=== PATIENT | female | born 1990 | race Caucasian/White ===

== ENCOUNTER 2016-10-20 11:16 | Emergency (ER) | payer OTHER ==
[2016-10-20 12:28] LABS: MEAN CORPUSCULAR HEMOGLOBIN 24.2 pg (27.0-33.0); MEAN CORPUSCULAR HGB CONC 32.9 g/dl (32.0-36.5); MEAN CORPUSCULAR VOLUME 73.7 fl (80.0-96.0); RED CELL DISTRIBUTION WIDTH 16.6 % (11.5-14.5); WHITE BLOOD COUNT 7.9 K/mm3 (4.0-10.0)
--- NOTE | 2016-10-20 12:45 | REP ---
Clinical: Acute cough . Comparison: None/. Technique: PA and lateral. Findings: The mediastinum and cardiac silhouette are normal. The lung duggan are clear and without acute consolidation, effusion, or pneumothorax. The skeletal structures are intact and normal. Impression: 1. No acute cardiopulmonary process. Signed by Juarez Franklin MD 10/20/2016 12:37 P
--- NOTE | 2016-10-20 13:13 | EDDOCDS ---
Physician Documentation [facility] Name: Dodie Granados Age: 25 yrs Sex: Female : 1990 Arrival Date: 10/20/2016 Time: 11:16 Bed PR Private MD: No Pcp Disposition: 10/20/16 12:47 Discharged to Home/Self Care. Impression: Acute bronchitis, Strain of muscle and tendon of back wall of thorax. - Condition is Stable. - Discharge Instructions: Acute Bronchitis, Back Pain, Adult. - Prescriptions for Ibuprofen 600 mg Oral Tablet - take 1 tablet by ORAL route every 6 hours As needed take with food; 30 tablet. Zithromax Z- Sergio 250 mg Oral Tablet - take 1 tablet by ORAL route as directed for 5 days Day 1- take two tablets once. Day 2, 3, 4 , 5 take one tablet once daily.; 6 tablet. benzonatate 200 mg Oral Capsule - take 1 capsule by ORAL route 3 times per day As needed; 30 capsule. Albuterol Sulfate 90 mcg/actuation Inhalation HFA Aerosol Inhaler - inhale 2 puff by INHALATION route every 4 hours As needed; 1 Inhaler. - Medication Reconciliation, Local Pharmacy Hours, Work Release Form - 1 day form. - [facility]; When: Call to arrange an appointment; Reason: Continuance of care. - Problem is an ongoing problem. - Symptoms are unchanged. Historical: - Allergies: No known drug Allergies; - Home Meds: 1. none - PMHx: none; - PSHx: cesearean section x 3; - Social history: Smoking status: Patient states was never smoker of tobacco. No barriers to communication noted, The patient speaks fluent Kenyan, Speaks appropriately for age. - Family history: Not pertinent. - : The pt / caregiver states he / she is not on anticoagulants. Home medication list is obtained from the patient. - Exposure Risk Screening:: None identified. 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 3 in. (160.02 cm); Pain 6/10; 13:10 BP 128 / 82; Pulse 68; Resp 18; Temp 97.8(O); Pulse Ox 100% on R/A; Pain 7/10; jf3 11:18 Body Mass Index 37.55 (96.16 kg, 160.02 cm) cmb MDM: 12:00 Financial registration complete. lg 12:07 UA Ordered. EDMS 12:07 CBC Ordered. EDMS 12:07 Urine Culture Ordered. EDMS 12:07 Chest, 2 View (pa\E\lat) Ordered. EDMS 12:30 [facility] Payment Agreement was scanned into [employer] and attached to record. lg 12:43 UA Reviewed. ke 12:43 CBC Reviewed. ke Signatures: Dispatcher [employer] EDDolly Clifton, Reg Reg Paul Wasserman, RN RN Evaristo Whitfield, REAL ESTATE CONSULTANT REAL ESTATE CONSULTANT Toby Loaiza,RN RN jf3 The chart was reviewed and I authenticate all verbal orders and agree with the evaluation and treatment provided.Attachments: 12:30 [facility] Payment Agreement lg MTDD
--- NOTE | 2016-10-20 13:13 | EDDOCDS ---
Nurse's Notes [facility] Name: Dodie Granados Age: 25 yrs Sex: Female : 1990 Arrival Date: 10/20/2016 Time: 11:16 Bed PR Private MD: No Pcp Diagnosis: Acute bronchitis;Strain of muscle and tendon of back wall of thorax Presentation: 10/20 11:26 Presenting complaint: Patient states: right flank pain for the last week. started with dy mid-sternal chest pain that is worse with breathing, cough, or palpation. Acute neurological deficits are not present. Mechanism of Injury: No Mechanism of Injury. Adult Sepsis Screening: The patient does not have new or worsening altered mentation. Patient's respiratory rate is less than 22. Systolic blood pressure is greater than 100. Patient has a qSOFA score of 0- Negative Sepsis Screen. Suicide/Homicide risk assessment- the patient denies having any suicidal and/or homicidal ideations and does not present with any other emotional, behavioral or mental health complaints. Status: Patient is not a health services manager or dependent. Transition of care: patient was not received from another setting of care. 11:26 Acuity: CHI Level 4 dy 11:26 Method Of Arrival: Walkin/Carried/Asstd dy Triage Assessment: 11:28 General: Appears in no apparent distress. Pain: Location: right flank and chest. HIV dy screening NA for this visit Offered previously. Musculoskeletal: Circulation, motion, and sensation intact. 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 none - PMHx: none; - PSHx: cesearean section x 3; - Social history: Smoking status: Patient states was never smoker of tobacco. No barriers to communication noted, The patient speaks fluent Swazi, Speaks appropriately for age. - Family history: Not pertinent. - : The pt / caregiver states he / she is not on anticoagulants. Home medication list is obtained from the patient. - Exposure Risk Screening:: None identified. Screenin:10 Screening information is obtained from the patient. Fall risk: No risks identified. jf3 Assistance ADL's: requires no assistance with activities of daily living. Abuse/DV Screen: The patient / caregiver reports he/she is: not in a situation that causes fear, pain or injury. Nutritional screening: No deficits noted. Advance Directives: Currently, there is no health care proxy. home support is adequate. Assessment: 13:10 General: Appears ill, Behavior is cooperative. Pain: Location: posterior aspect of jf3 right lateral abdomen and anterior aspect of right lateral abdomen. Pain: Pain currently is 7 out of 10 on a pain scale. Neurological: Level of Consciousness is awake, alert, Oriented to person, place, time. Cardiovascular: Capillary refill < 3 seconds. Cardiovascular: Chest pain is denied. Respiratory: Airway is patent Respiratory effort is even, unlabored, Respiratory pattern is regular, symmetrical, Denies shortness of breath. Derm: Skin is normal. Vital Signs: 11:18 BP 142 / 77; Pulse 72; Resp 16; Temp 97.8(O); Pulse Ox 100% ; Weight 96.16 kg; Height 5 cmb ft. 3 in. (160.02 cm); Pain 6/10; 13:10 BP 128 / 82; Pulse 68; Resp 18; Temp 97.8(O); Pulse Ox 100% on R/A; Pain 7/10; jf3 11:18 Body Mass Index 37.55 (96.16 kg, 160.02 cm) cmb Vitals: 11:18 Log In Time: October 20, 2016 at 11:16. cmb ED Course: 11:17 Patient visited by Suzi Schmidt. cmb 11:17 Patient moved to Waiting cmb 11:18 Mya Carranza is Private Physician. cmb 11:18 No Pcp is Private Physician. cmb 11:19 Patient moved to Pre RCE cmb 11:27 Triage Initiated dy 11:51 Patient moved to Triage 3 jf3 11:59 [facility] 11:59 Patient visited by Evaristo Crowley FNP. ke 11:59 Patient visited by Evaristo Crowley FNP. ke 12:17 Patient moved to TR4 jf3 12:21 Patient visited by Toby Mora RN. jf3 12:21 CBC Sent. jf3 12:21 Urine Culture Sent. jf3 12:21 UA Sent. jf3 12:21 Labs drawn. (by ED staff). Sent per order to lab. Urine collected. Clean catch jf3 specimen. Urine specimen sent to lab. 12:30 [facility] Payment Agreement was scanned into [employer] and attached to record. lg 12:46 [facility] is Referral Physician. ke 12:53 Patient moved to jf3 13:10 The patient / caregiver is instructed regarding the plan of care and ED course. jf3 13:10 No IV's were initiated during this patient's visit. No procedures done that require jf3 assistance. Order Results: Lab Order: UA; SPEC'M 10/20/16 12:12 Test: APPEARANCE, URINE; Value: HAZY; Range: CLEAR; Status: F Test: COLOR, URINE; Value: YELLOW; Range: YELLOW; Status: F Test: PH,URINE; Value: 5.0; Range: 5.0-9.0; Units: UNITS; Status: F Test: SPECIFIC GRAVITY URINE AUTO; Value: 1.024; Range: 1.002-1.035; Status: F Test: PROTEIN, URINE AUTO; Value: NEGATIVE; Range: NEGATIVE; Units: mg/dL; Status: F Test: GLUCOSE, URINE (UA) AUTO; Value: NEGATIVE; Range: NEGATIVE; Units: mg/dL; Status: F Test: KETONE, URINE AUTO; Value: NEGATIVE; Range: NEGATIVE; Units: mg/dL; Status: F Test: UROBILINOGEN, URINE AUTO; Value: 0.2; Range: 0.0-2.0; Units: mg/dL; Status: F Test: BILIRUBIN, URINE AUTO; Value: NEGATIVE; Range: NEGATIVE; Status: F Test: NITRITE, URINE AUTO; Value: NEGATIVE; Range: NEGATIVE; Status: F Test: LEUKOCYTE ESTERASE, URINE AUTO; Value: NEGATIVE; Range: NEGATIVE; Status: F Test: BLOOD, URINE BLOOD; Value: 1+; Range: NEGATIVE; Abnormal: Above high normal; Status: F Test: WBC, URINE AUTO; Value: 3; Range: 0-3; Units: /HPF; Status: F Test: RBC, URINE AUTO; Value: 3; Range: 0-3; Units: /HPF; Status: F Test: BACTERIA, URINE AUTO; Value: NEGATIVE; Range: NEGATIVE; Status: F Test: SQUAMOUS EPITHELIAL CELL UR AU; Value: 1; Range: 0-6; Units: /HPF; Status: F Test: MUCUS, URINE; Value: SMALL; Range: NEGATIVE; Status: F Test: HYALINE CAST, URINE AUTO; Value: 0; Range: 0-1; Units: /LPF; Status: F Lab Order: CBC; SPEC'M 10/20/16 12:12 Test: WHITE BLOOD COUNT; Value: 7.9; Range: 4.0-10.0; Units: K/mm3; Status: F Test: RED BLOOD COUNT; Value: 4.35; Range: 4.00-5.40; Units: M/mm3; Status: F Test: HEMOGLOBIN; Value: 10.5; Range: 12.0-16.0; Abnormal: Below low normal; Units: g/dl; Status: F Test: HEMATOCRIT; Value: 32.0; Range: 36.0-47.0; Abnormal: Below low normal; Units: %; Status: F Test: MEAN CORPUSCULAR VOLUME; Value: 73.7; Range: 80.0-96.0; Abnormal: Below low normal; Units: fl; Status: F Test: MEAN CORPUSCULAR HEMOGLOBIN; Value: 24.2; Range: 27.0-33.0; Abnormal: Below low normal; Units: pg; Status: F Test: MEAN CORPUSCULAR HGB CONC; Value: 32.9; Range: 32.0-36.5; Units: g/dl; Status: F Test: RED CELL DISTRIBUTION WIDTH; Value: 16.6; Range: 11.5-14.5; Abnormal: Above high normal; Units: %; Status: F Test: PLATELET COUNT, AUTOMATED; Value: 346; Range: 150-450; Units: k/mm3; Status: F Outcome: 12:47 Discharge ordered by Provider. ke 13:12 Discharge Assessment: Patient awake, alert and oriented x 3. No cognitive and/or jf3 functional deficits noted. Patient verbalized understanding of disposition instructions. patient administered narcotics - no. The following High Risk Discharge criteria are identified: None. Discharged to home ambulatory. Condition: stable. Discharge instructions given to patient, Instructed on discharge instructions, follow up and referral plans. medication usage, Demonstrated understanding of instructions, medications, Pt was receptive of discharge instructions/ teaching. No special radiology studies were completed. Property :Personal belongings accompany Pt. 13:12 Patient left the ED. jf3 Signatures: Dolly Caicedo Reg Reg lg Youngs, David RN RN Evaristo Whitfield, PREPARER SAMPLES AND REPAIRS PREPARER SAMPLES AND REPAIRS Suzi Horvath cmb Toby Mora,RN RN jf3 MTDD
--- NOTE | 2016-10-22 14:13 | EDDOCDS ---
Physician Documentation [facility] Name: Dodie Granados Age: 25 yrs Sex: Female : 1990 Arrival Date: 10/20/2016 Time: 11:16 Bed PR Private MD: No Pcp Disposition: 10/20/16 12:47 Discharged to Home/Self Care. Impression: Acute bronchitis, Strain of muscle and tendon of back wall of thorax. - Condition is Stable. - Discharge Instructions: Acute Bronchitis, Back Pain, Adult. - Prescriptions for Ibuprofen 600 mg Oral Tablet - take 1 tablet by ORAL route every 6 hours As needed take with food; 30 tablet. Zithromax Z- Sergio 250 mg Oral Tablet - take 1 tablet by ORAL route as directed for 5 days Day 1- take two tablets once. Day 2, 3, 4 , 5 take one tablet once daily.; 6 tablet. benzonatate 200 mg Oral Capsule - take 1 capsule by ORAL route 3 times per day As needed; 30 capsule. Albuterol Sulfate 90 mcg/actuation Inhalation HFA Aerosol Inhaler - inhale 2 puff by INHALATION route every 4 hours As needed; 1 Inhaler. - Medication Reconciliation, Local Pharmacy Hours, Work Release Form - 1 day form. - [facility]; When: Call to arrange an appointment; Reason: Continuance of care. - Problem is an ongoing problem. - Symptoms are unchanged. Historical: - Allergies: No known drug Allergies; - Home Meds: 1. none - PMHx: none; - PSHx: cesearean section x 3; - Social history: Smoking status: Patient states was never smoker of tobacco. No barriers to communication noted, The patient speaks fluent Tajik, Speaks appropriately for age. - Family history: Not pertinent. - : The pt / caregiver states he / she is not on anticoagulants. Home medication list is obtained from the patient. - Exposure Risk Screening:: None identified. 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 3 in. (160.02 cm); Pain 6/10; 13:10 BP 128 / 82; Pulse 68; Resp 18; Temp 97.8(O); Pulse Ox 100% on R/A; Pain 7/10; jf3 11:18 Body Mass Index 37.55 (96.16 kg, 160.02 cm) cmb MDM: 12:00 Financial registration complete. lg 12:07 UA Ordered. EDMS 12:07 CBC Ordered. EDMS 12:07 Urine Culture Ordered. EDMS 12:07 Chest, 2 View (pa\E\lat) Ordered. EDMS 12:30 [facility] Payment Agreement was scanned into [employer] and attached to record. lg 12:43 UA Reviewed. ke 12:43 CBC Reviewed. ke 15:22 T-Sheet-- Draft Copy was scanned into [employer] and attached to record. gb Signatures: Dispatcher [employer] EDMS Tawny Prabhakar, Reg Reg gb Dolly Caicedo, Reg Reg lg Paul Saeed, RN Evaristo Curry, PARAEDUCATOR PARAEDUCATOR Toby Loaiza,RN RN jf3 The chart was reviewed and I authenticate all verbal orders and agree with the evaluation and treatment provided.Attachments: 12:30 [facility] Payment Agreement lg 15:22 T-Sheet-- Draft Copy gb Chart Complete MTDD
--- NOTE | 2016-10-22 14:13 | EDDOCDS ---
Physician Documentation [facility] Name: Dodie Granados Age: 25 yrs Sex: Female : 1990 Arrival Date: 10/20/2016 Time: 11:16 Bed PR Private MD: No Pcp Disposition: 10/20/16 12:47 Discharged to Home/Self Care. Impression: Acute bronchitis, Strain of muscle and tendon of back wall of thorax. - Condition is Stable. - Discharge Instructions: Acute Bronchitis, Back Pain, Adult. - Prescriptions for Ibuprofen 600 mg Oral Tablet - take 1 tablet by ORAL route every 6 hours As needed take with food; 30 tablet. Zithromax Z- Sergio 250 mg Oral Tablet - take 1 tablet by ORAL route as directed for 5 days Day 1- take two tablets once. Day 2, 3, 4 , 5 take one tablet once daily.; 6 tablet. benzonatate 200 mg Oral Capsule - take 1 capsule by ORAL route 3 times per day As needed; 30 capsule. Albuterol Sulfate 90 mcg/actuation Inhalation HFA Aerosol Inhaler - inhale 2 puff by INHALATION route every 4 hours As needed; 1 Inhaler. - Medication Reconciliation, Local Pharmacy Hours, Work Release Form - 1 day form. - Follow up: [facility]; When: Call to arrange an appointment; Reason: Continuance of care. - Problem is an ongoing problem. - Symptoms are unchanged. Historical: - Allergies: No known drug Allergies; - Home Meds: 1. none - PMHx: none; - PSHx: cesearean section x 3; - Social history: Smoking status: Patient states was never smoker of tobacco. No barriers to communication noted, The patient speaks fluent Tajik, Speaks appropriately for age. - Family history: Not pertinent. - : The pt / caregiver states he / she is not on anticoagulants. Home medication list is obtained from the patient. - Exposure Risk Screening:: None identified. 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 3 in. (160.02 cm); Pain 6/10; 13:10 BP 128 / 82; Pulse 68; Resp 18; Temp 97.8(O); Pulse Ox 100% on R/A; Pain 7/10; jf3 11:18 Body Mass Index 37.55 (96.16 kg, 160.02 cm) cmb MDM: 12:00 Financial registration complete. lg 12:07 UA Ordered. EDMS 12:07 CBC Ordered. EDMS 12:07 Urine Culture Ordered. EDMS 12:07 Chest, 2 View (pa\E\lat) Ordered. EDMS 12:30 [facility] Payment Agreement was scanned into [employer] and attached to record. lg 12:43 UA Reviewed. ke 12:43 CBC Reviewed. ke 15:22 T-Sheet-- Draft Copy was scanned into [employer] and attached to record. gb Signatures: Dispatcher [employer] EDMS Tawny Prabhakar, Reg Reg gb Dolly Caicedo, Reg Reg lg Paul Saeed, RN Evaristo Curry, BIG DATA ANALYTICS LEAD BIG DATA ANALYTICS LEAD Toby Loaiza,RN RN jf3 The chart was reviewed and I authenticate all verbal orders and agree with the evaluation and treatment provided.Attachments: 12:30 [place] Payment Agreement lg 15:22 T-Sheet-- Draft Copy gb Chart Complete MTDD
--- NOTE | 2016-10-22 14:13 | EDDOCDS ---
Nurse's Notes [facility] Name: Dodie Granados Age: 25 yrs Sex: Female : 1990 Arrival Date: 10/20/2016 Time: 11:16 Bed PR Private MD: No Pcp Diagnosis: Acute bronchitis;Strain of muscle and tendon of back wall of thorax Presentation: 10/20 11:26 Presenting complaint: Patient states: right flank pain for the last week. started with dy mid-sternal chest pain that is worse with breathing, cough, or palpation. Acute neurological deficits are not present. Mechanism of Injury: No Mechanism of Injury. Adult Sepsis Screening: The patient does not have new or worsening altered mentation. Patient's respiratory rate is less than 22. Systolic blood pressure is greater than 100. Patient has a qSOFA score of 0- Negative Sepsis Screen. Suicide/Homicide risk assessment- the patient denies having any suicidal and/or homicidal ideations and does not present with any other emotional, behavioral or mental health complaints. Status: Patient is not a transportation services representative or dependent. Transition of care: patient was not received from another setting of care. 11:26 Acuity: CHI Level 4 dy 11:26 Method Of Arrival: Walkin/Carried/Asstd dy Triage Assessment: 11:28 General: Appears in no apparent distress. Pain: Location: right flank and chest. HIV dy screening NA for this visit Offered previously. Musculoskeletal: Circulation, motion, and sensation intact. 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 none - PMHx: none; - PSHx: cesearean section x 3; - Social history: Smoking status: Patient states was never smoker of tobacco. No barriers to communication noted, The patient speaks fluent French, Speaks appropriately for age. - Family history: Not pertinent. - : The pt / caregiver states he / she is not on anticoagulants. Home medication list is obtained from the patient. - Exposure Risk Screening:: None identified. Screenin:10 Screening information is obtained from the patient. Fall risk: No risks identified. jf3 Assistance ADL's: requires no assistance with activities of daily living. Abuse/DV Screen: The patient / caregiver reports he/she is: not in a situation that causes fear, pain or injury. Nutritional screening: No deficits noted. Advance Directives: Currently, there is no health care proxy. home support is adequate. Assessment: 13:10 General: Appears ill, Behavior is cooperative. Pain: Location: posterior aspect of jf3 right lateral abdomen and anterior aspect of right lateral abdomen. Pain: Pain currently is 7 out of 10 on a pain scale. Neurological: Level of Consciousness is awake, alert, Oriented to person, place, time. Cardiovascular: Capillary refill < 3 seconds. Cardiovascular: Chest pain is denied. Respiratory: Airway is patent Respiratory effort is even, unlabored, Respiratory pattern is regular, symmetrical, Denies shortness of breath. Derm: Skin is normal. Vital Signs: 11:18 BP 142 / 77; Pulse 72; Resp 16; Temp 97.8(O); Pulse Ox 100% ; Weight 96.16 kg; Height 5 cmb ft. 3 in. (160.02 cm); Pain 6/10; 13:10 BP 128 / 82; Pulse 68; Resp 18; Temp 97.8(O); Pulse Ox 100% on R/A; Pain 7/10; jf3 11:18 Body Mass Index 37.55 (96.16 kg, 160.02 cm) cmb Vitals: 11:18 Log In Time: October 20, 2016 at 11:16. cmb ED Course: 11:17 Patient visited by Suzi Schmidt. cmb 11:17 Patient moved to Waiting cmb 11:18 Mya Carranza is Private Physician. cmb 11:18 No Pcp is Private Physician. cmb 11:19 Patient moved to Pre RCE cmb 11:27 Triage Initiated dy 11:51 Patient moved to Triage 3 jf3 11:59 [facility] ke 11:59 Patient visited by Evaristo Crowley FNP. ke 11:59 Patient visited by Evaristo Crowley FNP. ke 12:17 Patient moved to TR4 jf3 12:21 Patient visited by Toby Mora RN. jf3 12:21 CBC Sent. jf3 12:21 Urine Culture Sent. jf3 12:21 UA Sent. jf3 12:21 Labs drawn. (by ED staff). Sent per order to lab. Urine collected. Clean catch jf3 specimen. Urine specimen sent to lab. 12:30 [facility] Payment Agreement was scanned into [employer] and attached to record. lg 12:46 [facility] is Referral Physician. ke 12:53 Patient moved to jf3 13:10 The patient / caregiver is instructed regarding the plan of care and ED course. jf3 13:10 No IV's were initiated during this patient's visit. No procedures done that require jf3 assistance. 13:15 Chest, 2 View (pa\E\lat) Returned. EDMS 15:22 T-Sheet-- Draft Copy was scanned into [employer] and attached to record. gb Order Results: Lab Order: UA; SPEC'M 10/20/16 12:12 Test: APPEARANCE, URINE; Value: HAZY; Range: CLEAR; Status: F Test: COLOR, URINE; Value: YELLOW; Range: YELLOW; Status: F Test: PH,URINE; Value: 5.0; Range: 5.0-9.0; Units: UNITS; Status: F Test: SPECIFIC GRAVITY URINE AUTO; Value: 1.024; Range: 1.002-1.035; Status: F Test: PROTEIN, URINE AUTO; Value: NEGATIVE; Range: NEGATIVE; Units: mg/dL; Status: F Test: GLUCOSE, URINE (UA) AUTO; Value: NEGATIVE; Range: NEGATIVE; Units: mg/dL; Status: F Test: KETONE, URINE AUTO; Value: NEGATIVE; Range: NEGATIVE; Units: mg/dL; Status: F Test: UROBILINOGEN, URINE AUTO; Value: 0.2; Range: 0.0-2.0; Units: mg/dL; Status: F Test: BILIRUBIN, URINE AUTO; Value: NEGATIVE; Range: NEGATIVE; Status: F Test: NITRITE, URINE AUTO; Value: NEGATIVE; Range: NEGATIVE; Status: F Test: LEUKOCYTE ESTERASE, URINE AUTO; Value: NEGATIVE; Range: NEGATIVE; Status: F Test: BLOOD, URINE BLOOD; Value: 1+; Range: NEGATIVE; Abnormal: Above high normal; Status: F Test: WBC, URINE AUTO; Value: 3; Range: 0-3; Units: /HPF; Status: F Test: RBC, URINE AUTO; Value: 3; Range: 0-3; Units: /HPF; Status: F Test: BACTERIA, URINE AUTO; Value: NEGATIVE; Range: NEGATIVE; Status: F Test: SQUAMOUS EPITHELIAL CELL UR AU; Value: 1; Range: 0-6; Units: /HPF; Status: F Test: MUCUS, URINE; Value: SMALL; Range: NEGATIVE; Status: F Test: HYALINE CAST, URINE AUTO; Value: 0; Range: 0-1; Units: /LPF; Status: F Lab Order: Urine Culture; SPEC'M 10/20/16 12:12 Test: URINE CULTURE; Value: URINE CULTURE RESULT NO GROWTH CLINICAL SIGNIFICANCE 1 ORGANISM; Status: F Lab Order: CBC; SPEC'M 10/20/16 12:12 Test: WHITE BLOOD COUNT; Value: 7.9; Range: 4.0-10.0; Units: K/mm3; Status: F Test: RED BLOOD COUNT; Value: 4.35; Range: 4.00-5.40; Units: M/mm3; Status: F Test: HEMOGLOBIN; Value: 10.5; Range: 12.0-16.0; Abnormal: Below low normal; Units: g/dl; Status: F Test: HEMATOCRIT; Value: 32.0; Range: 36.0-47.0; Abnormal: Below low normal; Units: %; Status: F Test: MEAN CORPUSCULAR VOLUME; Value: 73.7; Range: 80.0-96.0; Abnormal: Below low normal; Units: fl; Status: F Test: MEAN CORPUSCULAR HEMOGLOBIN; Value: 24.2; Range: 27.0-33.0; Abnormal: Below low normal; Units: pg; Status: F Test: MEAN CORPUSCULAR HGB CONC; Value: 32.9; Range: 32.0-36.5; Units: g/dl; Status: F Test: RED CELL DISTRIBUTION WIDTH; Value: 16.6; Range: 11.5-14.5; Abnormal: Above high normal; Units: %; Status: F Test: PLATELET COUNT, AUTOMATED; Value: 346; Range: 150-450; Units: k/mm3; Status: F Radiology Order: Chest, 2 View (pa\E\lat) Test: Chest, 2 View (pa\E\lat) REASON FOR EXAMINATION: Cough; Clinical: Acute cough .; ; Comparison: None/.; ; Technique: PA and lateral.; ; Findings:; The mediastinum and cardiac silhouette are normal. The lung duggan are clear and; without acute consolidation, effusion, or pneumothorax. The skeletal structures; are intact and normal.; ; Impression:; 1. No acute cardiopulmonary process.; ; ; Signed by; Juarez Franklin MD 10/20/2016 12:37 P; Outcome: 12:47 Discharge ordered by Provider. lady 13:12 Discharge Assessment: Patient awake, alert and oriented x 3. No cognitive and/or jf3 functional deficits noted. Patient verbalized understanding of disposition instructions. patient administered narcotics - no. The following High Risk Discharge criteria are identified: None. Discharged to home ambulatory. Condition: stable. Discharge instructions given to patient, Instructed on discharge instructions, follow up and referral plans. medication usage, Demonstrated understanding of instructions, medications, Pt was receptive of discharge instructions/ teaching. No special radiology studies were completed. Property :Personal belongings accompany Pt. 13:12 Patient left the ED. jf3 Signatures: Dispatcher [employer] EDMS Tawny Prabhakar, Reg Reg gb Dolly Caicedo, Reg Reg lg Paul Saeed, RN RN Evaristo Whitfield, LEATHER PARTS MATCHER LEATHER PARTS MATCHER Suzi Horvath cmToby Moy,RN RN jf3 Chart Complete MTDD
== END 2016-10-20 13:12 | disposition home or self-care (01) ==
LOC: M ED 11:16
DX: J20.9 Acute bronchitis, unspecified (principal)

== ENCOUNTER → 2016-12-28 | Outpatient (CLI) | payer BC ==
[2016-12-28 16:57] LABS: BASO % 0.2 % (0.0-1.0); EOS # 0.2 K/mm3 (0.0-0.50); EOS % 2.1 % (0.0-3.0); LARGE UNSTAINED CELL # 0.1 K/mm3 (0.0-0.4); LYMPH # 1.5 K/mm3 (1.5-6.5); LYMPH % 17.1 % (24.0-44.0); MEAN CORPUSCULAR HEMOGLOBIN 24.3 pg (27.0-33.0); MEAN CORPUSCULAR HGB CONC 31.2 g/dl (32.0-36.5); MONO # 0.4 K/mm3 (0.0-0.8); MONO % 4.5 % (0.0-5.0); NEUTROPHILS # 6.4 K/mm3 (1.8-7.7); PLATELET COUNT, AUTOMATED 283 k/mm3 (150-450); RED CELL DISTRIBUTION WIDTH 14.8 % (11.5-14.5); WHITE BLOOD COUNT 8.6 K/mm3 (4.0-10.0)
[2016-12-29 12:54] LABS: CONTROL LINE INT CTR LINE PRESENT; HIV SCRN NEGATIVE (NEGATIVE); HIV SCRN1 NEGATIVE (NEGATIVE)
== END ==
LOC: M WUC 12:04
PROVIDERS: ATTEND Nurse Practitioner Women's Health
DX: Z11.3 Encounter for screening for infections with a predominantly sexual mode of transmission (principal)

== ENCOUNTER 2017-01-09 00:14 | Emergency (ER) | payer BC ==
[~2017-01-09] VITALS: Ht 160 cm; Wt 89.8 kg
[2017-01-09 00:18] VITALS: BP 147/90
--- NOTE | 2017-01-09 08:02 | REP ---
Clinical: Trauma. Technique: AP, lateral, bilateral oblique views left second through fourth digits. Findings: The osseous structures and joint spaces are intact and normal. There is no evidence for acute fracture or dislocation. Surrounding soft tissues are unremarkable. No subcutaneous emphysema or radiodense foreign body. Impression: No acute fracture or dislocation. Signed by Juarez Franklin MD 01/09/2017 07:54 A
== END 2017-01-09 01:49 | disposition home or self-care (01) ==
LOC: M ED 01:34
DX: S60.042A Contusion of left ring finger without damage to nail, initial encounter (principal); S60.052A Contusion of left little finger without damage to nail, initial encounter; W22.8XXA Striking against or struck by other objects, initial encounter; Y92.89 Other specified places as the place of occurrence of the external cause; Y93.89 Activity, other specified; Y99.0 Civilian activity done for income or pay

== ENCOUNTER → 2017-05-25 | Outpatient (REF) | payer BC, OTHER ==
[2017-05-25 18:42] LABS: ALBUMIN 3.8 GM/DL (3.2-5.2); ALBUMIN/GLOBULIN RATIO 0.93 (1.00-1.93); ALKALINE PHOSPHATASE 81 U/L (45-117); ALT/SGPT 38 U/L (12-78); ANION GAP 12 MEQ/L (8-16); AST/SGOT 19 U/L (15-37); BILIRUBIN,TOTAL 0.5 MG/DL (0.2-1.0); BLOOD UREA NITROGEN 16 MG/DL (7-18); CALCIUM LEVEL 8.7 MG/DL (8.5-10.1); CARBON DIOXIDE LEVEL 22 MEQ/L (21-32); CHLORIDE LEVEL 110 MEQ/L (98-107); CHOLESTEROL LEVEL 124 MG/DL (<200); GLOMERULAR FILTRATION RATE > 60.0 (>60); GLUCOSE, FASTING 90 MG/DL (70-105); POTASSIUM SERUM 4.5 MEQ/L (3.5-5.1); SODIUM LEVEL 144 MEQ/L (136-145); TOTAL PROTEIN 7.9 GM/DL (6.4-8.2); TRIGLYCERIDES LEVEL 45 MG/DL (<150)
[2017-05-25 18:58] LABS: ADD MANUAL DIFFER YES; MEAN CORPUSCULAR HEMOGLOBIN 27.1 pg (27.0-33.0); MEAN CORPUSCULAR HGB CONC 33.6 g/dl (32.0-36.5); MEAN CORPUSCULAR VOLUME 80.7 fl (80.0-96.0); PLATELET COUNT, AUTOMATED 294 k/mm3 (150-450); RED CELL DISTRIBUTION WIDTH 13.9 % (11.5-14.5); WHITE BLOOD COUNT 6.9 K/mm3 (4.0-10.0)
[2017-05-25 19:53] LABS: BANDS 2 % (< 11); EOSINOPHILS 10 % (0-5)
== END ==
LOC: M LAB REF 17:25
PROVIDERS: ATTEND Nurse Practitioner Family
DX: R63.4 Abnormal weight loss (principal); Z13.220 Encounter for screening for lipoid disorders; D64.9 Anemia, unspecified; F41.8 Other specified anxiety disorders

== ENCOUNTER → 2017-08-26 | Outpatient (REF) | payer OTHER, MEDICAID | LOC: M LAB REF 16:13 | PROVIDERS: ATTEND Family Medicine Addiction Medicine | DX: J02.8 Acute pharyngitis due to other specified organisms (principal) ==

== ENCOUNTER → 2017-11-03 | Outpatient (CLI) | payer OTHER, MEDICAID ==
[2017-11-03 19:02] LABS: ALBUMIN 4.3 GM/DL (3.2-5.2); ALBUMIN/GLOBULIN RATIO 1.02 (1.00-1.93); ALKALINE PHOSPHATASE 74 U/L (45-117); ALT/SGPT 20 U/L (12-78); ANION GAP 6 MEQ/L (8-16); AST/SGOT 11 U/L (7-37); BILIRUBIN,TOTAL 0.5 MG/DL (0.2-1.0); BLOOD UREA NITROGEN 11 MG/DL (7-18); CARBON DIOXIDE LEVEL 27 MEQ/L (21-32); CHLORIDE LEVEL 107 MEQ/L (98-107); CREATININE FOR GFR 0.64 MG/DL (0.55-1.02); GLOMERULAR FILTRATION RATE > 60.0 (>60); GLUCOSE, FASTING 90 MG/DL (70-100); POTASSIUM SERUM 4.2 MEQ/L (3.5-5.1); SODIUM LEVEL 140 MEQ/L (136-145); TOTAL PROTEIN 8.5 GM/DL (6.4-8.2)
[2017-11-03 20:27] LABS: BASO # 0.1 10^3/uL (0.0-0.2); BASO % 0.6 % (0.0-1.0); EOS # 0.3 10^3/uL (0.0-0.50); EOS % 3.1 % (0.0-3.0); HEMATOCRIT 38.1 % (36.0-47.0); HEMOGLOBIN 12.5 g/dl (12.0-16.0); IMMATURE GRANULOCYTE % 0.2 % (0-0); LYMPH # 3.1 10^3/uL (1.5-6.5); MEAN CORPUSCULAR HEMOGLOBIN 26.9 pg (27.0-33.0); MEAN CORPUSCULAR HGB CONC 32.8 g/dl (32.0-36.5); MEAN CORPUSCULAR VOLUME 81.9 fl (80.0-96.0); MONO # 0.5 10^3/uL (0.0-0.8); MONO % 5.4 % (0.0-5.0); NEUTROPHILS # 5.6 10^3/uL (1.8-7.7); NEUTROPHILS % 58.7 % (36.0-66.0); PLATELET COUNT, AUTOMATED 351 10^3/uL (150-450); RED BLOOD COUNT 4.65 10^6/uL (4.00-5.40); RED CELL DISTRIBUTION WIDTH 13.8 % (11.5-14.5); WHITE BLOOD COUNT 9.6 10^3/uL (4.0-10.0)
[2017-11-04 10:28] LABS: CONTROL LINE MONO INT CTR LINE PRESENT; MONO SCRN NEGATIVE (NEGATIVE)
== END ==
LOC: M LAB 17:26
DX: J02.8 Acute pharyngitis due to other specified organisms (principal)
CPT/HCPCS: 80053

== ENCOUNTER 2018-03-18 15:26 | Emergency (ER) | payer OTHER, MEDICAID | END 2018-03-18 16:53 | disposition home or self-care (01) | LOC: M ED 15:26 | DX: H66.91 Otitis media, unspecified, right ear (principal); J02.9 Acute pharyngitis, unspecified; Z20.828 Contact with and (suspected) exposure to other viral communicable diseases | CPT/HCPCS: 87880 ==

== ENCOUNTER 2018-04-06 19:47 | Emergency (ER) | payer OTHER ==
[2018-04-06 20:53] LABS: KETONE, URINE AUTO RFX NEGATIVE (NEGATIVE); LEUKOCYTE ESTERASE UR AUTO RFX NEGATIVE (NEGATIVE); MUCUS, URINE RFX SMALL (NEGATIVE); NITRITE, URINE AUTO RFX NEGATIVE (NEGATIVE); RBC, URINE AUTO RFX 4 /HPF (0-3); SPECIFIC GRAVITY UR AUTO RFX 1.028 (1.002-1.035); SQUAM EPITHELIAL CELL UR AURFX 2 /HPF (0-6); WBC, URINE AUTO RFX 0 /HPF (0-3)
[2018-04-07 02:25] LABS: BEDSIDE GLUCOSE 117 MG/DL (70-105)
== END 2018-04-06 21:48 | disposition home or self-care (01) ==
LOC: M ED 19:47
DX: N92.6 Irregular menstruation, unspecified (principal); R51 Headache; Z87.891 Personal history of nicotine dependence
CPT/HCPCS: 81001

== ENCOUNTER 2018-12-10 17:48 | Emergency (ER) | payer OTHER ==
[~2018-12-10] VITALS: Ht 160 cm; Wt 68.2 kg
[~2018-12-10 17:48] MED LIST: AMOX875T PO; MAGICMW SS
[2018-12-10 17:49] VITALS: BP 124/86
[2018-12-10] MEDS ORDERED: CYMB60CA3 PO (17:52)
[2018-12-10] MEDS ORDERED: ONDANSETRON 4 MG ORAL DISINTEGRATING TAB (Q0162 PER 1MG) PO ONE (18:15)
[2018-12-10] MEDS ORDERED: ACETAMINOPHEN 325 MG TAB PO ONE (18:15)
[2018-12-10 18:37] LABS: INFLUENZA A AMPLIFICATION POSITIVE (NEGATIVE); INFLUENZA B AMPLIFICATION NEGATIVE (NEGATIVE)
[2018-12-10] MEDS ORDERED: OSEL75CA PO (18:43)
[2018-12-10] MEDS ORDERED: ONDA4TAB6 PO (18:43)
[2018-12-10] MEDS ORDERED: OSELTAMIVIR PHOSPHATE 75 MG CAP (TAMIFLU) PO ONE (18:45)
== END 2018-12-10 18:58 | disposition home or self-care (01) ==
LOC: M ED 17:48
DX: J09.X9 Influenza due to identified novel influenza A virus with other manifestations (principal); F17.210 Nicotine dependence, cigarettes, uncomplicated; Z79.899 Other long term (current) drug therapy
CPT/HCPCS: 87502; 99283; Q0162

== ENCOUNTER → 2019-01-18 | Outpatient (REF) | payer OTHER ==
[~2019-01-18] MED LIST changes: +CYMB60CA3 PO; +ONDA4TAB6 PO; +OSEL75CA PO
[2019-01-19 06:29] LABS: HEPATITIS C VIRUS ABY INDEX 0.1 INDEX (<0.8); HIV 1&2 SCREEN CENTAUR NEGATIVE (NEGATIVE)
[2019-01-20 08:10] LABS: HSV TYPE II IgG SPECIFIC <0.91 index (0.00-0.90)
== END ==
LOC: M SFHCPLAZ 12:50
PROVIDERS: ATTEND Family Medicine
DX: Z20.2 Contact with and (suspected) exposure to infections with a predominantly sexual mode of transmission (principal)

== ENCOUNTER 2019-01-20 10:08 | Emergency (ER) | payer OTHER ==
[~2019-01-20] VITALS: Ht 160 cm; Wt 87.7 kg
[2019-01-20 10:53] LABS: URINE PREG TEST NEGATIVE (NEGATIVE)
[2019-01-20] MEDS ORDERED: metroNIDAZOLE (FLAGYL) 500 MG TAB PO ONE (11:30)
[2019-01-20 11:38] LABS: BILIRUBIN, URINE MANUAL NEGATIVE (NEGATIVE); GLUCOSE, URINE (UA) MANUAL NEGATIVE (NEGATIVE); KETONE, URINE MANUAL NEGATIVE (NEGATIVE); UROBILINOGEN, URINE MANUAL NORMAL (NORMAL)
[2019-01-20 11:48] LABS: SQUAMOUS EPITHELIAL CELL URINE SMALL AMOUNT /hpf (SMALL AMT); TRICHOMONAS, URINE MOD AMOUNT
[2019-01-20 11:49] LABS: BACTERIA, URINE SMALL AMOUNT
[2019-01-20] MEDS ORDERED: LIDOCAINE 1% SDV 5 ML VIAL DILUENT ONE (12:15)
[2019-01-20] MEDS ORDERED: AZITHROMYCIN 250 MG TAB PO ONE (12:15)
[2019-01-20] MEDS ORDERED: cefTRIAXone SOD 250 MG VIAL (J0696) IM ONE (12:15)
[2019-01-20 12:17] VITALS: BP 138/85
[2019-01-20 12:19] LABS: CHLAMYDIA DNA AMPLIFICATION NEGATIVE (NEGATIVE); GC DNA AMPLIFICATION NEGATIVE (NEGATIVE)
[2019-01-20 13:04] LABS: HYALINE CAST, URINE NONE SEEN /lpf (0-1)
== END 2019-01-20 12:42 | disposition home or self-care (01) ==
LOC: M ED 10:08
DX: A59.03 Trichomonal cystitis and urethritis (principal); N76.0 Acute vaginitis; Z72.0 Tobacco use; Z79.899 Other long term (current) drug therapy
CPT/HCPCS: 81000; 84703; 87086; 87210; 87491; 87591; 96372; 99284; J0696

== ENCOUNTER → 2019-01-29 | Outpatient (REF) | payer OTHER ==
[2019-01-30 11:32] LABS: CHLAMYDIA DNA AMPLIFICATION NEGATIVE (NEGATIVE); GC DNA AMPLIFICATION NEGATIVE (NEGATIVE)
== END ==
LOC: M SFHCPLAZ 09:47
PROVIDERS: ATTEND Family Medicine
DX: A59.9 Trichomoniasis, unspecified (principal)

== ENCOUNTER 2019-04-23 16:07 | Emergency (ER) | payer OTHER ==
[~2019-04-23] VITALS: Ht 160 cm; Wt 98.2 kg
[2019-04-23 17:00] LABS: BASO # 0.1 10^3/uL (0.0-0.2); BASO % 0.7 % (0.0-1.0); EOS # 0.4 10^3/uL (0.0-0.50); EOS % 4.5 % (0.0-3.0); HEMOGLOBIN 12.1 g/dl (12.0-15.5); LYMPH # 2.1 10^3/uL (1.5-6.5); LYMPH % 24.5 % (24.0-44.0); MEAN CORPUSCULAR HEMOGLOBIN 27.8 pg (27.0-33.0); MEAN CORPUSCULAR HGB CONC 32.7 g/dl (32.0-36.5); MEAN CORPUSCULAR VOLUME 85.1 fl (80.0-96.0); MONO # 0.7 10^3/uL (0.0-0.8); MONO % 7.7 % (0.0-5.0); NEUTROPHILS # 5.2 10^3/uL (1.8-7.7); NEUTROPHILS % 62.1 % (36.0-66.0); PLATELET COUNT, AUTOMATED 333 10^3/uL (150-450); RED BLOOD COUNT 4.35 10^6/uL (4.00-5.40); WHITE BLOOD COUNT 8.4 10^3/uL (4.0-10.0)
[2019-04-23 17:34] LABS: ALBUMIN 3.7 GM/DL (3.2-5.2); ALT/SGPT 38 U/L (12-78); BILIRUBIN,DIRECT < 0.1 MG/DL (0.0-0.2); BILIRUBIN,TOTAL 0.4 MG/DL (0.2-1.0); BLOOD UREA NITROGEN 13 MG/DL (7-18); CALCIUM LEVEL 9.4 MG/DL (8.5-10.1); CARBON DIOXIDE LEVEL 26 MEQ/L (21-32); CHLORIDE LEVEL 106 MEQ/L (98-107); CREATININE FOR GFR 0.68 MG/DL (0.55-1.30); GLOMERULAR FILTRATION RATE > 60.0 (>60); GLUCOSE, FASTING 90 MG/DL (70-100); LIPASE 119 U/L (73-393); POTASSIUM SERUM 4.5 MEQ/L (3.5-5.1); SODIUM LEVEL 139 MEQ/L (136-145); TOTAL PROTEIN 7.8 GM/DL (6.4-8.2)
[2019-04-23] MEDS ORDERED: KETOROLAC 30 MG/ML VIAL (J1885) IV ONE (18:15)
[2019-04-23] MEDS ORDERED: NS 1,000 ML IV ONE (18:15)
--- NOTE | 2019-04-23 19:19 | REPVR ---
EXAM: CT Abdomen and Pelvis Without Contrast EXAM DATE/TIME: 04/23/2019 6:08 PM CLINICAL HISTORY: 28 years old, female; Abdominal pain; Flank; Right; Additional info: R flank pain, R/O stone TECHNIQUE: Imaging protocol: Axial computed tomography images of the abdomen and pelvis without contrast. Coronal and sagittal reformatted images were created and reviewed. Radiation optimization: All CT scans at this facility use at least one of these dose optimization techniques: automated exposure control; mA and/or kV adjustment per patient size (includes targeted exams where dose is matched to clinical indication); or iterative reconstruction. COMPARISON: US OBS FOLL UP OR REPEAT EACH GES 01/15/2016 12:46 PM FINDINGS: Liver: Mild hepatomegaly. Gallbladder and bile ducts: No radiodense gallstones. No biliary ductal dilatation. Pancreas: Unremarkable. Spleen: Unremarkable. Adrenals: Unremarkable. Kidneys and ureters: Punctate nonobstructing left renal calculus. No hydronephrosis. Stomach and bowel: Moderate amount of retained stool in the colon. No obstruction. No bowel wall thickening. No pneumatosis. Appendix: Normal. Intraperitoneal space: No free fluid. No organized fluid collection. No free air. Vasculature: Unremarkable. No aneurysm. Lymph nodes: Small mesenteric lymph nodes, nonspecific in appearance. No pathologically enlarged lymph nodes. Bladder: Unremarkable. Reproductive: Unremarkable. Bones/joints: No acute osseous abnormality. Soft tissues: Diastases of the rectus abdominis musculature with a small associated fat containing umbilical hernia. IMPRESSION: 1. Limited noncontrast examination without CT evidence of acute intra-abdominal or pelvic pathology. 2. Additional findings, as above. Electronically signed by: Timi Balderas On 04/23/2019 19:19:13 PM
[2019-04-23 20:07] VITALS: BP 128/79
== END 2019-04-23 20:49 | disposition home or self-care (01) ==
LOC: M ED 16:07
DX: G44.209 Tension-type headache, unspecified, not intractable (principal); K59.00 Constipation, unspecified; N20.0 Calculus of kidney; K42.9 Umbilical hernia without obstruction or gangrene; D50.9 Iron deficiency anemia, unspecified; Z79.899 Other long term (current) drug therapy; F17.210 Nicotine dependence, cigarettes, uncomplicated
CPT/HCPCS: 74176; 80048; 80076; 81001; 83690; 84702; 85025; 96361; 96374; 99284; J1885

== ENCOUNTER 2019-05-19 09:54 | Emergency (ER) | payer OTHER ==
[~2019-05-19] VITALS: Ht 160 cm; Wt 96.4 kg
[2019-05-19] MEDS ORDERED: AMOXICILLIN (09:59)
[2019-05-19 10:57] LABS: BASO # 0.1 10^3/uL (0.0-0.2); BASO % 0.6 % (0.0-1.0); EOS # 0.4 10^3/uL (0.0-0.50); EOS % 2.9 % (0.0-3.0); HEMATOCRIT 37.8 % (36.0-47.0); HEMOGLOBIN 12.5 g/dl (12.0-15.5); LYMPH # 2.2 10^3/uL (1.5-6.5); LYMPH % 17.4 % (24.0-44.0); MEAN CORPUSCULAR HEMOGLOBIN 27.7 pg (27.0-33.0); MEAN CORPUSCULAR HGB CONC 33.1 g/dl (32.0-36.5); MEAN CORPUSCULAR VOLUME 83.6 fl (80.0-96.0); MONO # 0.9 10^3/uL (0.0-0.8); NEUTROPHILS % 71.5 % (36.0-66.0); PLATELET COUNT, AUTOMATED 384 10^3/uL (150-450); RED BLOOD COUNT 4.52 10^6/uL (4.00-5.40); WHITE BLOOD COUNT 12.6 10^3/uL (4.0-10.0)
[2019-05-19] MEDS ORDERED: ONDANSETRON 4MG/2ML VIAL (J2405) IV ONE (11:00)
[2019-05-19 11:26] LABS: ALBUMIN 3.8 GM/DL (3.2-5.2); ALT/SGPT 28 U/L (12-78); BILIRUBIN,DIRECT < 0.1 MG/DL (0.0-0.2); BILIRUBIN,TOTAL 0.3 MG/DL (0.2-1.0); BLOOD UREA NITROGEN 9 MG/DL (7-18); CALCIUM LEVEL 9.6 MG/DL (8.5-10.1); CARBON DIOXIDE LEVEL 28 MEQ/L (21-32); CHLORIDE LEVEL 107 MEQ/L (98-107); CREATININE FOR GFR 0.68 MG/DL (0.55-1.30); GLOMERULAR FILTRATION RATE > 60.0 (>60); GLUCOSE, FASTING 92 MG/DL (70-100); LIPASE 96 U/L (73-393); POTASSIUM SERUM 4.4 MEQ/L (3.5-5.1); SODIUM LEVEL 139 MEQ/L (136-145); TOTAL PROTEIN 8.4 GM/DL (6.4-8.2)
[2019-05-19] MEDS ORDERED: ZOFR4TAB16 PO (13:23)
[2019-05-19 14:13] VITALS: BP 130/85
== END 2019-05-19 13:56 | disposition home or self-care (01) ==
LOC: M ED 09:54
DX: R11.10 Vomiting, unspecified (principal); R19.7 Diarrhea, unspecified; Z79.899 Other long term (current) drug therapy; F17.210 Nicotine dependence, cigarettes, uncomplicated
CPT/HCPCS: 80048; 80076; 83690; 84702; 85025; 96374; 99284; J2405

== ENCOUNTER → 2019-06-19 | Outpatient (REF) | payer OTHER ==
[~2019-06-19] MED LIST changes: +AMOXICILLIN; +ZOFR4TAB16 PO
[2019-06-19 13:33] LABS: FREE T4 0.91 NG/DL (0.76-1.46); THYROID STIMULATING HORMONE 1.2 uIU/ML (0.358-3.740)
== END ==
LOC: M SFHCPLAZ 10:39
PROVIDERS: ATTEND Family Medicine
DX: R68.89 Other general symptoms and signs (principal)

== ENCOUNTER → 2019-07-12 | Outpatient (REF) | payer OTHER ==
[2019-07-12 13:41] LABS: BASO # 0.1 10^3/uL (0.0-0.2); BASO % 0.8 % (0.0-1.0); EOS # 0.4 10^3/uL (0.0-0.5); EOS % 4.4 % (0.0-3.0); HEMATOCRIT 36.6 % (36.0-47.0); HEMOGLOBIN 12.2 g/dl (12.0-15.5); LYMPH % 25.2 % (24.0-44.0); MEAN CORPUSCULAR HEMOGLOBIN 28.5 pg (27.0-33.0); MEAN CORPUSCULAR HGB CONC 33.3 g/dl (32.0-36.5); MEAN CORPUSCULAR VOLUME 85.5 fl (80.0-96.0); MONO # 0.6 10^3/uL (0.0-0.8); MONO % 7.4 % (0.0-5.0); NEUTROPHILS # 4.9 10^3/uL (1.5-8.5); NEUTROPHILS % 61.7 % (36.0-66.0); PLATELET COUNT, AUTOMATED 347 10^3/uL (150-450); RED BLOOD COUNT 4.28 10^6/uL (4.00-5.40); WHITE BLOOD COUNT 7.9 10^3/uL (4.0-10.0)
[2019-07-12 14:07] LABS: BLOOD UREA NITROGEN 14 MG/DL (7-18); CALCIUM LEVEL 9.4 MG/DL (8.5-10.1); CARBON DIOXIDE LEVEL 31 MEQ/L (21-32); CHLORIDE LEVEL 100 MEQ/L (98-107); CREATININE FOR GFR 0.64 MG/DL (0.55-1.30); FERRITIN 13 NG/ML (8-252); GLOMERULAR FILTRATION RATE > 60.0 (>60); GLUCOSE, FASTING 72 MG/DL (70-100); IRON (FE) 70 UG/DL (50-170); MAGNESIUM LEVEL 1.9 MG/DL (1.8-2.4); PERCENT SATURATION 18.4 % (13.2-45.0); PHOSPHORUS LEVEL 4.2 MG/DL (2.5-4.9); SODIUM LEVEL 138 MEQ/L (136-145); TOTAL IRON BINDING CAPACITY 381 UG/DL (250-450)
== END ==
LOC: M SFHCPLAZ 11:32
PROVIDERS: ATTEND Family Medicine
DX: R53.83 Other fatigue (principal); G47.10 Hypersomnia, unspecified

== ENCOUNTER → 2019-09-12 | Outpatient (CLI) | payer OTHER ==
--- NOTE | 2019-09-12 10:53 | REP ---
Clinical: Right knee pain Technique: AP, lateral, bilateral oblique and sunrise views right knee . Findings: The osseous structures and joint spaces are intact and normal. There is no evidence for acute fracture or dislocation. No joint effusion is appreciated. Surrounding soft tissues are unremarkable. No subcutaneous emphysema or radiodense foreign body. Impression: Normal examination. No acute fracture or dislocation. Electronically Signed by Juarez Franklin MD 09/12/2019 10:45 A
[2019-09-12 11:30] LABS: BLOOD UREA NITROGEN 11 MG/DL (7-18); CALCIUM LEVEL 9.2 MG/DL (8.5-10.1); CARBON DIOXIDE LEVEL 28 MEQ/L (21-32); CHLORIDE LEVEL 104 MEQ/L (98-107); CREATININE FOR GFR 0.68 MG/DL (0.55-1.30); GLOMERULAR FILTRATION RATE > 60.0 (>60); GLUCOSE, FASTING 94 MG/DL (70-100); POTASSIUM SERUM 4.2 MEQ/L (3.5-5.1); SODIUM LEVEL 140 MEQ/L (136-145)
[2019-09-12 11:31] LABS: ALBUMIN 3.6 GM/DL (3.2-5.2); ALT/SGPT 26 U/L (12-78); BILIRUBIN,TOTAL 0.7 MG/DL (0.2-1.0); TOTAL PROTEIN 7.8 GM/DL (6.4-8.2)
== END ==
LOC: M LAB 09:34
PROVIDERS: ATTEND Obstetrics & Gynecology
DX: M25.561 Pain in right knee (principal); Z13.1 Encounter for screening for diabetes mellitus

== ENCOUNTER → 2019-11-08 | Outpatient (CLI) | payer OTHER ==
--- NOTE | 2019-11-08 10:46 | REP ---
MRI RIGHT KNEE: TECHNIQUE: Axial proton density fat saturation, sagittal proton density T2 STIR, water excitation, coronal proton density, proton density fat saturation. Menisci are intact with no evidence of a meniscal tear. The cruciate and collateral ligaments are intact. The extensor mechanism is intact. No osteochondral defect is seen. There is some minimal marrow edema in the peripheral aspect of the medial tibial plateau, which is nonspecific. This could indicate a mild bone bruise. There is a mild to moderate joint effusion. No popliteal cyst is seen. Medial and lateral patellar retinacula are intact. IMPRESSION: No evidence of internal derangement. Possible mild bone bruise peripheral medial tibial plateau. Mild to moderate joint effusion. Electronically Signed by Adalberto Rosales MD 11/09/2019 11:22 A
== END ==
LOC: M RAD 09:10
PROVIDERS: ATTEND Obstetrics & Gynecology
DX: S63.241A Subluxation of distal interphalangeal joint of left index finger, initial encounter (principal); M25.461 Effusion, right knee; X58.XXXA Exposure to other specified factors, initial encounter; Y92.9 Unspecified place or not applicable

== ENCOUNTER → 2020-01-17 | Outpatient (REF) | payer OTHER | LOC: M SFHCPLAZ 13:06 | PROVIDERS: ATTEND Family Medicine | DX: H65.01 Acute serous otitis media, right ear (principal) ==

== ENCOUNTER 2020-03-27 22:00 | Emergency (ER) | payer OTHER ==
[~2020-03-27] VITALS: Ht 160 cm; Wt 106.5 kg
[2020-03-28 00:13] LABS: BASO % 0.3 % (0.0-1.0); EOS % 0.1 % (0.0-3.0); HEMATOCRIT 35.6 % (36.0-47.0); HEMOGLOBIN 11.3 g/dl (12.0-15.5); LYMPH # 1.8 10^3/uL (1.5-5.0); LYMPH % 12.5 % (24.0-44.0); MEAN CORPUSCULAR HEMOGLOBIN 25.3 pg (27.0-33.0); MEAN CORPUSCULAR HGB CONC 31.7 g/dl (32.0-36.5); MEAN CORPUSCULAR VOLUME 79.6 fl (80.0-96.0); MONO # 0.8 10^3/uL (0.0-0.8); MONO % 5.2 % (0.0-5.0); NEUTROPHILS # 11.6 10^3/uL (1.5-8.5); PLATELET COUNT, AUTOMATED 395 10^3/uL (150-450); RED BLOOD COUNT 4.47 10^6/uL (4.00-5.40); WHITE BLOOD COUNT 14.3 10^3/uL (4.0-10.0)
[2020-03-28 00:22] LABS: APPEARANCE, URINE HAZY (CLEAR); BACTERIA, URINE AUTO 1+ (NEGATIVE); BILIRUBIN, URINE AUTO NEGATIVE (NEGATIVE); BLOOD, URINE BLOOD 2+ (NEGATIVE); COLOR, URINE YELLOW (YELLOW); GLUCOSE, URINE (UA) AUTO NEGATIVE (NEGATIVE); KETONE, URINE AUTO TRACE mg/dL (NEGATIVE); LEUKOCYTE ESTERASE, URINE AUTO NEGATIVE (NEGATIVE); MUCUS, URINE SMALL (NEGATIVE); NITRITE, URINE AUTO NEGATIVE (NEGATIVE); PROTEIN, URINE AUTO 2+ mg/dL (NEGATIVE); RBC, URINE AUTO 23 /HPF (0-3); SPECIFIC GRAVITY URINE AUTO 1.029 (1.002-1.035); SQUAMOUS EPITHELIAL CELL UR AU 6 /HPF (0-6); UROBILINOGEN, URINE AUTO 0.2 mg/dL (0.0-2.0); WBC, URINE AUTO 1 /HPF (0-3)
[2020-03-28 00:33] LABS: HCG, SERUM QUALITATIVE NEGATIVE (NEGATIVE)
[2020-03-28 00:39] LABS: ALBUMIN 3.7 GM/DL (3.2-5.2); ALT/SGPT 41 U/L (12-78); BILIRUBIN,DIRECT < 0.1 MG/DL (0.0-0.2); BILIRUBIN,TOTAL 0.2 MG/DL (0.2-1.0); BLOOD UREA NITROGEN 14 MG/DL (7-18); CALCIUM LEVEL 9.6 MG/DL (8.5-10.1); CARBON DIOXIDE LEVEL 27 MEQ/L (21-32); CHLORIDE LEVEL 105 MEQ/L (98-107); CREATININE FOR GFR 0.69 MG/DL (0.55-1.30); GLOMERULAR FILTRATION RATE > 60.0 (>60); GLUCOSE, FASTING 96 MG/DL (70-100); LIPASE 79 U/L (73-393); POTASSIUM SERUM 4.4 MEQ/L (3.5-5.1); SODIUM LEVEL 137 MEQ/L (136-145); TOTAL PROTEIN 8.5 GM/DL (6.4-8.2)
--- NOTE | 2020-03-28 00:55 | REPVR ---
PROCEDURE INFORMATION: Exam: CT Abdomen And Pelvis Without Contrast Exam date and time: 03/28/2020 12:35 AM Age: 29 years old Clinical indication: Abdominal pain; Flank; Right; Additional info: R colic TECHNIQUE: Imaging protocol: Computed tomography of the abdomen and pelvis without contrast. Radiation optimization: All CT scans at this facility use at least one of these dose optimization techniques: automated exposure control; mA and/or kV adjustment per patient size (includes targeted exams where dose is matched to clinical indication); or iterative reconstruction. COMPARISON: CT ABD PELVIS W/O CONTRAST 04/23/2019 6:15 PM FINDINGS: Liver: Normal. No mass. Gallbladder and bile ducts: Normal. No calcified stones. No ductal dilation. Pancreas: Normal. No ductal dilation. Spleen: Normal. No splenomegaly. Adrenals: Normal. No mass. Kidneys and ureters: Normal. No hydronephrosis. Stomach and bowel: Unremarkable. No obstruction. No mucosal thickening. Appendix: No evidence of appendicitis. Intraperitoneal space: Unremarkable. No free air. No significant fluid collection. Vasculature: Unremarkable. No abdominal aortic aneurysm. Lymph nodes: Unremarkable. No enlarged lymph nodes. Bladder: Unremarkable as visualized. Reproductive: Prominent uterus. There is the cystic structure in the right adnexa measuring 22 x 21 mm may represent ovarian cyst, slightly more prominent than prior study. Left adnexa is unremarkable. This may be causing patient's pain, further evaluation with ultrasound is recommended. Bones/joints: Unremarkable. No acute fracture. Soft tissues: Diastasis of the rectus abdominus musculature with a small associated fat containing umbilical hernia, similar to previous study. IMPRESSION: Prominent uterus. There is the cystic structure in the right adnexa measuring 22 x 21 mm may represent ovarian cyst, slightly more prominent than prior study. Left adnexa is unremarkable. This may be causing patient's pain, further evaluation with ultrasound is recommended. Electronically signed by: Veronica Soto On 03/28/2020 00:55:06 AM
[2020-03-28] MEDS ORDERED: KETOROLAC 30 MG/ML 1ML VIAL IV ONE (01:15)
[2020-03-28 01:31] VITALS: BP 138/82
== END 2020-03-28 01:32 | disposition home or self-care (01) ==
LOC: M ED 22:00
DX: N83.291 Other ovarian cyst, right side (principal); F32.9 Major depressive disorder, single episode, unspecified; F17.200 Nicotine dependence, unspecified, uncomplicated
CPT/HCPCS: 74176; 80048; 80076; 81001; 83690; 84703; 85025; 96374; 99284; J1885

== ENCOUNTER 2020-03-31 14:10 | Emergency (ER) | payer OTHER ==
[~2020-03-31] VITALS: Ht 160 cm; Wt 107.4 kg
[2020-03-31] MEDS ORDERED: PRED20TA PO (14:21)
[2020-03-31 15:58] LABS: BASO % 0.3 % (0.0-1.0); EOS # 0.3 10^3/uL (0.0-0.5); EOS % 1.6 % (0.0-3.0); HEMATOCRIT 33.7 % (36.0-47.0); HEMOGLOBIN 11.3 g/dl (12.0-15.5); LYMPH # 1.5 10^3/uL (1.5-5.0); LYMPH % 9.1 % (24.0-44.0); MEAN CORPUSCULAR HEMOGLOBIN 26.6 pg (27.0-33.0); MEAN CORPUSCULAR HGB CONC 33.5 g/dl (32.0-36.5); MEAN CORPUSCULAR VOLUME 79.3 fl (80.0-96.0); MONO # 1.1 10^3/uL (0.0-0.8); NEUTROPHILS % 81.6 % (36.0-66.0); PLATELET COUNT, AUTOMATED 313 10^3/uL (150-450); RED BLOOD COUNT 4.25 10^6/uL (4.00-5.40); WHITE BLOOD COUNT 15.9 10^3/uL (4.0-10.0)
[2020-03-31] MEDS ORDERED: ISOVUE-370 76% 100ML VIAL As Ordered ONE (16:00)
[2020-03-31] MEDS ORDERED: NS 1,000 ML IV ONE (16:00)
[2020-03-31] MEDS ORDERED: dexameTHASONE 20MG/5ML VIAL (J1100 PER 1MG) IV ONE (16:00)
[2020-03-31] MEDS ORDERED: KETOROLAC 30 MG/ML 1ML VIAL IV ONE (16:00)
[2020-03-31 16:19] LABS: MONO REFLEX EBV COMP NEGATIVE (NEGATIVE)
[2020-03-31] MEDS ORDERED: AMPICILLIN SOD/SULBACTAM SOD 3 GM in D5W MINI-BAG PLUS 100 ML IV ONE (18:00)
[2020-03-31] MEDS ORDERED: AZIT500T5 PO (18:21)
[2020-03-31 18:41] VITALS: BP 141/71
--- NOTE | 2020-04-01 04:55 | REP ---
SOFT TISSUE CT STUDY OF THE NECK WITH IV CONTRAST: HISTORY: Pain and swelling times [address] weeks[address] Rule out abscess. CT CONTRAST DOSE: 75 mL of intravenous Isovue-[address] FINDINGS: Preliminary digital wood type finisher radiographs are unremarkable. The adenoidal and tonsillar tissue is somewhat prominent bilaterally. The tonsils meet each other in the midline. There is no evidence of tonsillar or peritonsillar abscess, however. Submandibular and parotid glands are normal and symmetric. Scattered normal sized anterior and posterior cervical lymph nodes are noted. There are enlarged lymph nodes in the anterior cervical chain bilaterally. The largest node on the left measures 14 mm in short axis dimension x 23 mm x 46 mm. The largest right anterior cervical lymph node measures 20 x 24 x 37 mm. Glottic and subglottic airway is unremarkable. Thyroid lobes are normal and symmetric. Incidental note is made of an aberrant right subclavian artery. No other vascular abnormality is observed. There is a minimal mucosal thickening in the ethmoid air cells. No other evidence of paranasal sinus disease. No bony destructive lesion is seen. IMPRESSION: 1. Incidental finding of aberrant right subclavian artery. 2. Bilateral anterior cervical lymphadenopathy with moderately enlarged anterior cervical lymph node, one on each side. Clinical, and possibly radiographic, followup is advised. 3. Symmetric prominence of the tonsillar soft tissues and prominent adenoidal soft tissues. No abscess is seen. Electronically Signed by George Rhodes MD 04/01/2020 11:15 A
[2020-04-02 15:07] LABS: EBV VIRAL CAPSID AG IgM <36.0 U/mL (0.0-35.9)
== END 2020-03-31 18:42 | disposition home or self-care (01) ==
LOC: M ED 14:10
DX: J03.90 Acute tonsillitis, unspecified (principal); L04.0 Acute lymphadenitis of face, head and neck; Q27.8 Other specified congenital malformations of peripheral vascular system; Z79.899 Other long term (current) drug therapy
CPT/HCPCS: 70491; 80047; 84702; 85025; 86308; 86664; 86665; 96365; 96375; 99284; J1100; J1885; Q9967

== ENCOUNTER 2020-04-05 00:07 | Inpatient (IN) | payer OTHER ==
[~2020-04-05] VITALS: Ht 160 cm; Wt 107.1 kg
[~2020-04-05 00:07] MED LIST changes: +AZIT500T5 PO; +PRED20TA PO
[2020-04-05] MEDS ORDERED: dexameTHASONE 20MG/5ML VIAL (J1100 PER 1MG) IV ONE (01:00)
[2020-04-05] MEDS ORDERED: NS 1,000 ML IV ONE (01:00)
[2020-04-05] MEDS ORDERED: KETOROLAC 30 MG/ML 1ML VIAL IV ONE (01:00)
[2020-04-05] MEDS ORDERED: ISOVUE-370 76% 100ML VIAL As Ordered ONE (01:07)
[2020-04-05 01:10] LABS: BASO # 0.1 10^3/uL (0.0-0.2); BASO % 0.5 % (0.0-1.0); EOS # 0.4 10^3/uL (0.0-0.5); EOS % 2.1 % (0.0-3.0); HEMATOCRIT 33.1 % (36.0-47.0); HEMOGLOBIN 10.8 g/dl (12.0-15.5); LYMPH # 1.8 10^3/uL (1.5-5.0); LYMPH % 9.4 % (24.0-44.0); MEAN CORPUSCULAR HEMOGLOBIN 25.7 pg (27.0-33.0); MEAN CORPUSCULAR HGB CONC 32.6 g/dl (32.0-36.5); MEAN CORPUSCULAR VOLUME 78.6 fl (80.0-96.0); MONO # 1.3 10^3/uL (0.0-0.8); MONO % 6.7 % (0.0-5.0); NEUTROPHILS # 15.3 10^3/uL (1.5-8.5); NEUTROPHILS % 80.6 % (36.0-66.0); PLATELET COUNT, AUTOMATED 376 10^3/uL (150-450); RED BLOOD COUNT 4.21 10^6/uL (4.00-5.40)
--- NOTE | 2020-04-05 01:33 | REPVR ---
PROCEDURE INFORMATION: Exam: CT Neck With Contrast Exam date and time: 04/05/2020 12:59 AM Age: 29 years old Clinical indication: Throat pain; Additional info: Tonsil swelling pain, left worse R/O abscess TECHNIQUE: Imaging protocol: Computed tomography images of the neck with intravenous contrast. Radiation optimization: All CT scans at this facility use at least one of these dose optimization techniques: automated exposure control; mA and/or kV adjustment per patient size (includes targeted exams where dose is matched to clinical indication); or iterative reconstruction. Contrast material: ISO; Contrast volume: 75 ml; Contrast route: INTRAVENOUS (IV); COMPARISON: CT Neck with contrast 03/31/2020 4:06 PM FINDINGS: Nasopharynx: Mild prominence of the adenoids for age, right greater than left. Oropharynx: The tonsils are within normal limits. Hypopharynx: Unremarkable. Larynx: The epiglottis is normal. Retropharyngeal space: Unremarkable. Submandibular/Parotid glands: Enlarged left cervical node interposed between the submandibular gland and sternocleidomastoid measuring 1.6 x 2.2 x 4.2 cm. There is an enlarged right cervical node just deep to the mandibular angle measuring 1.9 x 2.4 x 3.4 cm. Thyroid: Normal. No enlarged or calcified nodules. Lymph nodes: Borderline right submandibular node and slightly prominent bilateral posterior cervical nodes deep to the proximal sternocleidomastoid muscles bilaterally. Trachea: Visualized trachea is unremarkable. Lungs: Unremarkable as visualized. Esophagus: There is an aberrant right subclavian artery passing posterior to the esophagus. Bones/joints: Unremarkable. No acute fracture. Soft tissues: No abscess is seen. IMPRESSION: 1. Mild prominence of the adenoids, right greater than left. The tonsils are within normal limits. No abscess is seen. 2. Mild bilateral cervical adenopathy. 3. 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 4. Otherwise negative CT soft tissue neck. Electronically signed by: Jordan Turk On 04/05/2020 01:32:45 AM
[2020-04-05 01:46] LABS: ERYTHROCYTE SEDIMENTATION RATE 76 mm/hr (0-20)
[2020-04-05] MEDS ORDERED: AMOX875T PO (02:18)
[2020-04-05] MEDS ORDERED: AZIT500T5 PO (02:18)
[2020-04-05] MEDS ORDERED: SODIUM CHLORIDE 0.9% 1000ML IV SCH (02:30)
[2020-04-05] MEDS ORDERED: ACETAMINOPHEN TAB 650MG DOSE (2X325MG) PO PRN (02:30)
--- NOTE | 2020-04-05 02:43 | HPEPDOC ---
General Date of Admission 04/05/20 Date of Service: Apr 05, 2020 Chief Complaint The patient is a 29-year-old female admitted with a reason for visit of Swollen Tonsils. Source: Patient Exam Limitations: No limitations Timing/Duration: Week(s) Severity: Severe History of Present Illness Patient is 29 years old female with past medical history of anxiety and depression presented to hospital with difficulties in swallowing and chills. Patient stated that she developed pain in swallowing 4 weeks ago, associated with chills since that time her symptoms became progressively worse for next 2 weeks. In urgent care patient received moxifloxacin, she had been treated with moxifloxacin for 2 weeks w/o relief. Strep throat test was negative. For past 5 days patient patient has been taken azithromycin w/o relief of pain in her throat. Today patient developed fever of 100.5, rigors. In ER patient was found to have leukocytosis of 19, sedimentation rate of 76, C-reactive protein 6.2. CT neck showed Enlarged left cervical node interposed between the submandibular gland and sternocleidomastoid measuring 1.6 x 2.2 x 4.2 cm. There is an enlarged right cervical node just deep to the mandibular angle measuring 1.9 x 2.4 x 3.4 cm. Home Medications Scheduled Amoxicillin (Amoxicillin) 875 Mg Tablet, 875 MG PO Q12H, (Reported) STARTED 03/26/2020 Azithromycin (Azithromycin) 500 Mg Tablet, 500 MG PO DAILY, (Reported) STARTED 03/31/2020 Duloxetine Hcl (Cymbalta) 60 Mg Cap, 60 MG PO DAILY, (Reported) Prednisone (Prednisone) 20 Mg Tablet, 20 MG PO DAILY, (Reported) Allergies Coded Allergies: No Known Allergies (Unverified , 01/09/17) Past Medical History Medical History Depression and anxiety Family History I personally reviewed family history and found not pertinent Social History * Smoker: Denies Alcohol: Denies Drugs: denies A-FIB/CHADSVASC A-FIB History Current/History of A-Fib/PAF?: No Current PO Anticoag Therapy: No Review of Systems Constitutional: Reports: Chills, Fever, Fatigue Eyes: Denies: Pain ENT: Reports: Other Symptoms (pain with swallowing) Skin: Denies: Rash, Lesions Pulmonary: Denies: Dyspnea Cardiovascular: Denies: Chest Pain Gastrointestinal: Denies: Nausea, Vomiting Genitourinary: Denies: Dysuria, Frequency Hematologic: Denies: Bruising Endocrine: Denies: Polydipsia, Polyphagia Musculoskeletal: Reports: Neck Pain Neurological: Denies: Weakness Psych: Reports: Mood Normal Physical Examination General Exam: Positive: Alert, Cooperative Eye Exam: Positive: PERRLA ENT Exam: Positive: Other ENT (enlarged tonsils with erythema bilaterally) Neck Exam: Positive: Supple (neck tender on palpation bilaterally), Lymphadenopathy (enlarged submandibular nodes); Negative: JVD Chest Exam: Positive: Clear to auscultation Heart Exam: Positive: Rate Normal Abdomen Exam: Positive: Normal bowel sounds Extremity Exam: Negative: Clubbing, Cyanosis Skin Exam: Positive: Nl turgor and temperature Neuro Exam: Positive: Strength at 5/5 X4 ext, Cranial Nerves 3-12 NL Psych Exam: Positive: Mental status NL Vital Signs Vital Signs Date Time Temp Pulse Resp B/P (MAP) Pulse Ox O2 Delivery O2 Flow Rate FiO2 04/05/20 00:59 04/05/20 00:07 98.0 105 18 97 Room Air Laboratory Data Labs 24H Laboratory Tests 2 04/05/20 00:57: Immature Granulocyte % (Auto) 0.7, Neutrophils (%) (Auto) 80.6H, Lymphocytes (%) (Auto) 9.4L, Monocytes (%) (Auto) 6.7H, Eosinophils (%) (Auto) 2.1, Basophils (%) (Auto) 0.5, Neutrophils # (Auto) 15.3H, Lymphocytes # (Auto) 1.8, Monocytes # (Auto) 1.3H, Eosinophils # (Auto) 0.4, Basophils # (Auto) 0.1, Nucleated Red Blood Cells % (auto) 0.0, Erythrocyte Sedimentation Rate 76H, C-Reactive Pro tein, Quantitative 6.21H 04/05/20 00:59: POC Glucose (Misc Panel) 106H, POC Sodium (Misc Panel) 135L, POC Potassium (Misc Panel) 3.9, POC Chloride (Misc Panel) 98, POC Total CO2 (Misc Panel) 23.0, POC Blood Urea Nitrogen (Misc Panel 6L, POC Ionized Calcium (Misc Panel) 4.6, POC Creatinine (Misc Panel) 0.6, POC Hematocrit (Misc Panel) 33.0L 04/05/20 01:04: POC Beta HCG, Quantitative < 5.0 CBC/BMP Laboratory Tests 04/05/20 00:57 Microbiology Microbiology 04/05/20 Group A Streptococcus Screen (ZACKERY), Received Pending Assessment/Plan Patient is 29 years old female with past medical history of anxiety and depression presented to hospital with difficulties in swallowing and chills. Patient stated that she developed pain in swallowing 4 weeks ago, associated with chills since that time her symptoms became progressively worse for next 2 weeks. In urgent care patient received moxifloxacin, she had been treated with moxifloxacin for 2 weeks w/o relief. Strep throat test was negative. For past 5 days patient patient has been taken azithromycin w/o relief of pain in her throat. Today patient developed fever of 100.5, rigors. In ER patient was found to have leukocytosis of 19, sedimentation rate of 76, C-reactive protein 6.2. CT neck showed Enlarged left cervical node interposed between the submandibular gland and sternocleidomastoid measuring 1.6 x 2.2 x 4.2 cm. There is an enlarged right cervical node just deep to the mandibular angle measuring 1.9 x 2.4 x 3.4 cm Problems (1) Sepsis Status: Acute Problem Text: Patient was febrile, tachycardic, has elevated white blood count Secondary to acute tonsillitis IV fluid I will start Unasyn IV 3 g every 6 hours Throat culture, strep screen, blood culture CT negative for abscess, patient does not have trouble with breathing (2) Acute tonsillitis Status: Acute Problem Text: There is concern for peritonsillar cellulitis given swollen neck and lymphadenopathy I talked to Dr. Zapata, he will see patient in am Plan / VTE VTE Prophylaxis Ordered?: Yes FILEMON MICHAELS DO Apr 05, 2020 02:42
[2020-04-05 03:03] LABS: HEMATOCRIT 31.1 % (36.0-47.0); HEMOGLOBIN 10.2 g/dl (12.0-15.5); MEAN CORPUSCULAR HEMOGLOBIN 25.6 pg (27.0-33.0); MEAN CORPUSCULAR HGB CONC 32.8 g/dl (32.0-36.5); MEAN CORPUSCULAR VOLUME 77.9 fl (80.0-96.0); PLATELET COUNT, AUTOMATED 353 10^3/uL (150-450); RED BLOOD COUNT 3.99 10^6/uL (4.00-5.40); WHITE BLOOD COUNT 17.4 10^3/uL (4.0-10.0)
[2020-04-05 03:24] LABS: ALBUMIN 3.1 GM/DL (3.2-5.2); ALT/SGPT 30 U/L (12-78); BILIRUBIN,TOTAL 0.5 MG/DL (0.2-1.0); BLOOD UREA NITROGEN 6 MG/DL (7-18); CALCIUM LEVEL 8.4 MG/DL (8.5-10.1); CARBON DIOXIDE LEVEL 26 MEQ/L (21-32); CHLORIDE LEVEL 104 MEQ/L (98-107); CREATININE FOR GFR 0.63 MG/DL (0.55-1.30); GLOMERULAR FILTRATION RATE > 60.0 (>60); GLUCOSE, FASTING 104 MG/DL (70-100); POTASSIUM SERUM 3.9 MEQ/L (3.5-5.1); SODIUM LEVEL 137 MEQ/L (136-145); TOTAL PROTEIN 7.1 GM/DL (6.4-8.2)
[2020-04-05 03:52] VITALS: BP 121/78
[2020-04-05] MEDS: NS 1,000 ML IV SCH ×2 (04:05→12:30)
[2020-04-05] MEDS: AMPICILLIN SOD/SULBACTAM SOD 3 GM in D5W MINI-BAG PLUS 100 ML IV SCH ×2 (05:04→09:36)
[2020-04-05 06:00] VITALS: BP 121/78
[2020-04-05] MEDS ORDERED: HEPARIN SOD (PORCINE) 5000UNITS/ML 1ML VIAL/SYRINGE SC SCH (09:00)
--- NOTE | 2020-04-05 11:12 | IPNPDOC ---
Text Note Date of Service The patient was seen on 04/05/20. NOTE Physical Examination General: Alert, Cooperative, NAD Eye: PERRLA ENT: enlarged tonsils with erythema bilaterally, no visible exudates Neck: tender on palpation bilaterally, enlarged submandibular lymph nodes, no masses palpated Chest: Clear to auscultation bilaterally Heart: RRR, no mrg Abdomen: Normal bowel sounds, soft, NTND Extremity: WWP, no LE edema Skin: Nl turgor and temperature, no lesions or rashes Neuro: Strength at 5/5 X4 ext, Cranial Nerves 3-12 NL Psych: Aox3 Laboratory Data WBC 17.4 hgb 10.2 platelets 353 na 137 K 3.9 Cr 0.63 Microbiology 04/05/20 Group A Streptococcus Screen (ZACKERY), rapid negative for GAS, pending culture 04/05/20 BCx NGTD Imaging: CT of neck: Nasopharynx: Mild prominence of the adenoids for age, right greater than left. Oropharynx: The tonsils are within normal limits. Hypopharynx: Unremarkable. Larynx: The epiglottis is normal. Retropharyngeal space: Unremarkable. Submandibular/Parotid glands: Enlarged left cervical node interposed between the submandibular gland and sternocleidomastoid measuring 1.6 x 2.2 x 4.2 cm. There is an enlarged right cervical node just deep to the mandibular angle measuring 1.9 x 2.4 x 3.4 cm. Thyroid: Normal. No enlarged or calcified nodules. Lymph nodes: Borderline right submandibular node and slightly prominent bilateral posterior cervical nodes deep to the proximal sternocleidomastoid muscles bilaterally. Trachea: Visualized trachea is unremarkable. Lungs: Unremarkable as visualized. Esophagus: There is an aberrant right subclavian artery passing posterior to the esophagus. Bones/joints: Unremarkable. No acute fracture. Soft tissues: No abscess is seen. IMPRESSION: 1. Mild prominence of the adenoids, right greater than left. The tonsils are within normal limits. No abscess is seen. 2. Mild bilateral cervical adenopathy. 3. 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 4. Otherwise negative CT soft tissue neck. Assessment: 29 years old W with past medical history of anxiety and depression who presented to hospital with difficulties with swallowing and chills for 4 weeks s/p moxifloxacin for 2 weeks w/o relief, and s/p 5d of azithro without relief, and later developed a fever to 100.5 with rigors, now found to have an left cervical node interposed between the submandibular gland and sternocleidomastoid measuring 1.6 x 2.2 x 4.2 cm, as well as an enlarged right cervical node just deep to the mandibular angle measuring 1.9 x 2.4 x 3.4 cm Plan: Sepsis 2/2 acute tonsillitis, with fever, tachycardia and leukocytosis -continue IV fluid -Unasyn IV 3 g every 6 hours -f/u Throat culture, strep screen was negative, f/u blood culture -CT was negative for abscess, patient does not have trouble with breathing or clearing own secretions -Overnight wax pourer spoke with Dr. Zapata (ENT) with c/f peritonsillar cellulitis given swollen neck and lymphadenopathy who will see the patient this AM -s/p decadron in the ED -mechanical soft diet DVT ppx: heparin SQ VS,Fishbone, I+O VS, Fishbone, I+O Laboratory Tests 04/05/20 00:57 04/05/20 02:37 04/05/20 02:48 Vital Signs Date Time Temp Pulse Resp B/P (MAP) Pulse Ox O2 Delivery O2 Flow Rate FiO2 04/05/20 06:00 99.3 88 17 121/78 (92) 97 Room Air I&O- Last 24 Hours up to 6 AM 04/05/20 06:00 Intake Total 1240 ml Balance 1240 ml STEPH LOW MD Apr 05, 2020 08:41
--- NOTE | 2020-04-05 14:34 | DS.PDOC ---
Discharge Summary General Date of Admission Apr 05, 2020 at 02:16 Date of Discharge 04/05/2020 Attending Physician: STEPH LOW MD Specialist/Consultants Involve: KELLEY ZAPATA MD Discharge Summary PROCEDURES PERFORMED DURING STAY: None ADMITTING DIAGNOSES: 1. Tonsillitis DISCHARGE DIAGNOSES: 1. Tonsillitis 2. Sepsis 3. Depression COMPLICATIONS/CHIEF COMPLAINT: Sepsis. HISTORY OF PRESENT ILLNESS: 29 years old W with past medical history of anxiety and depression who presented to hospital with difficulties in swallowing and chills. Patient stated that she developed pain with swallowing 4 weeks ago, associated with chills since that time and her symptoms became progressively worse over the next 2 weeks. She went to urgent care where she received moxifloxacin for 2 weeks w/o relief. Strep throat test was negative at that time. She then took 5 days of azithromycin w/o relief of pain in her throat and on the day of presentation, she developed fever to 100.5 and rigors that prompted her ED presentation. HOSPITAL COURSE: In the ED, she was found to have leukocytosis of 19, sedimentation rate of 76, C-reactive protein 6.2. CT of her neck showed an enlarged left cervical node interposed between the submandibular gland and sternocleidomastoid measuring 1.6 x 2.2 x 4.2 cm and an enlarged right cervical node just deep to the ma ndibular angle measuring 1.9 x 2.4 x 3.4 cm without evidence of an abscess or threatened airway. She was given decadron 8mg and started on unasyn with improvement in her symptoms by morning, at some soft breakfast and fevers had remitted. She was seen by ENT, Dr. Zapata who examined her with a laryngoscope and diagnosed her with tonsillitis and recommended antibiotic treatment and follow up in ENT clinic as an outpatient. She reports that she feels well enough to be discharged home with a plan for antibiotics for 10d with augmentin and prednisone 20mg for 5 days. DISCHARGE MEDICATIONS: Please see below. ALLERGIES: Please see below. PHYSICAL EXAMINATION ON DISCHARGE: VITAL SIGNS: Please see below. General: Alert, Cooperative, NAD Eye: PERRLA ENT: enlarged tonsils with mild erythema bilaterally, no visible exudates, uvula not deviated, airway patent Neck: tender on palpation bilaterally, enlarged submandibular lymph nodes, no masses palpated Chest: Clear to auscultation bilaterally Heart: RRR, no mrg Abdomen: Normal bowel sounds, soft, NTND Extremity: WWP, no LE edema Skin: Nl turgor and temperature, no lesions or rashes Neuro: Strength at 5/5 X4 ext, Cranial Nerves 3-12 NL Psych: Aox3 LABORATORY DATA: Please see below. Microbiology 04/05/20 Group A Streptococcus Screen (ZACKERY), rapid negative for GAS, pending culture 04/05/20 BCx NGTD Imaging: CT of neck: Nasopharynx: Mild prominence of the adenoids for age, right greater than left. Oropharynx: The tonsils are within normal limits. Hypopharynx: Unremarkable. Larynx: The epiglottis is normal. Retropharyngeal space: Unremarkable. Submandibular/Parotid glands: Enlarged left cervical node interposed between the submandibular gland and sternocleidomastoid measuring 1.6 x 2.2 x 4.2 cm. There is an enlarged right cervical node just deep to the mandibular angle measuring 1.9 x 2.4 x 3.4 cm. Thyroid: Normal. No enlarged or calcified nodules. Lymph nodes: Borderline right submandibular node and slightly prominent bilateral posterior cervical nodes deep to the proximal sternocleidomastoid muscles bilaterally. Trachea: Visualized trachea is unremarkable. Lungs: Unremarkable as visualized. Esophagus: There is an aberrant right subclavian artery passing posterior to the esophagus. Bones/joints: Unremarkable. No acute fracture. Soft tissues: No abscess is seen. IMPRESSION: 1. Mild prominence of the adenoids, right greater than left. The tonsils are within normal limits. No abscess is seen. 2. Mild bilateral cervical adenopathy. 3. 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 4. Otherwise negative CT soft tissue neck. PROGNOSIS: Good ACTIVITY: As tolerated. DIET: As tolerated, would maintain mechanical soft until you can tolerate regular diet DISCHARGE PLAN: 10d augmentin, continue pred 20 as recently prescribed. PCP follow up within 1 week and ENT follow up within 2 weeks DISPOSITION: home DISCHARGE INSTRUCTIONS: 1. 10d augmentin, continue pred 20 as recently prescribed. PCP follow up within 1 week and ENT follow up within 2 weeks ITEMS TO FOLLOWUP ON ON OUTPATIENT: 1. Tonsillitis DISCHARGE CONDITION: Stable TIME SPENT ON DISCHARGE: 34 minutes. Vital Signs/I&Os Vital Signs Date Time Temp Pulse Resp B/P (MAP) Pulse Ox O2 Delivery O2 Flow Rate FiO2 04/05/20 06:00 99.3 88 17 121/78 (92) 97 Room Air I&O- Last 24 Hours up to 6 AM 04/05/20 06:00 Intake Total 1240 ml Balance 1240 ml Laboratory Data Labs 24H Laboratory Tests 2 04/05/20 00:57: Immature Granulocyte % (Auto) 0.7, Neutrophils (%) (Auto) 80.6H, Lymphocytes (%) (Auto) 9.4L, Monocytes (%) (Auto) 6.7H, Eosinophils (%) (Auto) 2.1, Basophils (%) (Auto) 0.5, Neutrophils # (Auto) 15.3H, Lymphocytes # (Auto) 1.8, Monocytes # (Auto) 1.3H, Eosinophils # (Auto) 0.4, Basophils # (Auto) 0.1, Nucleated Red Blood Cells % (auto) 0.0, Erythrocyte Sedimentation Rate 76H, C-Reactive Protein, Quantitative 6.21H 04/05/20 00:59: POC Glucose (Misc Panel) 106H, POC Sodium (Misc Panel) 135L, POC Potassium (Misc Panel) 3.9, POC Chloride (Misc Panel) 98, POC Total CO2 (Misc Panel) 23.0, POC Blood Urea Nitrogen (Misc Panel 6L, POC Ionized Calcium (Misc Panel) 4.6, POC Creatinine (Misc Panel) 0.6, POC Hematocrit (Misc Panel) 33.0L 04/05/20 01:04: POC Beta HCG, Quantitative < 5.0 04/05/20 02:37: Nucleated Red Blood Cells % (auto) 0.0, Lactic Acid Level 0.8 04/05/20 02:48: Anion Gap 7L, Glomerular Filtration Rate > 60.0, Calcium Level 8.4L, Total Bilirubin 0.5, Aspartate Amino Transf (AST/SGOT) 16, Alanine Aminotransferase (ALT/SGPT) 30, Alkaline Phosphatase 87, Total Protein 7.1, Albumin 3.1L, Albumin/Globulin Ratio 0.8L CBC/BMP Laboratory Tests 04/05/20 00:57 04/05/20 02:37 04/05/20 02:48 Microbiology Microbiology 04/05/20 Group A Streptococcus Screen (ZACKERY) - Final, Resulted 04/05/20 Eye/Ear/Nose/Throat Culture, Resulted Pending 04/05/20 Blood Culture, Received Pending Discharge Medications Scheduled Amoxicillin (Amoxicillin) 875 Mg Tablet, 875 MG PO Q12H, (Reported) STARTED 03/26/2020 Azithromycin (Azithromycin) 500 Mg Tablet, 500 MG PO DAILY, (Reported) STARTED 03/31/2020 Duloxetine Hcl (Cymbalta) 60 Mg Cap, 60 MG PO DAILY, (Reported) Prednisone (Prednisone) 20 Mg Tablet, 20 MG PO DAILY, (Reported) Allergies Coded Allergies: No Known Allergies (Unverified , 01/09/17) STEPH LOW MD Apr 05, 2020 14:34
[2020-04-05] MEDS ORDERED: AUGM875T28 PO (14:35)
--- NOTE | 2020-04-06 07:28 | HPE ---
DATE OF ADMISSION: 04/05/2020 The patient presents with a history of a sore throat. The sore throat has been going on for the last week. She has had a sore throat off and on for a number of years. Sore throat is in the mid part of her neck on both sides and today worse on the left side. It is worse when she swallows. She has no breathing problems. She is able to swallow better today after being on medication. Otherwise, she is healthy. Examination shows that she has 4+ tonsillar hypertrophy and they are red with a bit of an exudate. I used a nasopharynx scope to exam the nose and nasopharynx, oropharynx, hypopharynx and larynx which were all normal. IMPRESSION: Patient presented with a history of sore throat, which is related to tonsillitis. The patient can be treated with oral medications when she is able to swallow better. I will see her in the office afterwards for consideration regarding tonsillectomy.
== END 2020-04-05 15:08 | disposition home or self-care (01) | DRG 720 ==
LOC: M ED 00:07 → M ED INP 02:16 → ENRESERV 02:52 → M MSPAV 03:52
PROVIDERS: ADMIT Internal Medicine; ATTEND Internal Medicine
DX: A41.9 Sepsis, unspecified organism (principal); F32.9 Major depressive disorder, single episode, unspecified; J03.90 Acute tonsillitis, unspecified; F41.9 Anxiety disorder, unspecified; Z79.899 Other long term (current) drug therapy

== ENCOUNTER → 2020-04-14 | Outpatient (REF) | payer OTHER ==
[~2020-04-14] MED LIST changes: +AUGM875T28 PO
[2020-04-14 17:57] LABS: BASO # 0.1 10^3/uL (0.0-0.2); BASO % 0.4 % (0.0-1.0); EOS # 0.3 10^3/uL (0.0-0.5); HEMATOCRIT 32.3 % (36.0-47.0); HEMOGLOBIN 10.3 g/dl (12.0-15.5); LYMPH # 1.4 10^3/uL (1.5-5.0); LYMPH % 9.3 % (24.0-44.0); MEAN CORPUSCULAR HEMOGLOBIN 25.6 pg (27.0-33.0); MEAN CORPUSCULAR HGB CONC 31.9 g/dl (32.0-36.5); MEAN CORPUSCULAR VOLUME 80.1 fl (80.0-96.0); MONO # 1.1 10^3/uL (0.0-0.8); MONO % 7.5 % (0.0-5.0); NEUTROPHILS # 12.1 10^3/uL (1.5-8.5); NEUTROPHILS % 80.1 % (36.0-66.0); PLATELET COUNT, AUTOMATED 355 10^3/uL (150-450); RED BLOOD COUNT 4.03 10^6/uL (4.00-5.40); WHITE BLOOD COUNT 15.2 10^3/uL (4.0-10.0)
[2020-04-14 18:04] LABS: C REACTIVE PROTEIN QUANTITATIV 8.08 MG/DL (0.00-0.30); PERCENT SATURATION 4.6 % (13.2-45.0)
[2020-04-16 15:22] LABS: EBV VIRAL CAPSID AG IgM <36.0 U/mL (0.0-35.9)
== END ==
LOC: M SFHCPLAZ 15:46
PROVIDERS: ATTEND Family Medicine
DX: J03.90 Acute tonsillitis, unspecified (principal); D50.9 Iron deficiency anemia, unspecified

== ENCOUNTER → 2020-04-15 | Outpatient (REF) | payer OTHER | LOC: M SFHCPLAZ 16:24 | PROVIDERS: ATTEND Family Medicine | DX: J03.90 Acute tonsillitis, unspecified (principal) ==

== ENCOUNTER → 2020-04-16 | Outpatient (REF) | payer OTHER | LOC: M SFHCPLAZ 13:17 | PROVIDERS: ATTEND Family Medicine | DX: J03.90 Acute tonsillitis, unspecified (principal) ==

== ENCOUNTER 2020-05-22 08:15 | Day surgery (SDC) | payer OTHER ==
[2020-05-22] MEDS ORDERED: LIDOCAINE W/EPINEPHRINE 1% 20ML VIAL As Ordered ONE (08:48)
[2020-05-22] MEDS ORDERED: propofoL 200 MG/20 ML VIAL As Ordered ONE ×2 (08:48→09:29)
[2020-05-22] MEDS ORDERED: ROCURONIUM BROMIDE 50 MG/5 ML VIAL As Ordered ONE (08:48)
[2020-05-22] MEDS ORDERED: fentaNYL 100 MCG/2 ML INJECTION (J3010) As Ordered ONE (08:52)
[2020-05-22] MEDS ORDERED: MIDAZOLAM INJ 2MG/2ML VIAL (J2250 PER 1MG) As Ordered ONE (08:52)
[2020-05-22] MEDS ORDERED: dexameTHASONE 4 MG/ML 1ML VIAL (J1100 PER 1MG) As Ordered ONE (09:22)
[2020-05-22] MEDS ORDERED: ONDANSETRON 4MG/2ML VIAL As Ordered ONE (09:22)
[2020-05-22] MEDS ORDERED: SUGAMMADEX SODIUM 500 MG/5 ML VIAL (BRIDION) As Ordered ONE (09:25)
[2020-05-22] MEDS ORDERED: ACETAMINOPHEN 1000MG 100ML IV BTL (OFIRMEV) (J0131 PER 10MG) As Ordered ONE (09:25)
[2020-05-22] MEDS ORDERED: HYDROmorphone HCL 2 MG/ML 1ML VIAL (J1170) As Ordered ONE (09:28)
--- NOTE | 2020-07-17 11:35 | RO ---
DATE OF OPERATION: May 22, 2020 PREOPERATIVE DIAGNOSIS: Chronic tonsillitis. POSTOPERATIVE DIAGNOSIS: Chronic tonsillitis. OPERATIVE PROCEDURE: Tonsillectomy. PROCEDURE IN DETAIL: Under general anesthesia, with the patient intubated, the __olmanle -d davis___ mouth gag was inserted. The tonsillar area was infiltrated with lidocaine and 0.5% Marcaine. Using the cautery, I dissected tonsil free from its bed on both sides. I cauterized superiorly and inferiorly on both sides where there were vessels. The patient tolerated the procedure well. ESTIMATED BLOOD LOSS: None. DISPOSITION: The patient was extubated and then transferred to the recovery room in excellent condition. SANKET
== END 2020-05-22 13:00 | disposition home or self-care (01) ==
LOC: M SDC 08:15
PROVIDERS: ATTEND Otolaryngology
DX: J35.01 Chronic tonsillitis (principal); G47.30 Sleep apnea, unspecified; Z79.899 Other long term (current) drug therapy; D64.9 Anemia, unspecified; F41.9 Anxiety disorder, unspecified; F32.9 Major depressive disorder, single episode, unspecified; F17.218 Nicotine dependence, cigarettes, with other nicotine-induced disorders
CPT/HCPCS: 42826; 88302; J0131; J1100; J1170; J2250; J2405; J3010

== ENCOUNTER 2020-07-24 21:10 | Emergency (ER) | payer OTHER ==
[~2020-07-24] VITALS: Ht 160 cm; Wt 105.4 kg
[2020-07-24 21:11] VITALS: BP 134/74
--- NOTE | 2020-07-24 22:19 | REPVR ---
PROCEDURE INFORMATION: Exam: XR Right Hand Exam date and time: 07/24/2020 9:49 PM Age: 29 years old Clinical indication: Pain; Hand; Right; Additional info: Injury TECHNIQUE: Imaging protocol: XR Right hand. Views: 3 or more views. COMPARISON: No relevant prior studies available. FINDINGS: Bones/joints: Normal. No fracture. Soft tissues: Normal. IMPRESSION: Negative right hand. Electronically signed by: Jordan Turk On 07/24/2020 22:19:34 PM
== END 2020-07-25 00:21 | disposition home or self-care (01) ==
LOC: M ED 21:10
DX: S60.221A Contusion of right hand, initial encounter (principal); W51.XXXA Accidental striking against or bumped into by another person, initial encounter; Y92.89 Other specified places as the place of occurrence of the external cause; Y93.89 Activity, other specified; Y99.9 Unspecified external cause status; F43.10 Post-traumatic stress disorder, unspecified; F41.9 Anxiety disorder, unspecified; Z87.440 Personal history of urinary (tract) infections; F17.200 Nicotine dependence, unspecified, uncomplicated; Z79.899 Other long term (current) drug therapy

== ENCOUNTER → 2020-11-01 | Outpatient (REF) | payer OTHER ==
[2020-11-01 19:29] LABS: CHLAMYDIA DNA AMPLIFICATION NEGATIVE (NEGATIVE); GC DNA AMPLIFICATION NEGATIVE (NEGATIVE)
== END ==
LOC: M LAB REF 17:33
PROVIDERS: ATTEND Physician Assistant Medical
DX: Z11.3 Encounter for screening for infections with a predominantly sexual mode of transmission (principal)

== ENCOUNTER 2021-03-10 15:21 | Inpatient (IN) | payer OTHER ==
[~2021-03-10] VITALS: Ht 160 cm; Wt 95.5 kg
[2021-03-10 16:46] LABS: BASO % 0.4 % (0.0-1.0); EOS # 0.1 10^3/uL (0.0-0.5); EOS % 1.1 % (0.0-3.0); HEMATOCRIT 38.8 % (36.0-47.0); HEMOGLOBIN 12.4 g/dl (12.0-15.5); LYMPH # 1.6 10^3/uL (1.5-5.0); LYMPH % 17.3 % (24.0-44.0); MEAN CORPUSCULAR VOLUME 81.3 fl (80.0-96.0); MONO # 0.7 10^3/uL (0.0-0.8); MONO % 7.1 % (2.0-8.0); NEUTROPHILS # 6.7 10^3/uL (1.5-8.5); NEUTROPHILS % 73.8 % (36.0-66.0); PLATELET COUNT, AUTOMATED 417 10^3/uL (150-450); RED BLOOD COUNT 4.77 10^6/uL (4.00-5.40); WHITE BLOOD COUNT 9.1 10^3/uL (4.0-10.0)
[2021-03-10 17:12] LABS: ALBUMIN 3.8 GM/DL (3.2-5.2); ALT/SGPT 638 U/L (12-78); BILIRUBIN,DIRECT 0.5 MG/DL (0.0-0.2); BLOOD UREA NITROGEN 9 MG/DL (7-18); CALCIUM LEVEL 9.9 MG/DL (8.5-10.1); CARBON DIOXIDE LEVEL 26 MEQ/L (21-32); CHLORIDE LEVEL 104 MEQ/L (98-107); CREATININE FOR GFR 0.64 MG/DL (0.55-1.30); GLOMERULAR FILTRATION RATE > 60.0 (>60); GLUCOSE, FASTING 101 MG/DL (70-100); LIPASE 78 U/L (73-393); POTASSIUM SERUM 4.3 MEQ/L (3.5-5.1); SODIUM LEVEL 138 MEQ/L (136-145); TOTAL PROTEIN 8.2 GM/DL (6.4-8.2)
[2021-03-10] MEDS ORDERED: KETOROLAC 30 MG/ML 1ML VIAL IV ONE (17:15)
[2021-03-10] MEDS ORDERED: ONDANSETRON 4MG/2ML VIAL IV ONE (17:15)
[2021-03-10] MEDS ORDERED: NS 1,000 ML IV ONE (17:15)
--- NOTE | 2021-03-10 18:04 | REP ---
INDICATION: ruq pain COMPARISON: None. TECHNIQUE: Real time dempsey scale ultrasound examination using curved array transducer. FINDINGS: Liver is hyperechoic suggesting fatty infiltration without focal hepatic lesion identified. Pancreas is incompletely evaluated due to interposed bowel gas. The gallbladder demonstrates wall thickening to 6 mm along with sludge and gallstones. Sonographic Whitehead sign was elicited. No biliary ductal dilatation is appreciated and the common bile duct measures 4 mm diameter. Right kidney is normal in reniform shape without hydronephrosis and measures 10.8 x 5.3 x 4.6 cm. No ascites in the visualized right upper quadrant. IMPRESSION: Sonographic findings to suggest acute cholecystitis. Correlation is recommended. Hepatosteatosis. <Electronically signed by Juarez Franklin > 03/10/21 1800
[2021-03-10] MEDS ORDERED: AMPICILLIN SOD/SULBACTAM SOD 3 GM in D5W MINI-BAG PLUS 100 ML IV ONE (18:10)
[2021-03-10 20:13] LABS: RSV AMPLIFICATION NEGATIVE (NEGATIVE)
[2021-03-10] MEDS: NS 1,000 ML IV SCH (20:19)
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
[2021-03-10] MEDS ORDERED: PANTOPRAZOLE 40MG VIAL (C9113 PER 1) IV SCH (21:00)
[2021-03-10] MEDS: MIRALAX *UNIT DOSE* 17GM PACKET PO SCH (21:00)
[2021-03-10] MEDS: SENOKOT S TAB PO SCH (21:00)
[2021-03-10] MEDS ORDERED: ONDANSETRON 4MG/2ML VIAL IV PRN (22:05)
[2021-03-10] MEDS ORDERED: MORPHINE 2 MG/ML 1ML VIAL (J2270) IV PRN (22:20)
[2021-03-10 22:23] VITALS: BP 135/88
[2021-03-10] MEDS ORDERED: CIPROFLOXACIN 400 MG in IV 1 EA IV SCH (23:00)
[2021-03-10] MEDS: NICOTINE 21MG/24HR 1 EA TRANSDERMAL TD SCH (23:00)
[2021-03-10] MEDS: metroNIDAZOLE 500 MG in IV 1 EA IV SCH (23:01)
[2021-03-10] MEDS: MORPHINE 4 MG/ML 1ML VIAL/SYRINGE (J2270) IV PRN (23:13)
[2021-03-11] MEDS ORDERED: AMPICILLIN SOD/SULBACTAM SOD 3 GM in D5W MINI-BAG PLUS 100 ML IV SCH ×2
[2021-03-11] MEDS: CIPROFLOXACIN 400 MG in IV 1 EA IV SCH ×3 (00:23→22:15)
[2021-03-11] MEDS: PANTOPRAZOLE 40MG VIAL (C9113 PER 1) IV SCH ×2 (01:30→08:41)
[2021-03-11] MEDS: metroNIDAZOLE 500 MG in IV 1 EA IV SCH ×3 (05:16→20:33)
[2021-03-11 06:00] VITALS: BP 117/75
[2021-03-11 07:27] LABS: HEMATOCRIT 31.7 % (36.0-47.0); MEAN CORPUSCULAR HEMOGLOBIN 26.4 pg (27.0-33.0); MEAN CORPUSCULAR HGB CONC 32.2 g/dl (32.0-36.5); MEAN CORPUSCULAR VOLUME 82.1 fl (80.0-96.0); PLATELET COUNT, AUTOMATED 322 10^3/uL (150-450); RED BLOOD COUNT 3.86 10^6/uL (4.00-5.40); WHITE BLOOD COUNT 7.5 10^3/uL (4.0-10.0)
[2021-03-11 07:28] LABS: HEMOGLOBIN 10.2 g/dl (12.0-15.5)
[2021-03-11] MEDS: NS 1,000 ML IV SCH ×2 (07:37→15:50)
[2021-03-11 08:14] LABS: ALT/SGPT 378 U/L (12-78); BILIRUBIN,TOTAL 0.9 MG/DL (0.2-1.0); BLOOD UREA NITROGEN 8 MG/DL (7-18); CALCIUM LEVEL 8.9 MG/DL (8.5-10.1); CARBON DIOXIDE LEVEL 27 MEQ/L (21-32); CHLORIDE LEVEL 107 MEQ/L (98-107); GLOMERULAR FILTRATION RATE > 60.0 (>60); GLUCOSE, FASTING 101 MG/DL (70-100); MAGNESIUM LEVEL 1.8 MG/DL (1.8-2.4); POTASSIUM SERUM 3.7 MEQ/L (3.5-5.1); SODIUM LEVEL 140 MEQ/L (136-145); TOTAL PROTEIN 6.7 GM/DL (6.4-8.2)
[2021-03-11] MEDS: MIRALAX *UNIT DOSE* 17GM PACKET PO SCH ×2 (08:39→20:34)
[2021-03-11] MEDS: SENOKOT S TAB PO SCH ×2 (08:40→20:34)
[2021-03-11] MEDS: ENOXAPARIN 40MG/0.4ML SYRINGE (J1650 PER 10MG) SC SCH (08:41)
--- NOTE | 2021-03-11 10:56 | IPNPDOC ---
Subjective Date Seen The patient was seen on 03/11/21. Subjective Chief Complaint/HPI Mrs. Acosta is a 30 year old female who presents with abdominal pain and found to have acute cholecystitis. This morning, her abdominal pain improved. She denied any chest pain or dyspnea. Objective Physical Examination General Exam: Positive: Alert, Cooperative Eye Exam: Positive: Conjunctiva & lids normal, EOMI ENT Exam: Positive: Atraumatic Neck Exam: Positive: Supple Chest Exam: Positive: Clear to auscultation, Normal air movement Heart Exam: Positive: Rate Normal, Normal S1, Normal S2 Abdomen Exam: Positive: Normal bowel sounds, Tenderness (RUQ and Epigastric region) Neuro Exam: Positive: Normal Speech, Cranial Nerves 3-12 NL Psych Exam: Positive: Mental status NL, Mood NL, Oriented x 3 Assessment /Plan Assessment Mrs. Acosta is a 30 year old female who presents with abdominal pain and found to have acute cholecystitis. US demonstrates gallbladder wall thickening with slud ge and gallstones. There were no biliary duct or CBD dilatation. AST and ALT were elevated, but lipase was not. General surgery following, recommendations appreciated. Plan/VTE VTE Prophylaxis Ordered?: Yes VTE Exclusion Mechanical Proph: N/A:VTE Prophy Ordered VTE Exclusion Pharmacological: N/A:VTE Prophy Ordered Plan 1. Acute cholecystitis -RUQ abdomen pain -Patient has US signs suggestive of acute cholecystitis -General surgery consulted, recommendations appreciated -Continue Ciprofloxacin and metronidazole day 1 2. Transaminitis -Possibly secondary to acute cholecystitis although lipase was within normal -Check hepatitis panel -US also suggests fatty infiltration of liver -Continue trending AST/ALT 3. Acute right otitis media -Continue antibiotics 4. Nicotine dependence -Nicotine patch 5. GERD -Pantoprazole 6. DVT ppx -Lovenox Disposition: Pending recommendations from general surgery VS, I&O, 24H, Fishbone Vital Signs/I&O Vital Signs Date Time Temp Pulse Resp B/P (MAP) Pulse Ox O2 Delivery O2 Flow Rate FiO2 03/11/21 06:00 97.8 85 18 117/75 (89) 98 Room Air I&O- Last 24 Hours up to 6 AM 03/11/21 06:00 Intake Total 1500 ml Output Total 200 ml Balance 1300 ml Laboratory Data 24H LABS Laboratory Tests 2 03/10/21 16:23: Immature Granulocyte % (Auto) 0.3, Neutrophils (%) (Auto) 73.8H, Lymphocytes (%) (Auto) 17.3L, Monocytes (%) (Auto) 7.1, Eosinophils (%) (Auto) 1.1, Basophils (%) (Auto) 0.4, Neutrophils # (Auto) 6.7, Lymphocytes # (Auto) 1.6, Monocytes # (Auto) 0.7, Eosinophils # (Auto) 0.1, Basophils # (Auto) 0.0, Nucleated Red Blood Cells % (auto) 0.0, Urine Color YELLOW, Urine Appearance CLEAR, Urine pH 8.0, Urine Specific [place] 1.016, Urine Protein 1+H, Urine Glucose (UA) NEGATIVE, Urine Ketones NEGATIVE, Urine Blood NEGATIVE, Urine Nitrite NEGATIVE, Urine Bilirubin NEGATIVE, Urine Urobilinogen 4.0H, Urine Leukocyte Esterase NEGATIVE, Urine WBC (Auto) 3, Urine RBC (Auto) 0, Urine Hyaline Casts (Auto) 0, Urine Bacteria (Auto) NEGATIVE, Urine Squamous Epithelial Cells 3, Urine Mucus (Auto) SMALL, Urine Sperm (Auto) , Anion Gap 8, Glomerular Filtration Rate > 60.0, Calcium Level 9.9, Total Bilirubin 1.0, Direct Bilirubin 0.5H, Aspartate Amino Transf (AST/SGOT) 990H, Alanine Aminotransferase (ALT/SGPT) 638H, Alkaline Phosphatase 189H, Total Protein 8.2, Albumin 3.8, Albumin/Globulin Ratio 0.9L, Lipase 78 03/10/21 16:34: POC Beta HCG, Quantitative < 5.0 03/10/21 19:16: Coronavirus (COVID-19)(PCR) NEGATIVE, Influenza Type A (RT-PCR) NEGATIVE, Influenza Type B (RT-PCR) NEGATIVE, Respiratory Syncytial Virus (PCR) NEGATIVE 03/11/21 06:55: Nucleated Red Blood Cells % (auto) 0.0, Anion Gap 6L, Glomerular Filtration Rate > 60.0, Calcium Level 8.9, Total Bilirubin 0.9, Aspartate Amino Transf (AST/SGOT) 268H, Alanine Aminotransferase (ALT/SGPT) 378H, Alkaline Phosphatase 142H, Total Protein 6.7, Albumin 3.0#L, Albumin/Globulin Ratio 0.8L, Lactic Acid Level 0.6, Magnesium Level 1.8, Procalcitonin 0.10 CBC/BMP Laboratory Tests 03/10/21 16:23 03/11/21 06:55 Microbiology Microbiology 03/10/21 Blood Culture, Received Pending JOSIE DOWNS DO Mar 11, 2021 10:56
[2021-03-11 14:00] VITALS: BP 116/72
[2021-03-11 14:47] LABS: HEPATITIS B SURFACE ANTIGEN NEGATIVE (NEGATIVE)
[2021-03-11 15:17] LABS: HEPATITIS B CORE ANTIBODY IGM NEGATIVE (NEGATIVE)
[2021-03-11 15:19] LABS: HEPATITIS A ANTIBODY IGM NEGATIVE (NEGATIVE)
[2021-03-11] MEDS: MORPHINE 4 MG/ML 1ML VIAL/SYRINGE (J2270) IV PRN (18:20)
[2021-03-11] MEDS: NICOTINE 21MG/24HR 1 EA TRANSDERMAL TD SCH (20:33)
[2021-03-11 22:00] VITALS: BP 105/69
[2021-03-12] VITALS (7 sets, daily range): BP systolic 140–180; BP diastolic 80–112
[2021-03-12] MEDS: NS 1,000 ML IV SCH ×3 (01:35→21:35)
[2021-03-12] MEDS: metroNIDAZOLE 500 MG in IV 1 EA IV SCH ×3 (05:21→21:06)
[2021-03-12 05:58] LABS: HEMATOCRIT 30.1 % (36.0-47.0); HEMOGLOBIN 9.5 g/dl (12.0-15.5); MEAN CORPUSCULAR HEMOGLOBIN 25.8 pg (27.0-33.0); MEAN CORPUSCULAR HGB CONC 31.6 g/dl (32.0-36.5); MEAN CORPUSCULAR VOLUME 81.8 fl (80.0-96.0); PLATELET COUNT, AUTOMATED 292 10^3/uL (150-450); RED BLOOD COUNT 3.68 10^6/uL (4.00-5.40); WHITE BLOOD COUNT 7.4 10^3/uL (4.0-10.0)
[2021-03-12 06:26] LABS: ALBUMIN 2.9 GM/DL (3.2-5.2); ALT/SGPT 248 U/L (12-78); BILIRUBIN,TOTAL 0.6 MG/DL (0.2-1.0); BLOOD UREA NITROGEN 4 MG/DL (7-18); CALCIUM LEVEL 8.3 MG/DL (8.5-10.1); CARBON DIOXIDE LEVEL 25 MEQ/L (21-32); CHLORIDE LEVEL 111 MEQ/L (98-107); GLOMERULAR FILTRATION RATE > 60.0 (>60); GLUCOSE, FASTING 93 MG/DL (70-100); SODIUM LEVEL 141 MEQ/L (136-145); TOTAL PROTEIN 6.2 GM/DL (6.4-8.2)
[2021-03-12] MEDS ORDERED: BUPIVACAINE HCL 0.25% 30ML VIAL As Ordered ONE (07:27)
[2021-03-12] MEDS ORDERED: LIDOCAINE 1% SDV 30ML VIAL As Ordered ONE (07:27)
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
[2021-03-12] MEDS: SENOKOT S TAB PO SCH ×2 (09:00→21:06)
[2021-03-12] MEDS: ENOXAPARIN 40MG/0.4ML SYRINGE (J1650 PER 10MG) SC SCH (09:00)
[2021-03-12] MEDS: MIRALAX *UNIT DOSE* 17GM PACKET PO SCH ×2 (09:00→21:05)
[2021-03-12] MEDS: PANTOPRAZOLE 40MG VIAL (C9113 PER 1) IV SCH (09:10)
[2021-03-12] MEDS: CIPROFLOXACIN 400 MG in IV 1 EA IV SCH ×2 (10:09→22:39)
[2021-03-12] MEDS ORDERED: SODIUM CHLORIDE 0.9% INJ 10 ML SYR IV ONE (10:20)
[2021-03-12] MEDS ORDERED: INDOCYANINE GREEN 25MG VIAL (IC-GREEN) IV ONE (10:20)
--- NOTE | 2021-03-12 10:33 | IPNPDOC ---
Text Note Date of Service The patient was seen on 03/12/21. NOTE Patient reports mild pain over RUQ last night, none this morning. Denies nausea. VS stable, afebrile On exam looks mildly anxious, otherwise comfortable lungs clear bilaterally regular heart rate and rhythm abdomen obese, soft, nondistended, mildly tender over RUQ area Impression and Plan Acute cholecystitis abnormal LFTs resolving - normal bilirubin, AST/ALT normalizing consistent with passage of lithiasis through biliary tree, preop imaging normal cbd, no biliary dilation Would proceed with cholecystectomy today. I again discussed how the procedure is performed and the risks including bile duct injury, small possibility of converting to open surgery. Consent obtained. VS,[place], I+O VS, [place], I+O Laboratory Tests 03/12/21 05:33 Vital Signs Date Time Temp Pulse Resp B/P (MAP) Pulse Ox O2 Delivery O2 Flow Rate FiO2 03/12/21 06:00 97.4 61 18 155/84 (107) 100 03/11/21 06:00 Room Air I&O- Last 24 Hours up to 6 AM 03/12/21 06:00 Intake Total 5470 ml Output Total 1850 ml Balance 3620 ml TR JIMÉNEZ MD Mar 12, 2021 10:32
[2021-03-12] MEDS ORDERED: propofoL 200 MG/20 ML VIAL As Ordered ONE (12:04)
[2021-03-12] MEDS ORDERED: fentaNYL 100 MCG/2 ML INJECTION (J3010) As Ordered ONE ×3 (12:04→14:33)
[2021-03-12] MEDS ORDERED: MIDAZOLAM INJ 2MG/2ML VIAL (J2250 PER 1MG) As Ordered ONE (12:04)
[2021-03-12] MEDS ORDERED: dexameTHASONE 4 MG/ML 1ML VIAL (J1100 PER 1MG) As Ordered ONE (12:05)
[2021-03-12] MEDS ORDERED: ONDANSETRON 4MG/2ML VIAL As Ordered ONE (12:05)
[2021-03-12] MEDS ORDERED: ROCURONIUM BROMIDE 50 MG/5 ML VIAL As Ordered ONE ×2 (12:05→13:32)
[2021-03-12] MEDS ORDERED: LIDOCAINE 2% 100MG/5ML SDV (FOR ANES.) As Ordered ONE (12:05)
[2021-03-12] MEDS ORDERED: metroNIDAZOLE/NACL 500MG(5MG/ML) 100ML BAG (S0030) As Ordered ONE (12:40)
[2021-03-12] MEDS ORDERED: SUGAMMADEX SODIUM 500 MG/5 ML VIAL (BRIDION) As Ordered ONE (13:42)
[2021-03-12] MEDS ORDERED: KETOROLAC 60MG 2ML VIAL As Ordered ONE (13:42)
[2021-03-12] MEDS ORDERED: ACETAMINOPHEN 1000MG 100ML IV BTL (OFIRMEV) (J0131 PER 10MG) As Ordered ONE (13:43)
--- NOTE | 2021-03-12 14:00 | IPNPDOC ---
Subjective Date Seen The patient was seen on 03/12/21. Subjective Chief Complaint/HPI Mrs. Acosta is a 30 year old female who presents with abdominal pain and found to have acute cholecystitis. She was seen early this morning. She is NPO for surgery later today. She denies any chest pain or dyspnea. Abdominal pain improved. Objective Physical Examination General Exam: Positive: Alert, Cooperative Eye Exam: Positive: Conjunctiva & lids normal, EOMI ENT Exam: Positive: Atraumatic Neck Exam: Positive: Supple Chest Exam: Positive: Clear to auscultation, Normal air movement Heart Exam: Positive: Rate Normal, Normal S1, Normal S2 Abdomen Exam: Positive: Normal bowel sounds, Tenderness (RUQ and Epigastric region) Neuro Exam: Positive: Normal Speech, Cranial Nerves 3-12 NL Psych Exam: Positive: Mental status NL, Mood NL, Oriented x 3 Assessment /Plan Assessment Mrs. Acosta is a 30 year old female who presents with abdominal pain and found to have acute cholecystitis. US demonstrates gallbladder wall thickening with sludge and gallstones. There were no biliary duct or CBD dilatation. AST and ALT were elevated and have been trending downwards. She may have just past a stone. General surgery following, recommendations appreciated. Planning for the OR later today. Plan/VTE VTE Prophylaxis Ordered?: Yes VTE Exclusion Mechanical Proph: N/A:VTE Prophy Ordered VTE Exclusion Pharmacological: N/A:VTE Prophy Ordered Plan 1. Acute cholecystitis -RUQ abdomen pain -Patient has US signs suggestive of acute cholecystitis -General surgery consulted, recommendations appreciated -Continue Ciprofloxacin and metronidazole day 2 2. Transaminitis -Secondary to acute cholecystitis -Hepatitis panel negative -US also suggests fatty infiltration of liver -Continue trending AST/ALT 3. Acute right otitis media -Continue antibiotics 4. Nicotine dependence -Nicotine patch 5. GERD -Pantoprazole 6. DVT ppx -Lovenox Disposition: Planning for the OR later today VS, I&O, 24H, Telma Vital Signs/I&O Vital Signs Date Time Temp Pulse Resp B/P (MAP) Pulse Ox O2 Delivery O2 Flow Rate FiO2 03/12/21 06:00 97.4 61 18 155/84 (107) 100 03/11/21 06:00 Room Air I&O- Last 24 Hours up to 6 AM 03/12/21 05:59 Intake Total 4970 ml Output Total 1550 ml Balance 3420 ml Laboratory Data 24H LABS Laboratory Tests 2 03/12/21 05:33: Nucleated Red Blood Cells % (auto) 0.0, Anion Gap 5L, Glomerular Filtration Rate > 60.0, Calcium Level 8.3L, Total Bilirubin 0.6, Aspartate Amino Transf (AST/SGOT) 81H, Alanine Aminotransferase (ALT/SGPT) 248H, Alkaline Phosphatase 128H, Total Protein 6.2L, Albumin 2.9L, Albumin/Globulin Ratio 0.9L CBC/BMP Laboratory Tests 03/12/21 05:33 Microbiology Microbiology 03/10/21 Blood Culture - Preliminary, Resulted No growth after 24 hours . All specim... JOSIE DOWNS DO Mar 12, 2021 14:00
[2021-03-12] MEDS ORDERED: PERCOCET 5MG/325MG TAB PO PRN (14:25)
[2021-03-12] MEDS ORDERED: KETOROLAC 30 MG/ML 1ML VIAL IV PRN (14:25)
[2021-03-12] MEDS ORDERED: LR 1,000 ML IV SCH ×2 (14:40→16:05)
[2021-03-12] MEDS ORDERED: HYDROMORPHONE HCL 0.5 MG/ 0.5 ML SYRINGE (J1170 PER 1) IV PRN ×2 (14:40→16:05)
[2021-03-12] MEDS ORDERED: oxyCODONE 5MG TAB PO PRN ×2 (14:40→16:05)
[2021-03-12] MEDS ORDERED: ONDANSETRON 4MG/2ML VIAL IV PRN ×2 (14:40→16:05)
[2021-03-12] MEDS: fentaNYL 100 MCG/2 ML INJECTION (J3010) IV PRN ×2 (14:56→15:10)
[2021-03-12] MEDS ORDERED: fentaNYL 100 MCG/2 ML INJECTION (J3010) IV PRN (16:05)
[2021-03-12] MEDS ORDERED: NITROGLYCERIN 0.4 MG SUBL TABLET SL PRN (17:30)
[2021-03-12] MEDS: PERCOCET 5MG/325MG TAB PO PRN (21:06)
[2021-03-12] MEDS: NICOTINE 21MG/24HR 1 EA TRANSDERMAL TD SCH (21:07)
[2021-03-13 02:00] VITALS: BP 132/88
[2021-03-13] MEDS: metroNIDAZOLE 500 MG in IV 1 EA IV SCH ×2 (04:55→13:04)
[2021-03-13 06:00] VITALS: BP 126/80
[2021-03-13 06:07] LABS: HEMATOCRIT 32.1 % (36.0-47.0); HEMOGLOBIN 10.5 g/dl (12.0-15.5); MEAN CORPUSCULAR HEMOGLOBIN 25.9 pg (27.0-33.0); MEAN CORPUSCULAR HGB CONC 32.7 g/dl (32.0-36.5); MEAN CORPUSCULAR VOLUME 79.3 fl (80.0-96.0); RED BLOOD COUNT 4.05 10^6/uL (4.00-5.40); WHITE BLOOD COUNT 10.9 10^3/uL (4.0-10.0)
[2021-03-13 06:12] LABS: PLATELET COUNT, AUTOMATED 400 10^3/uL (150-450)
[2021-03-13 06:33] LABS: ALBUMIN 3.5 GM/DL (3.2-5.2); ALT/SGPT 213 U/L (12-78); BILIRUBIN,TOTAL 0.5 MG/DL (0.2-1.0); BLOOD UREA NITROGEN 4 MG/DL (7-18); CALCIUM LEVEL 9.3 MG/DL (8.5-10.1); CARBON DIOXIDE LEVEL 25 MEQ/L (21-32); CHLORIDE LEVEL 105 MEQ/L (98-107); CREATININE FOR GFR 0.61 MG/DL (0.55-1.30); GLOMERULAR FILTRATION RATE > 60.0 (>60); GLUCOSE, FASTING 119 MG/DL (70-100); POTASSIUM SERUM 3.8 MEQ/L (3.5-5.1); SODIUM LEVEL 138 MEQ/L (136-145); TOTAL PROTEIN 7.4 GM/DL (6.4-8.2)
[2021-03-13] MEDS: PANTOPRAZOLE 40MG VIAL (C9113 PER 1) IV SCH (09:40)
[2021-03-13] MEDS: SENOKOT S TAB PO SCH (09:40)
[2021-03-13] MEDS: MIRALAX *UNIT DOSE* 17GM PACKET PO SCH (09:40)
[2021-03-13] MEDS: ENOXAPARIN 40MG/0.4ML SYRINGE (J1650 PER 10MG) SC SCH (09:40)
[2021-03-13] MEDS ORDERED: SENN-52 PO (10:03)
[2021-03-13] MEDS ORDERED: MIRA1POW3 PO (10:03)
[2021-03-13] MEDS: CIPROFLOXACIN 400 MG in IV 1 EA IV SCH (11:42)
[2021-03-13] MEDS: PERCOCET 5MG/325MG TAB PO PRN (13:10)
[2021-03-13] MEDS ORDERED: PERC5TAB12 PO ×2 (16:51→16:52)
--- NOTE | 2021-03-13 23:14 | DS.PDOC ---
Discharge Summary General Date of Admission Mar 10, 2021 Date of Discharge Mar 13, 2021 Specialist/Consultants [facility] General Surgery, Dr. Shankar Discharge Summary PROCEDURES PERFORMED DURING STAY: 1. Robotic assisted laparoscopic cholecystectomy by Dr. Shankar on 03/12/21 ADMITTING DIAGNOSES: 1. Acute cholecystitis 2. Transaminitis 3. Nicotine dependence 4. GERD DISCHARGE DIAGNOSES: 1. Acute cholecystitis 2. Transaminitis 3. Nicotine dependence 4. GERD COMPLICATIONS/CHIEF COMPLAINT: Cholecystitis. HISTORY OF PRESENT ILLNESS: Ms. Acosta is a 30 year-old female with significant PMH of irregular menstrual bleeding, nicotine dependence, obesity, who presents to [facility] ER with her reporting fatigue, nausea, vomiting, right earache and RUQ pain that spreads to her back. Patient reports pain started this morning and increasingly became worse as the day went on. She denies chest pain, shortness of breath. She had abdominal ultrasound which shows gallstones, ER provider consulted with Dr. Shankar, recommending patient admitted with IV antibiotics and repeat blood work in the morning due to her elevated LFT's. In reviewing patients laboratory results, her total white blood cell count 9.1, hemoglobin 12.4, hematocrit 38.8, platelet 417, absolute neutrophil 73.8 and CMP shows AST 990, ALT 638 and Alkaline Phosphatase 189. Ms. Acosta will be admitted to Medical-Surgical unit on IV antibiotics for fever, Acute Transaminitis, Acute Right Otitis Media and Acute Cholecystis revealed on abdominal US, under [facility] Hospitalist Services. HOSPITAL COURSE: General surgery evaluated patient and planning to take to the OR on 03/12/21. Until the surgery, patient was on ciprofloxacin and metronidazole. Patient did well after operation. She was able to tolerate a diet and passed gas. Otherwise, patient denied any sore throat. On day of discharge, patient felt well and felt ready for home. DISCHARGE MEDICATIONS: Please see below. ALLERGIES: Please see below. PHYSICAL EXAMINATION ON DISCHARGE: VITAL SIGNS: Please see below. GENERAL: Comfortable, in no apparent distress HEENT: Head normocephalic, atraumatic NECK: Supple CARDIOVASCULAR EXAMINATION: Regular rate and rhythm RESPIRATORY EXAMINATION: Lungs clear to auscultation bilaterally ABDOMINAL EXAMINATION: Soft, non-tender, normal bowel sounds EXTREMITIES: No pitting edema bilaterally SKIN: Warm and dry NEUROLOGICAL EXAMINATION: CN 3-12 grossly intact PSYCHIATRIC EXAMINATION: Normal mood and affect LABORATORY DATA: Please see below. IMAGING: Radiologist interpretation US gallbladder Sonographic findings to suggest acute cholecystitis. Correlation is recommended. Hepatosteatosis. PROGNOSIS: Good ACTIVITY: As tolerated. DIET: Low fat, low cholesterol DISCHARGE PLAN: Home DISPOSITION: 01 Home, Self-Care. DISCHARGE INSTRUCTIONS: 1. Follow up with PCP in 1 to 2 weeks 2. Follow up with General surgery in 2 weeks DISCHARGE CONDITION: Stable. Total time spent on discharge planning, discharge summary, and medication reconciliation: 40 minutes Vital Signs/I&Os Vital Signs Date Time Temp Pulse Resp B/P (MAP) Pulse Ox O2 Delivery O2 Flow Rate FiO2 03/13/21 14:02 18 Room Air 03/13/21 06:00 97.8 77 126/80 (95) 98 03/12/21 14:56 98.0 I&O- Last 24 Hours up to 6 AM 03/13/21 06:00 Intake Total 2625 ml Output Total 3770 ml Balance -1145 ml Laboratory Data Labs 24H Laboratory Tests 2 03/13/21 05:25: Nucleated Red Blood Cells % (auto) 0.0, Anion Gap 8, Glomerular Filtration Rate > 60.0, Calcium Level 9.3, Total Bilirubin 0.5, Aspartate Amino Transf (AST/SGOT) 56H, Alanine Aminotransferase (ALT/SGPT) 213H, Alkaline Phosphatase 144H, Total Protein 7.4, Albumin 3.5#, Albumin/Globulin Ratio 0.9L CBC/BMP Laboratory Tests 03/13/21 05:25 Microbiology Microbiology 03/10/21 Blood Culture - Preliminary, Resulted No Growth after 48 hours. All Specime... Discharge Medications Scheduled Duloxetine Hcl (Cymbalta) 60 Mg Cap, 60 MG PO DAILY, (Reported) Polyethylene Glycol 3350 (Miralax) 17 Gm Powd.pack, 1 PKT PO BID Sennosides/Docusate Sodium (Senna Plus Tablet) 1 Each Tablet, 1 TAB PO BID Scheduled PRN Oxycodone HCl/Acetaminophen (Percocet 5-325 mg Tablet) 1 Each Tablet, 1 TAB PO Q6HP PRN for pain Allergies Coded Allergies: latex (Verified Adverse Reaction, Mild, 03/12/21) JOSIE Wakefield DO Mar 13, 2021 23:14
--- NOTE | 2021-03-14 00:53 | ECGEPIP ---
[facility] Test Date: 2021-03-12 Pat Name: MARCELINO DUNN Department: Room: [place] [address] Gender: Female Heel Seam Rubber: WILFRED : 1990 Requested By: JOSIE Bernal Order Number: [id number] Reading MD: Bennett Prince Measurements Intervals [place] Rate: 71 P: 19 IN: 172 QRS: 35 QRSD: 88 T: 12 QT: 400 QTc: 434 Interpretive Statements Normal sinus rhythm T wave abnormality, consider anterior ischemia No prior tracing in the system Electronically Signed on 03-14-2021 0:53:20 EDT by Bennett Prince
--- NOTE | 2021-04-02 14:20 | ROOPDOC ---
[facility] Report Of Operation Report of Operation DATE OF PROCEDURE: 03/12/21 PREPROCEDURE DIAGNOSES: Acute Cholecystitis. POSTPROCEDURE DIAGNOSES: Cholelithiasis, acute cholecystitis PROCEDURE: Robotic assisted laparoscopic cholecystectomy with use of ICG for biliary tree identification. SURGEON: Tr Shankar MD DIESEL ENGINE OPERATOR: Melonie Erazo NP Ms. Erazo assisted me with placement of ports, management of the robotic instruments and adjustment of the robotic arms on the field while I was at the surgeon's console, extraction of the gallbladder and closure of the port sites. ANESTHESIA: General endotracheal anesthesia. ESTIMATED BLOOD LOSS: Approximately 20 mL. COMPLICATIONS: None. REMARKS: Patient is a 30-year-old female admitted for acute cholecystitis she presented with acute onset of right upper quadrant abdominal pain was found to have evidence for cholelithiasis and sonographic findings suggestive of acute cholecystitis. She had some mildly elevated liver function test but normal total bilirubin. This has slowly gone down.. PROCEDURE NOTE: Moderately distended mildly acutely inflamed gallbladder, large stone at the neck of the gallbladder but was free-floating. The gallbladder did opacify with firefly. Adequate visualization of the common hepatic duct, common bile duct and cystic duct.. DESCRIPTION OF PROCEDURE: Patient was receiving ciprofloxacin 400 mg IV q 12h and metronidazole 500 mg IV q 8h for cholecystitis. She received 2.5 mg of ICG was given IV in the preop area. She was brought to the operating room, laid supine on the table, compression boots placed for DVT prophylaxis. General endotracheal anesthesia started. His abdomen then prepped and draped in usual sterile fashion. Surgical timeout was performed prior to confirm right procedure, right patient identification and other necessary information prior to starting surgery. Entry into the abdomen done through an incision below and slightly to the left of the umbilical cleft. A Veress needle was inserted with a controlled fashion. CO2 insufflation started to pressure 15 mmHg. Using the same incision an 8 mm robotic trochar was placed under direct vision laparoscope. The area underneath the insertion site was inspected and no injury found. He was then placed on a 10 reverse Trendelenburg, tilted slightly towards the left side. Under direct vision I placed three more 8 mm trochars along a row level to the camera port site. A transversus abdominis plane block was then performed bilaterally using the lidocaine/marcaine mixture under laparoscopic guidance. 20 mLs of the mixture placed on each side. The da Bobby robot tower was then maneuvered in place and the trochars docked to the robot. After positioning the instruments inside of the abdomen, and scrubbed in to control of the camera and robotic instruments at the surgeon's console while my wardrobe assistant remains on the field. Operative findings: Liver appears moderately smooth in contour. Gallbladder is moderately distended, but relatively thin walled. On firefly, the gallbladder and liver lights up. The common hepatic duct, common bile duct and cystic duct is fully opacified on firefly including the junction of the cystic duct and the common bile duct. The fundus of the gallbladder was grabbed and elevated superiorly to expose the hepatocystic triangle. The course of the cystic duct and location of the cbd confirmed visually and with firefly. I then proceeded with dissection of the hepatocystic triangle with the aid of the firefly and ICG to identify the course of the cystic duct. The peritoneum overlying the area is opened up and dissected free both anteriorly and posteriorly to help with retraction of the gallbladder. The hepatocystic triangle was approached and dissected using hook cautery and firely visualization of the cystic duct. There was good illumination of the course of the cystic duct. The cystic duct was identified coming off from the neck of the gallbladder. This was circumferentially dissected. The cystic artery was identified in its usual position medially behind a hepatocystic lymph node of Calot. This was similarly circumferentially dissected off surrounding adipose tissue. We continued posterior dissection proximally at the neck of gallbladder to dissect the posterior wall of the gallbladder off the cystic plate until a critical view of safety was achieved whereby only the previously identified duct and artery coursing through the neck the gallbladder(photodocumentation done.) At this point the the cystic artery was most accessible and this was clipped 2 times and divided in between the hemlock clips. After again checking her anatomy and verifying with firely the course of thecystic duct and common bile duct, this was also clipped and divided with 2 clips remaining at the cystic duct stump. The rest of the gallbladder was then dissected free of the gallbladder bed using hook cautery. The gallbladder was then placed in an Endo Catch bag and retrieved outside through the rightmost port site without further enlargement of the port site. I closed the defect with 20V LOC in a mattress fashion. The clips and liver bed was inspected for bleeding and bile leakage and none found. The abdomen was deflated, The trochars undocked, the robot removed from the field. Rest of the skin incisions closed with 4-0 Monocryl in subcuticular fashion. Dermabond placed to cover the incisions.. Patient was awakened, extubated and brought to recovery room stable. TR SHANKAR MD Apr 02, 2021 14:20
== END 2021-03-13 17:20 | disposition home or self-care (01) | DRG 263 ==
LOC: M ED 15:21 → M ED INP 19:20 → ENRESERV 20:27 → M MSPAV 22:22 → OBSVTOIN 03-12 08:51
PROVIDERS: ADMIT Family Medicine; ATTEND Internal Medicine
PROC: 8E0W4CZ Robotic Assisted Procedure of Trunk Region, Percutaneous Endoscopic Approach (ICD-10-PCS; 2021-03-12)
PROC: 0FT44ZZ Resection of Gallbladder, Percutaneous Endoscopic Approach (ICD-10-PCS; principal; 2021-03-12 11:30)
DX: K80.62 Calculus of gallbladder and bile duct with acute cholecystitis without obstruction (principal); F32.9 Major depressive disorder, single episode, unspecified; N92.6 Irregular menstruation, unspecified; F17.210 Nicotine dependence, cigarettes, uncomplicated; E66.9 Obesity, unspecified; R74.01 Elevation of levels of liver transaminase levels; H66.91 Otitis media, unspecified, right ear; E86.0 Dehydration; J02.9 Acute pharyngitis, unspecified; Z79.899 Other long term (current) drug therapy; K21.9 Gastro-esophageal reflux disease without esophagitis; F41.9 Anxiety disorder, unspecified; Z91.040 Latex allergy status; Z68.37 Body mass index [BMI] 37.0-37.9, adult

== ENCOUNTER → 2021-03-24 | Outpatient (REF) | payer OTHER ==
[~2021-03-24] MED LIST changes: +MIRA1POW3 PO; +PERC5TAB12 PO; +SENN-52 PO
== END ==
LOC: M SFHCWAGY 13:16
PROVIDERS: ATTEND Nurse Practitioner Women's Health
DX: Z12.4 Encounter for screening for malignant neoplasm of cervix (principal)

== ENCOUNTER 2021-03-28 23:50 | Emergency (ER) | payer OTHER ==
[~2021-03-28] VITALS: Ht 160 cm; Wt 95.8 kg
[2021-03-28 23:51] VITALS: BP 158/93
== END 2021-03-29 05:40 | disposition left against medical advice (07) ==
LOC: M ED 23:50
DX: Z53.21 Procedure and treatment not carried out due to patient leaving prior to being seen by health care provider (principal)

== ENCOUNTER 2021-04-09 11:42 | Emergency (ER) | payer OTHER ==
[~2021-04-09] VITALS: Ht 160 cm; Wt 94.6 kg
--- NOTE | 2021-04-09 12:08 | REP ---
INDICATION: headache/neuro sx COMPARISON: None. TECHNIQUE: Axial noncontrast images from the skull base to the vertex with coronal reformations. This CT examination was performed using the following dose reduction techniques: Automated exposure control, adjustment of mA and/or kv according to the patient's size, and use of iterative reconstruction technique. FINDINGS: The ventricles, sulci, and cisterns are normal in position and appearance. Rosales-white differentiation is maintained. No acute intracranial hemorrhage, mass/mass effect, pathology or trauma/injury. No evidence for acute infarction. No extra-axial fluid collection. Calvarium is intact. Paranasal sinuses and mastoid air cells are clear. IMPRESSION: Normal noncontrast head CT. No evidence for acute intracranial pathology or trauma/injury. <Electronically signed by Juarez Franklin > 04/09/21 [id number]
[2021-04-09] MEDS ORDERED: diazePAM 10MG/2ML SYRINGE (J3360 PER 5MG) IV ONE (13:05)
[2021-04-09] MEDS ORDERED: ACETAMINOPHEN 325 MG TAB PO ONE (13:05)
[2021-04-09] MEDS ORDERED: KETOROLAC 30 MG/ML 1ML VIAL IV ONE (13:05)
[2021-04-09 13:48] LABS: BASO # 0.1 10^3/uL (0.0-0.2); BASO % 0.4 % (0.0-1.0); EOS # 0.4 10^3/uL (0.0-0.5); EOS % 2.9 % (0.0-3.0); HEMATOCRIT 33.5 % (36.0-47.0); HEMOGLOBIN 10.8 g/dl (12.0-15.5); LYMPH # 2.4 10^3/uL (1.5-5.0); LYMPH % 19.5 % (24.0-44.0); MEAN CORPUSCULAR HEMOGLOBIN 26.3 pg (27.0-33.0); MEAN CORPUSCULAR HGB CONC 32.2 g/dl (32.0-36.5); MEAN CORPUSCULAR VOLUME 81.7 fl (80.0-96.0); MONO # 0.7 10^3/uL (0.0-0.8); MONO % 5.7 % (2.0-8.0); NEUTROPHILS # 8.7 10^3/uL (1.5-8.5); NEUTROPHILS % 71.1 % (36.0-66.0); PLATELET COUNT, AUTOMATED 381 10^3/uL (150-450); WHITE BLOOD COUNT 12.2 10^3/uL (4.0-10.0)
[2021-04-09 14:12] LABS: BLOOD UREA NITROGEN 9 MG/DL (7-18); CALCIUM LEVEL 8.9 MG/DL (8.5-10.1); CARBON DIOXIDE LEVEL 26 MEQ/L (21-32); CHLORIDE LEVEL 106 MEQ/L (98-107); CK-MB VALUE MASS < 1.0 NG/ML (<3.6); CPK CREATINE PHOSPHOKINASE 109 U/L (26-192); GLOMERULAR FILTRATION RATE > 60.0 (>60); GLUCOSE, FASTING 91 MG/DL (70-100); MB/CK RELATIVE INDEX 0.92 (< OR =4); POTASSIUM SERUM 3.8 MEQ/L (3.5-5.1); SODIUM LEVEL 138 MEQ/L (136-145); TROPONIN I < 0.02 NG/ML (< 0.10)
[2021-04-09] MEDS ORDERED: KETO10TAB PO (15:00)
[2021-04-09] MEDS ORDERED: METH-1164 PO (15:00)
[2021-04-09 15:42] VITALS: BP 142/72
--- NOTE | 2021-04-09 18:04 | ECGEPIP ---
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
== END 2021-04-09 15:53 | disposition home or self-care (01) ==
LOC: M ED 11:42
DX: G44.209 Tension-type headache, unspecified, not intractable (principal); I10 Essential (primary) hypertension; M54.5 Low back pain; K21.9 Gastro-esophageal reflux disease without esophagitis; F43.10 Post-traumatic stress disorder, unspecified; F32.9 Major depressive disorder, single episode, unspecified; F17.200 Nicotine dependence, unspecified, uncomplicated; Z79.899 Other long term (current) drug therapy; Z91.040 Latex allergy status
CPT/HCPCS: 70450; 80048; 82550; 82553; 85025; 93005; 96374; 96375; 99284; J1885; J3360

== ENCOUNTER → 2021-04-14 | Outpatient (REF) | payer OTHER ==
[~2021-04-14] MED LIST changes: +KETO10TAB PO; +METH-1164 PO
== END ==
LOC: M SFHCPLAZ 11:03
PROVIDERS: ATTEND Family Medicine
DX: R53.83 Other fatigue (principal); Z53.9 Procedure and treatment not carried out, unspecified reason

== ENCOUNTER → 2021-04-14 | Outpatient (CLI) | payer OTHER ==
[2021-04-14 13:26] LABS: BASO # 0.1 10^3/uL (0.0-0.2); BASO % 0.5 % (0.0-1.0); EOS # 0.5 10^3/uL (0.0-0.5); HEMOGLOBIN 11.3 g/dl (12.0-15.5); LYMPH # 2.1 10^3/uL (1.5-5.0); LYMPH % 21.8 % (24.0-44.0); MEAN CORPUSCULAR HEMOGLOBIN 26.9 pg (27.0-33.0); MEAN CORPUSCULAR HGB CONC 32.3 g/dl (32.0-36.5); MEAN CORPUSCULAR VOLUME 83.3 fl (80.0-96.0); MONO # 0.6 10^3/uL (0.0-0.8); MONO % 6.5 % (2.0-8.0); NEUTROPHILS # 6.5 10^3/uL (1.5-8.5); NEUTROPHILS % 65.8 % (36.0-66.0); PLATELET COUNT, AUTOMATED 426 10^3/uL (150-450); WHITE BLOOD COUNT 9.8 10^3/uL (4.0-10.0)
[2021-04-14 13:43] LABS: HEMOGLOBIN A1c 5.4 %
[2021-04-14 13:56] LABS: ALBUMIN 3.6 GM/DL (3.2-5.2); ALT/SGPT 27 U/L (12-78); BILIRUBIN,TOTAL 0.3 MG/DL (0.2-1.0); BLOOD UREA NITROGEN 12 MG/DL (7-18); CALCIUM LEVEL 9.1 MG/DL (8.5-10.1); CARBON DIOXIDE LEVEL 27 MEQ/L (21-32); CHLORIDE LEVEL 106 MEQ/L (98-107); CHOLESTEROL LEVEL 191 MG/DL (<200); CHOLESTEROL RISK RATIO 4.897 (<5); CPK CREATINE PHOSPHOKINASE 59 U/L (26-192); CREATININE FOR GFR 0.59 MG/DL (0.55-1.30); FERRITIN 22 NG/ML (8-252); GLOMERULAR FILTRATION RATE > 60.0 (>60); GLUCOSE, FASTING 76 MG/DL (70-100); HDL CHOLESTEROL 39 MG/DL (>40); IRON (FE) 27 UG/DL (50-170); LDL CHOLESTEROL 106 MG/DL (<100); NON-HDL-C 152 MG/DL; PERCENT SATURATION 7.9 % (13.2-45.0); POTASSIUM SERUM 4.6 MEQ/L (3.5-5.1); SODIUM LEVEL 140 MEQ/L (136-145); TOTAL IRON BINDING CAPACITY 341 UG/DL (250-450); TOTAL PROTEIN 7.7 GM/DL (6.4-8.2); TRIGLYCERIDES LEVEL 228 MG/DL (<150)
[2021-04-14 14:06] LABS: MONO SCRN NEGATIVE (NEGATIVE)
[2021-04-14 14:10] LABS: HEPATITIS B SURFACE ANTIGEN NEGATIVE (NEGATIVE)
[2021-04-14 14:37] LABS: HEPATITIS B CORE ANTIBODY IGM NEGATIVE (NEGATIVE)
[2021-04-14 14:40] LABS: HEPATITIS A ANTIBODY IGM NEGATIVE (NEGATIVE)
== END ==
LOC: M PLALAB 11:16
PROVIDERS: ATTEND Student in an Organized Health Care Education/Training Program
DX: R53.83 Other fatigue (principal)

== ENCOUNTER 2021-05-13 01:37 | Emergency (ER) | payer OTHER ==
[~2021-05-13] VITALS: Ht 160 cm; Wt 95.7 kg
[~2021-05-13 01:37] MED LIST changes: -CYMB60CA3 PO; +CYMB60CA4 PO
[2021-05-13 01:39] VITALS: BP 131/92
[2021-05-13] MEDS ORDERED: FERR240T PO (01:45)
[2021-05-13] MEDS ORDERED: DULO1CAP6 (01:45)
[2021-05-13] MEDS ORDERED: FLUO10CA18 PO (01:45)
[2021-08-22] MEDS ORDERED: CEFD300C41 (14:33)
== END 2021-05-13 04:26 | disposition left against medical advice (07) ==
LOC: M ED 01:37
DX: Z53.21 Procedure and treatment not carried out due to patient leaving prior to being seen by health care provider (principal)

== ENCOUNTER → 2021-06-01 | Outpatient (REF) | payer OTHER ==
[~2021-06-01] MED LIST changes: +CYMB60CA3 PO; -CYMB60CA4 PO; +DULO1CAP6; +FERR240T; +FLUO10CA16
== END ==
LOC: M SFHCPLAZ 12:00
PROVIDERS: ATTEND Family Medicine
DX: N91.2 Amenorrhea, unspecified (principal); D50.9 Iron deficiency anemia, unspecified

== ENCOUNTER 2021-07-15 11:26 | Inpatient (IN) | payer OTHER ==
[~2021-07-15] VITALS: Ht 160 cm; Wt 97.3 kg
[~2021-07-15 11:26] MED LIST changes: -FERR240T; +FERR240T PO; -FLUO10CA16; +FLUO10CA16 PO
[2021-07-15 13:06] LABS: HEMATOCRIT 36.9 % (36.0-47.0); MEAN CORPUSCULAR HGB CONC 32.5 g/dl (32.0-36.5); PLATELET COUNT, AUTOMATED 411 10^3/uL (150-450); RED BLOOD COUNT 4.61 10^6/uL (4.00-5.40); WHITE BLOOD COUNT 11.1 10^3/uL (4.0-10.0)
[2021-07-15] MEDS ORDERED: BOOSTRIX/ADACEL VACCINE (DIPHTH/PERTUSS/ACELL/TETANUS) 0.5ML SYR IM ONE (13:40)
[2021-07-15 13:42] LABS: ACETAMINOPHEN LEVEL < 2.0 UG/ML (10.0-30.0); ALBUMIN 3.7 GM/DL (3.2-5.2); ALT/SGPT 40 U/L (12-78); BILIRUBIN,DIRECT 0.1 MG/DL (0.0-0.2); BILIRUBIN,TOTAL 0.4 MG/DL (0.2-1.0); BLOOD UREA NITROGEN 9 MG/DL (7-18); CALCIUM LEVEL 9.7 MG/DL (8.5-10.1); CARBON DIOXIDE LEVEL 27 MEQ/L (21-32); CHLORIDE LEVEL 108 MEQ/L (98-107); CREATININE FOR GFR 0.71 MG/DL (0.55-1.30); ETHYL ALCOHOL (ETHANOL) < 0.003 % (0.000-0.010); GLOMERULAR FILTRATION RATE > 60.0 (>60); GLUCOSE, FASTING 91 MG/DL (70-100); POTASSIUM SERUM 4.6 MEQ/L (3.5-5.1); SALICYLATE LEVEL < 1.7 MG/DL (5.0-30.0); SODIUM LEVEL 139 MEQ/L (136-145); TOTAL PROTEIN 7.8 GM/DL (6.4-8.2)
[2021-07-15 13:55] LABS: HCG, SERUM QUALITATIVE NEGATIVE (NEGATIVE)
[2021-07-15 14:53] LABS: RSV AMPLIFICATION NEGATIVE (NEGATIVE)
[2021-07-15] MEDS ORDERED: HOME MED LIST COMPLETE! XX SCH (15:10)
[2021-07-15] MEDS ORDERED: LIDOCAINE 2% 5ML JELLY UROJET TOP ONE (15:35)
[2021-07-15 17:06] LABS: AMPHETAMINES LEVEL URINE POSITIVE (NEGATIVE); BARBITURATES URINE NEGATIVE (NEGATIVE); BENZODIAZEPINES URINE NEGATIVE (NEGATIVE); CANNABINOIDS URINE POSITIVE (NEGATIVE); COCAINE METABOLITE URINE NEGATIVE (NEGATIVE); METHADONE URINE NEGATIVE (NEGATIVE); OPIATES URINE NEGATIVE (NEGATIVE); PHENCYCLIDINE URINE NEGATIVE (NEGATIVE)
[2021-07-15 21:25] LABS: AMPHETAMINES LEVEL URINE POSITIVE (NEGATIVE); BARBITURATES URINE NEGATIVE (NEGATIVE); BENZODIAZEPINES URINE NEGATIVE (NEGATIVE); CANNABINOIDS URINE NEGATIVE (NEGATIVE); COCAINE METABOLITE URINE NEGATIVE (NEGATIVE); METHADONE URINE NEGATIVE (NEGATIVE); OPIATES URINE NEGATIVE (NEGATIVE); PHENCYCLIDINE URINE NEGATIVE (NEGATIVE)
[2021-07-16] MEDS ORDERED: OLANZapine ORAL DISINTEGRATING TAB 5MG PO PRN (05:55)
[2021-07-16] MEDS ORDERED: ACETAMINOPHEN TAB 650MG DOSE (2X325MG) PO PRN (05:55)
[2021-07-16] MEDS ORDERED: MAALOX 30 ML SUSP *UDC PO PRN (05:55)
[2021-07-16] MEDS ORDERED: MOM 30ML SUSPENSION UDC PO PRN (05:55)
[2021-07-16] MEDS ORDERED: LORazepam 2 MG TAB PO PRN (05:55)
[2021-07-16] MEDS: THIAMINE 100 MG TAB PO SCH ×2 (07:26→21:15)
[2021-07-16 08:13] VITALS: BP 120/88
[2021-07-16 09:30] VITALS: BP 128/86
[2021-07-16] MEDS: NICOTINE 21MG/24HR 1 EA TRANSDERMAL TD SCH (10:19)
[2021-07-16] MEDS: MULTIVITAMINS/MINERALS THERAP 1 TAB PO SCH (10:19)
[2021-07-16] MEDS: FOLIC ACID 1 MG TAB PO SCH (10:19)
[2021-07-16 16:16] VITALS: BP 106/66
[2021-07-16 17:00] VITALS: BP 106/66
--- NOTE | 2021-07-16 19:42 | ECGEPIP ---
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
[2021-07-16] MEDS: traZODone 50 MG TAB PO PRN (21:15)
[2021-07-17 06:22] VITALS: BP 133/79
[2021-07-17 06:23] VITALS: BP 133/79
[2021-07-17] MEDS: FERROUS GLUCONATE 324 MG TAB PO SCH (09:00)
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
[2021-07-17] MEDS: FOLIC ACID 1 MG TAB PO SCH (11:02)
[2021-07-17] MEDS: MULTIVITAMINS/MINERALS THERAP 1 TAB PO SCH (11:02)
[2021-07-17] MEDS: THIAMINE 100 MG TAB PO SCH ×2 (11:02→21:15)
[2021-07-17] MEDS: NICOTINE 21MG/24HR 1 EA TRANSDERMAL TD SCH (11:03)
--- NOTE | 2021-07-17 13:55 | HPEPDOC ---
[facility] Medical History & Physical Date of Admission Jul 16, 2021 Date of Service: Jul 17, 2021 History and Physical Chief complaint: He presented to the emergency room with suicidal ideation History of present illness: Patient is a 30-year-old female with a PMHx of HTN, Anxiety / Depression, who presented to the emergency room with suicidal ideation. Patient was admitted to the inpatient mental health unit under the care of psychiatry. Hospitalist service was consulted for medical screening evaluation. Patient reports a mild headache, but she denies any chest pain, shortness breath, cough or palpitations. Reports some nausea without vomiting. Reports some lower abdominal discomfort that occurs intermittently. Denies any diarrhea or constipation. Her last bowel movement was a few days ago. Denies any urinary discomfort. Has not experience any fevers but does report some chills. She reports her appetite is fairly normal and has reported an increase in her weight. Past Medical History: HTN, Anxiety / Depression Past Surgical History: 4 Miscarriage 2 Tonsillectomy Cholecystectomy Allergies: See below Medications: See below Family History: - Father history unknown. Mother reported healthy Social History: - Denies the use of alcohol; patient was that she is an active smoker. Reports use of drugs with methamphetamine and Sadie also reports use of IV methamphetamine - Denies recent travel or sick contacts - Lives with - Occupation; patient was that she works at [employer] Review of Systems: 10 point review of systems complete, all negative otherwise stated in HPI Physical exam: - Vitals: BP [133/79], HR [83], RR [16], Sat [97%RA], Temp [97.0F] - General: Lying in bed, No acute distress, Speaking in full sentences, AAOx3 - HEENT: NC, AT, PERRLA - CVS: RRR, +S1S2 - Lungs: Fair air entry bilaterally, No appreciable wheezing / rales / rhonchi - Abdomen: Soft, Non-distended, Non-tender - Extremities: No lower extremity edema, No calf tenderness - Neuro: No focal motor or sensory deficit - Skin: No visible rashes Labs: See below Imaging: See below EKG: See below Assessment and Plan: Suicidal ideation - Hx of Anxiety / Depression - Admitted to the inpatient mental health unit - Currently being managed by psychiatry HTN - Patient reports a history of hypertension, however, she remains normotensive currently - She is not on any medications - Will continue to monitor blood pressure DVT prophylaxis - Will continue with early ambulation Female sodder was present for the duration of this history and physical examination Thank you for this consultation. Hospitalist service will now sign off; please reconsult as needed Vital Signs Vital Signs Date Time Temp Pulse Resp B/P (MAP) Pulse Ox O2 Delivery O2 Flow Rate FiO2 07/17/21 06:23 83 133/79 07/17/21 06:22 97.0 16 97 Room Air Home Medications Scheduled Ferrous Gluconate (Ferrous Gluconate) 240 Mg Tablet, 240 MG PO DAILY Fluoxetine Hcl (Fluoxetine HCl) 10 Mg Capsule, 10 MG PO DAILY Allergies Coded Allergies: latex (Verified Adverse Reaction, Mild, 03/12/21) Rash EWA RENAE MD Jul 17, 2021 13:55
[2021-07-17 17:47] VITALS: BP 117/67
[2021-07-17 19:23] VITALS: BP 117/68
[2021-07-17 20:00] VITALS: BP 117/68
[2021-07-17] MEDS: ARIPiprazole 2 MG TAB PO SCH (21:15)
[2021-07-17] MEDS: traZODone 50 MG TAB PO PRN (21:28)
[2021-07-18 07:17] VITALS: BP 148/77
[2021-07-18 08:00] VITALS: BP_SYST 147; BP_SYST 148; BP_DIAS 77
[2021-07-18] MEDS: NICOTINE 21MG/24HR 1 EA TRANSDERMAL TD SCH (09:00)
[2021-07-18] MEDS: THIAMINE 100 MG TAB PO SCH ×2 (09:20→20:20)
[2021-07-18] MEDS: FOLIC ACID 1 MG TAB PO SCH (09:20)
[2021-07-18] MEDS: FLUoxetine 20 MG CAP PO SCH (09:20)
[2021-07-18] MEDS: FERROUS GLUCONATE 324 MG TAB PO SCH (09:20)
[2021-07-18] MEDS: MULTIVITAMINS/MINERALS THERAP 1 TAB PO SCH (09:20)
[2021-07-18 10:31] LABS: CHOLESTEROL RISK RATIO 4.512 (<5)
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
[2021-07-18 19:09] VITALS: BP 130/84
[2021-07-18] MEDS: traZODone 50 MG TAB PO PRN (20:20)
[2021-07-18] MEDS: ARIPiprazole 2 MG TAB PO SCH (20:20)
[2021-07-19 06:38] VITALS: BP 142/84
[2021-07-19] MEDS: MULTIVITAMINS/MINERALS THERAP 1 TAB PO SCH (08:48)
[2021-07-19] MEDS: FLUoxetine 20 MG CAP PO SCH (08:48)
[2021-07-19] MEDS: FOLIC ACID 1 MG TAB PO SCH (08:48)
[2021-07-19] MEDS: FERROUS GLUCONATE 324 MG TAB PO SCH (08:48)
[2021-07-19] MEDS: NICOTINE 21MG/24HR 1 EA TRANSDERMAL TD SCH (08:48)
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
[2021-07-19] MEDS: traZODone 50 MG TAB PO PRN (20:21)
[2021-07-19] MEDS: ARIPiprazole 2 MG TAB PO SCH (20:21)
[2021-07-19 22:00] VITALS: BP 138/81
[2021-07-20 06:40] VITALS: BP 133/77
[2021-07-20] MEDS: FERROUS GLUCONATE 324 MG TAB PO SCH (08:04)
[2021-07-20] MEDS: FOLIC ACID 1 MG TAB PO SCH (08:04)
[2021-07-20] MEDS: NICOTINE 21MG/24HR 1 EA TRANSDERMAL TD SCH (08:04)
[2021-07-20] MEDS: FLUoxetine 20 MG CAP PO SCH (08:04)
[2021-07-20] MEDS: MULTIVITAMINS/MINERALS THERAP 1 TAB PO SCH (08:04)
[2021-07-20] MEDS ORDERED: NICO21PAT TD (11:33)
[2021-07-20] MEDS ORDERED: ABIL1TAB13 PO (11:33)
[2021-07-20] MEDS ORDERED: TRAZ-252 PO (11:33)
[2021-07-20] MEDS ORDERED: FLUO20CA22 PO (11:33)
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
== END 2021-07-20 14:22 | disposition home or self-care (01) | DRG 754 ==
LOC: M ED 11:26 → M ED INP 07-16 05:52 → M PSY 07-16 09:15
PROVIDERS: ADMIT Student in an Organized Health Care Education/Training Program; ATTEND Student in an Organized Health Care Education/Training Program
DX: F32.9 Major depressive disorder, single episode, unspecified (principal); F43.10 Post-traumatic stress disorder, unspecified; F60.3 Borderline personality disorder; F40.01 Agoraphobia with panic disorder; F15.20 Other stimulant dependence, uncomplicated; F12.10 Cannabis abuse, uncomplicated; F10.11 Alcohol abuse, in remission; F17.210 Nicotine dependence, cigarettes, uncomplicated; I10 Essential (primary) hypertension; Z60.9 Problem related to social environment, unspecified; Z63.0 Problems in relationship with spouse or partner; R45.851 Suicidal ideations; Z20.822 Contact with and (suspected) exposure to COVID-19; Z91.52 Personal history of nonsuicidal self-harm; Z62.810 Personal history of physical and sexual abuse in childhood; Z79.899 Other long term (current) drug therapy; Z91.040 Latex allergy status; Z90.49 Acquired absence of other specified parts of digestive tract; Z90.79 Acquired absence of other genital organ(s)

== ENCOUNTER 2021-08-22 14:22 | Emergency (ER) | payer OTHER ==
[~2021-08-22] VITALS: Ht 160 cm; Wt 100.0 kg
[~2021-08-22 14:22] MED LIST changes: +ABIL1TAB13 PO; -CYMB60CA3 PO; +CYMB60CA4 PO; +FLUO20CA22 PO; +NICO21PAT TD; +TRAZ-252 PO
--- OUTSIDE RECORDS SUMMARY | 2021-08-22 14:30 | CCD ---
Author Author Dodie Taylor Organization Unknown Address [address] [address] Phone Care Team Providers Care Cut Roll Machine Operator Name Role Phone Jeana Taylor PCP Allergies, Adverse Reactions, Alerts No Data in Section Problem List Concept Problem Description Status Start Date Created Date Resolv ed Date Snomed Code F32.9 Major Depressive Disorder, Single episode, Unspecified Active 08/05/2021 F41.9 Unspecified Anxiety Disorder Active 08/05/2021 F43.12 Post-traumatic stress disorder, chronic Active 08/05/2021 F15.20 Stimulant Use Disorder, Moderate: Amphetamine-type sub stance Active 08/05/2021 Medications No Data in Section Social History Social History Element Description Concept Effective Date Smoking Status Unknown if ever smoked [id number] Immunizations No Data in Section Vital Signs No Data in Section Procedures Date Concept Id Description Targeted Site Concept Targeted Site Concept Type 08/04/2021 21469 Extended Individual Psychotherapy - 45 min CPT Patient has no history of implantable de vices Encounters Encounter Start Date End Date Encounter Type Description Diagnosis Di agnosis Desc Location Author First Name Author Last Name Npid Taxonomy Cod e Taxonomy Desc Phone Number Location Addr1 Location Addr2 Location [facility] Location [facility] Location [facility] [id number] 08/04/2021 08/04/2021 67075 Extended Individual Psych otherapy - 45 min F32.9 Major depressive disorder, single episode, unspecified [facility] [phone] [id number] [employer]iner [id number] [address] [address] Plan of Treatment No Data in Section Lab Results No Data in Section Instructions No Data in Section Insurance Providers Insurance Id Policy Effective Date Policy Thru Date Company N trisha [id number] 2021 [employer] - MEDICA ID MANAGED
--- OUTSIDE RECORDS SUMMARY | 2021-08-22 14:30 | CCD ---
Author Author Dodie Taylor Organization Unknown Address [address] [address] Phone Care Team Providers Care Virtual Reality Specialist Name Role Phone Jeana Taylor PCP Allergies, Adverse Reactions, Alerts No Data in Section Problem List Concept Problem Description Status Start Date Created Date Resolv ed Date Snomed Code F32.9 Major Depressive Disorder, Single episode, Unspecified Active 07/24/2021 F41.9 Unspecified Anxiety Disorder Active 07/24/2021 F43.12 Post-traumatic stress disorder, chronic Active 07/24/2021 F15.20 Stimulant Use Disorder, Moderate: Amphetamine-type sub stance Active 07/24/2021 Medications No Data in Section Social History Social History Element Description Concept Effective Date Smoking Status Unknown if ever smoked [id number] Immunizations No Data in Section Vital Signs No Data in Section Procedures Date Concept Id Description Targeted Site Concept Targeted Site Concept Type 07/23/2021 92532 Extended Individual Psychotherapy - 45 min CPT Patient has no history of implantable de vices Encounters Encounter Start Date End Date Encounter Type Description Diagnosis Di agnosis Desc Location Author First Name Author Last Name Npid Taxonomy Cod e Taxonomy Desc Phone Number Location Addr1 Location Addr2 Location [facility] Location [facility] Location [facility] [id number] 07/23/2021 07/23/2021 94737 Extended Individual Psych otherapy - 45 min F32.9 Major depressive disorder, single episode, unspecified [facility] [phone] [id number] Emergency Crew Supervisor [id number] [phone] [address] Plan of Treatment No Data in Section Lab Results No Data in Section Instructions No Data in Section Insurance Providers Insurance Id Policy Effective Date Policy Thru Date Company N trisha [id number] 2021 [employer] - MEDICA ID MANAGED
--- OUTSIDE RECORDS SUMMARY | 2021-08-22 14:30 | CCD ---
Author Author [facility] Organization [facility] Address Unknown Phone Unavailable Care Team Providers Care Sand Hauler Name Role Phone Rashid Boo Unavailable PROBLEMS Type Condition ICD9-CM Code [id number] Code Onset Dates Condition S tatus W/U Status Risk SNOMED Code Notes Problem PTSD (post-traumatic stress disorder) F43.10 Ac tive confirmed 25641803 Problem Depression with anxiety F41.8 Active confirmed 00312657 Problem Allergic rhinitis, unspecified seasonality, unspecifie d trigger J30.9 Active confirmed 72179706 Problem Daytime somnolence R40.0 Active confirmed 1 [id number] Problem Psychophysiological insomnia F51.04 Active confirme d 67620254 Problem Obesity (BMI 30-39.9) E66.9 Active confirmed 801665263 Problem Panic disorder F41.0 Active confirmed 67551 1005 Problem Amenorrhea N91.2 Active confirmed 30279878 Problem Other obesity due to excess calories E66.09 Act julio confirmed 661674554 Problem Hypersomnolence G47.10 Active confirmed 7769 2006 Problem Seasonal allergies J30.2 Active confirmed 4 76574360 Problem Alcohol abuse F10.10 Active confirmed 991034 05 Problem Microcytic anemia D50.9 Active confirmed 23 7780846 ALLERGIES Allergen (clinical drug ingredient) Drug/Non Drug Allergy do cumented on EMR Reaction Allergy Type Onset Date Status Latex (for allergy use only) Rash Drug Allergy Active ENCOUNTERS from 1991 to 2021-06-02 Encounter Location Date Provider Diagnosis [facility] Resident [address] [phone] [place] [address] May, Rashid Boo Depression with anxi ety F41.8 IMMUNIZATIONS No Information SOCIAL HISTORY Tobacco Use: Social History Observation Description Date Details (start date - stop date) Current Smoker Sex Assigned At : Social History Observation Description Sex Assigned At Unknown Education: Question Answer Notes Level of Education: High School 10th grade Language: Question Answer Notes Languages spoken: Sami Methodist: Question Answer Notes Methodist No restoration beliefs that would impact health care. Sexual Hx: Question Answer Notes Had sex in the last 12 months (vaginal, oral, or anal)? No LMP: 06/09/2018 Have you ever had an STD? No Alcohol Screening: Question Answer Notes Did you have a drink containing alcohol in the past year? Ye s Points 1 Interpretation Negative How often did you have six or more drinks on one occas ion in the past year? Never (0 points) How many drinks did you have on a typica l day when you were drinking in the past year? 1 or 2 (0 points) How often did you have a drink containing alcohol in t he past year? Monthly or less (1 point) Tobacco Use: Question Answer Notes Are you a: current smoker Smoking Cessation Information Given 04/14/2021 How many cigarettes a day do you smoke? 6-10 Are you interested in quitting? Thinking about quitting Counseled the patient on smoking cessation, education provid ed 04/14/2021 REASON FOR REFERRAL No Information VITAL SIGNS No information MEDICATIONS Medication SIG (Take, Route, Frequency, Duration) Notes Start Da te End Date Status Amoxicillin 875 MG 1 tablet Orally Twice a day for 7 days Not-Taking Ferrous Gluconate 240 (27 Fe) MG 1 tablet with water o r juice between meals Orally Mondays, Wednesdays, Fridays for 30 day(s) Apr, Active Naprosyn 500 MG 1 tablet with food or milk a s needed Orally every 12 hrs as needed for pain for 7 day(s) Not -Taking Percocet 5-325 MG 1 tablet as needed Orally every 6 hrs Not-Taking Fluticasone Propionate 50 MCG/ACT 1 spray in each nost ril Nasally twice daily as needed Active DULoxetine HCl 60 MG 1 capsule Orally Daily for 90 days Not-Taking Venlafaxine HCl ER 75 MG 1 capsule with food Orally Once a day f or 30 day(s) May, Active PROCEDURES No Information RESULTS No Results REASON FOR VISIT New Refill Request MEDICAL (GENERAL) HISTORY Type Description Date Medical History Hemorrhage post recie jesus transfusions x 3 and bone marrow transfusion denies bleeding disorder Medical History depression /anxiety Medical History PTSD Surgical History c/s post hemorrhage 2009 Surgical History c/s post hemorrhage 2011 Surgical History c/s 2012 Surgical History c/s 2016 Surgical History cholecystectomy 03/12/21 Surgical History Tubal Ligation 2016 Hospitalization History child Hospitalization History Tonsil infection 03/2020 Hospitalization History surgery Goals Section No Information Health Concerns No Information MEDICAL EQUIPMENT No Information MENTAL STATUS No Information FUNCTIONAL STATUS No Information ASSESSMENTS Encounter Date Diagnosis Assessment Notes Treatment Notes Treatm ent Clinical Notes May, Depression with anxiety (ICD-10 - F41.8) PLAN OF TREATMENT Medication Medication Name Sig Start Date Stop Date Venlafaxine HCl ER 75 MG 1 capsule with food Orally Once a d ay for 30 day(s) May, Insurance Providers Payer Name Payer Address Payer Phone Insured Name Patient Relati onship to Insured Coverage Start Date Coverage End Date [facility] CORPOR[facility] CLAIMS [address]PT [address] [facility] [phone] MARCELINO DUNN self
--- OUTSIDE RECORDS SUMMARY | 2021-08-22 14:30 | CCD ---
Author Author [facility] Organization [facility] Address Unknown Phone Unavailable Care Team Providers Care Survey Worker Name Role Phone Rashid Boo Unavailable PROBLEMS Type Condition ICD9-CM Code [id number] Code Onset Dates Condition S tatus W/U Status Risk SNOMED Code Notes Problem PTSD (post-traumatic stress disorder) F43.10 Ac tive confirmed 91656774 Problem Depression with anxiety F41.8 Active confirmed 44467125 Problem Allergic rhinitis, unspecified seasonality, unspecifie d trigger J30.9 Active confirmed 01473807 Problem Daytime somnolence R40.0 Active confirmed 1 70453568816 Problem Psychophysiological insomnia F51.04 Active confirme d 11460711 Problem Obesity (BMI 30-39.9) E66.9 Active confirmed 524843834 Problem Panic disorder F41.0 Active confirmed 24729 1005 Problem Amenorrhea N91.2 Active confirmed 64387750 Problem Other obesity due to excess calories E66.09 Act julio confirmed 526903592 Problem Hypersomnolence G47.10 Active confirmed 7769 2006 Problem Seasonal allergies J30.2 Active confirmed 4 58570468 Problem Alcohol abuse F10.10 Active confirmed 234892 05 Problem Microcytic anemia D50.9 Active confirmed 23 3468405 ALLERGIES Allergen (clinical drug ingredient) Drug/Non Drug Allergy do cumented on EMR Reaction Allergy Type Onset Date Status Latex (for allergy use only) Rash Drug Allergy Active ENCOUNTERS from 1991 to 2021-06-02 Encounter Location Date Provider Diagnosis [address] [phone] [place] [address] May, Rashid Boo IMMUNIZATIONS No Information SOCIAL HISTORY Tobacco Use: Social History Observation Description Date Details (start date - stop date) Current Smoker Sex Assigned At : Social History Observation Description Sex Assigned At Unknown Education: Question Answer Notes Level of Education: High School 10th grade Language: Question Answer Notes Languages spoken: German Spiritism: Question Answer Notes Spiritism No rastafarian beliefs that would impact health care. Sexual [...] Counseled the patient on smoking cessation, education [facility] ed 04/14/2021 REASON FOR REFERRAL No Information [...] Information RESULTS No Results REASON FOR VISIT ePrescription CancelRx response MEDICAL (GENERAL) HISTORY Type Description Date Medical [...] No Information FUNCTIONAL STATUS No Information ASSESSMENTS No Information PLAN OF TREATMENT Medication Medication Name Sig Start Date Stop Date Venlafaxine HCl ER 75 MG 1 capsule with food Orally Once a d ay for 30 day(s) May, Insurance Providers Payer Name Payer Address Payer Phone Insured Name Patient Relati onship to Insured Coverage Start Date Coverage End Date [facility] CLAIMS DEPT [address] [place] [phone] MARCELINO DUNN self
--- OUTSIDE RECORDS SUMMARY | 2021-08-22 14:30 | CCD ---
Author Author [facility] Organization [facility] Address Unknown Phone Unavailable Care Team Providers Care Minute Clerk For Basic Traffic Name Role Phone Rashid Boo Unavailable PROBLEMS Type Condition ICD9-CM Code [id number] Code Onset Dates Condition S tatus W/U Status Risk SNOMED Code Notes Problem PTSD (post-traumatic stress disorder) F43.10 Ac tive confirmed 06120977 Problem Depression with anxiety F41.8 Active confirmed 89706388 Problem Allergic rhinitis, unspecified seasonality, unspecifie d trigger J30.9 Active confirmed 52305818 Problem Daytime somnolence R40.0 Active confirmed 1 66548237490 Problem Psychophysiological insomnia F51.04 Active confirme d 19738924 Problem Obesity (BMI 30-39.9) E66.9 Active confirmed 672633805 Problem Panic disorder F41.0 Active confirmed 41455 1005 Problem Amenorrhea N91.2 Active confirmed 75394816 Problem Other obesity due to excess calories E66.09 Act julio confirmed 705653302 Problem Hypersomnolence G47.10 Active confirmed 7769 2006 Problem Seasonal allergies J30.2 Active confirmed 4 13927115 Problem Alcohol abuse F10.10 Active confirmed 669240 05 Problem Microcytic anemia D50.9 Active confirmed 23 0461595 ALLERGIES Allergen (clinical drug ingredient) Drug/Non Drug Allergy do cumented on EMR Reaction Allergy Type Onset Date Status Latex (for allergy use only) Rash Drug Allergy Active ENCOUNTERS from 1991 to 2021-06-02 Encounter Location Date Provider Diagnosis [facility] Resident [address] [facility] [address] [phone] [place] [address] May, Rashid Boo IMMUNIZATIONS No Information SOCIAL HISTORY Tobacco Use: Social History Observation Description Date Details (start date - stop date) Current Smoker Sex Assigned At : Social History Observation Description Sex Assigned At Unknown Education: Question Answer Notes Level of Education: High School 10th grade Language: Question Answer Notes Languages spoken: Gibraltarian Religious: Question Answer Notes Religious No jehovah's witness beliefs that would impact health care. Sexual [...] Counseled the patient on smoking cessation, education [facility] ed 04/14/2021 REASON FOR REFERRAL No Information [...] Insured Coverage Start Date Coverage End Date [facility] [employer] CLAIMS DEPT [address] [place] [phone] MARCELINO DUNN self
--- OUTSIDE RECORDS SUMMARY | 2021-08-22 14:30 | CCD ---
Author Author [facility] Organization [facility] Address Unknown Phone Unavailable Care Team Providers Care Worm Grower Name Role Phone Rasihd Boo Unavailable PROBLEMS Type Condition ICD9-CM Code [id number] Code Onset Dates Condition S tatus W/U Status Risk SNOMED Code Notes Problem PTSD (post-traumatic stress disorder) F43.10 Ac tive confirmed 51175600 Problem Depression with anxiety F41.8 Active confirmed 59234007 Problem Allergic rhinitis, unspecified seasonality, unspecifie d trigger J30.9 Active confirmed 99885936 Problem Daytime somnolence R40.0 Active confirmed 1 34450041960 Problem Psychophysiological insomnia F51.04 Active confirme d 75409267 Problem Obesity (BMI 30-39.9) E66.9 Active confirmed 703146515 Problem Panic disorder F41.0 Active confirmed 84713 1005 Problem Amenorrhea N91.2 Active confirmed 56007725 Problem Other obesity due to excess calories E66.09 Act julio confirmed 513824708 Problem Hypersomnolence G47.10 Active confirmed 7769 2006 Problem Seasonal allergies J30.2 Active confirmed 4 91564669 Problem Alcohol abuse F10.10 Active confirmed 651464 05 Problem Microcytic anemia D50.9 Active confirmed 23 5274156 ALLERGIES Allergen (clinical drug ingredient) Drug/Non Drug Allergy do cumented on EMR Reaction Allergy Type Onset Date Status Latex (for allergy use only) Rash Drug Allergy Active ENCOUNTERS from 1991 to 2021-06-04 Encounter Location Date Provider Diagnosis [address] [phone] [place] [address] May, Rashid Boo Depression with anxiety F41. 8 IMMUNIZATIONS No Information SOCIAL HISTORY Tobacco Use: Social History Observation Description Date Details (start date - stop date) Current Smoker Sex Assigned At : Social History Observation Description Sex Assigned At Unknown Education: Question Answer Notes Level of Education: High School 10th grade Language: Question Answer Notes Languages spoken: Kyrgyz Tenriism: Question Answer Notes Tenriism No mandaeism beliefs that would impact health care. Sexual [...] Notes Start Da te End Date Status Fluticasone Propionate 50 MCG/ACT 1 spray in each nost ril Nasally twice daily as needed Active Naprosyn 500 MG 1 tablet with food or milk a s needed Orally every 12 hrs as needed for pain for 7 day(s) Not -Taking DULoxetine HCl 60 MG 1 capsule Orally Daily for 90 days Not-Taking Amoxicillin 875 MG 1 tablet Orally Twice a day for 7 days Not-Taking Venlafaxine HCl ER 75 MG 1 capsule with food Orally Once a day f or 30 day(s) May, Active Percocet 5-325 MG 1 tablet as needed Orally every 6 hrs Not-Taking Ferrous Gluconate 240 (27 Fe) MG 1 tablet with water o r juice between meals Orally Mondays, Wednesdays, Fridays for 30 day(s) Apr, Active PROCEDURES No Information RESULTS No Results REASON FOR VISIT Venlafaxine HCl ER 75 MG Capsule Extended Release 24 Hour MEDICAL (GENERAL) HISTORY Type Description Date Medical [...] Insured Coverage Start Date Coverage End Date [facility] CLAIMS DEPT [address] [place] [phone] MARCELINO DUNN self
--- OUTSIDE RECORDS SUMMARY | 2021-08-22 14:30 | CCD ---
Author Author [facility] Organization [facility] Address Unknown Phone Unavailable Care Team Providers Care Certified Alcohol And Drug Counselor Name Role Phone Rashid Boo Unavailable PROBLEMS Type Condition ICD9-CM Code [id number] Code Onset Dates Condition S tatus W/U Status Risk SNOMED Code Notes Problem PTSD (post-traumatic stress disorder) F43.10 Ac tive confirmed 14123354 Problem Depression with anxiety F41.8 Active confirmed 30202551 Problem Allergic rhinitis, unspecified seasonality, unspecifie d trigger J30.9 Active confirmed 93168894 Problem Daytime somnolence R40.0 Active confirmed 1 16326837398 Problem Psychophysiological insomnia F51.04 Active confirme d 29065574 Problem Obesity (BMI 30-39.9) E66.9 Active confirmed 026787204 Problem Panic disorder F41.0 Active confirmed 46863 1005 Problem Amenorrhea N91.2 Active confirmed 65325948 Problem Other obesity due to excess calories E66.09 Act julio confirmed 201657018 Problem Hypersomnolence G47.10 Active confirmed 7769 2006 Problem Seasonal allergies J30.2 Active confirmed 4 27450892 Problem Alcohol abuse F10.10 Active confirmed 925401 05 Problem Microcytic anemia D50.9 Active confirmed 23 1694739 ALLERGIES Allergen (clinical drug ingredient) Drug/Non Drug Allergy do cumented on EMR Reaction Allergy Type Onset Date Status Latex (for allergy use only) Rash Drug Allergy Active ENCOUNTERS from 1991 to 2021-07-13 Encounter Location Date Provider Diagnosis [facility] [place] [address] [facility] [address] [phone] [place] [address] May, Rashid Boo Amenorrhea N91.2 ; D epression with anxiety F41.8 and Microcytic anemia D50.9 IMMUNIZATIONS No Information SOCIAL HISTORY Tobacco Use: Social History Observation Description Date Details (start date - stop date) Current Smoker Sex Assigned At : Social History Observation Description Sex Assigned At Unknown Education: Question Answer Notes Level of Education: High School 10th grade Language: Question Answer Notes Languages spoken: Armenian Christianity: Question Answer Notes Christianity No yazidi beliefs that would impact health care. Sexual [...] REASON FOR REFERRAL No Information VITAL SIGNS Weight 209.2 lbs May, Weight-kg 94.89 kg May, Height 63.50 in May, BMI 36.47 kg/m2 May, Heart Rate 106 /min May, Respiratory Rate 18 /min May, Temperature 97.8 degrees Fahrenheit May, Oximetry 100 May, Blood pressure systolic 132 mm Hg May, Blood pressure diastolic 80 mm Hg May, MEDICATIONS Medication SIG (Take, Route, Frequency, Duration) [...] Information RESULTS No Results REASON FOR VISIT r/s 1 mo FU MEDICAL (GENERAL) HISTORY Type Description Date Medical History Hemorrhage post recie jesus transfusions x 3 and bone marrow transfusion denies bleeding disorder Medical History depression /anxiety Medical History PTSD Surgical History c/s post hemorrhage 2009 Surgical History c/s post hemorrhage 2011 Surgical History c/s 2012 Surgical History c/s 2015 Surgical History cholecystectomy 03/12/21 Surgical History Tubal Ligation 2015 Hospitalization History child Hospitalization History Tonsil infection 03/2020 Hospitalization History surgery Goals Section No Information Health Concerns No Information MEDICAL EQUIPMENT No Information MENTAL STATUS No Information FUNCTIONAL STATUS No Information ASSESSMENTS Encounter Date Diagnosis Assessment Notes Treatment Notes Treatm ent Clinical Notes May, Amenorrhea (ICD-10 - N91.2) Patient has bilateral tubal ligation already done.Beta hCG has been ordered to rule out ectopic . May, Depression with anxiety (ICD-10 - F41.8) Patient has a history of SSRIs not working in the past. Patient was asked to stop duloxetine and fluoxetine at this time. Patient verbalized understanding. Patient is being started on venlafaxine at this time. Patient's follow-up needs to be in 4 weeks so that her medication can be readjusted. Patient asked for a work note because she has not been able to have the energy to wake up in the morning to go to work for the past week. Work note was supplied but she was also advised to continue working as it can help with depression. Patient was also advised to present to the behavioral therapy clinic to receive cognitive therapy as well as the ongoing pharmacological therapy. Patient verbalized understanding. May, Microcytic anemia (ICD-10 - D50.9) Patient has a history of anemia. CBC iron and TIBC has been reordered as patient was given oral iron administration at last visit. PLAN OF TREATMENT Medication Medication Name Sig Start Date Stop Date Venlafaxine HCl ER 75 MG 1 capsule with food Orally Once a d ay for 30 day(s) May, Treatment Notes Assessment Notes Clinical Notes Amenorrhea Patient has bilatera l tubal ligation already done.Beta hCG has been ordered to rule out ectopic . Depression with anxiety Patient has a hi story of SSRIs not working in the past. Patient was asked to stop duloxetine and fluoxetine at this time. Patient verbalized understanding. Patient is being started on venlafaxine at this time. Patient's follow-up needs to be in 4 weeks so that her medication can be readjusted. Patient asked for a work note because she has not been able to have the energy to wake up in the morning to go to work for the past week. Work note was supplied but she was also advised to continue working as it can help with depression. Patient was also advised to present to the behavioral therapy clinic to receive cognitive therapy as well as the ongoing pharmacological therapy. Patient verbalized understanding. Microcytic anemia Patient has a histor y of anemia. CBC iron and TIBC has been reordered as patient was given oral iron administration at last visit. Treatment Notes Test Name Order Date HCG, SERUM QUANTITATIVE 2021-06-01 CBC - Complete Blood Count 2021-06-01 TOTAL IRON BINDING CAPACIT 2021-06-01 IRON (FE) 2021-06-01 Next Appt Details 4 Weeks Reason:Depression, microcytic an emia Provider Name:Rashid Boo, 2020-10 01:15:00 PM, [address] [facility], , [place], [address], Follow Up:4 WeeksDepression, microcytic anemia Insurance Providers Payer Name Payer Address Payer Phone Insured Name Patient Relati onship to Insured Coverage Start Date Coverage End Date [facility] CLAIMS DEPT [address] [facility] [phone] MARCELINO DUNN self
--- OUTSIDE RECORDS SUMMARY | 2021-08-22 14:30 | CCD ---
Author Author [facility] Organization [facility] Address Unknown Phone Unavailable Care Team Providers Care Development Representative Name Role Phone Rashid Boo Unavailable PROBLEMS Type Condition ICD9-CM Code [id number] Code Onset Dates Condition S tatus W/U Status Risk SNOMED Code Notes Problem Other obesity due to excess calories E66.09 Act julio confirmed 205527235 Problem Allergic rhinitis, unspecified seasonality, unspecifie d trigger J30.9 Active confirmed 91468864 Problem Daytime somnolence R40.0 Active confirmed 1 39295426445 Problem Panic disorder F41.0 Active confirmed 60951 1005 Problem Microcytic anemia D50.9 Active confirmed 23 4909708 Problem PTSD (post-traumatic stress disorder) F43.10 Ac tive confirmed 70052529 Problem Obesity (BMI 30-39.9) E66.9 Active confirmed 982932871 Problem Depression with anxiety F41.8 Active confirmed 19059246 Problem Psychophysiological insomnia F51.04 Active confirme d 06402198 Problem Hypersomnolence G47.10 Active confirmed 7769 2006 Problem Alcohol abuse F10.10 Active confirmed 205010 05 Problem Seasonal allergies J30.2 Active confirmed 4 90737407 ALLERGIES Allergen (clinical drug ingredient) Drug/Non Drug Allergy do cumented on EMR Reaction Allergy Type Onset Date Status Latex (for allergy use only) Rash Drug Allergy Active ENCOUNTERS from 1991 to 2021-05-25 Encounter Location Date Provider Diagnosis [facility] [phone] [place] [address] May, Rashid Boo IMMUNIZATIONS No Information SOCIAL HISTORY Tobacco Use: Social History Observation Description Date Details (start date - stop date) Current Smoker Sex Assigned At : Social History Observation Description Sex Assigned At Unknown Education: Question Answer Notes Level of Education: High School 10th grade Language: Question Answer Notes Languages spoken: Singaporean Evangelical: Question Answer Notes Evangelical No sikh beliefs that would impact health care. Sexual [...] Counseled the patient on smoking cessation, education [facility] ed 04/14/2021 REASON FOR REFERRAL No Information VITAL SIGNS No information MEDICATIONS Medication SIG (Take, Route, Frequency, Duration) Notes Start Da te End Date Status FLUoxetine HCl 10 MG 1 capsule Orally Once a day for 30 day(s) Apr, Active DULoxetine HCl 60 MG 1 capsule Orally Daily for 90 days Active Amoxicillin 875 MG 1 tablet Orally Twice a day for 7 days Not-Taking Fluticasone Propionate 50 MCG/ACT 1 spray in each nost ril Nasally twice daily as needed Active DULoxetine HCl 60 MG 1 capsule Orally Daily for 90 days Not-Taking Ferrous Gluconate 240 (27 Fe) MG 1 tablet with water o r juice between meals Orally Mondays, Wednesdays, Fridays for 30 day(s) Apr, Active Percocet 5-325 MG 1 tablet as needed Orally every 6 hrs Not-Taking Naprosyn 500 MG 1 tablet with food or milk a s needed Orally every 12 hrs as needed for pain for 7 day(s) Act julio PROCEDURES No Information RESULTS No Results REASON FOR VISIT UTI MEDICAL (GENERAL) HISTORY Type Description Date Medical [...] Medication Name Sig Start Date Stop Date FLUoxetine HCl 10 MG 1 capsule Orally Once a day for 30 day(s) 0 Apr, Ferrous Gluconate 240 (27 Fe) MG 1 tablet with water o r juice between meals Orally Mondays, Wednesdays, Fridays for 30 day(s) Apr, DULoxetine HCl 60 MG 1 capsule Orally Daily for 90 days Next Appt Details Provider Name:Rashidautumn Boo, 2020- 8 11:00:00 AM, [address] [facility], , [place], [address], Insurance Providers Payer Name Payer Address Payer Phone Insured Name Patient Relati onship to Insured Coverage Start Date Coverage End Date [facility] [employer] CLAIMS DEPT [address] [place] [phone] MARCELINO DUNN self
--- OUTSIDE RECORDS SUMMARY | 2021-08-22 14:31 | CCD ---
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 Name Role Phone Maring, Inderjit PA Unavailable Unavailable Maring, Inderjit PA Unavailable Unavailable Maring, Inderjit PA Unavailable Unavailable Maring, Inderjit PA Unavailable Unavailable Maring, Inderjit PA Unavailable Unavailable Maring, Inderjit PA Unavailable Unavailable Maring, Inderjit PA Unavailable Unavailable Maring, Inderjit PA Unavailable Unavailable Maring, Inderjit PA Unavailable Unavailable Maring, Inderjit PA Unavailable Unavailable Maring, Inderjit PA Unavailable Unavailable Maring, Inderjit PA Unavailable Unavailable Maring, Inderjit PA Unavailable Unavailable Maring, Inderjit PA Unavailable Unavailable Maring, Inderjit PA Unavailable Unavailable Maring, Inderjit PA Unavailable Unavailable NO, PCP Unavailable Unavailable Florence Gudino MD Unavailable Unavailable Florence Gudino MD Unavailable Unavailable Florence Gudino MD Unavailable Unavailable Florence Gudino MD Unavailable Unavailable Florence Gudino MD Unavailable Unavailable Florence Gudino MD Unavailable Unavailable Jeana Taylor Unavailable Qasim Mcnamara MD Unavailable Unavailable Qasim Mcnamara MD Unavailable Unavailable Qasim Mcnamara MD Unavailable Unavailable Qasim Mcnamara MD Unavailable Unavailable Qasim Mcnamara MD Unavailable Unavailable Qasim Mcnamara MD Unavailable Unavailable TURRIN, FILEMON Unavailable Unavailable TURRIN, FILEMON Unavailable Unavailable TURRIN, FILEMON Unavailable Unavailable TURRIN, FILEMON Unavailable Unavailable Scotty PULLIAM MD Unavailable Unavailable Scotty PULLIAM MD Unavailable Unavailable Scotty PULLIAM MD Unavailable Unavailable Scotty PULLIAM MD Unavailable Unavailable Scotty PULLIAM MD Unavailable Unavailable Scotty PULLIAM MD Unavailable Unavailable Scotty PULLIAM MD Unavailable Unavailable Scotty PULLIAM MD Unavailable Unavailable Scotty PULLIAM MD Unavailable Unavailable Scotty PULLIAM MD Unavailable Unavailable Scotty PULLIAM MD Unavailable Unavailable Scotty PULLIAM MD Unavailable Unavailable Scotty PULLIAM MD Unavailable Unavailable Scotty PULLIAM MD Unavailable Unavailable Scotty PULLIAM MD Unavailable Unavailable Scotty PULLIAM MD Unavailable Unavailable Scotty PULLIAM MD Unavailable Unavailable Scotty PULLIAM MD Unavailable Unavailable Scotty PULLIAM MD Unavailable Unavailable Scotty PULLIAM MD Unavailable Unavailable Scotty PULLIAM MD Unavailable Unavailable Scotty PULLIAM MD Unavailable Unavailable Scotty PULLIAM MD Unavailable Unavailable Scotty PULLIAM MD Unavailable Unavailable Scotty PULLIAM MD Unavailable Unavailable Scotty PULLIAM MD Unavailable Unavailable Scotty PULLIAM MD Unavailable Unavailable Scotty PULLIAM MD Unavailable Unavailable Scotty PULLIAM MD Unavailable Unavailable Scotty PULLIAM MD Unavailable Unavailable Scotty PULLIAM MD Unavailable Unavailable Scotty PULLIAM MD Unavailable Unavailable Scotty PULLIAMYA Unavailable Unavailable CHANLIECCO, C ABDULLAHI MD Unavailable Unavailable CHANLIECCO, C ABDULLAHI MD Unavailable Unavailable CHANLIECCO, C ABDULLAHI MD Unavailable Unavailable CHANLIECCO, C ABDULLAHI MD Unavailable Unavailable CHANLIECCO, C ABDULLAHI MD Unavailable Unavailable CHANLIECCO, C ABDULLAHI MD Unavailable Unavailable CHANLIECCO, C ABDULLAHI MD Unavailable Unavailable CHANLIECCO, C ABDULLAHI MD Unavailable Unavailable CHANLIECCO, C ABDULLAHI MD Unavailable Unavailable CHANLIECCO, C ABDULLAHI MD Unavailable Unavailable CHANLIECCO, C ABDULLAHI MD Unavailable Unavailable Re-disclosure Warning The records that you are about to access may contain information from federally-assisted alcohol or drug abuse programs. If such information is present, then the following federally mandated warning applies: This information has been disclosed to you from records protected by federal confidentiality rules (42 CFR part 2). The federal rules prohibit you from making any further disclosure of this information unless further disclosure is expressly permitted by the written consent of the person to whom it pertains or as otherwise permitted by 42 CFR part 2. A general authorization for the release of medical or other information is NOT sufficient for this purpose. The Federal rules restrict any use of the information to criminally investigate or prosecute any alcohol or drug abuse patient.The records that you are about to access may contain highly sensitive health information, the redisclosure of which is protected by Article 27-F of the [facility] Public Health law. If you continue you may have access to information: Regarding HIV / AIDS; Provided by facilities licensed or operated by the [facility] Office of Mental Health; or Provided by the [facility] Office for People With Developmental Disabilities. If such information is present, then the following [facility] mandated warning applies: This information has been disclosed to you from confidential records which are protected by state law. State law prohibits you from making any further disclosure of this information without the specific written consent of the person to whom it pertains, or as otherwise permitted by law. Any unauthorized further disclosure in violation of state law may result in a fine or penitentiary sentence or both. A general authorization for the release of medical or other information is NOT sufficient authorization for further disc losure. Allergies and Adverse Reactions Type Description Substance Reaction Status Data Source(s ) No Known Drug Allergies No Known Drug Allergies [facility] Family History Family Member Name Family Member Gender Family Member Status Date o f Status Description Data Source(s) Unknown Male Problem MEDENT ([facility]) Unknown Unknown Problem MEDENT ([facility], [facility]) maternal grandfather Encounters Encounter Providers Location Date Indications Data Source(s ) Outpatient Attender: Inderjit LARA 08/18/20 04:17:08 PM EST - 08/18/2021 04:57:58 PM EST [facility] ([facility] ) Attender: Jeana Taylor 08/05/2021 12:00:00 AM E DT [facility] ([facility]) Extended Individual Psychotherapy - 45 min Attender: David [facility] 08/04/2021 01:30:00 AM EDT - 08/04/2021 01:30:00 AM EDT [facility] ([facility]) Extended Individual Psychotherapy - 45 min Attender: David Taylor [facility] 07/23/2021 09:00:00 AM EDT - 07/23/2021 09:00:00 AM EDT [facility] ([facility]) Attender: Jeana Taylor 07/23/2021 12:00:00 AM E DT [facility] ([facility]) [place] [address] [facility] [facility] [address] 06/04/2021 12:00:00 AM EDT eCW1 ([facility]) Emergency Attender: FILEMON Jonessuant: ALESHIA REID MD 06/03/2021 08:09:00 PM EDT - 06/03/2021 11:08:00 PM EDT [facility] Patient discharged. Outpatient [address] [facility] [address] 06/01/2021 12:00:00 AM EDT eCW1 ([facility]) Unknown [address] [facility] [facility] [address] 06/01/2021 12:00:00 AM EDT eCW1 ([facility]) [place] [address] [facility] [facility] [address] 06/01/2021 12:00:00 AM EDT eCW1 ([facility]) [place] [address] [facility] [address] 05/21/2021 12:00:00 AM EDT eCW1 ([facility]) Unknown [address] [facility] [facility] [address] 05/18/2021 12:00:00 AM EDT eCW1 ([facility]) Emergency Attender: ABDULLAHI OCAMPO MDConsultant: PCP NO 05/13/2021 03:27:00 AM EDT - 05/13/2021 05:05:00 AM EDT [facility] Patient discharged. [place] [address] [facility] [address] 05/03/2021 12:00:00 AM EDT eCW1 ([facility]) Unknown [address] [facility] [facility] [address] 05/01/2021 12:00:00 AM EDT eCW1 ([facility]) Outpatient [address] [facility] [facility] [address] 04/14/2021 12:00:00 AM EDT eCW1 ([facility]) Unknown [address] [facility] [facility] [address] 04/14/2021 12:00:00 AM EDT eCW1 ([facility]) Emergency Attender: Qasim Mcnamara MDConsultant: PCP NO 03/29/2021 02:21:00 PM EDT - 03/29/2021 02:51:00 PM EDT [facility] Patient discharged. Outpatient [address] [facility] [address] 03/25/2021 12:00:00 AM EDT eCW1 ([facility]) Outpatient [address] [facility] [address] 03/24/2021 12:00:00 AM EDT eCW1 ([facility]) Outpatient [address] [facility] [address] 03/24/2021 12:00:00 AM EDT eCW1 ([facility]) Unknown [address] [facility] [facility] [address] 03/24/2021 12:00:00 AM EDT eCW1 ([facility]) Unknown [address] [facility] [address] 03/20/2021 12:00:00 AM EDT eCW1 ([facility]) Outpatient 03/17/2021 03:41:34 PM EDT [facility] ([facility]) [place] [address] [facility] [facility] [address] 03/16/2021 12:00:00 AM EDT eCW1 ([facility]) Unknown [address] [facility] [address] 03/16/2021 12:00:00 AM EDT eCW1 ([facility]) Unknown [address] [facility] [address] 02/17/2021 12:00:00 AM EDT eCW1 ([facility]) Unknown [address] [facility] [address] 02/17/2021 12:00:00 AM EDT eCW1 ([facility]) Unknown [address] [facility] [address] 02/17/2021 12:00:00 AM EDT eCW1 ([facility]) Unknown [address] [facility] [address] 02/17/2021 12:00:00 AM EDT eCW1 ([facility]) Unknown [address] [facility] [address] 02/16/2021 12:00:00 AM EDT eCW1 ([facility]) Unknown [address] [facility] [address] 02/11/2021 12:00:00 AM EDT eCW1 ([facility]) Unknown [address] [facility] [address] 02/09/2021 12:00:00 AM EDT eCW1 ([facility]) Unknown [address] [facility] [address] 01/16/2021 12:00:00 AM EDT eCW1 ([facility]) Unknown [address] [facility] [address] 12/11/2020 12:00:00 AM EST eCW1 ([facility]) Unknown [address] [facility] [address] 12/06/2020 12:00:00 AM EST eCW1 ([facility]) Unknown [address] [facility] [address] 11/26/2020 12:00:00 AM EST eCW1 ([facility]) Unknown [address] [facility] [address] 11/03/2020 12:00:00 AM EST eCW1 ([facility]) Outpatient [address] [facility] [address] 10/09/2020 12:00:00 AM EST eCW1 ([facility]) Emergency Attender: Evaristo Gudino MD CPSCAORT-ED 09/10 01:18:00 PM EST - 10/04/2020 03:09:00 PM EST [facility] Patient discharged. Unknown [address] [facility] [address] 08/20/2020 12:00:00 AM EST eCW1 ([facility]) Unknown [address] [facility] [address] 08/18/2020 12:00:00 AM EST eCW1 ([facility]) Outpatient [address] [facility] [address] 08/04/2020 12:00:00 AM EDT eCW1 ([facility]) Unknown [address] [facility] [address] 08/04/2020 12:00:00 AM EDT eCW1 ([facility]) Unknown [address] [facility] [address] 08/04/2020 12:00:00 AM EDT eCW1 ([facility]) Unknown [address] [facility] [address] 08/04/2020 12:00:00 AM EDT eCW1 ([facility]) Unknown [address] [facility] [address] 07/25/2020 12:00:00 AM EDT eCW1 ([facility]) Unknown [address] [facility] [address] 07/17/2020 12:00:00 AM EDT eCW1 ([facility]) Medications Medication Brand Name Start Date Product Form Dose Route Admi nistrative Instructions Pharmacy Instructions Status Indications Reaction Description Data Source(s) 300 mg 08/14/2021 12:00:00 AM EDT capsule 20 TAKE ONE CAPSULE BY MOUTH EVERY 12 HOURS FOR 10 DAYS TAKE ONE CAPSULE BY MOUTH EVERY 12 HOURS FOR 10 DAYS S OLD: 08/14/2021 [facility] 75 mg 07/28/2021 12:00:00 AM EDT capsule,extended releas e 24hr 30 TAKE ONE CAPSULE BY MOUTH EVERY DAY WITH FOOD TAKE ONE CAPSULE BY MOUTH EVERY DAY WITH FOOD SOLD: 07/28/2021 [facility] 240 mg (27 mg iron) 07/28/2021 12:00:00 AM EDT tablet 12 TAKE ONE TABLET BY MOUTH EVERY DAY WITH WATER OR JUICE BETWEEN MEALS ON TUESDAY, TUESDAY, FRIDAYS TAKE ONE TABLET BY MOUTH EVERY DAY WITH WATER OR JUICE BETWEEN MEALS ON TUESDAY, TUESDAY, FRIDAYS SOLD: 07/28/2021 [facility] 21 mg/24 hr 07/20/2021 12:00:00 AM EDT patch 24 hour 7 APPLY 1 PATCH DAILY FOR NICOTINE CRAVINGS APPLY 1 PATCH DAILY FOR NICOTINE CRAVINGS SOLD: 2020 [facility] 2 mg 07/20/2021 12:00:00 AM EDT tablet 7 TAKE ONE TABLET BY MOUTH EVERY DAY AT BEDTIME FOR MOOD TAKE ONE TABLET BY MOUTH EVERY DAY AT BEDTIME FOR MOOD SOLD: 08/11/2021 [facility] 50 mg 07/20/2021 12:00:00 AM EDT tablet 14 TAKE 2 TABLETS BY MOUTH EVERY EVENING FOR INSOMNIA NEEDED TAKE 2 TABLETS BY MOUTH EVERY EVENING FO R INSOMNIA NEEDED SOLD: 07/21/2021 [facility] 2 mg 07/20/2021 12:00:00 AM EDT tablet 7 TAKE ONE TABLET BY MOUTH EVERY DAY AT BEDTIME FOR MOOD TAKE ONE TABLET BY MOUTH EVERY DAY AT BEDTIME FOR MOOD SOLD: 07/28/2021 [facility] 40 mg 07/20/2021 12:00:00 AM EDT capsule 7 TAKE ONE CAPSULE BY MOUTH EVERY DAY FOR MOOD TAKE ONE CAPSULE BY MOUTH EVERY DAY FOR MOOD SOLD: 07/28/2021 [facility] 2 mg 07/20/2021 12:00:00 AM EDT tablet 7 TAKE ONE TABLET BY MOUTH EVERY DAY AT BEDTIME FOR MOOD TAKE ONE TABLET BY MOUTH EVERY DAY AT BEDTIME FOR MOOD SOLD: 07/21/2021 [facility] 40 mg 07/20/2021 12:00:00 AM EDT capsule 7 TAKE ONE CAPSULE BY MOUTH EVERY DAY FOR MOOD TAKE ONE CAPSULE BY MOUTH EVERY DAY FOR MOOD SOLD: 07/21/2021 [facility] 40 mg 07/20/2021 12:00:00 AM EDT capsule 7 TAKE ONE CAPSULE BY MOUTH EVERY DAY FOR MOOD TAKE ONE CAPSULE BY MOUTH EVERY DAY FOR MOOD SOLD: 08/04/2021 [facility] 40 mg 07/20/2021 12:00:00 AM EDT capsule 7 TAKE ONE CAPSULE BY MOUTH EVERY DAY FOR MOOD TAKE ONE CAPSULE BY MOUTH EVERY DAY FOR MOOD SOLD: 08/11/2021 [facility] 75 mg 07/04/2021 12:00:00 AM EDT capsule,extended releas e 24hr 30 TAKE ONE CAPSULE BY MOUTH WITH FOOD ONCE A DAY TAKE ONE CAPSULE BY MOUTH WITH FOOD ONCE A DAY SOLD: 07/13/2021 [facility] 75 mg 06/07/2021 12:00:00 AM EDT capsule,extended releas e 24hr 30 TAKE ONE CAPSULE BY MOUTH EVERY DAY WITH FOOD TAKE ONE CAPSULE BY MOUTH EVERY DAY WITH FOOD SOLD: 06/07/2021 [facility] 10 mg 06/04/2021 12:00:00 AM EDT tablet 15 TAKE ONE TABLET BY MOUTH EVERY DAY TAKE ONE TABLET BY MOUTH EVERY DAY SOLD: 06/04/2021 [facility] benzonatate 100 MG Oral Capsule BENZONATATE 06/04/2021 12:00:00 AM EDT capsule 9 TAKE ONE CAPSULE BY MOUTH EVERY 8 HOURS NEEDED FOR COUGH TAKE ONE CAPSULE BY MOUTH EVERY 8 HOURS NEEDED FOR COUGH SOLD: 06/04/2021 [facility] Amoxicillin 875 MG / Clavulanate 125 MG Oral Tablet 87 5-125 mg AMOXICILLIN/POTASSIUM CLAV 06/04/2021 12:00:00 AM EDT tablet 14 TAKE ONE TABLET BY MOUTH TWICE A DAY TAKE ONE TABLET BY MOUTH TWICE A DAY SOLD: 06/04/2021 [facility] Fluticasone propionate 0.05 MG/ACTUAT Metered Dose [place] [facility] [place] 50 mcg/actuation FLUTICASONE PROPIONATE 06/04/2021 12:00:00 AM EDT spray,suspension 16 SPRAY 1- 2 SPRAYS IN EACH NOSTRIL ONCE A DAY SPRAY 1-2 SPRAYS IN EACH NOSTRIL ONCE A DAY SOLD: 06/04/2021 [facility] 24 HR venlafaxine 75 MG Extended Release Oral Capsule Venlafaxine HCl ER 75 MG Venlafaxine HCl ER 75 MG 06/01/2021 12:00:00 AM EDT 1.0 {capsule_wi th_food} active Venlafaxine HCl ER 75 MG eCW1 ([facility]) 24 HR venlafaxine 75 MG Extended Release Oral Capsule Venlafaxine HCl ER 75 MG Venlafaxine HCl ER 75 MG 06/01/2021 12:00:00 AM EDT 1.0 {capsule_wi th_food} active Venlafaxine HCl ER 75 MG eCW1 ([facility]) 24 HR venlafaxine 75 MG Extended Release Oral Capsule Venlafaxine HCl ER 75 MG Venlafaxine HCl ER 75 MG 06/01/2021 12:00:00 AM EDT 1.0 {capsule_wi th_food} active Venlafaxine HCl ER 75 MG eCW1 ([facility]) 24 HR venlafaxine 75 MG Extended Release Oral Capsule Venlafaxine HCl ER 75 MG Venlafaxine HCl ER 75 MG 06/01/2021 12:00:00 AM EDT 1.0 {capsule_wi th_food} active Venlafaxine HCl ER 75 MG eCW1 ([facility]) 24 HR venlafaxine 75 MG Extended Release Oral Capsule Venlafaxine HCl ER 75 MG Venlafaxine HCl ER 75 MG 06/01/2021 12:00:00 AM EDT 1.0 {capsule_wi th_food} active Venlafaxine HCl ER 75 MG eCW1 ([facility]) NITROFURANTOIN, MACROCRYSTALS 25 MG / Ni trofurantoin, Monohydrate 75 MG Oral Capsule 100 mg NITROFURANTOIN MONOHYD/M-CRYST 05/21/2021 12:00:00 AM EDT ca psule 14 TAKE ONE CAPSULE BY MOUTH TWICE A DAY FOR 7 DAYS TAKE ONE CAPSULE BY MOUTH TWICE A DAY FOR 7 DAYS SOLD: 05/21/2021 [facility] 60 mg 05/04/2021 12:00:00 AM EDT capsule,delayed release (DR/EC) 30 TAKE ONE CAPSULE BY MOUTH EVERY DAY TAKE ONE CAPSULE BY MOUTH EVERY DAY SOLD: 05/04/2021 [facility] 240 mg (27 mg iron) 04/15/2021 12:00:00 AM EDT tablet 12 TAKE 1 TABLET BY MOUTH WITH WATER OR JUICE BETWEEN MEALS ON MONDAYS, WEDNESDAYS, FRIDAYS TAKE 1 TABLET BY MOUTH WITH WATER OR JUICE BETWEEN MEALS ON MONDAYS, WEDNESDAYS, FRIDAYS SOLD: 04/15/2021 [facility] 10 mg 04/15/2021 12:00:00 AM EDT capsule 30 TAKE ONE CAPSULE BY MOUTH EVERY DAY TAKE ONE CAPSULE BY MOUTH EVERY DAY SOLD: 04/15/2021 [facility] ferrous gluconate 240 MG Oral Tablet Ferrous Gluconate 240 (27 Fe) MG Ferrous Gluconate 240 (27 Fe) MG 04/14/2021 12:00:00 AM EDT active Ferrous Gluconate 240 (27 Fe) MG eCW1 ([facility]) ferrous gluconate 240 MG Oral Tablet Ferrous Gluconate 240 (27 Fe) MG Ferrous Gluconate 240 (27 Fe) MG 04/14/2021 12:00:00 AM EDT active Ferrous Gluconate 240 (27 Fe) MG eCW1 ([facility]) ferrous gluconate 240 MG Oral Tablet Ferrous Gluconate 240 (27 Fe) MG Ferrous Gluconate 240 (27 Fe) MG 04/14/2021 12:00:00 AM EDT active Ferrous Gluconate 240 (27 Fe) MG eCW1 ([facility]) ferrous gluconate 240 MG Oral Tablet Ferrous Gluconate 240 (27 Fe) MG Ferrous Gluconate 240 (27 Fe) MG 04/14/2021 12:00:00 AM EDT active Ferrous Gluconate 240 (27 Fe) MG eCW1 ([facility]) Fluoxetine 10 MG Oral Capsule FLUoxetine HCl 10 MG FLUoxetin e HCl 10 MG 04/14/2021 12:00:00 AM EDT 1.0 {capsule} active FLUoxetine HCl 10 MG eCW1 ([facility]) Fluoxetine 10 MG Oral Capsule FLUoxetine HCl 10 MG FLUoxetin e HCl 10 MG 04/14/2021 12:00:00 AM EDT 1.0 {capsule} active FLUoxetine HCl 10 MG eCW1 ([facility]) ferrous gluconate 240 MG Oral Tablet Ferrous Gluconate 240 (27 Fe) MG Ferrous Gluconate 240 (27 Fe) MG 04/14/2021 12:00:00 AM EDT active Ferrous Gluconate 240 (27 Fe) MG eCW1 ([facility]) ferrous gluconate 240 MG Oral Tablet Ferrous Gluconate 240 (27 Fe) MG Ferrous Gluconate 240 (27 Fe) MG 04/14/2021 12:00:00 AM EDT active Ferrous Gluconate 240 (27 Fe) MG eCW1 ([facility]) ferrous gluconate 240 MG Oral Tablet Ferrous Gluconate 240 (27 Fe) MG Ferrous Gluconate 240 (27 Fe) MG 04/14/2021 12:00:00 AM EDT active Ferrous Gluconate 240 (27 Fe) MG eCW1 ([facility]) ferrous gluconate 240 MG Oral Tablet Ferrous Gluconate 240 (27 Fe) MG Ferrous Gluconate 240 (27 Fe) MG 04/14/2021 12:00:00 AM EDT active Ferrous Gluconate 240 (27 Fe) MG eCW1 ([facility]) Fluoxetine 10 MG Oral Capsule FLUoxetine HCl 10 MG FLUoxetin e HCl 10 MG 04/14/2021 12:00:00 AM EDT 1.0 {capsule} active FLUoxetine HCl 10 MG eCW1 ([facility]) Fluoxetine 10 MG Oral Capsule FLUoxetine HCl 10 MG FLUoxetin e HCl 10 MG 04/14/2021 12:00:00 AM EDT 1.0 {capsule} active FLUoxetine HCl 10 MG eCW1 ([facility]) Fluoxetine 10 MG Oral Capsule FLUoxetine HCl 10 MG FLUoxetin e HCl 10 MG 04/14/2021 12:00:00 AM EDT 1.0 {capsule} active FLUoxetine HCl 10 MG eCW1 ([facility]) ferrous gluconate 240 MG Oral Tablet Ferrous Gluconate 240 (27 Fe) MG Ferrous Gluconate 240 (27 Fe) MG 04/14/2021 12:00:00 AM EDT active Ferrous Gluconate 240 (27 Fe) MG eCW1 ([facility]) ferrous gluconate 240 MG Oral Tablet Ferrous Gluconate 240 (27 Fe) MG Ferrous Gluconate 240 (27 Fe) MG 04/14/2021 12:00:00 AM EDT active Ferrous Gluconate 240 (27 Fe) MG eCW1 ([facility]) 500 mg 04/09/2021 12:00:00 AM EDT tablet 20 TAKE ONE TABLET BY MOUTH EVERY 6 HOURS NEEDED FOR PAIN (LEVEL 5-10) TAKE ONE TABLET BY MOUTH EVERY 6 HOURS A S NEEDED FOR PAIN (LEVEL 5-10) SOLD: 04/09/2021 [facility] 10 mg 04/09/2021 12:00:00 AM EDT tablet 20 TAKE ONE TABLET BY MOUTH EVERY 6 HOURS NEEDED FOR PAIN TAKE ONE TABLET BY MOUTH EVERY 6 HOURS A S NEEDED FOR PAIN SOLD: 04/09/2021 [facility] 24 HR Loratadine 10 MG / Pseudoephedrine sulfate 240 MG Extended Release Oral Tablet 10-240 mg LORATADINE/PSEUDOEPHEDRINE 03/30/2021 12:00:00 AM EDT tablet extended release 24 hr 10 TAKE ONE TABLET BY MOUTH EVERY DAY TAKE ONE TABLET BY MOUTH EVERY DAY SOLD: 03/30/2021 [facility] 60 mg 03/25/2021 12:00:00 AM EDT capsule,delayed release (DR/EC) 30 TAKE ONE CAPSULE BY MOUTH EVERY DAY TAKE ONE CAPSULE BY MOUTH EVERY DAY SOLD: 03/29/2021 [facility] Amoxicillin 875 MG Oral Tablet Amoxicillin 875 MG 03/24/2021 12:00: 00 AM EDT 1.0 {tablet} active Amoxicillin 875 MG eCW1 ([facility]) 500 mg 03/24/2021 12:00:00 AM EDT tablet 14 TAKE ONE TABLET BY MOUTH EVERY 12 HOURS WITH FOOD OR MILK NEEDED FOR PAIN TAKE ONE TABLET BY MOUTH EVERY 12 HOURS WITH FOOD OR MILK NEEDED FOR PAIN SOLD: 03/24/2021 [facility] Amoxicillin 875 MG Oral Tablet Amoxicillin 875 MG 03/24/2021 12:00: 00 AM EDT 1.0 {tablet} active Amoxicillin 875 MG eCW1 ([facility]) Naprosyn 500 MG UNK 03/24/2021 12:00:00 AM EDT active Naprosyn 500 MG eCW1 ([facility]) 875 mg 03/24/2021 12:00:00 AM EDT tablet 14 TAKE ONE TABLET BY MOUTH TWO TIMES A DAY FOR 7 DAYS TAKE ONE TABLET BY MOUTH TWO TIMES A DAY FOR 7 DAYS SO LD: 03/24/2021 [facility] Naprosyn 500 MG UNK 03/24/2021 12:00:00 AM EDT active Naprosyn 500 MG eCW1 ([facility]) 17 gram 03/13/2021 12:00:00 AM EDT powder in packet 14 TAKE ONE PACKET BY MOUTH TWICE A DAY TAKE ONE PACKET BY MOUTH TWICE A DAY SOLD: 03/13/2021 [facility] 5-325 mg 03/13/2021 12:00:00 AM EDT tablet 16 TAKE ONE TABLET BY MOUTH EVERY 6 HOURS NEEDED FOR PAIN MAXIMUM DAILY DOSE = FOUR TABLETS TAKE ONE TABLET BY MOUTH EVERY 6 HOURS NEEDED FOR PAIN MAXIMUM DAILY DOSE = FOUR TABLETS SOLD: 03/13/2021 [facility] 8.6-50 mg 03/13/2021 12:00:00 AM EDT tablet 14 TAKE ONE TABLET BY MOUTH TWICE A DAY TAKE ONE TABLET BY MOUTH TWICE A DAY SOLD: 03/13/2021 [facility] 60 mg 02/18/2021 12:00:00 AM EDT capsule,delayed release (DR/EC) 30 TAKE ONE CAPSULE BY MOUTH EVERY DAY TAKE ONE CAPSULE BY MOUTH EVERY DAY SOLD: 02/19/2021 [facility] 875 mg 11/17/2020 12:00:00 AM EST tablet 20 TAKE ONE TABLET BY MOUTH EVERY 12 HOURS FOR 10 DAYS TAKE ONE TABLET BY MOUTH EVERY 12 HOURS FOR 10 DAYS SO LD: 11/21/2020 [facility] 300 mg 11/15/2020 12:00:00 AM EST capsule 20 TAKE ONE CAPSULE BY MOUTH EVERY 12 HOURS FOR 10 DAYS TAKE ONE CAPSULE BY MOUTH EVERY 12 HOURS FOR 10 DAYS S OLD: 11/15/2020 [facility] 600 mg 10/06/2020 12:00:00 AM EST tablet 20 TAKE ONE TABLET BY MOUTH EVERY 6 HOURS NEEDED WITH FOOD TAKE ONE TABLET BY MOUTH EVERY 6 HOURS A S NEEDED WITH FOOD SOLD: 10/09/2020 [facility] Cyclobenzaprine hydrochloride 10 MG Oral Tablet CYCLOBENZAPR INE HCL 10/04/2020 12:00:00 AM EST tablet 20 TAKE ONE TABLET BY MOUTH EVERY 8 HOURS TAKE ONE TABLET BY MOUTH EVERY 8 HOURS SOLD: 10/05/2020 [facility] Oseltamivir 75 MG Oral Capsule [Tamiflu] Tamiflu 75 MG Tamif eladio 75 MG 08/04/2020 12:00:00 AM EDT 1.0 {capsule} active T amiflu 75 MG eCW1 ([facility]) 60 mg 08/04/2020 12:00:00 AM EDT capsule,delayed release (DR/EC) 60 TAKE ONE CAPSULE BY MOUTH DAILY TAKE ONE CAPSULE BY MOUTH DAILY SOLD: 08/04/2020 [facility] Oseltamivir 75 MG Oral Capsule [Tamiflu] Tamiflu 75 MG Tamif eladio 75 MG 08/04/2020 12:00:00 AM EDT 1.0 {capsule} active T amiflu 75 MG eCW1 ([facility]) 75 mg 08/04/2020 12:00:00 AM EDT capsule 10 TAKE ONE CAPSULE BY MOUTH TWICE A DAY FOR 5 DAYS TAKE ONE CAPSULE BY MOUTH TWICE A DAY FOR 5 DAYS SOLD: 08/04/2020 [facility] Oseltamivir 75 MG Oral Capsule [Tamiflu] Tamiflu 75 MG Tamif eladio 75 MG 08/04/2020 12:00:00 AM EDT 1.0 {capsule} active T amiflu 75 MG eCW1 ([facility]) Oseltamivir 75 MG Oral Capsule [Tamiflu] Tamiflu 75 MG Tamif eladio 75 MG 08/04/2020 12:00:00 AM EDT 1.0 {capsule} active T amiflu 75 MG eCW1 ([facility]) Oseltamivir 75 MG Oral Capsule [Tamiflu] Tamiflu 75 MG Tamif eladio 75 MG 08/04/2020 12:00:00 AM EDT 1.0 {capsule} active T amiflu 75 MG eCW1 ([facility]) Oseltamivir 75 MG Oral Capsule [Tamiflu] Tamiflu 75 MG Tamif eladio 75 MG 08/04/2020 12:00:00 AM EDT 1.0 {capsule} active T amiflu 75 MG eCW1 ([facility]) 60 mg 08/04/2020 12:00:00 AM EDT capsule,delayed release (DR/EC) 60 TAKE ONE CAPSULE BY MOUTH DAILY TAKE ONE CAPSULE BY MOUTH DAILY SOLD: 12/05/2020 [facility] 60 mg 08/04/2020 12:00:00 AM EDT capsule,delayed release (DR/EC) 60 TAKE ONE CAPSULE BY MOUTH DAILY TAKE ONE CAPSULE BY MOUTH DAILY SOLD: 10/09/2020 [facility] 60 mg 06/28/2020 12:00:00 AM EDT capsule,delayed release (DR/EC) 30 TAKE ONE CAPSULE BY MOUTH ONCE DAILY TAKE ONE CAPSULE BY MOUTH ONCE DAILY SOLD: 06/28/2020 [facility] Insurance Providers Payer name Policy type / Coverage type Policy ID Covered libertarian ID Covered libertarian's relationship to sheikh Policy Sheikh Plan Information [facility] [facility] [place] [facility] 306/806 [id number] SP [id number] [place] 306/806 [id number] SP [id number] VIKAS [id number] SP [id number] VIKAS [id number] SP [id number] VIKAS [id number] SP [id number] Managed Care Vikas P [id number] S [id number] Medicaid S [id number] S [id number] Medicaid S [id number] S [id number] [employer] [id number] Self [id number] [employer] [id number] Self [id number] [employer] [place] emp [id number] Employee [id number] [employer] [id number] Self [id number] Medicaid Medicaid [id number] Self [id number] ANSI-Commercial [id number] ANSI-Medicaid [id number] ANSI-Commercial [id number] [facility] [id number] ANSI-Medicaid [id number] ANSI-Commercial [id number] ANSI-Commercial [id number] ANSI-Medicaid [id number] ANSI-Medicaid [id number] ANSI-Commercial [id number] ANSI-Medicaid [id number] ANSI-Commercial [id number] ANSI-Commercial [id number] ANSI-Medicaid [id number] ANSI-Commercial [id number] ANSI-Medicaid [id number] ANSIU[employer]ixCommercial [id number] ANSI-Medicaid [id number] ANSI-[employer] [id number] [facility] [id number] [facility] [id number] ANSI-Commercial [id number] ANSI-Medicaid [id number] ANSI-Commercial [id number] MEDICAID [id number] SP [id number] [employer] B [id number] S [id number] BCBS/[employer] Commercial [id number] Self [id number] Medicaid Dental P [id number] S [id number] [place] -[place]/P [id number] 18 [id number] VIKAS [id number] SP [id number] MEDICAID -O/P EMERGENCY ROOM [id number] [place] [id number] 18 [id number] [place] -PHYSICIAN [id number] 18 [id number] [employer] [id number] S [id number] [place] [id number] S [id number] [place] -OP [id number] 18 [id number] ANSI-Commercial [id number] ANSI-Medicaid [id number] ANSI-Commercial [id number] [facility]-Medicaid [id number] [facility] [place] Medicaid [id number] Self [id number] Problems, Conditions, and Diagnoses Code Display Name Description Problem Type Effective Dates Data Source(s) Z6837 Body mass index [BMI] 37.0-37.9, adult B macario mass index [BMI] 37.0-37.9, adult Diagnosis 06/03/2021 08:09:00 PM EDT [facility] A02768 Latex allergy status Latex allergy status Diagnosis 06/03/2021 08:09:00 PM EDT [facility] F38761 CONTACT WITH AND SUSPECTED EXPOSURE TO C OVID-19 CONTACT WITH AND SUSPECTED EXPOSURE TO COVID-19 Diagnosis 06/03/2021 08:09:00 PM EDT [facility] E669 Obesity, unspecified Obesity, unspecified Diagnosis 06/03/2021 08:09:00 PM EDT [facility] P51337 Nicotine dependence, cigarettes, uncompl icated Nicotine dependence, cigarettes, uncomplicated Diagnosis 06/03/2021 08:09:00 PM EDT [facility] I10 Essential (primary) hypertension Essential (primary) h ypertension Diagnosis 06/03/2021 08:09:00 PM EDT [facility] J069 Acute upper respiratory infection, unspe cified Acute upper respiratory infection, unspecified Diagnosis 06/03/2021 08:09:00 PM EDT [facility] J00 Acute nasopharyngitis [common cold] Acute nasoph aryngitis [common cold] Diagnosis 06/03/2021 08:09:00 PM EDT [facility] J0110 Acute frontal sinusitis, unspecified Acute front al sinusitis, unspecified Diagnosis [facility] Acute maxillary sinusitis, unspecified A cute maxillary sinusitis, unspecified Diagnosis 06/03/2021 08:09:[address] [facility] J302 Other seasonal allergic rhinitis Other seasonal allergic rhinitis Diagnosis 06/03/2021 08:09:[address] [facility] R519 Headache, unspecified Headache, unspecified Diagnosis 06/03/2021 08:09:[address] [facility] Y[address] or not applicable Unspecified place or not applicable Diagnosis 05/13/2021 03:27:[address] [facility] J70QJJS Exposure to other specified factors, ini tial encounter Exposure to other specified factors, initial encounter Diagnosis 05/13/2021 03:27:[address] [facility] R9431 Abnormal electrocardiogram [ECG] [EKG] A bnormal electrocardiogram [ECG] [EKG] Diagnosis 05/13/2021 03:27:[address] [facility] N3000 Acute cystitis without hematuria Acute cystitis without hematuria Diagnosis 05/13/2021 03:27:[address] [facility] I00558R Strain of muscle and tendon of front wal l of thorax, initial encounter Strain of muscle and tendon of front wall of thorax, initial encounter Diagnosis 05/13/2021 03:27:[address] [facility] R0789 Other chest pain Other chest pain Diagnosis 05/13/2021 03 :27:[address] [facility] E89583 Unspecified place in unspeci fied non-institutional (private) residence as the place of occurrence of the external cause Unspecified place in unspecified non-institutional (private) residence as the place of occurrence of the external cause Diagnosis 03/29/2021 02:21:[address] [facility] S725SQE Contact with other sharp obj ect(s), not elsewhere classified, initial encounter Contact with other sharp object(s), not elsewhere classified, initial encounter Diagnosis 03/29/2021 02:21:[address] [facility] H6991 Unspecified Eustachian tube disorder, ri ght ear Unspecified Eustachian tube disorder, right ear Diagnosis 03/29/2021 02:21:00 PM EDT [facility] [id number] Laceration without foreign body of right forearm, initial encounter Laceration without foreign body of right forearm, initial encounter Diagnosis 03/29/2021 02:21:00 PM EDT [facility] F15.20 Other stimulant dependence, uncomplicate d Stimulant Use Disorder, Moderate: Amphetamine-type substance Condition 08/05/2021 12:00:00 AM EDT [facility] ([facility]) F43.12 Post-traumatic stress disorder, chronic Post-traumatic stress disorder, chronic Condition 08/05/2021 12:00:00 AM EDT [facility] ([facility]) F41.9 Anxiety disorder, unspecified Unspecified Anxiety Diso rder Condition 08/05/2021 12:00:00 AM EDT [facility] ([facility]) F32.9 Major depressive disorder, single episod e, unspecified Major Depressive Disorder, Single episode, Unspecified Condition 08/05/2021 12:00:00 AM EDT [facility] ([facility]) N91.2 [id number] Amenorrhea Problem 06/01/2021 12:00:00 AM ED T eCW1 ([facility]) E66.9 [id number] Obesity (BMI 30-39.9) Problem 03/24/2021 12: 00:00 AM EDT eCW1 ([facility]) Surgeries/Procedures Procedure Description Date Indications Data Source(s) Extended Individual Psychotherapy - 45 min 08/05/2021 12:00:00 AM EDT - 08/05/2021 12:00:00 AM EDT [facility] ([facility]) Extended Individual Psychotherapy - 45 min 12:00:00 AM EDT [facility] ([facility]) Extended Individual Psychotherapy - 45 min 07/23/2021 12:00:00 AM EDT - 07/23/2021 12:00:00 AM EDT [facility] ([facility]) Extended Individual Psychotherapy - 45 min 12:00:00 AM EDT [facility] ([facility]) Laparoscopy Cholecystectomy With Cholangiography 03/12 12:00:00 AM EDT [facility] ([facility], ) CT CERVICAL SPINE W/O CONTRAST MATERIAL 10/04/2020 12: 00:00 AM [facility] CT HEAD/BRAIN W/O CONTRAST MATERIAL 10/04/2020 12:00:0 0 AM [facility] 62339 10/04/2020 12:00:00 AM [facility] Non-covered item or service 10/04/2020 12:00:00 AM [facility] EMERGENCY DEPARTMENT VISIT HIGH/URGENT SEVERITY 2019 12:00:00 AM [facility] Results ID Date Data Source [id number] 07/15/2021 02:07:00 PM EDT [facility] Name Value Range Interpretation Code Description Data Ariadna rce(s) Supporting Document(s) SARS coronavirus 2 RNA [Presence] in Res piratory specimen by DIANE with probe detection NEGATIVE [facility] This lab was ordered by [facility] a nd reported by [facility]. ID Date Data Source [id number] 06/03/2021 08:09:00 PM EDT [facility] 1 OrderSheet [facility] Emergency Department [address] [place] [address] Phone #: ext- [phone] 06/03/2021 19:55 Patient: MARCELINO BROWN Sex: F : 1990 Age: 30yWEIGHT:94.8 kg (S) HEIGHT:63 inches (S) BMI:37.0ALLERGIES: LatexCHIEF COMPLAINT: headacheDIAGNOSIS: Sinusitis, Allergic rhinitis, Severe acute respiratory syndrome coronavirusLAB ORDERSOrder Description Priority Entered Acknowledged InitialedHCG Urine Qual STAT 20:07 06/03/2021 20:22 Mallika Hatch RN; Mamie Jaimes Verbal order per; Don Lopez-CUrinalysis (Clean STAT 20:08 06/03/2021 20:22 Mallika Anderson) Abe Hatch RN; Mamie Jaimes Verbal order per; Don Cisse CCORONAVIRUS STAT 20:55 06/03/2021 22:18 StevenCOVID-19 Don Hatch RN(Symptomatic as P.A.-C;Defined by CDC)([id number])(Unknown if FristTest) (NotHospitalized)(Unknown if) (NotResident inCongregate CareSetting) (NotEmployed inHealthcare Setting) NOTES: SEND OUTInfluenza Nasal A B STAT 20:55 06/03/2021 22:18 Abe Hatch RN P.A.-C;CBC w Diff STAT 20:55 06/03/2021 21:55 Abe Hatch RN P.A.-C; 2 OrderSheet [facility] Emergency Department [address] [place] [address] Phone #: lzp- [phone] 06/03/2021 19:55 Patient: MARCELINO BROWN Sex: F : 1990 Age: 30yCMP STAT 20:55 06/03/2021 21:55 Abe Hatch RN P.A.-C;Monospot STAT 20:55 06/03/2021 21:55 Abe Hatch RN P.A.-C;HCG Serum Qual STAT 20:55 06/03/2021 21:55 Abe Hatch RN P.A.-C;Rapid Strep Screen STAT 20:55 06/03/2021 Cancelled: Treatment not Indicated 22:19 Don Hatch RN P.A.-C;Culture, Urine STAT 21:18 06/03/2021 22:13 Abe(Urine, Clean Don Hatch RNCatch) P.A.-C;DIAGNOSTIC STUDY ORDERSOrder Description Priority Entered Acknowledged InitialedChest Portable 1 STAT 20:55 06/03/2021 21:55 Leonora Hatch RN(Oxygen?(No)) P.A.-C; Reason for Study: fatigue; ? COVID vs PNU vs otherMEDICATION/IV/DRIP/FLUID ORDERSOrder Description Priority Entered Acknowledged InitialedIV NS 1000 mL 20:55 06/03/2021 22:13 StevenBolus : Bolus 1000 Don Hatch RNmL (X1) P.A.-C;Zofran IVP 4 mg 20:55 06/03/2021 22:12 Abe Hatch RN P.A.-C;Benadryl IVP 25 mg 20:55 06/03/2021 22:12 Abe Hatch RN P.A.- C;Tylenol 1 g PO X1 20:55 06/03/2021 22:09 [place]: 1000 mg Don Hatch RN(NOW x1) P.A.-C;GENERAL ORDERSOrder Description Priority Entered Acknowledged InitialedNPO 20:55 06/03/2021 22:12 Abe Hatch RN P.A.-C; 3 OrderSheet [facility] Emergency Department [address] [place] [address] Phone #: ext- [phone] 06/03/2021 19:55 Patient: MARCELINO BROWN Sex: F : 1990 Age: 30ySaline Lock 20:55 06/03/2021 22:12 Abe Hatch RN P.A.- C;[Electronically signed by Mallika Calzada R.N. (23:52 06/03/2021)][Electronically signed by Don Black P.A.-C (00:18 06/05/2021)][Electronically locked by Mallika Calzada R.N. (23:52 06/03/2021)] Name Value Range Interpretation Code Description Data Ariadna rce(s) Supporting Document(s) ID Date Data Source [id number] 06/03/2021 08:09:00 PM EDT [facility] 1 Medication Reconciliation Report [facility] Emergency Department [address] [place] [address] Phone #: ext- [phone] 06/03/2021 19:55 Patient: MARCELINO BROWN Sex: F : 1990 Age: 30yWeight: 94.8 kgHeight/Length: 63 in.BMI: 37.0ALLERGIES: LatexThe patient's Home Medications are listed below:THE FOLLOWING MEDICATIONS NEED TO BE RECONCILED: Has been off all meds for 2 weeks, [facility] RX [facility] 10seconds SoftwareThe source(s) of the original Home Medication information:Not obtained.The following Medications were given to the patient in the Emergency Department:Tylenol [PO] PO 1000 mg, administered: 22:09 06/03/2021enadryl [IVP] IVP 25 mg, administered: 22:12 06/03/2021Zofran [IVP] IVP 4 mg, administered: 22:12 06/03/2021NS [IV] IV Fluids bolus 1000 mL, then 1000 mL/hr, administered: 22:13 06/03/2021The following Medications were prescribed to the patient:Augmentin 875 mg-125 mg tablet Take 1 tablet twice a day for 7 days -- Dispense 14 tablet. Refills: 0.Substitution permitted. Note to Pharmacy - USE Rx DISCOUNT CARD: $80.55, BIN:[id number],PCN:ISAIAH, Group:EMR, ID:[id number].Pharmacy - [facility] [address] - [address] [place] [address]. FaxNumber: .Flonase Allergy Relief 50 mcg/actuation nasal spray,suspension [place] 1-2 spray once a day for 4 days-- Dispense 1 each. Refills: 0. Substitution permitted. Note to Pharmacy - USE Rx DISCOUNT CARD:$19.91, BIN:[id number], MAIKELN:ISAIAH, Group:EMR, ID:[id number].[facility] #[address] - [address] [place] [address]. FaxNumber: [phone]. 2 Medication Reconciliation Report [facility] Emergency Department [address] [place] [address] Phone #: ext- [phone] 06/03/2021 19:55 Patient: MARCELINO BROWN Sex: F : 1990 Age: 30yZyrtec 10 mg tablet Take 1 tablet once a day for 15 days -- Dispense 15 tablet. Refills: 0. Substitutionpermitted. Note to Pharmacy - USE Rx DISCOUNT CARD: $7.98, BIN:[id number], PCN:ISAIAH,Group:EMR, ID:[id number].[facility] # [address] [place] [address]. Phone: FaxNumber: .Tessalon Perles 100 mg capsule Take 1 capsule every eight hours as needed for 3 days -- For cough.Dispense 9 capsule. Refills: 0. Substitution permitted. Note to Pharmacy - USE Rx DISCOUNT CARD:$18.62, BIN:[id number], PCN:ISAIAH, Group:EMR, ID:[id number].[facility] - [address] [place] [address] ; [place] [address]. FaxNumber: . -- Don Black P.A.-C Name Value Range Interpretation Code Description Data Ariadna rce(s) Supporting Document(s) ID Date Data Source [id number] 06/03/2021 08:09:00 PM EDT [facility] 1 Medication Administration Record [facility] Emergency Department [address] [place] [address] Phone #: ext- [phone] 06/03/2021 19:55 Patient: MARCELINO BROWN Sex: F : 1990 Age: 30yWeight: 94.8 kgHeight/Length: 63 inBMI: 37ALLERGIES: Latex Date/Time Medication Administered Medication OrderedStart NS [IV] IV NS 1000 mL Bolus : Bolus [id number] 06/03/2021 Dose: IV Fluids mL (X1)Abe Hatch RN Rate: 1000 mL/hr---- Bolus: 1000 mLStop Dispensed: 1000 mL bag23:05 06/03/2021 Site: #1 right forearmTina Leonides Hatch R.N.Given ZOFRAN [IVP] (ONDANSETRON HCL) Zofran IVP 4 mg22:12 06/03/2021 Dose: 4 mg IVPSteven PERNELL Hatch Site: #1 right forearmGiven BENADRYL [IVP] (DIPHENHYDRAMINE Benadryl IVP 25 mg22:12 06/03/2021 HCL)Abe Hatch RN Dose: 25 mg IVP Site: #1 right forearmGiven TYLENOL [PO] (APAP) Tylenol 1 g PO X1 dose: 1000 mg22:09 06/03/2021 Dose: 1000 mg Tablets PO (NOW x1)Abe Hatch RN Name Value Range Interpretation Code Description Data Ariadna rce(s) Supporting Document(s) ID Date Data Source [id number] 06/03/2021 08:09:00 PM EDT [facility] 1 General Instructions [facility] Emergency Department [address] [place] [address] Phone #: ext- [phone] 06/03/2021 19:55 Patient: MARCELINO BROWN Sex: F : 1990 Age: 30y Acute seasonal allergic rhinitis. Acute maxillary and frontal sinusitis. Coronavirus COVID-19 presumed (confirmatory testing pending) with upper respiratory infection and rhinitis.INSTRUCTIONS Take Tylenol (Acetaminophen) or Motrin (Ibuprofen) as needed for fever control. Take medication according to label instructions. Rest at home for one weeks (You are on a self quarantine x 1 week. This may be extended or decreased by [facility]. It is all dependent on when your test results are in.). Take clear liquids only. No dietary restrictions. (Recommend to utilize OTC Motrin and Tylenol to control inflammation and pain management. Recommend to follow the instructions on the bottle and not to exceed. [facility]: [phone]. Please contact them in approx 3-4 days if you have not heard from them. You are on a self quarantine x 1 week. This may be extended or decreased by [facility]. It is all dependent on when your test results are in. I recommend to purchase a small finger pulse oximeter to monitor your O2 saturation at home. If becomes too low (<90%), please contact your PCP or return to the ER.). Prescription Medications: Augmentin 875 mg-125 mg tablet Take 1 tablet twice a day for 7 days -- Dispense 14 tablet. Refills: 0. Substitution permitted. Note to Pharmacy - USE Rx DISCOUNT CARD: $80.55, BIN:[id number], PCN:ISAIAH, Group:ALBERT, ID:[id number]. Pharmacy - [facility] [address] [place] [address] ; [place] [address]. Phon e: . Flonase Allergy Relief 50 mcg/actuation nasal spray,suspension Orlando 1-2 spray once a day for 4 days -- Dispense 1 each. Refills: 0. Substitution permitted. Note to Pharmacy - USE Rx DISCOUNT CARD: $19.91, BIN:[id number], PCN:ISAIAH, Group:EMR, ID:[id number]. Pharmacy - [facility] [address] [place] [address] ; [place] [address]. . Zyrtec 10 mg tablet Take 1 tablet once a day for 15 days -- Dispense 15 tablet. Refills: 0. Substitution permitted. Note to Pharmacy - USE Rx DISCOUNT CARD: $7.98, BIN:[id number], PCN:ISAIAH [address] [facility] Emergency Department [address] [place] [address] Phone #: ext- [phone] 06/03/2021 19:55 Patient: MARCELINO BROWN Sex: F : 1990 Age: 30y Group:EMR, ID:[id number]. [facility] [address] [place] [address] ; [place] [address]. . Tessalon Perles 100 mg capsule Take 1 capsule every eight hours as needed for 3 days -- For cough. Dispense 9 capsule. Refills: 0. Substitution permitted. Note to Pharmacy - USE Rx DISCOUNT CARD: $18.62, BIN:[id number], PCN:ISAIAH, Group:EMR, ID:[id number]. [facility] - [facility] [address] - [address] [place] [address] ; [place] [address]. . Follow- up: Return to the emergency department as needed. Follow up with your healthcare provider in about three days if not better. Call for an appointment. Understanding of the discharge instructions verbalized by patient. ADDITIONAL INFORMATIONAllergic RhinitisAllergic rhinit is is an allergic reaction that affects the nose, and often the eyes. It's often knownas nasal allergies. Nasal allergies are often due to things in the environment that are breathed in.Depending what you are sensitive to, nasal allergies may occur only during certain seasons, or theymay occur year round. Common indoor allergens include house dust mites, mold, cockroaches, andpet dander. Outdoor allergens include pollen from trees, grasses, and weeds.Symptoms include a drippy, stuffy, and itchy nose. They also include sneezing and red and itchyeyes. You may feel tired more often. Severe allergies may also affect your breathing and trigger acondition called asthma.Tests can be done to see what allergens are affecting you. You may be referred to an allergyspecialist for testing and further evaluation.Home careYour healthcare provider may prescribe medicines to help relieve allergy symptoms. These mayinclude oral medicines, nasal sprays, or eye drops.Ask your provider for advice on how to stay away from substances that you are allergic to. Below area few tips for each type of allergen.Pet dander: Do not have pets with fur and feathers. 3 General Instructions [facility] Emergency Department [address] [place] [address] Phone #: ext- [phone] 06/03/2021 19:55 Patient: MARCELINO BROWN Sex: F : 1990 Age: 30y If you have a pet, keep it out of your bedroom and off upholstered furniture.Pollen: When pollen counts are high, keep windows of your car and home closed. If possible, use an air conditioner instead. Wear a filter mask when mowing or doing yard work.House dust mites: Wash bedding every week in warm water and detergent and dry on a hot setting. Cover the mattress, box spring, and pillows with allergy covers. If possible, sleep in a room with no carpet, curtains, or upholstered furniture.Cockroaches: Store food in sealed containers. Remove garbage from the home promptly. Fix water leaks.Mold: Keep humidity low by using a dehumidifier or air conditioner. Keep the dehumidifier and air conditioner clean and free of mold. Clean moldy areas with bleach and water. Don't mix bleach with other truck shop mechanic.In general: Vacuum once or twice a week. If possible, use a vacuum with a high-efficiency particulate air (HEPA) filter. Don't smoke. Stay away from cigarette smoke. Cigarette smoke is an irritant that can make symptoms worse.Follow-up careFollow up as advised by the healthcare provider or our staff. If you were referred to an allergyspecialist, make this appointment promptly.When to seek medical adviceCall your healthcare provider or get medical care right away if the following occur: Coughing 4 General Instructions [facility] Emergency Department [address] [place] [address] Phone #: ext- [phone] 06/03/2021 19:55 Patient: MARCELINO BROWN Sex: F : 1990 Age: 30y Fever of 100.4F (38C) or higher, or as directed by your healthcare provider Raised red bumps (hives) Continuing symptoms, new symptoms, or worsening symptomsCall 911Call 911 if you have: Trouble breathing Severe swelling of the face or severe itching of the eyes or mouth Wheezing or shortness of breath Chest tightness Dizziness or lightheadedness Feeling of doom Stomach pain, bloating, vomiting, or diarrhea [employer]. [address] [place] [address], [place] [address]. All rights reserved. This information is not intended as asubstitute for professional medical care. Always follow your healthcare professional's instructions.Seasonal AllergySeasonal allergy is also called hay fever. An allergic reaction may occur after a person is exposed topollens released from grasses, weeds, trees, and shrubs. This type of allergy occurs during thespring, summer, or fall when pollens contact the lining of the nose, eyes, eyelids, sinuses, throat, andlungs. This causes histamine and other chemicals to be released from the tissues. Histamine causesitching and swelling. This may produce a watery discharge from the eyes or nose. Severe symptomsof sneezing, nasal congestion, post-nasal drip, itching of the eyes, nose, throat and mouth, scratchythroat, and dry cough, or wheezing may also occur.Home careSeasonal allergy symptoms can be reduced by these measures: Stay away from or limit your time near the allergen as much as you can: o Stay indoors on windy days of pollen season. o Keep windows and doors closed. Use air conditioning instead in your home and car. This filters the air. 5 General Instructions [facility] Emergency Department [address] [place] [address] Phone #: ext- [phone] 06/03/2021 19:55 Patient: MARCELINO BROWN Sex: F : 1990 Age: 30y o Change air conditioner filters often. o Take a shower, wash your hair, and change clothes after being outdoors. o Put on a N IOSH-rated 95 filter mask when working outdoors. Before going outside, take your allergy medicine as advised by your healthcare provider. Decongestant pills and sprays reduce tissue swelling and watery discharge. Overuse of nasal decongestant sprays may make symptoms worse. Don't use these more often than recommended. Sometimes you can get a rebound effect (symptoms worsen), when stopping them. Talk to your healthcare provider or pharmacist about these medicines before taking them, especially if you have high blood pressure or heart problems. Antihistamines block the release of histamine during the allergic response. They may work better when taken before symptoms develop. Unless a prescription antihistamine was prescribed, you can take xwzd-mmy-cokkkhf antihistamines that don't cause drowsiness. Ask your pharmacist or healthcare provider for suggestions. Steroid nasal sprays or oral steroids may also be prescribed for more severe s ymptoms. These help reduce the local inflammation that can add to the allergic response. If you have asthma, pollen season may make your asthma symptoms worse. It's important that you use your asthma medicines as directed during this time to prevent or treat attacks. Some people with asthma have asthma symptoms that get worse when they take antihistamines. This is due to the drying effect on the lungs. If you notice this, stop the antihistamines, drink extra fluids and notify your healthcare provider. If you have sinus congestion or drainage, a saline nasal rinse may give relief. A saline nasal rinse lessens the swelling and clears excess mucus. This allows sinuses to drain. Prepackaged kits are sold at most drug stores. These contain pre-mixed salt packets and an irrigation device.Follow-up careFollow up with your healthcare provider, or as advised. If you have been referred to a specialist, makean appointment promptly. Getting tested for your allergies can help you find out what things to stayaway from and which times of year you should be taking your allergy medicines. Also, allergy shots(allergy immunotherapy) can help ease or prevent seasonal allergy symptoms. These shots are givenby a doctor who specialized in treating allergies (director pharmacovigilance). The shots may also lower the amount ofmedicine you need to take during the allergy season. Talk with your healthcare provider to see ifallergy shots might help you.When to seek medical adviceCall your healthcare provider right away for any of the followin General Instructions [facility] Emergency Department [address] [place] [address] Phone #: ext- [phone] 06/03/2021 19:55 Patient: MARCELINO BROWN Sex: F : 1990 Age: 30y Facial, ear or sinus pain; colored drainage from the nose Headaches You have asthma and your asthma symptoms don't respond to the usual doses of your medicine Cough with colored sputum (mucus) Fever of 100.4F (38C) or higher, or as directed by the healthcare providerCall 911Call 911 if any of these occur: Trouble breathing or swallowing, wheezing Hoarse voice, trouble speaking, or drooling Confusion Very drowsy or trouble awakening Fainting or loss of consciousness Rapid heart rate, or weak pulse Low blood pressure Feeling of doom Nausea, vomiting, abdominal pain, diarrhea Vomiting blood, or large amounts of blood in stool Seizure Cold, moist, or pale (blue in color) skin [employer]. [address] [place] [address]. All rights reserved. This information is not intended as asubstitute for [facility] medical care. Always follow your healthcare professional's instructions.Sinusitis (Antibiotic Treatment) 7 General Instructions [facility] Emergency Department [address] [place] [address] Phone #: ext- [phone] 06/03/2021 19:55 Patient: MARCELINO BROWN Sex: F : 1990 Age: 30yThe sinuses are air-filled spaces within the bones of the face. They connect to the inside of thenose. Sinusitis is an inflammation of the tissue that lines the sinuses. Sinusitis can occur during acold. It can also happen due to allergies to pollens and other particles in the air. Sinusitis can causesymptoms of sinus congestion and a feeling of fullness. A sinus infection causes fever, headache,and facial pain. There is often green or yellow fluid draining from the nose or into the back of thethroat (post-nasal drip). You have been given antibiotics to treat this condition.Home care Take the full course of antibiotics as instructed. Don't stop taking them, even when you feel better. Drink plenty of water, hot tea, and other liquids as directed by the healthcare provider. This may help thin nasal mucus. It also may help your sinuses drain fluids. Heat may help soothe painful areas of your face. Use a towel soaked in hot water. Or, practical nursing teacher the shower and direct the warm spray onto your face. Using a vaporizer along with a menthol rub at night may also help soothe symptoms. An expectorant with guaifenesin may help thin nasal mucus and help your sinuses drain fluids. Talk with your provider or pharmacists before taking an ymvj-cta-dtwftaw (OTC) medicine if you have any questions about it or its side effects.. You can use an OTC decongestant, unless a similar medicine was prescribed to you. Nasal sprays work the fastest. Use one that contains phenylephrine or oxymetazoline. First blow your nose gently. Then use the spray. Don't use these medicines more often than directed on the label. If you do, your symptoms may get worse. You may also take pills that contain 8 General Instructions [facility] Emergency Department [address] [place] [address] Phone #: ext- [phone] 06/03/2021 19:55 Patient: MARCELINO BROWN Sex: F : 1990 Age: 30y pseudoephedrine. Don't use products that combine multiple medicines. This is because side effects may be increased. Read labels. You can also ask the pharmacist for help. (People with high blood pressure should not use decongestants. They can raise blood pressure.) Talk with your provider or pharmacist if you have any questions about the medicine.. OTC antihistamines may help if allergies contributed to your sinusitis. Talk with your provider or pharmacist if you have any questions about the medicine.. Don't use nasal rinses or irrigation during an acute sinus infection, unless your healthcare provider tells you to. Rinsing may spread the infect ion to other areas in your sinuses. Use acetaminophen or ibuprofen to control pain, unless another pain medicine was prescribed to you. If you have chronic liver or kidney disease or ever had a stomach ulcer, talk with your healthcare provider before using these medicines. Never give aspirin to anyone under age 18 who is ill with a fever. It may cause severe liver damage. Don't smoke. This can make symptoms worse.Follow-up careFollow up with your healthcare provider, or as advised.When to seek medical adviceCall your healthcare provider if any of these occur: Facial pain or headache that gets worse Stiff neck Unusual drowsiness or confusion Swelling of your forehead or eyelids Symptoms don't go away in 10 days Vision problems, such as blurred or double vision Fever of 100.4F (38C) or higher, or as directed by your healthcare providerCall 911Call 911 if any of these occur: Seizure Trouble breathing 9 General Instructions [facility] Emergency Department [address] [place] [address] Phone #: ext- [phone] 06/03/2021 19:55 Patient: MARCELINO BROWN Sex: F : 1990 Age: 30y Feeling dizzy or faint Fingernails, skin or lips look blue, purple , or grayPreventionHere are steps you can take to help prevent an infection: Keep good hand washing habits. Don't have close contact with people who have sore throats, colds, or other upper respiratory infections. Don't smoke, and stay away from secondhand smoke. Stay up to date with of your vaccines. [id number] [employer]. [address] [place] [address] [place] [address]. All rights reserved. This information is not intended as asubstitute for professional medical care. Always follow your healthcare professional's instructions.Understanding Coronavirus Disease 2019 (COVID- 19)Coronavirus disease 2019 (COVID-19) is a virus that causes a respiratory illness. It is caused by acoronavirus called 2019 novel coronavirus (2019-nCoV). There are many types of coronavirus.Coronaviruses are a very common cause of bronchitis. They may sometimes cause lung infection(pneumonia). Symptoms can range from mild to severe respiratory illness. These viruses are alsofound in some animals. COVID-19 was first found in people in [facility], in late 2019. In 2020,several cases of COVID-19 have been confirmed in the [place] COVID-19 is a rapidly-emerginginfectious disease. This means that scientists are actively researching it. There are informationupdates regularly.Public health officials are working to find the source. How the virus spreads is not yet fullyunderstood, but it seems to spread and infect people fairly easily. Some people who have beeninfected in an area may be unsure how or where they became infected. The virus may be spreadthrough droplets of fluid that a person coughs or sneezes into the air. It may be spread if you touch asurface with virus on it, such as a handle or object, and then touch your eyes, nose, or mouth.For the latest information, visit the CDC website at www.cdc.gov/coronavirus/2019- ncov.What are the symptoms of COVID-19?Some people have no symptoms or mild symptoms. Symptoms may appear 2 to 14 days aftercontact with the virus. Symptoms can include: Fever 10 General Instructions [facility] Emergency Department [address] [place] [address] Phone #: ext- [phone] 06/03/2021 19:55 Patient: MARCELINO BROWN Sex: F : 1990 Age: 30y Coughing Trouble breathingWhat are possible complications from COVID-19?In many cases, this virus can cause infection (pneumonia) in both lungs. In some cases, this cancause .How is COVID-19 diagnosed?Your healthcare provider will ask about your symptoms. He or she will also ask about your recenttravel and contact with sick people. If your healthcare provider thinks you may have COVID-19, mario trejo will work closely with your local health department and the CDC on testing. Follow all instructionsfrom your healthcare provider. COVID-19 is diagnosed by: Nasal and throat swab. A cotton-tipped swab is wiped inside your nose or throat. This is done to check for viruses in your nasal mucus. Sputum culture. A small sample of mucus coughed from your lungs (sputum) is collected if you have a cough. It is checked for the virus.How is COVID-19 treated?There is currently no medicine to treat the virus. Treatment is done to help your body while it fightsthe virus. This is known as supportive care. Supportive care may include: Pain medicine. These include acetaminophen and ibuprofen. They are used to help ease pain and reduce fever. Bed rest. This helps your body fight the illness.For severe illness, you may need to stay in the hospital. Care during severe illness may include: IV (intravenous) fluids.These are given through a vein to help keep your body hydrated. Oxygen. Supplemental oxygen or ventilation with a breathing machine (ventilator) may be given. This is done so you get enough oxygen in your body.Are you at risk for COVID-19?You are at risk for infection if you've been to a place where people have been sick with this virus or ifthere are people with COVID-19 in your area. You are at risk if you: Recently traveled to an area with a COVID-19 outbreak Had contact with a sick person who recently traveled to an area with a COVID-19 outbreak 11 General Instructions [facility] Emergency Department [address] [place] [address] Phone #: ext- [phone] 06/03/2021 19:55 Patient: MARCELINO BROWN Sex: F : 1990 Age: 30y Had contact with a person who was diagnosed with or who may have COVID-19How can COVID-19 be prevented?There is no vaccine yet. The best prevention is to not have contact with the virus. The CDC advisesthat people should not travel to areas where there are COVID-19 outbreaks right now for any reasonthat is not urgent. For the most current CDC travel advisories, visit the CDC website atwww.cdc.gov/coronavirus/2019-ncov/travelers. To help prevent spreading the infection, wash your hands often, or use an alcohol-based hand press bucker.The CDC advises that you shouldn't wear a face mask if you are not sick.To protect yourself from COVID-19: Wash your hands often with soap and clean, running water for at least 20 seconds. If you don't have access to soap and water, use an alcohol-based hand press bucker often. Make sure it has at least 60% alcohol. 12 General Instructions [facility] Emergency Department [address] [place] [address] Phone #: ext- [phone] 06/03/2021 19:55 Patient: MARCELINO BROWN Sex: F : 1990 Age: 30y Don't touch your eyes, nose, or mouth unless you have clean hands. Don't have contact with people who are sick. Follow local instructions about being in public. For example, you may be told to not use public transport for a period of time. Experts don't know if animals spread 2019- nCoV. But it's always a good idea to wash your hands after touching any animals. Don't touch animals that may be sick. Don't share eating or drinking tools with sick people. Don't kiss someone who is sick. Clean surfaces often with disinfectant.If you were in an area with COVID-19 in the last 14 days: Call your healthcare provider. He or she can talk with local health staff to see what action may be needed. Follow all instructions from your provider. Take your temperature every morning and evening for at least 14 days. This is to check for fever. Keep a record of the readings. Keep watch for symptoms of the virus. Tell your provider right away if you have symptoms. Stay home if you are sick for any reason.If you were in an area with COVID-19 and have a fever or other symptoms: Stay home. Don't panic. Keep in mind that other illnesses can cause similar symptoms. Stay away from work, school, and public places. Limit physical contact with family members. Don't kiss anyone or share eating or drinking utensils. Clean surfaces you touch with disinfectant. This is to help prevent the virus from spreading. Cough or sneeze into a tissue, then throw away the tissue in the trash. Or cough or sneeze into the bend of your elbow. Wear a face mask. Call your healthcare provider. Explain that you have been exposed to COVID-19 and have symptoms. Do this before going to any hospital. Wait for instructions. Keep in mind that healthcare staff may wear protective equipment such as masks, gowns, 13 General Instructions [facility] Department [address] [place] [address] Phone #: ext- [phone] 06/03/2021 19:55 Patient: MARCELINO BROWN Sex: F : 1990 Age: 30y gloves, and eye protection. You may be put in a separate room. This is to prevent the possible virus from spreading. Tell the healthcare staff about recent travel. This includes local travel on public transport. Staff may need to find other people you have been in contact with. Follow all instructions the healthcare staff give you.If you have been diagnosed with COVID-19 Stay home. Don't leave your home unless you need to get medical care. Follow all instructions from your healthcare provider. Call your healthcare provider's office before going. They can prepare and give you instructions. This will help prevent the virus from spreading. Don't go to work, school, or public areas. Don't use public transport or taxis. Stay away from other people in your home. Wear a face mask. This is to protect other people from your germs. They do not need to wear face masks. Don't share household items or food. Cover your face with a tissue when you cough or sneeze. Throw the tissue away. Then wash your hands. Wash your hands often.Caregivers should: Follow all instructions from healthcare staff. Wear protective clothing as advised. Make sure the sick person wears a mask. Wash hands often. Keep track of the sick person's symptoms. Clean surfaces, fabrics, and laundry thoroughly. Keep other people away from the sick person. 14 General Instructions [facility] Emergency Department [address] [place] [address] Phone #: ext- [phone] 06/03/2021 19:55 Patient: MARCELINO BROWN Sex: F : 1990 Age: 30yWhen to call your healthcare providerCall your healthcare provider: If you've recently traveled and have symptoms If you have been diagnosed with COVID-19 and your symptoms are worse [id number] [employer]. [address] [place] [address], [place] [address]. All rights reserved. This information is not intended as asubstitute for professional medical care. Always follow your healthcare professional's instructions. Prevention steps for People with confirmed or suspected COVID-19 (including persons under investigation) who do not need to be hospitalized And People with confirmed COVID-19 who were hospitalized and determined to be medically stable to go home Your healthcare provider and public health staff will evaluate whether you can be cared for at home. If it isdetermined that you do not need to be hospitalized and can be isolated at home, you will be monitored by staff [facility] or state health department. You should follow the prevention steps below until a healthcare provider or[facility] or [facility] department says you can return to your normal activities. Stay home except to get medical care People who are mildly ill with COVID-19 are able to isolate at home during their illness. You should restrict activities outside yourhome, except for getting medical care. Do not go to work, school, or public areas. Avoid using public transportation, ride-sharing, ortaxis. Separate yourself from other people and animals in your home People: As much as possible, you should stay in a specificroom and away from other people in your home. Also, you should use a separate bathroom, if available.Animals: You should restrict contact with pets and other animals while you are sick with COVID-19, just like you would around otherpeople. Although there have not been reports of pets or other animals becoming sick with COVID-19, it is still recommended thatpeople sick with COVID-19 limit contact with animals until more information is known about the virus. When possible, have anothermember of your household care for your animals while you are sick. If you are sick with COVID-19, avoid contact with your pet,including petting, snuggling, being kissed or licked, and sharing food. If you must care for your pet or be around animals while you aresick, wash your hands before and after you interact with pets and wear a facemask. See https://www.cdc.gov/coronavirus/2019-ncov/faq.html#8637-wGfV-eti-animals for more information. Call ahead before visiting your doctor If you have a medical appointment, call the healthcare provider and tell them that you have or may have COVID-19. This will helpthe healthcare provider's office take steps to keep other people from getting infected or exposed. Wear a facemask You should wear a facemask when you are around other people {e.g., sharing a room or vehicle} or pets and before you enter [facility]. If you are not able to wear a facemask {for example, because it causes trouble breathing}, thenpeople who live with you should not stay in the same room with you, or they should wear a facemask if they enter your room. Cover your coughs and sneezes Cover your mouth and nose with a tissue when you cough or sneeze. Throw used tissues in a lined trash can. Immediately wash 15 General Instructions [facility] Emergency Department [address] [place] [address] Phone #: ext- [phone] 06/03/2021 19:55 Patient: MARCELINO BROWN Sex: F : 1990 Age: 30yyour hands with soap and water for at least 20 seconds or, if soap and water are not available, clean your hands with analcohol-based hand press bucker that contains at least 60% alcohol.Clean your hands oftenWash your hands often with soap and water for at least 20 seconds, especially after blowing your nose, coughing, or sneezing;going to the bathroom; and before eating or preparing food. If soap and water are not readily available, use an alcohol-based handsanitizer with at least 60% alcohol, covering all surfaces of your hands and rubbing them together until they feel dry.Soap and water are the best option if hands are visibly dirty. Avoid touching your eyes, nose, and mouth with unwashedhands.Flu Like Symptoms / Coronavirus Exposure - 30a Page 1 of 2Avoid sharing personal household itemsYou should not share dishes, drinking glasses, cups, eating utensils, towels, or bedding with other people or pets in yourhome. After using these items, they should be washed thoroughly with soap and water.Clean all "high-touch" surfaces everydayHigh touch surfaces include counters, tabletops, doorknobs, bathroom fixtures, toilets, phones, keyboards, tablets, and bedsidetables. Also, clean any surfaces that may have blood, stool, or body fluids on them. Use a household cleaning spray or wipe,according to the label instructions.Labels contain instructions for safe and effective use of the cleaning product including precautions you should take when applyingthe product, such as wearing gloves and making sure you have good ventilation during use of the product.Monitor your [email or web address] [email or web address].php Seek prompt medical attention if your illness is worsening {e.g., difficulty breathing}. Before see [facility], call your healthcareprovider and tell them that you have, or are being evaluated for, COVID-19. Put on a facemask before you enter the facility.These steps will help the healthcare provider's office to keep other people in the office or waiting room from getting infected orexposed. Ask your healthcare provider to call the local or state health department. Persons who are placed under activemonitoring or facilitated self-monitoring should follow instructions provided by their local health department or occupational healthprofessionals, as appropriate. When working with your local health de partment check their available hours.If you have a medical emergency and need to call 911, notify the dispatch personnel that you have, or are being evaluated forCOVID-19. If possible, put on a facemask before emergency medical services arrive.Discontinuing home isolationPatients with confirmed COVID-19 should remain under home isolation precautions until the risk of secondary transmission toothers is thought to be low. The decision to discontinue home isolation precautions should be made on a dcfh-bt-puoo basis, inconsultation with healthcareproviders and state and local health departments.Contacts 2020 [employer]Online informationhttps://www.cdc.gov/coronavirus/2019- ncov/about/index.html 16 General Instructions [facility] Emergency Department [address] [place] [address] Phone #: ext- [phone] 06/03/2021 19:55 Patient: MARCELINO BROWN Sex: F : 1990 Age: 30y Content source: National Center for Immunization and Respiratory Diseases (NCIRD), Division of Viral Diseases Recommended precautions for household members, intimate partners, and caregivers in a nonhealthcare setting1 of A patient with symptomatic laboratory-confirmed COVID-19 or A patient under investigationHousehold members, intimate partners, and caregivers in a nonhealthcare setting may have close contact2 with aperson with symptomatic, laboratory-confirmed COVID-19 or a person under investigation. Close contacts shouldmonitor their health; they should call their healthcare provider right away if they develop symptoms suggestive of COVID-19 {e.g., fever, cough, shortness of breath} {see Interim [place] Guidance for Risk Assessment and Public Health Management of Persons with Potential Coronavirus Disease 2019 {COVID-19} Exposure in Travel-associated or Community Settings.}Close contacts should also follow these recommendations: Make sure that you understand and can help the patient follow their healthcare provider's instructions for medication{s} and care. You should help the patient with basic needs in the home and provide support for getting groceries, prescriptions, and other personal needs. Monitor the patient's symptoms. If the patient is getting sicker, call his or her healthcare provider and tell them that the patient has laboratory-confirmed COVID-19. This will help the healthcare provi ev's office take steps to keep other people in the office or waiting room from getting infected. Ask the healthcare provider to call the local or state health department for additional guidance. If the patient has a medical emergency and you need to call 911, notify the dispatch personnel that the patient has, or is being evaluated for COVID-19. Household members should stay in another room or be from the patient as much as possible. Household members should use a separate bedroom and bathroom, if available. Prohibit visitors who do not have an essential need to be in the home. Household members should care for any pets in the home. Do not handle pets or other animals while sick. For more information, see COVID-19 and Animals. Make sure that shared spaces in the home have good air flow, such as by an air conditioner or an opened window, weather permitting. Perform hand hygiene frequently. Wash your hands often with soap and water for at least 20 seconds or use an alcohol-based hand press bucker that contains 60 to 95% alcohol, covering all surfaces of your hands and rubbing them together until they feel dry. Soap and water should be used preferentially if hands are visibly dirty.Avoid touching your eyes, nose, and mouth with unwashed hands. The patient should wear a facemask when around other people, except when unable {for example, because it causes trouble 17 General Instructions [facility] Emergency Department [address] [place] [address] Phone #: ext- [phone] 06/03/2021 19:55 Patient: MARCELINO BROWN Sex: F : 1990 Age: 30y breathing}. You, as the caregiver should always wear a mask, regardless if the patient has one on or not whenever you are in the same room as the patient. Wear a disposable facemask and gloves when you touch or have contact with the patient's blood, stool, or body fluids, such as saliva, sputum, nasal mucus, vomit, urine. Throw out disposable facemasks and gloves after using them. Do not reuse. When removing personal protective equipment, first remove and dispose of gloves. Then, immediately clean your hands with soap and water or alcohol-based hand press bucker. Next, remove and dispose of facemask, and immediately clean your hands again with soap and water or alcohol-based hand press bucker. Avoid sharing household items with the patient. You should not share dishes, drinking glasses, cups, eating ut ensils, towels, bedding, or other items. After the patient uses these items, you should wash them thoroughly {see below "Wash laundry thoroughly"}. Flu Like Symptoms / Coronavirus Exposure - 30a Page 2 of 2 Clean all "high- touch" surfaces, such as counters, tabletops, doorknobs, bathroom fixtures, toilets, phones, keyboards, tablets, and bedside tables, every day. Also, clean any surfaces that may have blood, stool, or body fluids on them. Use a household cleaning spray or wipe, according to the label instructions. Labels contain instructions for safe and effective use of the cleaning product including precautions you should take when applying the product, such as wearing gloves and making sure you have good ventilation during use of the product. Wash laundry thoroughly. Immediately remove and wash clothes or bedding that have blood, stool, or body fluids on them. Wear disposable gloves while handling soiled items and keep soiled items away from your body. Clean your hands {with soap and water or an alcohol-based hand press bucker} immediately after removing your gloves. https://www.[employer]/index.php Read and follow directions on labels of laundry or clothing items and detergent. In general, using a normal laundry detergent according to washing machine instructions and dry thoroughly using the warmest temperatures recommended on the clothing label. Place all used disposable gloves, facemasks, and other contaminated items in a lined container before disposing of them with other household waste. Clean your hands {with soap and water or an alcohol- based hand press bucker} immediately after handling these items. Soap and water should be used preferentially if hands are visibly dirty. Discuss any additional questions with your state or local health department or healthcare provider. Check available hours when contacting your local health department.Contacts 2020 [employer].Online informationhttps://www.cdc.gov/coronavirus/2019-ncov/about/index.htmlContent source: National Center for Immunization and Respiratory Diseases (NCIRD), Division of Viral KnaeypthEipkuqdkd5Jkpe healthcare personnel should refer to I nterim Infection Prevention and Control Recommendations for Patients with Known or Patients Under Investigation 18 General Instructions [facility] Emergency Department [address] [place] [address] Phone #: ext- [phone] 06/03/2021 19:55 Patient: MARCELINO BROWN Sex: F : 1990 Age: 30yfor Coronavirus Disease 2019 (COVID-19) in a Healthcare Setting. 2Close contact is defined as-1. being within approximately 6 feet (2 meters) of a COVID-19 case for a prolonged period of time; close contact can occur while caring for, living with, visiting, or sharing a health care waiting area or room with a COVID-19 case - or -2. having direct contact with infectious secretions of a COVID-19 case (e.g., being coughed on You have been given the following additional information: Allergic Rhinitis Seasonal Allergy Sinusitis (Antibiotic Treatment) Coronavirus Disease 2019 (COVID-19) COVID-19 Rest at home for one weeks (You are on a self quarantine x 1 week. This may be extended or decreased by [facility]. It is all dependent on when your test results are in.).(Electronically signed by Don Black P.A.-C 06/05/2021 00:18) Name Value Range Interpretation Code Description Data Ariadna rce(s) Supporting Document(s) ID Date Data Source [id number] 06/03/2021 08:09:00 PM EDT [facility] 1 Clinical Report - Nurses [facility] Emergency Department [address] [place] [address] Phone #: [phone] 06/03/2021 19:55 Patient: MARCELINO BROWN Sex: F : 1990 Age: 30yTRIAGEArrived by private vehicle.Triage time: 20:08 06/03/2021.Chief Complaint: DIZZINESS and LIGHT HEADED.This started "few weeks' worse today. She has had a headache. She has had vomiting (3 times today).--20:14 8/25/21 Malilka Hatch R.N.Acuity: LEVEL 3.( States that turning her head makes her dizziness much worse).SEPSIS SCREEN: SEPSIS SCREEN NEGATIVE. No suspected or confirmed signs of infection present.--20:16 06/03/21 Mallika Hatch R.N.20:10 06/03/21. BP: 129/91. MAP: 103. HR: 86. RR: 16. O2 saturation: 100%. Temp: 98.2 F. Pain levelnow: 05/19. Additional comments: Frontal h/a. --20:16 06/03/21 Mallika Hatch R.N.The patient has had vomiting (last episode about 1 hr ago). --20:18 06/03/21 Mallika Hatch R.N.Weight: 94.8 kg stated. Height/Length: 63 inches Per Patient. BMI: 37. --20:08 06/03/21 Mallika Hatch R.N.MedicationsHas been off all meds for 2 weeks, has RX to /u [facility]. --20:20 06/03/21 Pretty Hatch R.N.AllergiesLatex. --20:19 06/03/21 Mallika Hatch R.N.PROBLEMS:Pharyngitis.Myofascial Strain.UTI - Urinary Tract Infection.Anxiety Reaction.Depression.Hypertension. --20:20 06/03/21 Mallika Hatch R.N.The following entry was modified by Mallika Hatch R.N., 20:20 06/03/21PTSD. --20:19 06/03/21 Mallika Hatch R.N.. 2 Clinical Report - Nurses [facility] Emergency Department [address] [place] [address] Phone #: ext- [phone] 06/03/2021 19:55 [id number] Sex[facility] : 1990 Age: 30y ADDITIONAL SURGERIES: C SECTION (X4). Cholecystectomy. . Tonsillectomy. Tubal Ligation. --20:06/03/21 Mallika Hatch R.N. History SOCIAL HX: Light tobacco smoker (cigarette)- less than 1/2 a pack per day. No alcohol use or drug use. She was offered HIV testing but declined and hepatitis C testing but declined. She has not traveled outside the [place] Infectious disease exposure: No infectious disease exposure. The patient was not exposed to C- diff, MRSA, VRE or CRE. (Has not had the COVID Vaccines). SELF HARM ASSESSMENT: Self harm assessment was performed. The patient answered "no" to the question(s) "Do you have thoughts of harming or killing yourself?" and "Have you recently had thoughts about harming or killing others?". ABUSE ASSESSMENT: No report of abuse. FALL RISK ASSESSMENT: Fall risk assessment completed. Risk factors identified include nausea and dizziness. Fall interventions initiated. Bed in low position. Brakes on. Call light in reach of patient. Instructed not to get up without assistance. --20:06/03/21 Mallika Hatch R.N. PAST MEDICAL HX: Last normal menstrual period unknown. 6. Para 4. Sexual history - sexually active. No contraception. --20:18 06/03/21 Mallika Hatch R.N.PHYSICAL ASSESSMENTAmbulatory to room.GENERAL / NEURO / PSYCH: Oriented X 4. Alert. Speech within normal limits.HEENT: No facial asymmetry noted. Pupils equal, round and reactive to light.RESPIRATORY: Respirations not labored.CVS: Capillary refill less than 2 seconds.GI / : The patient has had nausea. Emesis noted.SKIN: Skin is warm and dry. --20:06/03/21 Mallika Hatch R.N.NURS ING PROGRESS NOTESNIBP monitor and pulse oximeter placed on patient. Patient gowned. Head of bed elevated. Call lightplaced in reach. Bed placed in lowest position. Brakes of bed on. --20:06/03/21 Mallika Hatch R.N. 22:06/03/2021 Site #1 started via IV in the right forearm with an 20g angiocath, with aseptic technique and good blood return; two attempts. Saline lock flushed with 10 mL saline. --22:06/03/21 Abe 3 Clinical Report - Nurses [facility] Emergency Department [address] [place] [address] Phone #: ext- [phone] 06/03/2021 19:55 Patient: MARCELINO BROWN Sex: F : 1990 Age: 30y PERNELL Hatch 22:09 06/03/2021 Tylenol (APAP) PO Tablets 1000 mg given. Allergies verified and confirmed 5 rights. Information reviewed with patient including reason for taking this medication, signs of allergic reaction and precautions. Verbalizes understanding. --22:06/03/21 Abe Hatch RN 22:06/03/2021 Benadryl (diphenhydrAMINE HCl) IVP 25 mg given over 30 second(s) via site #1. Allergies verified and confirmed 5 rights. IV patency established. IV site checked: no pain, redness, or swelling. IV flushed thoroughly pre- and post-medication administration. IVP given by RN. Information reviewed with patient including reason for taking this medication, signs of allergic reaction, precautions and sedative warning. Verbalizes understanding. --22:06/03/21 Abe Hatch RN 22:06/03/2021 Zofran (Ondansetron HCl) IVP 4 mg given over 2 minute(s) via site #1. Allergies verified and confirmed 5 rights. IV patency established. IV site checked: no pain, redness, or swelling. IV flushed thoroughly pre- and post-medication administration. IVP given by RN. Information reviewed with patient including reason for taking this medication, signs of allergic reaction and precautions. Verbalizes understanding. --22:12 06/03/21 St mathieu Hatch RN 22:13 06/03/2021 Started bag #1 1000 mL IV Fluids NS; bolus of 1000 mL then at 1000 mL/hr via site #1 via IV pump. Allergies verified and confirmed 5 rights. IV patency established. IV site checked: no pain, redness, or swelling. IV flushed thoroughly pre- and post-medication administration. Information reviewed with patient including reason for taking this medication, signs of allergic reaction and precautions. Verbalizes understanding. --22:13 06/03/21 Abe Hatch RN 23:05 06/03/2021 IV Fluids NS via IV site #1 Discontinued: discontinued. Total amount infused: 850 mL. --23:51 06/03/21 Mallika Hatch R.N.DISPOSITION / DISCHARGE 23:06/03/21. BP: 132/92. HR: 94. RR: 16. O2 saturation: 100%. Temp: 98.2 F. --23:06/03/21 Marii Telles Departure time: 23:06/03/2021. No learning barriers present. Reviewed medication(s) information. Prescription(s) sent electronically to pharmacy. Activity restrictions reviewed (quarantine until cleared by [facility]). Patient verbalized understanding. Written instructions provided in Nam[place]ian. The patient was discharged by the physician. She was discharged home. She left ambulatory and via private vehicle. --23:08 06/03/21 Mallika Hatch R.N. 23:05 06/03/21. Pain level now: 10/19. --23:52 06/03/21 Mallika Hatch R.N.Locked/Released at 06/03/2021 23:52 by Mallika Hatch R.N. 4 Clinical Report - Nurses [facility] Emergency Department [address] [place] [address] Phone #: ext- [phone] 06/03/2021 19:55 Patient: MARCELINO BROWN Sex: F : 1990 Age: 30y Name Value Range Interpretation Code Description Data Ariadna rce(s) Supporting Document(s) ID Date Data Source [id number] 06/03/2021 08:09:00 PM EDT [facility] 1 Clinical Report - Physicians/Mid Levels [facility] Emergency Department [address] [place] [address] Phone #: ext- [phone] 06/03/2021 19:55 Patient: MARCELINO BROWN Sex: F : 1990 Age: 30y Time Seen: 20:37 06/03/2021; initial patient contact, initial documentation. Arrived- By private vehicle. Historian- patient. Disposition decision: 22:34 06/03/2021.HISTORY OF PRESENT ILLNESS Chief Complaint: HEADACHE. Is still present but is improving. This started yesterday. It is described as "pain". Located in the frontal region. The patient has had nausea. No blurred vision, photophobia, numbness, weakness or vomiting. (Pt presents w/ c/o of BURNETT that started yesterday. Sts that she has had nausea for hte last few days. 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 Sts that she has been experiencing general malaise as well.). Similar symptoms previously. None. Recent medical care: Not recently seen/assessed.REVIEW OF SYSTEMSNo fever, ear pain, sore throat, carbon monoxide exposure or tick bite. No head injury, chest pain,difficulty breathing, cough or abdominal pain. No diarrhea, pain with urination, skin rash, enlarged lymphnodes or back pain. The patient has had sinus pressure and muscle aches. Al l other systems reviewedand are negative.PAST HISTORYSee nurses notes. Problems: Eustachian Tube Dysfunction. Bronchitis. COVID-19. Laceration. Pharyngitis. Myofascial Strain. UTI - Urinary Tract Infection. Anxiety Reaction. Depression. Hypertension. Additional Surgeries: C SECTION. (X4) Cholecystectomy. . 2 Clinical Report - Physicians/Mid Levels [facility] Emergency Department [address] [place] [address] Phone #: ext- [phone] 06/03/2021 19:55 Patient: MARCELINO BROWN Sex: F : 1990 Age: 30y Tonsillectomy. Tubal Ligation. Medications: Has been off all meds for 2 weeks, has RX to /u [facility]. Allergies: Latex.SOCIAL HISTORYLight tobacco smoker- less than 1/2 a pack per day. No alcohol use or drug use.ADDITIONAL NOTESThe nursing notes have been reviewed.PHYSICAL EXAMVital Signs: 06/03/2021 20:10 BP: 129/91. MAP: 103. HR: 86. RR: 16. O2 saturation: 100%. Temp: 98.2F. Pain level now: 8/10. Have been reviewed. Oxygen saturation normal.Appearance: Alert. No acute distress.Eyes: Eyelids appear normal to inspe ction. Conjunctivae and sclerae appear normal to inspection.Corneas appear normal to inspection. Pupils equal, round and reactive to light and light.Accommodation normal. EOMs intact. Periorbital areas appear normal to inspection. Anteriorchambers clear.ENT: Airway intact. Tenderness present to percussion/palpation of the sinuses: moderate right and leftfrontal tenderness, mild right and left maxillary tenderness. Rhinorrhea present. Nose normal. Naresnormal. Moderate right-nare and left-nare mucosal inflammation (inferior turbinate enlargment). Pharynxnormal. Moist mucous membranes. Uvula midline. Voice normal.Ear (left): There is dullness of the tympanic membrane and abnormal insufflation. No pain with movementof the auricle, lymphadenopathy, erythema of the external canal, swelling of the external canal or materialin the external canal. Left ear normal. Normal mastoid. No hearing deficit.Ear (right): There is dullness of the tympanic membrane and abnormal insufflation. No tenderness of theauricle, pain with movement of the auricle, erythema of the external canal, swelling of the external canal ormaterial in the external canal. Right ear normal. Normal mastoid. No hearing deficit.Neck: Normal inspection.CVS: Normal heart rate and rhythm. No JVD present. Pulses normal. Capillary refill normal. Strongperipheral pulses. Heart sounds normal. Pulses: right radial 2+; left radial 2+; right dorsalis pedis 2+; leftdorsalis pedis 2+; right posterior tibial 2+; left posterior tibial 2+.Respiratory: Chest normal on inspection. No respiratory distress. Unlabored respirations. Lungs clear.Good chest movement. Breath sounds normal and equal. Chest nontender.Abdomen: Normal inspection. Soft and nontender. Bowel sounds normal. No distention. Obese.Back: Normal inspection.Skin: Skin warm and dry.Extremities: Extremities exhibit normal ROM. No lower extremity edema. No calf tenderness. No lowerextremity edema.Neuro: Awake. Alert. Oriented X 3. Mood/affect normal. Speech normal. Cranial nerves II through 3 Clinical Report - Physicians/Mid Levels [facility] Emergency Department [address] [place] [address] Phone #: ext- [phone] 06/03/2021 19:55 [id number] Sex[facility] : 1990 Age: 30y XII intact and normal (as tested). No cerebellar findings. No motor deficit. Moves all extremities equally. No sensory deficit. Normal gait. Reflexes normal. Reflex exam: right triceps 2+, left triceps 2+, right biceps 2+, left biceps 2+, right brachioradialis 2+ and left brachioradialis 2+. Psych: Cognition normal. Thought process and content normal. Insight and judgement normal.LABS, X-RAYS, AND EKGChest X-ray: (Gustavo martinez James - 06/03/2021 10:02:22 PMNAD).Laboratory Tests: Influenza Nasal A B: (NADIRA: 06/03/2021 22:17) ( MogRcvd 06/03/2021 22:43) Final results Test Result Flag Units (Reference) INFLUENZA A NEGATIVE (NORMAL: NEGAT INFLUENZA B NEGATIVE (NORMAL: NEGAT INFLUENZA A REENTER NEGATIVE (NORMAL: NEGAT INFLUENZA B REENTER NEGATIVE (NORMAL: NEGAT PROCEDURAL CONTROL VALID KIT LOT # _[id number] 06/03/21.MLE. KIT EXP DATE _01.11.22 06/03/21.MLE.The Influenza A utilizing an isothermal nucleic acid amplification technology for thequalitative detection of influenza A and B viral RNA.Negative results do not preclude influenza virus infection and should not beused as the sole basis for diagnosis, treatment or other patient managementdecisions. CBC w Diff: (NADIRA: 06/03/2021 21:00) ( [facility] 06/03/2021 21:15) Final results Test Result Flag Units (Reference) CBC W/AUTOMATED DIFF COMPLETE BLOOD COUNT WBC 10.8 10/uL (4.2 - 11.0) RBC 3.93 L 10/uL (4 .20 - 5.40) HEMOGLOBIN 10.3 L g/dL (12.0 - 16.0) HEMATOCRIT 31.6 L % (37.0 - 47.0) MCV 80.4 L fL (81.0 - 101) MCH 26.2 L pg (27.0 - 34.0) MCHC 32.6 g/dL (31.0 - 36.0) RDW 14.5 % (11.5 - 14.5) PLATELETS 354 10/uL (150 - 450) MPV 10.5 H fL (7.4 - 10.4) NEUT 69.2 % (37.0 - 80.0) LYMPH 21.0 L % (25.0 - 40.0) MONO 5.0 % (3.0 - 8.0) EOS 3.9 % (0.0 - 7.0) BASO 0.5 % (0.0 - 2.5) %IG 0.4 H % (0.0 - 0.0) %NRBC 0.0 % (0.0 - 0.0) #NEUT 7.47 H 10/uL (2.00 - 6.90) #LYMPH 2.26 10/uL (0.60 - 3.40) #MONO 0.54 10/uL (0.00 - 0.90) #EOS 0.42 10/uL (0.00 - 0.70) #BASO 0.05 10/uL (0.00 - 0.20) #IG 0.04 10/uL (0.00 - 0.10) #NRBC 0.00 10/uL (0.00 - 0.00) MANUAL DIFF NOT INDICATED RBC MORPH NOT INDICATED CMP: (NADIRA: 06/03/2021 21:00) ( MsgRcvd 06/03/2021 21:32) Final results 4 Clinical Report - Physicians/Mid Levels [facility] Emergency Department [address] [place] [address] Phone #: ext- [phone] 06/03/2021 19:55 [id number] Sex: [facility] : 1990 Age: 30y Test Result Flag Units (Reference) COMPREHENSIVE METABOLIC PANEL COMPREHENSIVE METABOLIC PANEL SODIUM 140 mEq/L (134 - 153) POTASSIUM 3.7 mEq/L (3.6 - 5.0) CHLORIDE 107 mEq/L (98 - 107) CO2 22 MEQ/L (22 - 30) GLUCOSE 94 MG/DL (70 - 99) BUN 10 MG/DL (7 - 21) CREATININE 0.5 L MG/DL (0.7 - 1.5) BUN/CREAT 20 (8 - 27) TOTAL PROTEIN 7.3 G/DL (6.3 - 8.2) ALBUMIN 4.0 G/DL (3.9 - 5.0) GLOBULIN 3.3 H GM/DL (2.4 - 3.2) A/G RATIO 1.2 (0.8 - 2.0) CALCIUM 9.0 MG/DL (8.4 - 10.2) TOTAL BILI <0.7 MG/DL (0.2 - 1.3) ALKALINE PHOS 75 U/L (38 - 126) SGOT/AST 14 U/L (5 - 40) SGPT/ALT 14 U/L (7 - 56) ANION GAP 11.0 mmol/L (8.0 - 16.0) AGE 30 yrs NON-AA GFR >60 mL/min AFR AMER GFR >60 mL/min Male GFR Interprentation 20-49 yrs >60 mL/min Gbeeoc96-14 yrs >56 mL/min Normal 60-69 yrs >49 mL/min Normal 70-79yrs>42 mL/min Normal 80 and above >35 mL/min Normal Female GFRInterpretation 20-39 yrs >60 mL/min Normal 40-49 yrs >58 mL/minNormal 50-59 yrs >51 mL/min Normal 60-69 yrs >45 mL/min Lshpnz76-23 yrs >39 mL/min Normal 80 and above >32 mL/min NormalMonospot: (NADIRA: 06/03/2021 21:00) ( MsgRcvd 06/03/2021 21:30) Final results Test Result Flag Units (Reference) MONO TEST NEGATIVE (NORMAL: NEGAT MONO REENTER NEGATIVE (NORMAL: NEGAT { KIT LOT # [id number] ){ KIT EXP DATE11.09.21 ){ PROCEDURAL CONTROL VALID)Beta-HCG, Qual Serum: (NADIRA: 06/03/2021 21:00) ( MsgRcvd 06/03/2021 21:31) Final results Test Result Flag Units (Reference) HCG SERUM QUAL NEGATIVE (NORMAL: NEGAT HCG SERUM QL REENTER NEGATIVE (NORMAL: NEGAT { KIT LOT # [id number] ){ KIT EXP DATE10.09.22 ){ PROCEDURAL CONTROL VALID)Rapid Strep Screen: (NADIRA: 06/03/2021 20:55) ( MsgRcvd 06/03/2021 22:19) CanceledChest Portable 1 View: (NADIRA: 06/03/2021 20:55) ( MsgRcvd 06/03/2021 22:29) In ProgressCHEST PORTABLEReason(s): fatigue; ? COVID vs PNU vs otherTRANSPORTATION: WC IV? O2? Oxygen?(No) Room: ED 5 Clinical Report - Physicians/Mid Levels [facility] Emergency Department [address] [place] [address] Phone #: ext- [phone] 06/03/2021 19:55 Patient: MARCELINO BROWN Sex: F : 1990 Age: 30y Beta-HCG, Qual Urine: (NADIRA: 06/03/2021 20:15) ( [facility] 06/03/2021 20:32) Final results Test Result Flag Units (Reference) HCG URINE QUAL NEGATIVE (NORMAL: NEGAT HCG URINE QL REENTER NEGATIVE (NORMAL: NEGAT { KIT LOT # [id number] ){ KIT EXP DATE 10.09.22 ){ PROCEDURAL CONTROL VALID ) Urinalysis: (NADIRA: 06/03/2021 20:15) ( MsgRcvd 06/03/2021 20:43) Final results Test Result Flag Units (Reference) URINALYSIS URINALYSIS SOURCE Clean Catch COLOR yellow (NORMAL: Yello CLARITY clear (NORMAL: Clear SPEC GRAVITY 1.025 (1.001 - 1.030 pH 6 (5 - 9) GLUCOSE NORM (NORMAL: Negat BILIRUBIN NEG (NORMAL: Negat KETONE NEG (NORMAL: Negat PROTEIN 30 (NORMAL: Negat NITRITE NEG (NORMAL: Negat BLOOD 50 A (NORMAL: Negat LEUK EST NEG (NORMAL: Negat UROBILINOGEN NOR (less than 1.0 MICROSCOPIC See Below RBC 0 - 1 (NORMAL: NONE EPITHELIAL MANY A (NORMAL: NONE BACTERIA Trace (NORMAL: NONE MUCOUS 1+ (NORMAL: NONE.PROGRESS AND PROCEDURESCourse of Care: Enter room and pt lying peacefully in bed in NAD. Patient stable. Denies any newissues, concerns, or complaints. VSS, NAD, AOx3, interacting well and appropriately, no use of accessory muscle, able to speak full sentences, stable, non-toxic looking. Pt presents to [facility] ER with c/o BURNETT, nausea, and general malaise. Has been feeling like this for about a week. Pt is unvaccinated from [employer]. 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 PE dmeos NV intact b/l UE and LE. No neuro deficits noted. Noted TTP of sinuses, retracted TMs, inf. turbinate enlarement and PND; s/s c/w acute sinusitits. ? BURNETT 2/2 sinustitis, no neuro deficits. WIll obtian labs and a tx. pending results. Reviewed results. Enter room and patient lying peacefully in bed in NAD. Patient stable. Denies any new issues, concerns, 6 Clinical Report - Physicians/Mid Levels [facility] Emergency Department [address] [place] [address] Phone #: ext- [phone] 06/03/2021 19:55 Patient: MARCELINO BROWN Sex: F : 1990 Age: 30y or complaints. Sts that she feels better. Discussed results with pt. Discussed tx plan with pt. Discussed and counseled on stable condition. Discussed importance of a f/u with PCP. Discussed return to ER criteria. Answered their questions. Indicates and verbalizes that they understand, agree, and will comply with above. Denies any new questions or concerns. Patient has capacity to understand. Discharge decision based on the following: patient's condition is stable; patient's exam is stable; social support is adequate; transportation is available; follow-up is available. Discussed of OTC Motrin and Tylenol to control inflammation and pain management. Informed to follow directions on bottle that are appropriate for age and/or weight. Disposition: Discharged home in good and improved condition. Condition: good and stable.CLINICAL IMPRESSION Acute seasonal allergic rhinitis. Acute maxillary and frontal sinusitis. Coronavirus COVID-19 presumed (confirmatory testing pending) with upper respiratory infection and rhinitis.INSTRUCTIONS Take Tylenol (Acetaminophen) or Motrin (Ibuprofen) as needed for fever control. Take medication according to label instructions. Rest at home for one weeks (You are on a self quarantine x 1 week. This may be extended or decreased by [facility]. It is all dependent on when your test results are in.). Take clear liquids only. No dietary restrictions. (Recommend to utilize OTC Motrin and Tylenol to control inflammation and pain management. Recommend to follow the instructions on the bottle and not to exceed. [facility]: [phone]. Please contact them in approx 3-4 days if you have not heard from them. You are on a self quarantine x 1 week. This may be extended or decreased by [facility]. It is all dependent on when your test results are in. I recommend to purchase a small finger pulse oximeter to monitor your O2 saturation at home. If becomes too low (<90%), please contact your PCP or return to the ER.). Prescription Medications: Augmentin 875 mg-125 mg tablet Take 1 tablet twice a day for 7 days -- Dispense 14 tablet. Refills: 0. 7 Clinical Report - Physicians/Mid Levels [facility] Emergency Department [address] [place] [address] Phone #: ext- [phone] 06/03/2021 19:55 Patient: MARCELINO BROWN Sex: F : 1990 Age: 30y Substitution permitted. Note to Pharmacy - USE Rx DISCOUNT CARD: $80.55, BIN :[id number], MAIKELN:ISAIAH, Group:EMR, ID:[id number]. [employer] [address] [place] [address] ; [place] [address]. . Flonase Allergy Relief 50 mcg/actuation nasal spray,suspension [place] 1-2 spray once a day for 4 days -- Dispense 1 each. Refills: 0. Substitution permitted. Note to Pharmacy - USE Rx DISCOUNT CARD: $19.91, BIN:[id number], MAIKELN:ISAIAH, Group:EMR, ID:[id number]. [employer] [address] [place] [address] ; [place] [address]. FaxNumber: [phone]. Zyrtec 10 mg tablet Take 1 tablet once a day for 15 days -- Dispense 15 tablet. Refills: 0. Substitution permitted. Note to Pharmacy - USE Rx DISCOUNT CARD: $7.98, BIN:[id number], PCN:ISAIAH, Group:EMR, ID:[id number]. [employer] [address] [place] [address] ; [place] [address]. . Tessalon Perles 100 mg capsule Take 1 capsule every eight hours as needed for 3 days -- For cough. Dispense 9 capsule. Refills: 0. Substitution permitted. Note to Pharmacy - USE Rx DISCOUNT CARD: $18.62, BIN:[id number], PCN:ISAIAH, Group:EMR, ID:[id number]. [employer] [address] [place] [address] ; [place] [address]. . Follow-up: Return to the emergency department as needed. Follow up with your healthcare provider in about three days if not better. Call for an appointment. Understanding of the discharge instructions verbalized by patient.(Electronically signed by Don Black P.A.-C 06/05/2021 00:18) Name Value Range Interpretation Code Description Data [facility] rce(s) Supporting Document(s) ID Date Data Source [id number] 06/03/2021 08:09:00 PM EDT [facility] Rg for MARCELINO BROWN VisitID: [id number] Date: 20:16PER NURSING RELATIONS COORDINATOR, BRENNA SCHROEDER, SPOKE WITH PATIENT AND GAVE RESULTS OVRPHONE. ADVISED PATIENT TO COME IN AND GET RESULTS TO BE RELEASED TO WORK. PTARRIVED AND RESULTS WERE GIVEN TO PT, NAME AND DATE OF WERE VERIFIEDBEFORE GIVING RESULTS. AK(Electronically signed by Jamie Romero 06/07/2021 20:16) Name Value Range Interpretation Code Description Data [facility](s) Supporting Document(s) ID Date Data Source [id number] 06/04/2021 08:10:00 [place] [address] PHONE: [phone] FAX: [phone] Name .................. : ESTHER Parikh Acct Number.................. : [id number] ROOM. ................. : TR-05 Number ................... : [id number] Stay type ............. : E/R Discharge Date......... ... : Admit Date ......... : 06/03/21 Admit Phys .................... : KIM LUNA Date of ....... : 1990 Family Phys ................... : HERACLIO Phone ...... ............ : [phone] Age ................................ : 30 Film# .................. .:[id number] Sex ................................. : F Unsigned tr anscriptions are preliminary reports and do not represent a medical or legal document CHEST PORTABLE [id number] COMPLETE:06/03/21 22:29 MWB Reason(s): fatigue; ? COVID vs PNU vs other PORTABLE CHEST SINGLE VIEW OBTAINED AT 2210 HISTORY: Fatigue. Covid versus pneumonia COMPARISON: 05/13/2021 FINDINGS: Mediastinal and hilar structures are normal. Cardiac silhouette is unremarkable. Lungs are clear. No pulmonary edema. No pleural effusions or pneumothorax. IMPRESSION: Normal exam. Electronically Reviewed and Signed By Ritchie Chen MD , 06/04/21 08:10, JWSuze Transcribe Initials: VIVIANE , Transcribe Date: 06/03/21 23:07, Dictation Date: Copy for: INDIRA LESTER via fax Copy for: EMERGENCY DEPT via modem Copy for: 710 MED REC DISCHARGED Page 1 of 1 Name Value Range Interpretation Code Description Data [facility] rce(s) Supporting Document(s) ID Date Data Source [id number] 06/03/2021 10:42:00 PM EDT [facility] Name Value Range Interpretation Code Description Data [facility] rce(s) Supporting Document(s) Influenza virus A Ag [Presence] in Nasopharynx by Immunoassa y NEGATIVE NORMAL: NEGATIVE [facility] Influenza virus B Ag [Presence] in Nasopharynx by Immunoassa y NEGATIVE NORMAL: NEGATIVE [facility] NEGATIVENEGATIVE PROCEDURAL CO NTROL VALID KIT LOT # [id number] 06/03/21.2242.MLE. KIT EXP DATE _01.11.22 06/03/21.2242.MLE.The Influenza A & B assay is a rapid molecular in vitro diagnostic testutilizing an isothermal nucleic acid amplification technology for thequalitative detection of influenza A and B viral RNA.Negative results do not preclude influenza virus infection and should not beused as the sole basis for diagnosis, treatment or other patient managementdecisions. ID Date Data Source [id number] 06/03/2021 10:15:00 PM EDT [facility] Name Value Range Interpretation Code Description Data [facility] rce(s) Supporting Document(s) SARS coronavirus 2 RNA Not Detected [facility] This lab was ordered by [facility] ashlee and reported by [facility]. ID Date Data Source [id number] 06/06/2021 04:05:00 PM EDT [facility] Name Value Range Interpretation Code Description Data [facility] rce(s) Supporting Document(s) SARS-CoV-2, DIANE Not Detected Not Detected [facility] This nucleic acid amplification test was developed and its performancecharacteristics determined by theeventwall. Nucleic acidamplification tests include RT-PCR and TMA. This test has not beenFDA cleared or approved. This test has been authorized by FDA underan Emergency Use Authorization (EUA). This test is only authorizedfor the duration of time the declaration that circumstances existjustifying the authorization of the emergency use of in vitrodiagnostic tests for detection of SARS-CoV-2 virus and/or diagnosisof COVID-19 infection under section 564(b)(1) of the Act, 21 U.S.C.360bbb-3(b) (1), unless the authorization is terminated or revokedsooner.When diagnostic testing is negative, the possibility of a falsenegative result should be considered in the context of a patient'srecent exposures and the presence of clinical signs and symptomsconsistent with COVID- 19. An individual without symptoms of COVID-19and who is not shedding SARS-CoV-2 virus would expect to have anegative (not detected) result in this assay. ID Date Data Source [id number] 06/03/2021 09:32:00 PM EDT [facility] Name Value Range Interpretation Code Description Data [facility] rce(s) Supporting Document(s) COMPREHENSIVE METABOLIC PANEL [facility] COMPREHENSIVE METABOLIC PANEL Sodium [Moles/volume] in Serum or Plasma 140 mEq/L 134 - 153 [facility] Potassium [Moles/volume] in Serum or Plasma 3.7 mEq/L 3.6 - 5.0 [facility] Chloride [Moles/volume] in Serum or Plasma 107 mEq/L 98 - 107 [facility] Carbon dioxide, total [Moles/volume] in Serum or Plasma 22 MEQ/L 22 - 30 [facility] Glucose [Mass/volume] in Serum or Plasma 94 MG/DL 70 - 99 [facility] BUN 10 MG/DL 7 - 21 [facility] al Creatinine [Mass/volume] in Serum or Plasma 0.5 MG/DL 0.7 - 1.5 L [facility] BUN/CREAT 20 8 - 27 [facility] Protein [Mass/volume] in Serum or Plasma 7.3 G/DL 6.3 - 8.2 [facility] Albumin [Mass/volume] in Serum or Plasma 4.0 G/DL 3.9 - 5.0 [facility] Globulin [Mass/volume] in Serum by calculation 3.3 GM/DL 2.4 - 3.2 H [facility] A/G RATIO 1.2 0.8 - 2.0 [facility] Calcium [Mass/volume] in Serum or Plasma 9.0 MG/DL 8.4 - 10.2 [facility] Bilirubin.total [Mass/volume] in Serum or Plasma <0.7 MG/DL 0.2 - 1.3 [facility] Alkaline phosphatase [Enzymatic activity/volume] in Serum or Plasma 75 U/L 38 - 126 [facility] Aspartate aminotransferase [Enzymatic activity/volume] in Serum or Plasma 14 U/L 5 - 40 [facility] Alanine aminotransferase [Enzymatic activity/volume] in Seru m or Plasma 14 U/L 7 - 56 [facility] Anion gap 3 in Serum or Plasma 11.0 mmol/L 8.0 - 16.0 [facility] AGE 30 yrs [facility] NON-AA GFR >60 mL/min [facility] ital AFR AMER GFR >60 mL/min [facility] Ho spital Male GFR In terprentation 20-49 yrs >60 mL/min Normal 50-59 yrs >56 mL/min Normal 60-69 yrs >49 mL/min Normal 70-79yrs >42 mL/min Normal 80 and above >35 mL/min Normal Female GFR Interpretation 20-39 yrs >60 mL/min Normal 40-49 yrs >58 mL/min Normal 50-59 yrs >51 mL/min Normal 60-69 yrs >45 mL/min Normal 70-79 yrs >39 mL/min Normal 80 and above >32 mL/min Normal ID Date Data Source [id number] 06/03/2021 09:30:00 PM EDT [facility] Name Value Range Interpretation Code Description Data [facility] rce(s) Supporting Document(s) HCG SERUM QUAL NEGATIVE NORMAL: NEGATIVE [facility] HCG SERUM QL REENTER NEGATIVE NORMAL: NEGATIVE [facility] { KIT LOT # [id number] ){ KIT EXP DATE 10.09.22 ){ PROCEDURAL CONTROL VALID ) ID Date Data Source [id number] 06/03/2021 09:30:00 PM EDT [facility] Name Value Range Interpretation Code Description Data [facility] rce(s) Supporting Document(s) MONO TEST NEGATIVE NORMAL: NEGATIVE [facility] MONO REENTER NEGATIVE NORMAL: NEGATIVE [facility] { KIT LOT # [id number] ){ KIT EXP DATE 11.09.21 ){ PROCEDURAL CONTROL VALID ) ID Date Data Source [id number] 06/03/2021 09:14:00 PM EDT [facility] Name Value Range Interpretation Code Description Data [facility] rce(s) Supporting Document(s) CBC W/AUTOMATED DIFF [facility] COMPLETE BLOOD COUNT Leukocytes [#/volume] in Blood by Automated count 10.8 10^3/uL 4.2 - 11.0 [facility] Erythrocytes [#/volume] in Blood by Automated count 3.93 10^6/uL 4. 20 - 5.40 L [facility] Hemoglobin [Mass/volume] in Blood 10.3 g/dL 12.0 - 16.0 L [facility] Hematocrit [Volume Fraction] of Blood by Automated count 31.6 % 3 7.0 - 47.0 L [facility] Erythrocyte mean corpuscular volume [Entitic volume] by Auto mated count 80.4 fL 81.0 - 101 L [facility] Erythrocyte mean corpuscular hemoglobin [Entitic mass] by Automated count 26.2 pg 27.0 - 34.0 L [facility] Erythrocyte mean corpuscular hemoglobin concentration [Mass/volume] by Automated count 32.6 g/dL 31.0 - 36.0 [facility] Erythrocyte distribution width [Ratio] by Automated count 14.5 % 11.5 - 14.5 [facility] Platelets [#/volume] in Blood by Automated count 354 10^3/uL 150 - 45 0 [facility] Platelet mean volume [Entitic volume] in Blood by Automated count 10.5 fL 7.4 - 10.4 H [facility] Neutrophils/100 leukocytes in Blood by Automated count 69.2 % 37. 0 - 80.0 [facility] Lymphocytes/100 leukocytes in Blood by Manual count 21.0 % 25.0 - 40.0 L [facility] Monocytes/100 leukocytes in Blood by Automated count 5.0 % 3.0 - 8.0 [facility] Eosinophils/100 leukocytes in Blood by Automated count 3.9 % 0.0 - 7.0 [facility] Basophils/100 leukocytes in Blood by Automated count 0.5 % 0.0 - 2.5 [facility] %IG 0.4 % 0.0 - 0.0 H [facility] al %NRBC 0.0 % 0.0 - 0.0 [facility] al Neutrophils [#/volume] in Blood by Automated count 7.47 10^3/uL 2.00 - 6.90 H [facility] Lymphocytes [#/volume] in Blood by Automated count 2.26 10^3/uL 0.60 - 3.40 [facility] Monocytes [#/volume] in Blood by Automated count 0.54 10^3/uL 0.00 - 0.90 [facility] Eosinophils [#/volume] in Blood by Automated count 0.42 10^3/uL 0.00 - 0.70 [facility] Basophils [#/volume] in Blood by Automated count 0.05 10^3/uL 0.00 - 0.20 [facility] #IG 0.04 10^3/uL 0.00 - 0.10 [facility] #NRBC 0.00 10^3/uL 0.00 - 0.00 [facility] MANUAL DIFF NOT INDICATED [facility] RBC MORPH NOT INDICATED [facility] ID Date Data Source [id number] 06/03/2021 08:43:00 PM EDT [facility] Name Value Range Interpretation Code Description Data [facility] rce(s) Supporting Document(s) URINALYSIS [facility] Hos[facility] yessi URINALYSIS SOURCE Clean Catch [facility] ital COLOR yellow NORMAL: Yellow [facility] ospital CLARITY clear NORMAL: Clear [facility] Specific gravity of Urine by Test strip 1.025 1.001 - 1.030 [facility] pH 6 5 - 9 [facility] Glucose [Mass/volume] in Urine by Test strip NORM NORMAL: Negat [facility] Bilirubin.total [Presence] in Urine by Test strip NEG NORMAL: Negative [facility] Ketones [Presence] in Urine by Test strip NEG NORMAL: Negative [facility] Protein [Mass/volume] in Urine by Test strip 30 NORMAL: Negat [facility] Nitrite [Presence] in Urine by Test strip NEG NORMAL: Negative [facility] BLOOD 50 NORMAL: Negative [facility] LEUK EST NEG NORMAL: Negative [facility] Urobilinogen [Mass/volume] in Urine by Test strip NOR less patt n 1.0 mg/dL [facility] MICROSCOPIC See Below [facility] ital Erythrocytes [#/volume] in Urine by Test strip 0 - 1 NORMAL: NON E SEEN [facility] EPITHELIAL MANY NORMAL: NONE SEEN A [facility] Bacteria [Presence] in Urine sediment by Light microscopy Tr betina NORMAL: NONE SEEN [facility] Mucus [Presence] in Urine sediment by Light microscopy 1+ NOR MAL: NONE SEEN [facility] ID Date Data Source [id number] 06/03/2021 08:32:00 PM EDT [facility] Name Value Range Interpretation Code Description Data [facility] rce(s) Supporting Document(s) HCG URINE QUAL NEGATIVE NORMAL: NEGATIVE [facility] HCG URINE QL REENTER NEGATIVE NORMAL: NEGATIVE [facility] { KIT LOT # [id number] ){ KIT EXP DATE 10.09.22 ){ PROCEDURAL CONTROL VALID ) ID Date Data Source [id number] 06/08/2021 02:01:00 PM EDT [facility] Name Value Range Interpretation Code Description Data [facility] rce(s) Supporting Document(s) CULTURE URINE [facility] _CULTURE URINE_$$[id number]$$[id number]$$[id number]$$[id number]$$[id number]$$455494$$766286$$665467$$220191$$ 332244$$533815$$549928$$977639$$618281$$448233$$545151$$302620$$685330$$339932$$ 755536$$006799$$356735$$212775$$993151$$244835$$413259$$516288 -- Continued on next page --Patient: ESTHER BENSON R Order: [id number] Page 2Culture: CULTURE URINE Status: Final ==== -- Continued on next page --Patient: ESTHER BENSON R Order: [id number] Page 2Culture: CULTURE URINE Status: Prelim =====$$[id number]$$[id number] DATE/TIME: 06/08/2021 12:06Culture: CULTURE URINE Status: FinalUrine Culture,Comprehensive: [id number] urogenital flora5,000 Colonies/mL Previous result entered on 06/07/2021 06:45 ET No growth after 18-24 hours.P1 Test performed by: Sebas BUSCH #: [id number] [address] [place] [address] [id number] [facility] [id number] Director : Jacoby Calloway MD NPI #:Seismograph Operator Helper : 06/08/21.0645.XMT.SENT REF 06/08/21.1401.XMT.SENT REF ID Date Data Source [id number] 05/13/2021 03:27:00 AM EDT [facility] 1 OrderSheet [facility] Emergency Department [address] [place] [address] Phone #: ext- [phone] 05/13/2021 03:25 Patient: MARCELINO ACOSTA Sex: F : 1990 Age: 30yWEIGHT:95.2 kg (S) HEIGHT:63 inches (S) BMI:37.2ALLERGIES: LatexCHIEF COMPLAINT: discomfortDIAGNOSIS: Muscle strain, Severe acute respiratory syndrome coronavirus, Urinary tract infectious diseaseLAB ORDERSOrder Description Priority Entered Acknowledged InitialedBeta- HCG, Qual STAT 04:02 05/13/2021 04:05 Lora aNm Victoria R.N. ;Urinalysis (Clean STAT 04:02 05/13/2021 04:05 Tabby Nam) Abdullahi Ocampo R.N. ;Influenza Nasal A B STAT 04:08 05/13/2021 04:16 Evie Nam Victoria R.N. ;CORONAVIRUS STAT 04:08 05/13/2021 04:16 Rita NamD-19 Abdullahi Ocampo R.N.(Symptomatic as ;Defined by CDC)(05/11/21) (Not FirstTest) (NotHospitalized) (Not) (NotResident inCongregate CareSetting) (NotEmployed inHealthcare Setting)Culture, Urine STAT 04:30 05/13/2021 04:55 Evie Nam(Urine, Clean Abdullahi Ocampo R.N.Catch) ;DIAGNOSTIC STUDY ORDERSOrder Description Priority Entered Acknowledged InitialedChest Portable 1 STAT 04:02 05/13/2021 04:57 Eive NamView Abdullahi Ocampo R.N.(Oxygen?(No)) ; Reason for Study: Chest Pain 2 OrderSheet [facility] Emergency Department [address] [place] [address] Phone #: [phone]- [phone] 05/13/2021 03:25 Patient: MARCELINO ACOSTA Sex: F : 1990 Age: 30yMEDICATION/IV/DRIP/FLUID ORDERSOrder Description Priority Entered Acknowledged InitialedMacrobid PO 100 04:54 05/13/2021 04:57 Evie Nammg Abdullahi Ocampo R.N. ;GENERAL ORDERSOrder Description Priority Entered Acknowledged InitialedEKG 04:02 05/13/2021 04:16 Evie Nam Victoria R.N. ;[Electronically signed by Abdullahi Ocampo (05:04 05/13/2021)][Electronically signed by Evie Nam R.N. (05:05/13/2021)][Electronically locked by Evie Nam R.N. (05:05/13/2021)] Name Value Range Interpretation Code Description Data [facility] rce(s) Supporting Document(s) ID Date Data Source [id number] 05/13/2021 03:27:00 AM EDT [facility] 1 Medication Reconciliation Report [facility] Emergency Department [address] [place] [address] Phone #: ext- [phone] 05/13/2021 03:25 Patient: MARCELINO ACOSTA Sex: F : 1990 Age: 30yWeight: 95.2 kgHeight/Length: 63 in.BMI: 37.2ALLERGIES: LatexThe patient's Home Medications are listed below:CONTINUE TAKING THE FOLLOWING MEDICATIONS: DULoxetine HCl Oral (60 mg), daily FLUoxetine HCl Oral (10 mg) 1 capsule, daily Iron OralThe source(s) of the original Home M edication information:Not obtained.The following Medications were given to the patient in the Emergency Department:Macrobid [PO] PO 100 mg, administered: 04:57 05/13/2021The following Medications were prescribed to the patient:Pending - Macrobid 100 mg capsule Take 1 capsule twice a day for 7 days -- Dispense 14 capsule.Refills: 0. Substitution permitted. Note to Pharmacy - USE Rx DISCOUNT CARD: $47.07, BIN:[id number],PCN:ISAIAH, Group:EMR, ID:[id number].Pharmacy - [facility] [address] [facility] [place] [address]. Phone: FaxNumber: .Pending - Tessalon Perles 100 mg capsule Take 2 capsule three times a day for 5 days -- as needed forcough. Dispense 30 capsule. Refills: 0. Substitution permitted. Note to Pharmacy - USE Rx DISCOUNTCARD: $47.07, BIN:[id number], PCN:ISAIAH, Group:EMR, ID:[id number].Pharmacy - [id number] [facility] ; [place] [address]. Phone: FaxNumber: . -- Abdullahi Ocampo Name Value Range Interpretation Code Description Data [facility] rce(s) Supporting Document(s) ID Date Data Source [id number] 05/13/2021 03:27:00 AM EDT [facility] 1 Medication Administration Record [facility] Emergency Department [address] [place] [address] Phone #: ext- [phone] 05/13/2021 03:25 Patient: MARCELINO ACOSTA Sex: F : 1990 Age: 30yWeight: 95.2 kgHeight/Length: 63 inBMI: 37.2ALLERGIES: Latex Date/Time Medication Administered Medication OrderedGiven MACROBID [PO] (NITROFURANTOIN Macrobid PO 100 mg04:57 05/13/2021 MONOHYD MACRO)Evie Nam, RMichell Dose: 100 mg Tablets PO Name Value Range Interpretation Code Description Data [facility] Supporting Document(s) ID Date Data Source [id number] 05/13/2021 03:27:00 AM EDT [facility] 1 General Instructions [facility] Emergency Department [address] [place] [address] Phone #: ext- [phone] 05/13/2021 03:25 Patient: MARCELINO ACOSTA Sex: F : 1990 Age: 30y Acute anterior chest wall myofascial strain Coronavirus COVID-19 presumed (confirmatory testing pending) with upper respiratory infection. Acute urinary tract infection with cystitis. No hematuria. Not associated with indwelling catheter.INSTRUCTIONS Do not work for ten days (or until the CVID test is negative). (increase oral fluids. take the Tessalon Perles for cough and the mMcrobid for UTI. quarantine yourself x 10 days or until the COVID results is negative. take motrin for pain). Your Current Medications: Your current home medications have been reviewed. CONTINUE TAKING THE FOLLOWING MEDICATIONS: DULoxetine HCl Oral : Capsule Delayed Release Particles 60 mg, daily. FLUoxetine HCl Oral : Capsule 10 mg, 1 capsule daily. Iron Oral. Prescription Medications: Pending - Macrobid 100 mg capsule Take 1 capsule twice a day for 7 days -- Dispense 14 capsule. Refills: 0. Substitution permitted. Note to Pharmacy - USE Rx DISCOUNT CARD: $47.07, BIN:[id number], PCN:[id number], Group:[id number], ID:[id number]. Pharmacy - [facility] [address] [place] [address] ; [place] [address]. . Pending - Tessalon Perles 100 mg capsule Take 2 capsule three times a day for 5 days -- as needed for cough. Dispense 30 capsule. Refills: 0. Substitution permitted. Note to Pharmacy - USE Rx DISCOUNT CARD: $47.07, BIN:[id number], PCN:[id number], Group:[id number], ID:[id number]. Pharmacy - [facility] [address] [place] [address]. . Follow-up: Follow up with your healthcare provider in three days if not better. Reason for referral: evaluation. Summary of care provided to patient via paper. ADDITIONAL INFORMATIONMuscle Strain in the Extremities 2 General Instructions [facility] Emergency Department [address] [place] [address] Phone #: ext- [phone] 05/13/2021 03:25 Patient: MARCELINO ACOSTA Sex: F : 1990 Age: 30yA muscle strain is a stretching and tearing of muscle f ibers. This causes pain, especially when youmove that muscle. There may also be some swelling and bruising.Home care Keep the hurt area raised above heart level to reduce pain and swelling. This is especially important during the first 48 hours. Apply an ice pack over the injured area for 15 to 20 minutes every 3 to 6 hours. You should do this for the first 24 to 48 hours. You can make an ice pack by filling a plastic bag that seals at the top with ice cubes and then wrapping it with a thin towel. Be careful not to injure your skin with the ice treatments. Ice should never be applied directly to skin. Continue the use of ice packs for relief of pain and swelling as needed. After 48 hours, apply heat (warm shower or warm bath) for 15 to 20 minutes several times a day, or alternate ice and heat. You may use [id number] pain medicine to control pain, unless another medicine was prescribed. If you have chronic liver or kidney disease or ever had a stomach ulcer or gastrointestinal bleeding, talk with your healthcare provider before using these medicines. For leg strains: If crutches have been recommended, don't put full weight on the hurt leg until you can do so without pain. You can return to sports when you are able to hop and run on the injured leg without pain.Follow-up careFollow up with your healthcare provider, or as advised.When to seek medical adviceCall your healthcare provider right away if any of these occur: The toes of the injured leg become swollen, cold, blue, numb, or tingly Pain or swelling increases [id number] [employer]. [address] [place] [address]. All rights reserved. This information is not intended as asubstitute for professional medical care. Always follow your healthcare professional's instructions.Understanding Coronavirus Disease 2019 (COVID-19)Coronavirus disease 2019 (COVID-19) is a virus that causes a respiratory illness. It is cau sed by acoronavirus called 2019 novel coronavirus (2019-nCoV). There are many types of coronavirus.Coronaviruses are a very common cause of bronchitis. They may sometimes cause lung infection(pneumonia). Symptoms can range from mild to severe respiratory illness. These viruses are alsofound in some animals. COVID- 19 was first found in people in [facility], in late 2018. In 2020, 3 General Instructions [facility] Emergency Department [address] [place] [address] Phone #: ext- [phone] 05/13/2021 03:25 Patient: MARCELINO ACOSTA Sex: F : 1990 Age: 30yseveral cases of COVID-19 have been confirmed in the [place] COVID-19 is a rapidly-emerginginfectious disease. This means that scientists are actively researching it. There are informationupdates regularly.Public health officials are working to find the source. How the virus spreads is not yet fullyunderstood , but it seems to spread and infect people fairly easily. Some people who have beeninfected in an area may be unsure how or where they became infected. The virus may be spreadthrough droplets of fluid that a person coughs or sneezes into the air. It may be spread if you touch asurface with virus on it, such as a handle or object, and then touch your eyes, nose, or mouth.For the latest information, visit the CDC website at www.cdc.gov/coronavirus/2019-ncov.What are the symptoms of COVID-19?Some people have no symptoms or mild symptoms. Symptoms may appear 2 to 14 days aftercontact with the virus. Symptoms can include: Fever Coughing Trouble breathingWhat are possible complications from COVID-19?In many cases, this virus can cause infection (pneumonia) in both lungs. In some cases, this cancause .How is COVID-19 diagnosed?Your healthcare provider will ask about your symptoms. He or she will also ask about your recenttravel and contact with sick people. If your healthcare provider thinks you may have COVID-19, he orshe will work closely with your local health department and the CDC on testing. Follow all instructionsfrom your healthcare provider. COVID-19 is diagnosed by: Nasal and throat swab. A cotton-tipped swab is wiped inside your nose or throat. This is done to check for viruses in your nasal mucus. Sputum culture. A small sample of mucus coughed from your lungs (sputum) is collected if you have a cough. It is checked for the virus.How is COVID-19 treated?There is currently no medicine to treat the virus. Treatment is done to help your body while it fightsthe virus. This is known as supportive care. Supportive care may include: 4 General Instructions [facility] Emergency Department [address] [place] [address] Phone #: ext- [phone] 05/13/2021 03:25 Patient: MARCELINO ACOSTA Sex: F : 1990 Age: 30y Pain medicine. These include acetaminophen and ibuprofen. They are used to help ease pain and reduce fever. Bed rest. This helps your body fight the illness.For severe illness, you may need to stay in the hospital. Care during severe illness may include: IV (intravenous) fluids.These are given through a vein to help keep your body hydrated. Oxygen. Supplemental oxygen or ventilation with a breathing machine (ventilator) may be given. This is done so you get enough oxygen in your body.Are you at risk for COVID-19?You are at risk for infection if you've been to a place where people have been sick with this virus or ifthere are people with COVID-19 in your area. You are at risk if you: Recently traveled to an area with a COVID-19 outbreak Had contact with a sick person who recently traveled to an area with a COVID-19 outbreak Had contact with a person who was diagnosed with or who may have COVID-19How can COVID-19 be prevented?There is no vaccine yet. The best prevention is to not have contact with the virus. The CDC advisesthat people should not travel to areas where there are COVID-19 outbreaks right now for any reasonthat is not urgent. For the most current CDC travel advisories, visit the CDC website atwww.cdc.gov/coronavirus/2019-ncov/travelers. 5 General Instructions [facility] Emergency Department [address] [place] [address] Phone #: ext- [phone] 05/13/2021 03:25 Patient: MARCELINO ACOSTA Sex: F : 1990 Age: 30yTo help prevent spreading the infection, wash your hands often, or use an alcohol-based hand press bucker.The CDC advises that you shouldn't wear a face mask if you are not sick.To protect yourself from COVID-19: Wash your hands often with soap and clean, running water for at least 20 seconds. If you don't have access to soap and water, use an alcohol-based hand press bucker often. Make sure it has at least 60% alcohol. Don't touch your eyes, nose, or mouth unless you have clean hands. Don't have contact with people who are sick. Follow local instructions about being in public. For example, you may be told to not use public transport for a period of time. Experts don't know if animals spread 2019- nCoV. But it's always a good idea to wash your hands after touching any animals. Don't touch animals that may be sick. Don't share eating or drinking tools with sick people. 6 General Instructions [facility] Emergency Department [address] [place] [address] Phone #: ext- [phone] 05/13/2021 03:25 ---- Patient: MARCELINO ACOSTA Sex: F : 1990 Age: 30y Don't kiss someone who is sick. Clean surfaces often with disinfectant.If you were in an area with COVID-19 in the last 14 days: Call your healthcare provider. He or she can talk with local health staff to see what action may be needed. Follow all instructions from your provider. Take your temperature every morning and evening for at least 14 days. This is to check for fever. Keep a record of the readings. Keep watch for symptoms of the virus. Tell your provider right away if you have symptoms. Stay home if you are sick for any reason.If you were in an area with COVID-19 and have a fever or other symptoms: Stay home. Don't panic. Keep in mind that other illnesses can cause similar symptoms. Stay away from work, school, and public places. Limit physical contact with family members. Don't kiss anyone or share eating or drinking utensils. Clean surfaces you touch with disinfectant. This is to help prevent the virus from spreading. Cough or sneeze into a tissue, then throw away the tissue in the trash. Or cough or sneeze into the bend of your elbow. Wear a face mask. Call your healthcare provider. Explain that you have been exposed to COVID-19 and have symptoms. Do this before going to any hospital. Wait for instructions. Keep in mind that healthcare staff may wear protective equipment such as masks, gowns, gloves, and eye protection. You may be put in a separate room. This is to prevent the possible virus from spreading. Tell the healthcare staff about recent travel. This includes local travel on public transport. Staff may need to find other people you have been in contact with. Follow all instructions the healthcare staff give you.If you have been diagnosed with COVID-19 Stay home. Don't leave your home unless you need to get medical care. 7 General Instructions [facility] Emergency Department [address] [place] [address] Phone #: ext- [phone] 05/13/2021 03:25 Patient: MARCELINO ACOSTA Sex: F : 1990 Age: 30y Follow all instructions from your healthcare provider. Call your healthcare provider's office before going. They can prepare and give you instructions. This will help prevent the virus from spreading. Don't go to work, school, or public areas. Don't use public transport or taxis. Stay away from other people in your home. Wear a face mask. This is to protect other people from your germs. They do not need to wear face masks. Don't share household items or food. Cover your face with a tissue when you cough or sneeze. Throw the tissue away. Then wash your hands. Wash your hands often.Caregivers should: Follow all instructions from healthcare staff. Wear protective clothing as advised. Make sure the sick person wears a mask. Wash hands often. Keep track of the sick person's symptoms. Clean surfaces, fabrics, and laundry thoroughly. Keep other people away from the sick person.When to call your healthcare providerCall your healthcare p renee: If you've recently traveled and have symptoms If you have been diagnosed with COVID-19 and your symptoms are worse 4080-4694 [employer]. [address] [place] [address]. All rights reserved. This information is not intended as asubstitute for professional medical care. Always follow your healthcare professional's instructions.Bladder Infection, Female (Adult) 8 General Instructions [facility] Emergency Department [address] [place] [address] Phone #: ext- [phone] 05/13/2021 03:25 Patient: MARCELINO ACOSTA Sex: F : 1990 Age: 30yUrine normally doesn't have any germs (bacteria) in it. But bacteria can get into the urinary tract fromthe skin around the rectum. Or they can travel in the blood from other parts of the body. Once theyare in your urinary tract, they can cause infection in these areas: The urethra (urethritis) The bladder (cystitis) The kidneys (pyelonephritis)The most common place for an infection is in the bladder. This is called a bladder infection. This isone of the most common infections in women. Most bladder infections are easily treated. They arenot serious unless the infection spreads to the kidney.The terms bladder infection, UTI, and cystitis are often used to describe the same thing. But they arenot always the same. Cystitis is an inflammation of the bladder. The most common cause of cystitis isan infection.SymptomsThe infection causes inflammation in the urethra and bladder. This causes many of the symptoms.The most common symptoms of a bladder infection are: Pain or burning when urinating Having to urinate more often than normal Urgent need to ur inate 9 General Instructions [facility] Emergency Department [address] [place] [address] Phone #: ext- [phone] 05/13/2021 03:25 Patient: MARCELINO ACOSTA Sex: F : 1990 Age: 30y Only a small amount of urine comes out Blood in urine Belly (abdominal) discomfort. This is often in the lower belly above the pubic bone. Cloudy urine Strong- or bad-smelling urine Unable to urinate (urinary retention) Unable to hold urine in (urinary incontinence) Fever Loss of appetite Confusion (in older adults)CausesBladder infections are not contagious. You can't get one from someone else, from a toilet seat, orfrom sharing a bath.The most common cause of bladder infections is bacteria from the bowels. The bacteria get onto theskin around the opening of the urethra. From there, they can get into the urine. Then they travel up tothe bladder, causing inflammation and infection. This often happens because of: Wiping incorrectly after urinating. Always wipe from front to back. Bowel incontinence Procedures such as having a catheter put in Older age Not emptying your bladder. This can give bacteria a chance to grow in your urine. Fluid loss (dehydration) Constipation Having sex Using a diaphragm for controlTreatment 10 General Instructions [facility] Emergency Department [address] [place] [address] Phone #: ext- [phone] 05/13/2021 03:25 Patient: MARCELINO ACOSTA Sex: F : 1990 Age: 30yBladder infections are diagnosed by a urine test and urine culture. They are treated with antibiotics.They often clear up quickly without problems. Treatment helps prevent a more serious kidneyinfection.MedicinesMedicines can help in the treatment of a bladder infection: Take antibiotics until they are used up, even if you feel better. It's important to finish them to make sure the infection has cleared. You can use acetaminophen or ibuprofen for pain, fever, or discomfort, unless another medicine was prescribed. If you have long-term (chronic) liver or kidney disease, talk with your healthcare provider before using these medicines. Also talk with your provider if you've ever had a stomach ulcer or GI (gastrointestinal) bleeding, or are taking blood-thinner medicines. If you are given phenazopydridine to reduce burning with urination, it will make your urine a bright orange color. This can stain clothing.Care and preventionThese self-care steps can help prevent future infections: Drink plenty of fluids. This helps to prevent dehydration and flush out your bladder. Do this unless you must restrict fluids for other health reasons, or your healthcare provider told you not to. Clean your self correctly after going to the bathroom. Wipe from front to back after using the toilet. This helps prevent the spread of bacteria. Urinate more often. Don't try to hold urine in for a long time. Wear loose-fitting clothes and cotton underwear. Don't wear tight-fitting pants. Improve your diet and prevent constipation. Eat more fresh fruits and vegetables, and fiber. Eat less junk foods and fatty foods. Don't have sex until your symptoms are gone. Don't have caffeine, alcohol, and spicy foods. These can irritate your bladder. Urinate right after you have sex to flush out your bladder. If you use control pills and have frequent bladder infections, discuss it with your healthcare provider.Follow-up care 11 General Instructions [facility] Emergency Department [address] [place] [address] Phone #: ext- [phone] 05/13/2021 03:25 Patient: MARCELINO ACOSTA Sex: F : 1990 Age: 30yCall your healthcare provider if all symptoms are not gone after 3 days of treatment. This is especiallyimportant if you have repeat infections.If a culture was done, you will be told if your treatment needs to be changed. If directed, you cancall to find out the results.If X-rays were done, you will be told if the results will affect your treatment.Call 911Call 911 if any of the following occur: Trouble breathing Hard to wake up or confusion Fainting (loss of consciousness) Fast heart rateWhen to get medical adviceCall your healthcare provider right away if any of these occur: Fever of 100.4F (38.0C) or higher, or as directed by your healthcare provider Symptoms are not better after 3 days of treatment Back or belly pain that gets worse Repeated vomiting, or unable to keep medicine down Weakness or dizziness Vaginal discharge Pain, redness, or swelling in the outer vaginal area (labia) 8940-3405 [employer]. [address] [place] [address], [place] [address]. All rights reserved. This information is not intended as asubstitute for professional medical care. Always follow your healthcare professional's instructions. You have been given the following additional information: Muscle Strain, Extremity Coronavirus Disease 2019 (COVID-19) Bladder Infection, Female (Adult) 12 General Instructions [facility] Emergency Department [address] [place] [address] Phone #: ext- [phone] 05/13/2021 03:25 Patient: MARCELINO ACOSTA Sex: F : 1990 Age: 30y Do not work for ten days (or until the CVID test is negative).(Electronically signed by Abdullahi Ocampo 05/13/2021 05:04) Name Value Range Interpretation Code Description Data [facility] rce(s) Supporting Document(s) ID Date Data Source [id number] 05/13/2021 03:27:00 AM EDT [facility] 1 Clinical Report - Nurses [facility] Emergency Department [address] [place] [address] Phone #: ext- [phone] 05/13/2021 03:25 Patient: MARCELINO ACOSTA Sex: F : 1990 Age: 30yTRIAGEArrived by private vehicle. Historian: patient. Accompanied by family.Acuity: LEVEL 3.Chief Complaint: (chest discomfort, and possible UTI).Alert. No acute distress.Onset. (2 days). ( Patient arrives c/o chest discomfort and possible UTI x2 days. Pt reports daughter dahliagot done having the flu and reports she started to have cough, chest "discomfort like tightness" whencoughing. Pt reports it feels like "bronchitis". 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 --03:54 05/13/21 Allison Cortez R.N.03:47 05/13/21. BP: 128/90. MAP: 102. HR: 85. RR: 18. O2 saturation: 99% on room air. Temp: 97.9 F(oral). Pain level now: 05/19. --03:54 05/13/21 Allison Cortez R.N.Weight: 95.2 kg stated. Height/Length: 63 inches Per Patient. BMI: 37.2. --03:47 05/13/21 Allison Cortez R.N.MedicationsDULoxetine HCl Oral (Capsule Delayed Release Particles 60 mg), daily. --03:52 05/13/21 Allison Cortez R.N. FLUoxetine HCl Oral (Capsule 10 mg) 1 capsule, daily. --03:52 05/13/21 Allison Cortez R.N. Iron Oral. --03:52 05/13/21 Allison Cortez R.N.AllergiesLatex. --03:52 05/13/21 Allison Cortez R.N.PROBLEMS:Eustachian Tube Dysfunction.Depression.Anxiety Reaction.Bronchitis.Hypertens ion.PTSD.Laceration.Pharyngitis. --03:52 05/13/21 Allison Cortez R.N. 2 Clinical Report - Nurses [facility] Emergency Department [address] [place] [address] Phone #: ext- [phone] 05/13/2021 03:25 [id number] Sex[facility] : 1990 Age: 30y ADDITIONAL SURGERIES: C SECTION (X4). Cholecystectomy. C- Section. Tonsillectomy. Tubal Ligation. --03:52 05/13/21 Allison Cortez R.N. History PAST MEDICAL HX: Immunizations: up-to-date. Last normal menstrual period- 3 days. SOCIAL HX: Heavy tobacco smoker (cigarette)- less than 1 pack per day. No alcohol use or drug use. She has not traveled outside the [place] Infectious disease exposure: No infectious disease exposure. The patient was not exposed to Coronavirus. Patient is not a known carrier of tuberculosis, hepatitis, HIV, MRSA or VRE. Patient is not a known carrier of CRE. SELF HARM ASSESSMENT: Self harm assessment was performed. The patient answered "no" to the question(s) "Have you recently felt down, depressed, or hopeless?", "Do you have thoughts of harming or killing yourself?", "Do you have a plan for harming or killing yourself?", "Have you recently had thoughts about harming or killing others?", "Do you have any dangerous items in your possession?", "Have you noticed less interest or pleasure in doing things?", "Are you here because you tried to hurt yourself?" and "Have you ever tried to hurt yourself before today?". ABUSE ASSESSMENT: Abuse assessment. The patient had positive responses to the question(s) "Do you feel safe in your home?", "Are you afraid to go home?", "Has anyone hurt you or threatened to hurt you?", "Are you afraid of your partner?" and "Have children witnessed violence in the home?". Abuse denied. NUTRITIONAL RISK ASSESSMENT: The nutritional risk assessment revealed no deficiencies. FUNCTIONAL ASSESSMENT: Functional assessment: no impairments noted. LEARNING NEEDS ASSESSMENT: The learning needs assessment revealed no barriers. FALL RISK ASSESSMENT: Fall risk assessment completed. No risk factors identified. SKIN INTEGRITY ASSESSMENT: Skin integrity risk assessment completed. No skin integrity risk identified. --03:54 05/13/21 Allison Cortez R.N. Interventions Identification band on patient. To treatment room. --03:54 05/13/21 Allison Cortez R.N.PHYSICAL ASSESSMENTAmbulatory to room. Patient gowned.GENERAL / NEURO / PSYCH: Alert. Oriented X 4. Appears in no acute distress.HEENT: Pupils equal, round and reactive to light. No facial asymmetry noted. Mucous membranes are 3 Clinical Report - Nurses [facility] Emergency Department [address] [place] [address] Phone #: ext- [phone] 05/13/2021 03:25 [id number] Sex[facility] : 1990 Age: 30y pink. RESPIRATORY: Respirations not labored. Cough. Lower sternal tenderness. Breath sounds within normal limits. [facility]: Normal sinus rhythm noted. ( Pt reports chest "discomfort" and tightness when she coughs x2 days). Capillary refill less than 2 seconds. Pulses within normal limits. GI / : ( Pt reports increased urinary frequency with diminished production and pelvic pain.). Abdomen soft and nontender and normal bowel sounds. SKIN: Skin intact. Skin is warm and dry. Normal skin turgor. --04:10 05/13/21 Allison Cortez R.N.NURSING PROGRESS NOTESPatient gowned. Head of bed elevated. Reassurance given. Two patient identifiers checked. Call lightplaced in reach. Side rails up x 2. Bed placed in lowest position. Brakes of bed on. --03:54 05/13/21Allison Cortez R.N. EKG time: (04:08 05/13/2021). EKG was performed by a nurse and shown to the ED physician. Dr ocampo. --04:17 05/13/21 Evie Nam R.N. 04:57 05/13/2021 Macrobid (Nitrofurantoin Monohyd Macro) PO Tablets 100 mg given. Allergies verified and confirmed 5 rights. Information reviewed with patient including reason for taking this medication, signs of allergic reaction and precautions. Verbalizes understanding. --04:57 05/13/21 Evie Nam R.N.DISPOSITION / DISCHARGE 05:05 05/13/21. Condition at departure: improved and stable. No learning barriers present. Discharge instructions provided and reviewed with the patient and spouse. Reviewed medication(s) side effects, precautions, dosing and course information. Prescription(s) sent electronically to pharmacy. Patient and spouse verbalized understanding. Written instructions provided in Namibian. The patient was discharged by the physician. She was discharged home and accompanied by spouse and family. She left ambulatory and via private vehicle. Spouse driving. --05:10 05/13/21 Evie Nam R.N. 05:05 05/13/21. BP: 107/81. MAP: 89. HR: 76. RR: 18. O2 saturation: 98%. Temp: 97.8 F. Pain level now: 04/18. --05:10 05/13/21 Evie Nam R.N.Locked/Released at 05/13/2021 05:10 by Evie Nam R.N. Name Value Range Interpretation Code Description Data Ariadna rce(s) Supporting Document(s) ID Date Data Source [id number] 05/13/2021 03:27:00 AM EDT [facility] 1 Clinical Report - Physicians/Mid Levels [facility] Emergency Department [address] [place] [address] Phone #: ext- [phone] 05/13/2021 03:25 Patient: MARCELINO ACOSTA Sex: F : 1990 Age: 30y Time Seen; initial patient contact, initial documentation. Arrived- By private vehicle. Historian- patient. Disposition decision: 04:59 05/13/2021.HISTORY OF PRESENT ILLNESS Chief Complaint: CHEST DISCOMFORT. cough. It is described as tightness and aching. No radiation. This started 2 days [employer]PER[employer] and is still present. It was gradual in onset and has been waxing/waning. Onset during cough. Modifying factors- worsened by cough and deep breaths. Not relie jesus by anything. No nausea, vomiting or diaphoresis. (Patient states that her daughter just god rid wit the flu last week and now she is coughing, has chest congestion and chest pritchard when she coughs. she also complains of pain on urination . denies vaginal discharge. admits to feeling worm. she has not been vaccinated with the COVD). She has had difficulty breathing.REVIEW OF SYSTEMSNo fever, chills, pedal edema, fainting episodes or headache. No sore throat, blurred vision, abdominalpain, black stools or skin rash. No enlarged lymph nodes, joint pain or bloody stools. The patient hashad a cough and difficulty with urination. All other systems reviewed and are negative.PAST HISTORYProblems:Eustachian Tube Dysfunction.Depression.Anxiety Reaction.Bronchitis.Hypertension.Laceration.Pharyngitis. Additional Surgeries: C SECTION. (X4) Cholecystectomy. . Tonsillectomy. Tubal Ligation. Medications: Iron Oral. FLUoxetine HCl Oral (Capsule 10 mg) 1 capsule, daily. DULoxetine HCl Oral (Capsule Delayed Release Particles 60 mg), daily. Allergies: Latex. 2 Clinical Report - Physicians/Mid [facility] Emergency Department [address] [place] [address] Phone #: ext- [phone] 05/13/2021 03:25 Patient: MARCELINO ACOSTA Sex: F : 1990 Age: 30ySOCIAL HISTORYHeavy tobacco smoker (cigarette)- less than 1 pack per day. No alcohol use or drug use.ADDITIONAL NOTESThe nursing notes have been reviewed.PHYSICAL EXAMVital Signs: 05/13/2021 03:47 BP: 128/90. MAP: 102. HR: 85. RR: 18. O2 saturation: 99% on room air.Temp: 97.9 F. Pain level now: 810. Have been reviewed. Oxygen saturation normal.Appearance: Alert. Not oriented X3. No acute distress.Eyes: Pupils equal, round and reactive to light. Eyes normal inspection.ENT: Pharynx normal.Neck: Normal inspection. Neck supple.CVS: Normal heart rate and rhythm. Heart sounds normal. Pulses normal.Respiratory: No respiratory distress. Chest pain reproducible (on taking a deep breath). Breath soundsnormal. Chest nontender.Abdomen: Soft. Mild tenderness in the suprapubic area. No guarding or rebound tenderness. Bowelsounds normal. No organomegaly. No mass. Femoral pulses equal.Back: Normal external inspection. No CVA tenderness.Skin: Skin warm and dry. Normal skin color. No rash. Normal skin turgor.Extremities: Extremities exhibit normal ROM. No lower extremity edema.Neuro: Oriented X 3. No motor deficit.LABS, X-RAYS, AND EKGEKG: EKG time: 04:08 05/13/2021. No acute process. No acute ischemia. Normal sinus rhythm.Rate: 75. Normal P waves. Normal QRS complex. Normal QT and QTc. Non-specific ST segment / Twave abnormalities. Prior EKG unavailable. The study has been interpreted contemporaneously by me.The study has been independently viewed by me. The EKG appears to be a good tracing. Artifactpresent. Interpretation time: 04:28 05/13/2021.Chest X-ray: No acute disease. Normal lung markings present. Normal heart size. Mediastinumnormal. Great vessels normal. Soft tissues normal. No infiltrate. No fracture. No bony lesion present.Views: AP (portable). Technique: good. The X-rays were independ ently viewed by me and interpretedcontemporaneously by me. Prior films were not available for comparison. Interpretation time: 04:.Laboratory Tests: Influenza Nasal A B: (NADIRA: 05/13/2021 04:14) ( MsgRcvd 05/13/2021 04:40) Final results Test Result Flag Units (Reference) INFLUENZA A NEGATIVE (NORMAL: NEGAT INFLUENZA B NEGATIVE (NORMAL: NEGAT INFLUENZA A REENTER NEGATIVE (NORMAL: NEGAT INFLUENZA B REENTER NEGATIVE (NORMAL: NEGAT PROCEDURAL CONTROL VALID KIT LOT # _[id number] 05/13/21.0440.LBS. KIT EXP DATE _07-45-97 05/13/21.0440.LBS.The Influenza A utilizing an isothermal nucleic acid amplification technology for thequalitative detection of influenza A and B viral RNA.Negative results do not preclude influenza virus infection and should not beused as the sole basis for diagnosis, treatment or other patient managementdecisions. 3 Clinical Report - Physicians/Mid Levels [facility] Emergency Department [address] [place] [address] Phone #: ext- [phone] 05/13/2021 03:25 Patient: MARCELINO ACOSTA Sex: F : 1990 Age: 30y Beta-HCG, Qual Urine: (NADIRA: 05/13/2021 03:55) ( MsgRcvd 05/13/2021 04:17) Final results Test Result Flag Units (Reference) HCG URINE QUAL NEGATIVE (NORMAL: NEGAT HCG URINE QL REENTER NEGATIVE (NORMAL: NEGAT { KIT LOT # [id number] ){ KIT EXP DATE 10-09-22 ){ PROCEDURAL CONTROL VALID ) Urinalysis: (NADIRA: 05/13/2021 03:55) ( MsgRcvd 05/13/2021 04:16) Final results Test Result Flag Units (Reference) URINALYSIS URINALYSIS SOURCE R COLOR noemi (NORMAL: Yello CLARITY hazy (NORMAL: Clear SPEC GRAVITY 1.020 (1.001 - 1.030 pH 6 (5 - 9) GLUCOSE NORM (NORMAL: Negat BILIRUBIN 1 (NORMAL: Negat KETONE NEG (NORMAL: Negat PROTEIN 15 (NORMAL: Negat NITRITE POS (NORMAL: Negat BLOOD 250 A (NORMAL: Negat LEUK EST NEG (NORMAL: Negat UROBILINOGEN 4 (less than 1.0 MICROSCOPIC See Below WBC 3 - 5 (NORMAL: NONE RBC 3 - 5 (NORMAL: NONE EPITHELIAL MODERATE A (NORMAL: NONE MUCOUS 1+ (NORMAL: NONE.PROGRESS AND PROCEDURESCourse of Care: 04:28 05/13/21. Patients chest pain is muscular as it is worse on coughing only. shehas not been vaccinated for COVID 05:00 05/13/21. cxr sis not show any infiltrate. the Ekg was unremarkable, influenza test was negative. she has nitrite in the urine and small wbc. sent for culture and tested with macrobid. will discharge patient home. Patient counseled in person regarding the patient's stable condition, test results, diagnosis and need for follow-up. 04:59. Disposition: Discharged home in good and improved condition (04:59). Condition: good and stable. Discharge decision based on the following: patient's condition is improved; patient's exam is improved; no abnormal test results; minimally abnormal test results; stable condition on repeat evaluation; social support is adequate; transportation is available; follow-up is available; clinical impression is consistent with outpatient treatment. 4 Clinical Report - Physicians/Mid Levels [facility] Emergency Department [address] [place] [address] Phone #: ext- [phone] 05/13/2021 03:25 Patient: MARCELINO ACOSTA Sex: F : 1990 Age: 30yCLINICAL IMPRESSION Acute anterior chest wall myofascial strain Coronavirus COVID-19 presumed (confirmatory testing pending) with upper respiratory infection. Acute urinary tract infection with cystitis. No hematuria. Not associated with indwelling catheter.INSTRUCTIONS Do not work for ten days (or until the CVID test is negative). (increase oral fluids. take the Tessalon Perles for cough and the mMcrobid for UTI. quarantine yourself x 10 days or until the COVID results is negative. take motrin for pain). Your Current Medications: Your current home medications have been reviewed. CONTINUE TAKING THE FOLLOWING MEDICATIONS: DULoxetine HCl Oral : Capsule Delayed Release Particles 60 mg, daily. FLUoxetine HCl Oral : Capsule 10 mg, 1 capsule daily. Iron Oral. Prescription Medications: Pending - Macrobid 100 mg capsule Take 1 capsule twice a day for 7 days -- Dispense 14 capsule. Refills: 0. Substitution permitted. Note to Pharmacy - USE Rx DISCOUNT CARD: $47.07, BIN:[id number], PCN:[id number], Group:[id number], ID:[id number]. Pharmacy - [id number] - [id number] ; [place] [address]. FaxNumber: . Pending - Tessalon Perles 100 mg capsule Take 2 capsule three times a day for 5 days -- as needed for cough. Dispense 30 capsule. Refills: 0. Substitution permitted. Note to Pharmacy - USE Rx DISCOUNT CARD: $47.07, BIN:[id number], PCN:[id number], Group:[id number], ID:[id number]. Pharmacy - [id number] - [id number] ; [place] [address]. FaxNumber: . Follow-up: Follow up with your healthcare provider in three days if not better. Reason for referral: evaluation. Summary of care provided to patient via paper.(Electronically signed by Abdullahi Ocampo 05/13/2021 05:04) 5Clinical Report - Physicians/Mid Levels [facility] Emergency Department [address] [place] [address] Phone #: ext- [phone] 05/13/2021 03:25 Patient: MARCELINO ACOSTA Sex: F : 1990 Age: 30y Name Value Range Interpretation Code Description Data Ariadna rce(s) Supporting Document(s) ID Date Data Source [id number] 05/13/2021 03:27:00 AM EDT [facility] Addenda for MARCELINO ACOSTA VisitID: [id number] Date: 12:40Lab results reviewed, SARS CoV- 2Coronavirus NOT DETECTED Communicated information to patient.(Electronically signed by Sapphire Dominguez RN - 05/14/2021 12:40) Name Value Range Interpretation Code Description Data Ariadna rce(s) Supporting Document(s) ID Date Data Source [id number] 05/13/2021 07:56:00 [place] [address] RESPIRATORY CARE REPORT ==== ---------NAME------- NUMBER SEX AGE ADMIT DISC. XRAY# F/C TYPEMOORE MARCELINO Parikh [id number] F 30 05/13/21 05/13/21 [id number] XB2 E/R DATE OF : 1990 M/R# [id number] #: [id number] VT-03 LOCATION: EMERGENCY DEPT EKG [id number] COMP LETE:05/13/21 05:39 VMT [id number] PHYSICIAN: KARLEE Name Value Range Interpretation Code Description Data Ariadna rce(s) Supporting Document(s) ID Date Data Source [id number] 05/13/2021 09:06:00 [place] [address] PHONE: [phone] FAX: [phone] Name .................. : SHAUN BENSON Kati Acct Number.................. : [id number] ROOM. ................. : - Number ................... : [id number] Stay type ............. : E/R Discharge Date......... ... : 05/13/21 Admit Date ......... : 05/13/21 Admit Phys .................... : KARLEE Date of ....... : 1990 Family Phys ................... : NO PCP Phone .................. : [phone] Age ................................ : 30 Film# .................. .:[id number] Sex ................................. : F Unsigned transcriptions are preliminary reports and do not represent a medical or legal document CHEST PORTABLE [id number] COMPLETE:05/13/21 06:17 DLA 95501 Reason(s): Chest Pain PORTABLE CHEST SINGLE VIEW 4:47 AM HISTORY: Chest pain COMPARISON: None. FINDINGS: Mediastinal and hilar structures are normal. Cardiac silhouette is unremarkable. Lungs are clear. No pulmonary edema. No pleural effusions or pneumothorax. IMPRESSION: Normal exam. Electronically Reviewed and Signed By Ritchie Chen MD , 0 05/13/21 09:06, RAMU Transcribe Initials: SSR, Transcribe Date: 05/13/21 09:03, Dictation Date: Copy for: EMERGENCY DEPT via modem Copy for: 710 MED REC DISCHARGED Page 1 of 1 Name Value Range Interpretation Code Description Data Ariadna rce(s) Supporting Document(s) ID Date Data Source [id number] 05/13/2021 04:40:00 AM EDT [facility] Name Value Range Interpretation Code Description Data Ariadna rce(s) Supporting Document(s) Influenza virus A Ag [Presence] in Nasopharynx by Immunoassa y NEGATIVE NORMAL: NEGATIVE [facility] Influenza virus B Ag [Presence] in Nasopharynx by Immunoassa y NEGATIVE NORMAL: NEGATIVE [facility] NEGATIVENEGATIVE PROCEDURAL CO NTROL VALID KIT LOT # _[id number] 05/13/21.0440.LBS. KIT EXP DATE _59-68-05 05/13/21.044.LBS.The Influenza A & B assay is a rapid molecular in vitro diagnostic testutilizing an isothermal nucleic acid amplification technology for thequalitative detection of influenza A and B viral RNA.Negative results do not preclude influenza virus infection and should not beused as the sole basis for diagnosis, treatment or other patient managementdecisions. ID Date Data Source [id number] 05/13/2021 04:11:00 AM EDT [facility] Name Value Range Interpretation Code Description Data Ariadna rce(s) Supporting Document(s) SARS coronavirus 2 RNA Not Detected [facility] This lab was ordered by [facility] ashlee and reported by [employer]. ID Date Data Source [id number] 05/14/2021 11:18:00 AM EDT [facility] Name Value Range Interpretation Code Description Data Ariadna rce(s) Supporting Document(s) SARS-CoV-2, DIANE Not Detected Not Detected [facility] This nucleic acid amplification test was developed and its performancecharacteristics determined by theeventwall. Nucleic acidamplification tests include RT-PCR and TMA. This test has not beenFDA cleared or approved. This test has been authorized by FDA underan Emergency Use Authorization (EUA). This test is only authorizedfor the duration of time the declaration that circumstances existjustifying the authorization of the emergency use of in vitrodiagnostic tests for detection of SARS-CoV-2 virus and/or diagnosisof COVID-19 infection under section 564(b)(1) of the Act, 21 U.S.C.360bbb-3(b) (1), unless the authorization is terminated or revokedsooner.When diagnostic testing is negative, the possibility of a falsenegative result should be considered in the context of a patient'srecent exposures and the presence of clinical signs and symptomsconsistent with COVID- 19. An individual without symptoms of COVID-19and who is not shedding SARS-CoV-2 virus would expect to have anegative (not detected) result in this assay. SARS-CoV-2, DIANE 2 DAY TAT Performed [facility] ID Date Data Source [id number] 05/18/2021 06:14:00 AM EDT [facility] Name Value Range Interpretation Code Description Data Ariadna rce(s) Supporting Document(s) CULTURE URINE [facility] _CULTURE URINE_$$[id number]$$[id number]$$280488$$834394$$400647$$652395$$623874$$926249$$120301$$ 109871$$071967$$906086$$709807$$421845$$602869$$260806$$902512$$854201$$978266$$ 332608$$114073$$481464$$465265$$747487$$920665$$014890$$314340 -- Continued on next page --Patient: SHAUN BENSON R Order: [id number] Page 2Culture: CULTURE URINE Status: Final ==== -- Continued on next page --Patient: SHAUN BENSON R Order: [id number] Page 2Culture: CULTURE URINE Status: Prelim =====$$[id number]$$[id number] DATE/TIME: 05/18/2021 05:05Culture: CULTURE URINE Status: FinalUrine Culture,Comprehensive: Q1Cphur urogenital flora9,000 Colonies/mL Previous result entered on 05/16/2021 08:11 ET No growth after 18-24 hours.P1 Test performed by: [facility] Ruthie BUSCH #: [id number] [address] [place] [phone] [facility] [address]Medical Director : Jacoby Calloway MD NPI #:Seismograph Operator Helper : 05/16/21.0911.XMT.SENT REF 05/18/21.0614.XMT.SENT REF ID Date Data Source [id number] 05/13/2021 04:16:00 AM EDT [facility] Name Value Range Interpretation Code Description Data Ariadna rce(s) Supporting Document(s) HCG URINE QUAL NEGATIVE NORMAL: NEGATIVE [facility] HCG URINE QL REENTER NEGATIVE NORMAL: NEGATIVE [facility] { KIT LOT # [id number] ){ KIT EXP DATE 10-09-22 ){ PROCEDURAL CONTROL VALID ) ID Date Data Source [id number] 05/13/2021 04:16:00 AM EDT [facility] Name Value Range Interpretation Code Description Data Ariadna rce(s) Supporting Document(s) [facility] COLOR noemi NORMAL: Yellow [facility] CLARITY hazy NORMAL: Clear [facility] Specific gravity of Urine by Test strip 1.020 1.001 - 1.030 [facility] pH 6 5 - 9 [facility] Glucose [Mass/volume] in Urine by Test strip NORM [facility]: [facility] Bilirubin.total [Presence] in Urine by Test strip 1 NORMAL: Negative [facility] Ketones [Presence] in Urine by Test strip NEG NORMAL: Negative [facility] Protein [Mass/volume] in Urine by Test strip 15 [facility]ORMAL[facility] Nitrite [Presence] in Urine by Test strip POS NORMAL: Negative [facility] BLOOD 250 NORMAL: Negative A [facility] LEUK EST NEG NORMAL: Negative [facility] Urobilinogen [Mass/volume] in Urine by Test strip 4 less patt n 1.0 mg/dL [facility] MICROSCOPIC See Below [facility] WBC 3 - 5 NORMAL: NONE SEEN [facility] Erythrocytes [#/volume] in Urine by Test strip 3 - 5 NORMAL: NON E SEEN [facility] EPITHELIAL MODERATE NORMAL: NONE SEEN A [facility] Mucus [Presence] in Urine sediment by Light microscopy 1+ NOR MAL: NONE SEEN [facility] ID Date Data Source TSH 04/14/2021 12:00:00 AM EDT eCW1 ([facility]) Name Value Range Interpretation Code Description Data Ariadna rce(s) Supporting Document(s) 1.330 0.358-3.740 THYROID STIMULATING HORM ONE eCW1 ([facility]) ID Date Data Source TOTAL IRON BINDING CAPACIT 04/14/2021 12:00:00 AM EDT eCW1 ( [facility]) Name Value Range Interpretation Code Description Data Ariadna rce(s) Supporting Document(s) 27 50-170 IRON (FE) eCW1 ([facility]) 7.9 13.2-45.0 PERCENT SATURATION eCW1 ([facility]) 341 250-450 TOTAL IRON BINDING CAPACI TY eCW1 ([facility]) ID Date Data Source LIPID PANEL (CARDIAC RISK) 04/14/2021 12:00:00 AM EDT eCW1 ( [facility]) Name Value Range Interpretation Code Description Data Ariadna rce(s) Supporting Document(s) Cholesterol [Moles/volume] in Serum or Plasma 191 <200 CHOLESTEROL LEVEL eCW1 ([facility]) Triglyceride [Mass/volume] in Serum or Plasma by calculation 228 <150 TRIGLYCERIDES LEVEL eCW1 ([facility]) 152 NON-HDL-C eCW1 ([facility]) Cholesterol in LDL [Mass/volume] in Serum or Plasma by calculation 106 <100 LDL CHOLESTEROL [facility]1 ([facility]) Cholesterol in HDL [Moles/volume] in Serum or Plasma 39 >40 HDL CHOLESTEROL eC1 ([facility]) 4.897 <5 CHOLESTEROL RISK RATIO eCW1 ([facility]) ID Date Data Source [id number] 04/14/2021 12:00:00 AM EDT eCW1 ([facility]) Name Value Range Interpretation Code Description Data Ariadna rce(s) Supporting Document(s) Hemoglobin A1c/Hemoglobin.total in Blood 5.4 HEMOGLOBIN A1c eCW1 ([facility]) ID Date Data Source HEPATITIS PROFILE ACUTE 04/14/2021 12:00:00 AM EDT eCW1 ([facility]) Name Value Range Interpretation Code Description Data Ariadna rce(s) Supporting Document(s) 0.0 <0.8 HEPATITIS C VIRUS LARRY INDEX eC W1 ([facility]) NEGATIVE NEGATIVE HEPATITIS B SURFACE ANTIG EN eCW1 ([facility]) NEGATIVE NEGATIVE HEPATITIS A ANTIBODY IGM eCW1 ([facility]) NEGATIVE NEGATIVE HEPATITIS B CORE ANTIBODY IGM eCW1 ([facility]) ID Date Data Source FERRITIN 04/14/2021 12:00:00 AM EDT eCW1 ([facility]) Name Value Range Interpretation Code Description Data Ariadna rce(s) Supporting Document(s) 22 8-252 FERRITIN eCW1 ([facility]) ID Date Data Source Comprehensive Metabolic Profile (CMP) 04/14/2021 12:00:00 AM EDT eCW1 ([facility]) Name Value Range Interpretation Code Description Data Ariadna rce(s) Supporting Document(s) 0.59 0.55-1.30 CREATININE FOR GFR eCW1 ([facility]) 76 70-100 GLUCOSE, FASTING eCW1 ([facility]) 12 7-18 BLOOD UREA NITROGEN eCW1 ([facility]) 4.6 3.5-5.1 POTASSIUM SERUM eCW1 ([facility]) > 60.0 >60 GLOMERULAR FILTRATION RATE eCW 1 ([facility]) 140 136-145 SODIUM LEVEL eCW1 ([facility]) 9.1 8.5-10.1 CALCIUM LEVEL eCW1 ([facility]) 27 21-32 CARBON DIOXIDE LEVEL eCW1 ([facility]) 106 98-107 CHLORIDE LEVEL eCW1 ([facility]) 16 7-37 AST/SGOT eCW1 ([facility]) 27 12-78 ALT/SGPT eCW1 ([facility]) 0.3 0.2-1.0 BILIRUBIN,TOTAL eCW1 ([facility]) 102 45-117 ALKALINE PHOSPHATASE eCW1 ([facility]) 3.6 3.2-5.2 ALBUMIN eCW1 ([facility]) 0.9 1.2-2.2 ALBUMIN/GLOBULIN RATIO eCW1 ([facility]) 7.7 6.4-8.2 TOTAL PROTEIN eCW1 ([facility]) ID Date Data Source CPK CREATINE PHOSPHOKINASE 04/14/2021 12:00:00 AM EDT eCW1 ( [facility]) Name Value Range Interpretation Code Description Data Ariadna rce(s) Supporting Document(s) 59 26-192 CPK CREATINE PHOSPHOKINASE eCW 1 ([facility]) ID Date Data Source CBC with Differential 04/14/2021 12:00:00 AM EDT eCW1 ([facility]) Name Value Range Interpretation Code Description Data Ariadna rce(s) Supporting Document(s) 9.8 4.0-10.0 WHITE BLOOD COUNT eCW1 ([facility]) 11.3 12.0-15.5 HEMOGLOBIN eCW1 ([facility]) 4.20 4.00-5.40 RED BLOOD COUNT eCW1 ([facility]) 83.3 80.0-96.0 MEAN CORPUSCULAR VOLUME e CW1 ([facility]) 35.0 36.0-47.0 HEMATOCRIT eCW1 ([facility]) 26.9 27.0-33.0 MEAN CORPUSCULAR HEMOGLOB IN eCW1 ([facility]) 15.3 11.5-14.5 RED CELL DISTRIBUTION WID TH eCW1 ([facility]) 426 150-450 PLATELET COUNT, AUTOMATED eCW1 ([facility]) 32.3 32.0-36.5 MEAN CORPUSCULAR HGB CONC eCW1 ([facility]) 65.8 36.0-66.0 NEUTROPHILS % eCW1 ([facility]) 21.8 24.0-44.0 LYMPH % eCW1 ([facility]) 6.5 2.0-8.0 MONO % eCW1 ([facility]ly [facility]) 0.5 0.0-1.0 BASO % eCW1 (Formerly [facility]) 5.0 0.0-3.0 EOS % eCW1 (Formerly [facility]) 6.5 1.5-8.5 NEUTROPHILS # eCW1 ([facility]) 0.5 0.0-0.5 EOS # eCW1 (Formerly [facility]) 2.1 1.5-5.0 LYMPH # eCW1 (Formerly [facility]) 0.6 0.0-0.8 MONO # eCW1 (Formerly [facility]) 0.1 0.0-0.2 BASO # eCW1 (Formerly [facility]) ID Date Data Source [id number] 03/29/2021 02:21:00 PM EDT [facility] 1 Medication Reconciliation Report [facility] Emergency Department [address] [place] [address] Phone #: ext- [phone] 03/29/2021 14:09 Patient: MARCELINO ACOSTA Sex: F : 1990 Age: 30yWeight: 94.8 kgHeight/Length: 63 in.BMI: 37.0ALLERGIES: LatexThe patient's Home Medications are listed below:CONTINUE TAKING THE FOLLOWING MEDICATIONS: Amoxicillin Oral, for ear infection DULoxetine HCl Oral (60 mg), dailyThe source(s) of the original Home Medication information:Not obtained.The following Medications were given to the patient in the Emergency Department:None.The following Medications were prescribed to the patient:Claritin-D 24 Hour 10 mg-240 mg tablet,extended release Take 1 tablet once a day for 10 days --Dispense 10 tablet. Refills: 0. Substitution permitted. Note to Pharmacy - Rx DISCOUNT CARD: $ 14.51.USE: BIN:[id number], PCN:Jurgen COLON oup:[id number], ID:[id number].Pharmacy - [id number] - [id number] [facility] ; [place] [address]. FaxNumber: . -- MARCO Trujillo Name Value Range Interpretation Code Description Data Ariadna rce(s) Supporting Document(s) ID Date Data Source [id number] 03/29/2021 02:21:00 PM EDT [facility] 1 Medication Administration Record [facility] Emergency Department [address] [place] [address] Phone #: ext- [phone] 03/29/2021 14:09 Patient: MARCELINO ACOSTA Sex: F : 1990 Age: 30yWeight: 94.8 kgHeight/Length: 63 inBMI: 37ALLERGIES: LatexDate/Time Medication Administered Medication Ordered Name Value Range Interpretation Code Description Data Ariadna rce(s) Supporting Document(s) ID Date Data Source [id number] 03/29/2021 02:21:00 PM EDT [facility] 1 General Instructions [facility] Emergency Department [address] [place] [address] Phone #: ext- [phone] 03/29/2021 14:09 Patient: MARCELINO ACOSTA Sex: F : 1990 Age: 30y Single superficial laceration to the right forearm. Delayed evaluation. No foreign body present or cellulitis. Essential hypertension. Right eustachian tube dysfunctionINSTRUCTIONS Warnings: INFECTION: Watch for signs of infection (increasing heat and redness, pus-like drainage, swelling, or increased pain). Return or see your doctor if these signs occur. GENERAL WARNINGS: Return or contact your physician immediately if your condition worsens or changes un expectedly, if not improving as expected, or if other problems arise. Specifically return if pain, bleeding or fever worsens. Your Current Medications: Your current home medications have been reviewed. CONTINUE TAKING THE FOLLOWING MEDICATIONS: Amoxicillin Oral : for ear infection. DULoxetine HCl Oral : Capsule Delayed Release Particles 60 mg, daily. Prescription Medications: Claritin-D 24 Hour 10 mg-240 mg tablet,extended release Take 1 tablet once a day for 10 days -- Dispense 10 tablet. Refills: 0. Substitution permitted. Note to Pharmacy - Rx DISCOUNT CARD: $ 14.51. USE: BIN:[id number], PCN:[id number], Group:[id number], ID:[id number]. Pharmacy - [id number] - [id number] [facility] ; [place] [address]. . Follow-up: Follow up with your doctor if not better. Call for an appointment. Reason for referral: evaluation and treatment. Summary of care provided to patient. Understanding of the discharge instructions verbalized by patient. ADDITIONAL INFORMATIONLaceration, All ClosuresA laceration is a cut through the skin. This will usually require stitches or tanya if it's deep. Minorcuts may be treated with a surgical tape closure or skin glue. 2 General Instructions [facility] Emergency Department [address] [place] [address] Phone #: ext- [phone] 03/29/2021 14:09 Patient: MARCELINO ACOSTA Sex: F : 1990 Age: 30yHome care Your healthcare provider may prescribe an antibiotic. This is to help prevent infection. Follow all instructions for taking this medicine. Take the medicine every day until it's gone or you are told to stop. You should not have any left over. The healthcare provider may prescribe medicines for pain. If no pain medicines were prescribed, you can use ecap-krn-xawqjkd pain medicines. Follow instructions for taking any pain medicines. Talk with your healthcare provider before using these medicines if you have chronic liver or kidney disease, or ever had a stomach ulcer or digestive bleeding. Follow the healthcare provider's instructions on how to care for the cut. Keep the wound clean and dry. Don't get the wound wet until you are told it's OK to do so. If the area gets wet, gently pat it dry with a clean cloth. Replace the wet bandage with a dry one. If a bandage was applied and it becomes wet or dirty, replace it. Otherwise, leave it in place for the first 24 hours. Caring for stitches or tanya: Once you no longer need to keep them dry, clean the wound daily. First, remove the bandage. Then wash the area gently with soap and clean running water, or as directed by the healthcare provider. Use a wet cotton swab to loosen and remove any blood or crust that forms. After cleaning, apply a thin layer of antibiotic ointment if advised. Then put on a new bandage unless you are told not to. 3 General Instructions [facility] Emergency Department [address] [place] [address] Phone #: [phone]- [phone] 03/29/2021 14:09 Patient: MARCELINO ACOSTA Sex: F : 1990 Age: 30y Caring for skin glue: Don't put apply liquid, ointment, or cream on the wound while the glue is in place. Don't do activities that cause heavy sweating. Protect the wound from sunlight. Don't scratch, rub, or pick at the adhesive film. Don't place tape directly over the film. The glue should peel off naturally within 5 to 10 days. Caring for surgical tape: Keep the area dry. If it gets wet, blot it dry with a clean towel. Surgical tape usually falls off within 7 to 10 days. If it has not fallen off after 10 days, you can take it off yourself. Put mineral oil or petroleum jelly on a cotton ball and gently rub the tape until it's removed. Once you can get the wound wet, you may shower as usual but don't soak the wound in water (no tub baths or swimming). Even with proper treatment, a wound infection may sometimes occur. Check the wound daily for signs of infection listed below.Scalp woundsDuring the first 2 days, you may carefully rinse your hair in the shower to remove blood, glass or dirtparticles. After 2 days, you may shower and shampoo your hair normally. Don't soak your scalp in thetub or go swimming until the stitches or tanya have been removed. Talk with your healthcareprovider before applying any antibiotic ointment to the wound.Mouth woundsEat soft foods to reduce pain. If the cut is inside of your mouth, clean by rinsing after each meal andat bedtime with a mixture of equal parts water and hydrogen peroxide (don't swallow!). Or you canuse a cotton swab to directly apply hydrogen peroxide onto the cut. You may also be prescribed achlorhexidine solution to rinse with. Mouth wounds can be painful when eating. You may use gniutn-jbh-hrnzamk local numbing solution for pain relief. If this is not available, you may use anynumbing solution intended for teething babies. You may apply this directly to the sores with acotton-tip swab or with your clean finger.Follow-up careFollow up with your healthcare provider as advised. Ask your healthcare provider how long stitchesshould be left in place. Be sure to return for stitch removal as directed. If dissolving stitches wereused in the mouth, these should fall out or dissolve without the need for removal. If tape closureswere used, remove them yourself when your provider recommends if they have not fallen off on theirown. If skin glue was used, the film will wear off by itself. Generally, you should keep healing woundsout of direct sunlight for the first couple of months to try to lessen scarring.When to seek medical advice 4 General Instructions [facility] Emergency Department [address] [place] [address] Phone #: ext- [phone] 14:09 Patient: MARCELINO ACOSTA Sex: F : 1990 Age: 30yCall your healthcare provider right away if any of these occur: Signs of infection, including increasing pain in the wound, increasing wound redness or swelling, or pus or bad odor coming from the wound Fever of 100.4F (38.C) or higher , or as directed by your healthcare provider Stitches or tanya come apart or fall out or surgical tape falls off before 7 days and the wound appears to be reopening Wound edges reopen Wound changes colors Numbness around the wound after any numbing medicine should have worn off Decreased movement around the injured areaCall 911Call 911 if you can't control the wound bleeding with direct pressure. [phone] [employer]. [address] [place] [address]. All rights reserved. This information is not intended as asubstitute for professional medical care. Always follow your healthcare professional's instructions.High Blood Pressure, To Be Confirmed, No TreatmentYour blood pressure today was higher than normal. Sometimes anxiety, pain, or other issues cancause a short-term rise in blood pressure. It later returns to normal. Blood pressure that is high palak time doesn't mean that you have high blood pressure (hypertension). High blood pressure is along-term (chronic) illness. But you should have your blood pressure measured again in the next fewdays to find out if it's still high.Blood pressure measurements are given as 2 numbers. Systolic blood pressure is the upper number.This is the pressure when the heart contracts. Diastolic blood pressure is the lower number. This isthe pressure when the heart relaxes between beats. You will see your blood pressure readingswritten together. For example, a person with a systolic pressure of 118 and a diastolic pressure of 78 5 General Instructions [facility] Emergency Department [address] [place] [address] Phone #: ext- [phone] 03/29/2021 14:09 Patient: MARCELINO ACOSTA Sex: F : 1990 Age: 30ywill have 118/78 written in the medical record.Blood pressure is classified as normal, raised (elevated), or stage 1 or stage 2 high blood pressure: Normal blood pressure. Systolic of less than 120 and diastolic of less than 80 (120/80). Elevated blood pressure. Systolic of 120 to 129 and diastolic less than 80. Stage 1 high blood pressure. Systolic is 130 to 139 or diastolic between 80 to 89. Stage 2 high blood pressure. Systolic is 140 or higher or the diastolic is 90 or higher.Lifestyle changes can help manage your blood pressure. These include weight loss, exercise, andquitting smoking. Have your blood pressure checked regularly to be sure it is under control.Home careTo track your blood pressure, your healthcare provider may ask you to come into the office atdifferent times and on different days. If your provider asks you to check your readings at home, askhim or her what times of the day to test and for how many days. Before you leave the office, ask yourprovider to show you how to take your blood pressure. Ask questions if you don't understandsomething.Using a home blood pressure monitorThink about buying an automatic blood pressure monitor. Ask your provider for a recommendation aswell as the correct size cuff to fit your arm. You can buy blood pressure monitors at most pharmacies.The [employer] advises the following guidelines for home blood pre ssure monitoring: Don't smoke or drink coffee or other caffeinated drinks for 30 minutes before taking your blood pressure. Go to the bathroom before the test. Relax for 5 minutes before taking the measurement. Sit with your back supported (don't sit on a couch or soft chair). Keep your feet on the floor uncrossed. Place your arm on a solid flat surface (like a table) with the upper part of the arm at heart level. Place the middle of the cuff directly above the bend of the elbow. Check the monitor's instruction manual for an illustration. Take multiple readings. When you measure, take 2 to 3 readings one minute apart. Record all of the results. Take your blood pressure at the same time every day, or as your provider advises. Record the date, time, and blood pressure reading. 6 General Instructions [facility] Emergency Department [address] [place] [address] Phone #: ext- [phone] 03/29/2021 14:09 Patient: MARCELINO ACOSTA Sex: F : 1990 Age: 30y Take the record with you to your next medical appointment. If your blood pressure monitor has a built-in memory, simply take the monitor with you to your next appointment. Call your provider if you have several high readings. Don't be frightened by a single high blood pressure reading. But if you get a few high readings, check in with your provider.Follow-up careKeep all of your follow-up appointments. If your blood pressure is more than 120 over 80 on 2 out of 3days, you will need to follow up with your healthcare provider for more evaluation and treatment.Don't put this off! High blood pressure can be treated. High blood pressure that's not treated raisesyour risk for heart attack, heart failure, kidney disease, and stroke.Call [phone] if you have any of these: Blood pressure of 180/120 or higher Chest pain or shortness of breath Weakness of an arm or leg or one side of the face Problems speaking or seeingWhen to get medical adviceCall your healthcare provider right away if any of these occur: Severe headache Throbbing or rushing sound in the ears Nosebleed Sudden severe pain in your belly (abdomen) Extreme drowsiness, confusion, or fainting Dizziness or dizziness with spinning feeling (vertigo) [employer]. [address] [place] [address]. All rights reserved. This information is not intended as asubstitute for professional medical care. Always follow your healthcare profess ional's instructions.Earache Without Infection (Child) 7 General Instructions [facility] Emergency Department [address] [place] [address] Phone #: ext- [phone] 03/29/2021 14:09 Patient: MARCELINO ACOSTA Sex: F : 1990 Age: 30yEaraches can happen without an infection. This can occur when air and fluid build up behind theeardrum, causing pain and reduced hearing. This is called serous otitis media. It means fluid in themiddle ear. It can happen when your child has a cold and congestion blocks the passage that drainsthe middle ear (eustachian tube). It may occur after a middle ear infection caused by bacteria. Or itmay sometimes happen with nasal allergies. The earache may come and go. Your child may alsohear clicking or popping sounds when chewing or swallowing.It often takes several weeks to 3 months for the fluid to clear on its own. Oral pain relievers and eardrops help with pain. Decongestants and antihistamines can be used, but they don't always help. Noinfection is present, so antibiotics will not help. This condition can sometimes become an earinfection, so let the healthcare provider know if your child develops a fever or drainage from the ear orif symptoms get worse.If your child doesn't get better after 3 months, he or she may need surgery to drain the fluid and insertear tubes (tympanostomy). Your child may also need the tubes if he or she is at risk for speech,language, or learning problems. Or your child may need the ear tubes if he or she has hearing loss.Home careYour child's healthcare provider may have you keep an eye on your child (watchful waiting) for up to 3months. This means letting the provider know if your child's symptoms don't get better or get worse.Follow-up careFollow up with your child's healthcare provider as directed.When to seek medical advice 8 General Instructions [facility] Emergency Department [address] [place] [address] Phone #: ext- [phone] 03/29/2021 14:09 Patient: MARCELINO ACOSTA Sex: F : 1990 Age: 30yUnless advised otherwise, call your child's healthcare provider if: Your child has a fever (see Fever and children, below) Ear pain that gets worse Discharge, blood, or foul odor from ear Unusual decreased activity, fussiness, drowsiness, or confusion Headache, neck pain, or stiff neck New rash Frequent diarrhea or vomiting Fluid or blood draining from the ear Convulsion (seizure)Fever and childrenAlways use a digital thermometer to check your child's temperature. Never use a mercurythermometer.For infants and toddlers, be sure to use a rectal thermometer correctly. A rectal thermometer mayaccidentally poke a hole in (perforate) the rectum. It may also pass on germs from the stool. Alwaysfollow the product maker's directions for proper use. If you don't feel comfortable taking a rectaltemperature, use another method. When you talk to your child's healthcare provider, tell him or herwhich method you used to take your child's temperature.Here are guidelines for fever temperature. Ear temperatures aren't accurate before 6 months of age.Don't take an oral temperature until your child is at least 4 years old.Infant under 3 months old: Ask your child's healthcare provider how you should take the temperature. Rectal or forehead (temporal artery) temperature of 100.4F (38C) or higher, or as directed by the provider Armpit temperature of 99F (37.2C) or higher, or as directed by the providerChild age 3 to 36 months: Rectal, forehead (temporal artery), or ear temperature of 102F (38.9C) or higher, or as directed by the provider Armpit temperature of 101F (38.3C) or higher, or as directed by the provider 9 General Instructions [facility] Emergency Department [address] [place] [address] Phone #: ext- [phone] 03/29/2021 14:09 Patient: MARCELINO ACOSTA Sex: F : 1990 Age: 30yChild of any age: Repeated temperature of 104F (40C) or higher, or as directed by the provider Fever that lasts more than 24 hours in a child under 2 years old. Or a fever that lasts for 3 days in a child 2 years or older. [phone] [employer]. [address] [place] [address]. All rights reserved. This information is not intended as asubstitute for professional medical care. Always follow your he [facility] professional's instructions.Wound CareYou have a break in the skin. This wound may be because of an injury. Or it may be the result ofsurgery. Closing the wound helps stop bleeding, protects the wound from infection, and speedshealing. The type of closure that is used depends on the size and location of the wound. Choicesinclude stitches (sutures), strips of surgical tape, skin glue, or tanya.Home careYour healthcare provider may prescribe medicines for pain. Or he or she may suggestan etth-wmu-yexobie (OTC) pain reliever, such as ibuprofen. If you have chronic kidney disease, talkwith your provider before taking any OTC medicines. Also talk with your provider if you've had astomach ulcer or gastrointestinal bleeding. In certain cases, antibiotics may be prescribed to helpprevent infection. If antibiotics are prescribed, take them exactly as directed for as long as directed.Don't stop taking your antibiotics until they are all gone, even if you feel better.General care Follow the healthcare provider's instructions on how to care for the wound. 10 General Instructions [facility] Emergency Department [address] [place] [address] Phone #: ext- [phone] 03/29/2021 14:09 Patient: MARCELINO ACOSTA Sex: F : 1990 Age: 30y Wash your hands with soap and warm water before and after caring for the wound. This helps prevent infection. If a bandage was applied, change it once a day or as directed. If at any time the bandage becomes wet or dirty, replace it with a new one. Unless told otherwise, avoid soaking the wound in water. Take showers or sponge baths instead of tub baths. Don't scrub or pick at the wound. Don't go swimming. If you have a bandage and it gets wet, use a clean cloth to gently pat the wound dry. Then replace the bandage with a dry one. Don't scratch, rub, or pick at the area. Watch for the signs of infection listed below. Any wound can get infected, even if you are taking antibiotics. Seek care right away if you see any possible signs of infection.Care for specific closures Stitches. You may want to clean the wound daily after the first 2 to 3 days. To do this, remove the bandage and gently wash the area with soap and warm water. After cleaning, apply a thin layer of antibiotic ointment if recommended. Then apply a new bandage. Stitches es on the outside of the skin usually need to be removed by your healthcare provider. Surgical tape. Keep the area dry. If it gets wet, blot it dry with a towel. Surgical tape closures usually fall off within 7 to 10 days. If they have not fallen off after 10 days, you can remove them yourself. To remove the tape, use mineral oil or petroleum jelly on a cotton ball to gently rub the adhesive. Skin glue. You may shower or bathe as usual, but don't use soaps, lotions, or ointments on the wound area. Don't scrub the wound. After bathing, pat the wound dry with a soft towel. Don't apply liquids like peroxide, ointments, or creams to the wound while the strips or film is in place. Don't scratch, rub, or pick at the strips or film. Don't put tape directly over the strips or film. Skin adhesive film will fall off naturally in 5 to 10 days. If it does not peel off in 10 days, gently rub petroleum jelly or an ointment onto the film. Tanya. Take showers or sponge baths. Don't take tub baths. Don't use lotions on the wound area. The area may be cleaned with soap and water 2 to 3 days after the wound was stapled. Don't scrub the wound. Pat it dry with a clean soft cloth or towel. You can use antibiotic ointment if your provider tells you to. Tanya will need to be removed by your healthcare provider in 10 to 14 days.Follow-up care 11 General Instructions [facility] Emergency Department [address] [place] [address] Phone #: ext- [phone] 03/29/2021 14:09 [id number] Sex: F : 1990 Age: 30yFollow up with your healthcare provider, or as directed. If you have stitches or tanya, return for theirremoval as directed.When to seek medical adviceCall your healthcare provider right away if you have signs of infection: Fever of 100.4F (38C) or higher, or as directed by your healthcare provider Increasing pain in the wound Increasing redness or swelling Pus or bad-smelling drainage from the woundAlso call your provider right away if any of these occur: Wound bleeds more than a small amount or won't stop bleeding Wound edges come apart Numbness or weakness in the wound area that doesn't go away 1999- 2019 [employer]. [address] [place] [address], [place] [address]. All rights reserved. This information is not intended as asubstitute for professional medical care. Always follow your healthcare professional's instructions. You have been given the following additional information: Laceration: All Closures Hypertension, To Be Confirmed Earache Without Infection (Child) Wound Care(Electronically signed by MARCO Trujillo 03/29/2021 22:19) Name Value Range Interpretation Code Description Data Ariadna rce(s) Supporting Document(s) ID Date Data Source [id number] 03/29/2021 02:21:00 PM EDT [facility] 1 Clinical Report - Nurses [facility] Emergency Department [address] [place] [address] Phone #: ext- [phone] 03/29/2021 14:09 Patient: MARCELINO ACOSTA Sex: F : 1990 Age: 30yTRIAGEArrived by private vehicle. Historian: patient.Acuity: LEVEL 4.Chief Complaint: INJURY TO THE RIGHT FOREARM.Alert. No acute distress.Occurred 22:30 03/28/2021. She sustained a laceration (razor blade). ( PT locked herself out of her evening and was trying to get into her car with a razor blade. Her hand slipped causing her to cuther right forearm. She went to [facility] last night and left without being seen. 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 SEPSIS SCREEN NEGATIVE. No suspected or confirmedsigns of infection present.LEIDY COMA SCORE: 15- eyes open- spontane ous (4); best verbal response- oriented (5); bestmotor response- obeys commands (6). --14:17 03/29/21 Chen Meyer R.N.14:10 03/29/21. BP: 129/91. MAP: 103. HR: 90. RR: 18. O2 saturation: 100%. Temp: 97.9 F. Pain levelnow: 12/17. --14:17 03/29/21 Chen Meyer R.N.14:10 03/29/21. BP: 129/9. MAP: 49. HR: 90. RR: 18. O2 saturation: 100%. Temp: 97.9 F. Pain level now:12/17. --14:17 03/29/21 Chen Meyer R.N. Correction. --14:18 03/29/21 Chen Meyer R.N.14:03/29/21. BP: 129/91. MAP: 103. --14:18 03/29/21 Chen Meyer R.N.Weight: 94.8 kg stated. Height/Length: 63 inches Per Patient. BMI: 37. --14:17 03/29/21 Chen Meyer R.N.MedicationsDULoxetine HCl Oral (Capsule Delayed Release Particles 60 mg), daily. --14:15 03/29/21 Chen Meyer R.N. Amoxicillin Oral (for ear infection). --14:16 03/29/21 Chen Meyer R.N.AllergiesLatex. --14:15 03/29/21 Chen Meyer R.N. 2 Clinical Report - Nurses [facility] Emergency Department [address] [place] [address] Phone #: ext- [phone] 03/29/2021 14:09 [id number] Sex[facility] : 1990 Age: 30y PROBLEMS: PTSD. --14:16 03/29/21 Chen Meyer R.N. ADDITIONAL SURGERIES: Cholecystectomy. . Tonsillectomy. Tubal Ligation. --14:16 03/29/21 Chen Meyer R.N. History PAST MEDICAL HX: Tetanus status: unknown. Immunizations: up-to-date. Has had a tubal ligation. Denies current . SOCIAL HX: Light tobacco smoker (cigarette)- less than 1/2 a pack per day. No alcohol use or drug use. She was offered HIV testing but declined and hepatitis C testing but declined. She has not traveled outside the [place] Infectious disease exposure: The patient was not exposed to C-diff, MRSA, VRE, CRE or Coronavirus. SELF HARM ASSESSMENT: Self harm assessment was performed. The patient answered "no" to the question(s) "Have you recently felt down, depressed, or hopeless?", "Do you have thoughts of harming or killing yourself?", "Do you have a plan for harming or killing yourself?", "Have you recently had thoughts about harming or killing others?", "Do you have any dangerous items in your possession?", "Have you noticed less interest or pleasure in doing things?", "Are you here because you tried to hurt yourself?" and "Have you ever tried to hurt yourself before today?". ABUSE ASSESSMENT: No report of abuse. NUTRITIONAL RISK ASSESSMENT: The nutritional risk assessment revealed no deficiencies. FUNCTIONAL ASSESSMENT: Functional assessment: no impairments noted. LEARNING NEEDS ASSESSMENT: The learning needs assessment revealed no barriers. FALL RISK ASSESSMENT: Fall risk assessment completed. No risk factors identified. SKIN INTEGRITY ASSESSMENT: Skin integrity risk assessment completed. No skin integrity risk identified. --14:17 03/29/21 Chen Meyer R.N. Interventions Identification and allergy b and on patient. To treatment room. --14:17 03/29/21 Chen Meyer R.N.PHYSICAL ASSESSMENTGENERAL / NEURO / PSYCH: Oriented X 4. Alert. Appears in no acute distress.EXTREMITIES: Capillary refill is less than 2 seconds in the extremities. Extremity pulses are withinnormal limits. Extremities exhibit normal ROM. Neuro-vascular status intact to the extremity. Right 3 Clinical Report - Nurses [facility] Emergency Department [address] [place] [address] Phone #: [phone]- [phone] 03/29/2021 14:09 Patient: MARCELINO ACOSTA Sex: F : 1990 Age: 30y forearm: 5.0 cm laceration with controlled bleeding. SKIN: Skin is warm and dry. --14:20 03/29/21 Halie Brambila R.N.NURSING PROGRESS NOTESReassurance given. Two patient identifiers checked. Call light placed in reach. Patient ready forevaluation- PA notified. --14:17 03/29/21 Chen Meyer R.N. Wound cleansed with Hibiclens. --14:20 03/29/21 Halie Brambila R.N.DISPOSITION / DISCHARGE Condition at departure: improved. No learning barriers present. Reviewed medication(s) side effects, precautions, dosing and course information. Prescription(s) given to the patient and sent electronically to pharmacy. Patient verbalized understanding. Written instructions provided in [place]ian. The patient was discharged home and accompanied by spouse. She left ambulatory and via private vehicle. Spouse driving. --14:50 03/29/21 Halie Brambila R.N. 14:49 03/29/21. BP: 112/85. MAP: 94. HR: 83. RR: 18. O2 saturation: 100%. Temp: 98.1 F. Pain level now: 0/10. --14:50 03/29/21 Halie Brambila R.N. Departure time: 14:50 03/29/2021. --14:50 03/29/21 Halie Brambila R.N.Locked/Released at 03/29/2021 14:51 by Halie Brambila R.N. Name Value Range Interpretation Code Description Data Ariadna rce(s) Supporting Document(s) ID Date Data Source [id number] 03/29/2021 02:21:00 PM EDT [facility] 1 Clinical Report - Physicians/Mid Levels [facility] Emergency Department [address] [place] [address] Phone #: ext- [phone] 03/29/2021 14:09 Patient: MARCELINO ACOSTA Sex: F : 1990 Age: 30y Time Seen: 14:17 03/29/2021. Arrived- By private vehicle. Historian- patient.HISTORY OF PRESENT ILLNESS Chief Complaint: Injury to right forearm. The injury happened last night. Occurred at home. ( PT locked herself out of her car yesterday evening and was trying to get into her car with a razor blade. Her hand slipped causing her to cut her right forearm. She went to [facility] last night and left without being seen. She put a liquid bandage on it to try to stop the bleeding.). Patient is experiencing mild pain. ( pt has also had right ear pain for 3 weeks and is currently taking Amoxicillin for this).REVIEW OF SYSTEMSThe patient sustained a single laceration to the right forearm. Has had a tubal ligation. No swelling,tingling, numbness, weakness or suspected foreign body.SOCIAL HISTORYLight tobacco smoker (cigarette)- less than 1/2 a pack per day. No alcohol use or drug use.PHYSICAL EXAMVital Signs: 03/29/2021 14:10 BP: 129/91. MAP: 103. HR: 90. RR: 18. O2 saturation: 100%. Temp: 97.9F. Pain level now: 3/10. Have been reviewed as abnormal. Hypertensive.Appearance: Alert. Oriented X3. No acute distress.Head: Head atraumatic.Eyes: Pupils equal, round and reactive to light. Eyes normal inspection.ENT: Ears normal. Nose normal. Pharynx normal.Neck: Normal inspection.CVS: Normal heart rate and rhythm. Heart sounds normal.Respiratory: No respiratory distress. Breath sounds normal.Abdomen: No visible injury.Back: Normal inspection.Skin: Skin intact. Sk in warm and dry. Normal skin color. Normal skin turgor.Extremities: Right forearm: superficial laceration with controlled bleeding located in the mid volar aspect offorearm. Neurovascular intact distally. Extremities otherwise negative.Neuro, Vascular and Tendons: Vascular status intact. Sensation intact. Motor intact. Tendon functionintact.Neuro: Oriented X 3.PROGRESS AND PROCEDURESCourse of Care: 14:38 Mar 29 2021. Evaluation after observation. (Discussed exam findings and incisionis CDI and will treat Eustachian tube dysfunction as AOM has reolved.). 2 Clinical Report - Physicians/Mid [facility] Emergency Department [address] [place] [address] Phone #: ext- [phone] 03/29/2021 14:09 Patient: MARCELINO ACOSTA Sex: F : 1990 Age: 30y Patient counseled in person regarding the patient's stable condition, test results, diagnosis and need for follow-up. Patient agrees with plan of care. 14:39 Mar 29 2021. Disposition: Discharged home in good and improved condition (14:40 Mar 29 2021).CLINICAL IMPRESSION Single superficial laceration to the right forearm. Delayed evaluation. No foreign body present or cellulitis. Essential hypertension. Right eustachian tube dysfunctionINSTRUCTIONS Warnings: INFECTION: Watch for signs of infection (increasing heat and redness, pus-like drainage, swelling, or increased pain). Return or see your doctor if these signs occur. GENERAL WARNINGS: Return or contact your physician immediately if your condition worsens or changes unexpectedly, if not improving as expected, or if other problems arise. Specifically return if pain, bleeding or fever worsens. Your Current Medications: Your current home medications have been reviewed. CONTINUE TAKING THE FOLLOWING MEDICATIONS: Amoxicillin Oral : for ear infection. DULoxetine HCl Oral : Capsule Delayed Release Particles 60 mg, daily. Prescription Medications: Claritin-D 24 Hour 10 mg-240 mg tablet,extended release Take 1 tablet once a day for 10 days -- Dispense 10 tablet. Refills: 0. Substitution permitted. Note to Pharmacy - Rx DISCOUNT CARD: $ 14.51. USE: BIN:[id number], PCN:[id number], Group:[id number], ID:[id number]. Pharmacy - [id number] - [address] [place] [address]. . Follow-up: Follow up with your doctor if not better. Call for an appointment. Reason for referral: evaluation and treatment. Summary of care provided to patient. Understanding of the discharge instructions verbalized by patient.(Electronically signed by MARCO Trujillo 03/29/2021 22:19) 3Clinical Report - Physicians/Mid Levels [facility] Emergency Department [address] [place] [address] Phone #: ext- [phone] 03/29/2021 14:09 -- Patient: MARCELINO ACOSTA Sex: F : 1990 Age: 30y Name Value Range Interpretation Code Description Data Ariadna rce(s) Supporting Document(s) ID Date Data Source [id number] 03/10/2021 07:16:00 PM EDT [facility] Name Value Range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 kg/m2 36.44 kg/m2 eCW1 ([facility]) Systolic blood pressure 130 mm[Hg] 130 mm[Hg] e CW1 ([facility]) Diastolic blood pressure 96 mm[Hg] 96 mm[Hg] eCW1 ([facility]) Body weight 231 [lb_av] 231 [lb_av] eCW1 ([facility]) Body height [in_i] eCW1 ([facility]) Body mass index (BMI) [Ratio] 40.27 kg/m2 40.27 kg/m2 eCW1 ([facility]) Heart rate 96 /min 96 /min eCW1 ([facility]) Respiratory rate 17 /min 17 /min eCW1 ([facility]) Body temperature 96.6 [degF] 96.6 [degF] eCW1 ( [facility]) Systolic blood pressure 124 mm[Hg] 124 mm[Hg] e CW1 ([facility]) Diastolic blood pressure 84 mm[Hg] 84 mm[Hg] eCW1 ([facility]) Body weight 235.0 [lb_av] 235.0 [lb_av] eCW1 ([facility]) Body height [in_i] eCW1 ([facility]) Body mass index (BMI) [Ratio] 40.97 kg/m2 40.97 kg/m2 eCW1 ([facility]) Heart rate 102 /min 102 /min eCW1 ([facility]) Respiratory rate 18 /min 18 /min eCW1 ([facility]) Body temperature 97.8 [degF] 97.8 [degF] eCW1 ( [facility]) Systolic blood pressure 122 mm[Hg] 122 mm[Hg] e CW1 ([facility]) Diastolic blood pressure 84 mm[Hg] 84 mm[Hg] eCW1 ([facility]) Patient Treatment Plan of Care Planned Activity Planned Date Details Description Data Source (s) 24 HR venlafaxine 75 MG Extended Release Oral Capsule 06/01/2021 12:00:00 AM EDT eCW1 ([facility]) 24 HR venlafaxine 75 MG Extended Release Oral Capsule 06/01/2021 12:00:00 AM EDT eCW1 ([facility]) 24 HR venlafaxine 75 MG Extended Release Oral Capsule 06/01/2021 12:00:00 AM EDT eCW1 ([facility]) 24 HR venlafaxine 75 MG Extended Release Oral Capsule 06/01/2021 12:00:00 AM EDT eCW1 ([facility]) 24 HR venlafaxine 75 MG Extended Release Oral Capsule 06/01/2021 12:00:00 AM EDT eCW1 ([facility]) ferrous gluconate 240 MG Oral Tablet 04/14/2021 12:00:00 AM EDT eCW1 ([facility]) Fluoxetine 10 MG Oral Capsule 04/14/2021 12:00:00 AM EDT eCW1 ([facility]) ferrous gluconate 240 MG Oral Tablet 04/14/2021 12:00:00 AM EDT eCW1 ([facility]) Fluoxetine 10 MG Oral Capsule 04/14/2021 12:00:00 AM EDT eCW1 ([facility]) ferrous gluconate 240 MG Oral Tablet 04/14/2021 12:00:00 AM EDT eCW1 ([facility]) Fluoxetine 10 MG Oral Capsule 04/14/2021 12:00:00 AM EDT eCW1 ([facility]) ferrous gluconate 240 MG Oral Tablet 04/14/2021 12:00:00 AM EDT eCW1 ([facility]) Fluoxetine 10 MG Oral Capsule 04/14/2021 12:00:00 AM EDT eCW1 ([facility]) ferrous gluconate 240 MG Oral Tablet 04/14/2021 12:00:00 AM EDT eCW1 ([facility]) Fluoxetine 10 MG Oral Capsule 04/14/2021 12:00:00 AM EDT eCW1 ([facility]) Amoxicillin 875 MG Oral Tablet 03/24/2021 12:00:00 AM EDT eCW1 ([facility]) Naprosyn 500 MG 03/24/2021 12:00:00 AM EDT eCW1 ([facility]) Naprosyn 500 MG 03/24/2021 12:00:00 AM EDT eCW1 ([facility]) Amoxicillin 875 MG Oral Tablet 03/24/2021 12:00:00 AM EDT eCW1 ([facility]) Oseltamivir 75 MG Oral Capsule [Tamiflu] 08/04/2020 12:00:00 AM EDT eCW1 ([facility]) Oseltamivir 75 MG Oral Capsule [Tamiflu] 08/04/2020 12:00:00 AM EDT eCW1 ([facility]) Oseltamivir 75 MG Oral Capsule [Tamiflu] 08/04/2020 12:00:00 AM EDT eCW1 ([facility]) Oseltamivir 75 MG Oral Capsule [Tamiflu] 08/04/2020 12:00:00 AM EDT eCW1 ([facility])
[2021-08-22] MEDS ORDERED: CEFD1CAP8 (14:33)
--- OUTSIDE RECORDS SUMMARY | 2021-08-22 15:25 | CCD ---
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 If you continue you may have access to information: Regarding HIV / AIDS; Provided by facilities licensed or operated by the [facility] Office of Mental Health; or Provided by the [facility] Office for People With Developmental Disabilities. If such information is present, then the following [facility] mandated warning applies: This information has been [...] law may result in a fine or custodial sentence or both. A general authorization for the release of medical or other information is NOT sufficient authorization for further disc losure. Allergies and Adverse Reactions Type Description Substance Reaction Status Data Source(s ) No Known Drug Allergies No Known Drug Allergies [facility] Family History Family Member Name Family Member Gender Family Member Status Date o f Status Description Data Source(s) Unknown Male Problem MEDENT ([facility]) Unknown Unknown Problem MEDENT ([facility], [facility]) maternal grandfather Encounters Encounter Providers Location Date Indications Data Source(s ) Outpatient Attender: Inderjit LARA 08/18/20 04:17:08 PM EST - 08/18/2021 04:57:58 PM EST [facility] ([facility] ) Attender: Jeana Taylor 08/05/2021 12:00:00 AM E DT [facility] ([facility]) Extended Individual Psychotherapy - 45 min [facility] 08/04/2021 01:30:00 AM EDT - 08/04/2021 01:30:00 AM EDT [facility] ([facility]) Extended Individual Psychotherapy - 45 min Attender: David Taylor [facility] 07/23/2021 09:00:00 AM EDT - 07/23/2021 09:00:00 AM EDT [facility] ([facility]) Attender: Jeana Taylor 07/23/2021 12:00:00 AM E DT [facility] ([facility]) [place] [address] [facility] [address] 06/04/2021 12:00:00 AM EDT eCW1 ([facility]) Emergency Attender: FILEMON Jonessuant: ALESHIA REID MD 06/03/2021 08:09:00 PM EDT - 06/03/2021 11:08:00 PM EDT [facility] Patient discharged. Outpatient [address] [facility] [address] 06/01/2021 12:00:00 AM EDT eCW1 ([facility]) Unknown [address] [facility] [address] 06/01/2021 12:00:00 AM EDT eCW1 ([facility]) Unknown [address] [facility] [address] 06/01/2021 12:00:00 AM EDT eCW1 ([facility]) Unknown [address] [facility] [address] 05/21/2021 12:00:00 AM EDT eCW1 ([facility]) Unknown [address] [facility] [address] 05/18/2021 12:00:00 AM EDT eCW1 ([facility]) Emergency Attender: ABDULLAHI OCAMPO MDConsultant: PCP NO 05/13/2021 03:27:00 AM EDT - 05/13/2021 05:05:00 AM EDT [facility] Patient discharged. Unknown [address] [facility] [address] 05/03/2021 12:00:00 AM EDT eCW1 ([facility]) Unknown [address] [facility] [address] 05/01/2021 12:00:00 AM EDT eCW1 ([facility]) Outpatient [address] [facility] [address] 04/14/2021 12:00:00 AM EDT eCW1 ([facility]) Unknown [address] [facility] [address] 04/14/2021 12:00:00 AM EDT eCW1 ([facility]) Emergency Attender: Qasim Mcnamara MDConsultant: PCP NO 03/29/2021 02:21:00 PM EDT - 03/29/2021 02:51:00 PM EDT [facility] Patient discharged. Outpatient [address] [facility] [address] 03/25/2021 12:00:00 AM EDT eCW1 ([facility]) Outpatient [address] [facility] [address] 03/24/2021 12:00:00 AM EDT eCW1 ([facility]) Outpatient [address] [facility] [address] 03/24/2021 12:00:00 AM EDT eCW1 ([facility]) Unknown [address] [facility] [address] 03/24/2021 12:00:00 AM EDT eCW1 ([facility]) Unknown [address] [facility] [address] 03/20/2021 12:00:00 AM EDT eCW1 ([facility]) Outpatient 03/17/2021 03:41:34 PM EDT [facility] ([facility]) Unknown [address] [facility] [address] 03/16/2021 12:00:00 AM EDT eCW1 ([facility]) Unknown [address] [facility] [address] 03/16/2021 12:00:00 AM EDT eCW1 ([facility]) Unknown [address] [facility] [address] 02/17/2021 12:00:00 AM EDT eCW1 ([facility]) Unknown [address] [facility] [address] 02/17/2021 12:00:00 AM EDT eCW1 ([facility]) Unknown [address] [facility] [address] 02/17/2021 12:00:00 AM EDT eCW1 ([facility]) Unknown [address] [facility] [address] 02/17/2021 12:00:00 AM EDT eCW1 ([facility]) Unknown [address] [facility] [address] 02/16/2021 12:00:00 AM EDT eCW1 ([facility]) Unknown [address] [facility] [address] 02/11/2021 12:00:00 AM EDT eCW1 ([facility]) Unknown [address] [facility] [address] 02/09/2021 12:00:00 AM EDT eCW1 ([facility]) Unknown [address] [facility] [address] 01/16/2021 12:00:00 AM EDT eCW1 ([facility]) Unknown [address] [facility] [address] 12/11/2020 12:00:00 AM EST eCW1 ([facility]) Unknown [address] [facility] [address] 12/06/2020 12:00:00 AM EST eCW1 ([facility]) Unknown [address] [facility] [address] 11/26/2020 12:00:00 AM EST eCW1 ([facility]) Unknown [address] [facility] [address] 11/03/2020 12:00:00 AM EST eCW1 ([facility]) Outpatient [address] [facility] [address] 10/09/2020 12:00:00 AM EST eCW1 ([facility]) Emergency Attender: Evaristo Gudino MD CPSCAORT-ED 09/10 01:18:00 PM EST - 10/04/2020 03:09:00 PM EST [facility] Patient discharged. Unknown [address] [facility] [address] 08/20/2020 12:00:00 AM EST eCW1 ([facility]) Unknown [address] [facility] [address] 08/18/2020 12:00:00 AM EST eCW1 ([facility]) Outpatient [address] [facility] [address] 08/04/2020 12:00:00 AM EDT eCW1 ([facility]) Unknown [address] [facility] [address] 08/04/2020 12:00:00 AM EDT eCW1 ([facility]) Unknown [address] [facility] [address] 08/04/2020 12:00:00 AM EDT eCW1 ([facility]) Unknown [address] [facility] [address] 08/04/2020 12:00:00 AM EDT eCW1 ([facility]) Unknown [address] [facility] [place] [address] 07/25/2020 12:00:00 AM EDT eCW1 ([facility]) Unknown [address] [facility] [address] 07/17/2020 12:00:00 AM EDT eCW1 ([facility]) Medications Medication Brand Name Start Date Product [...] propionate 0.05 MG/ACTUAT Metered Dose [place] 50 mcg/actuation FLUTICASONE PROPIONATE 06/04/2021 12:00:00 AM [...] active Venlafaxine HCl ER 75 MG eCW1 ([facility]) 24 HR venlafaxine 75 MG Extended Release Oral Capsule Venlafaxine HCl ER 75 MG Venlafaxine HCl ER 75 MG 06/01/2021 12:00:00 AM EDT 1.0 {capsule_wi th_food} active Venlafaxine HCl ER 75 MG eCW1 ([facility]) 24 HR venlafaxine 75 MG Extended Release Oral Capsule Venlafaxine HCl ER 75 MG Venlafaxine HCl ER 75 MG 06/01/2021 12:00:00 AM EDT 1.0 {capsule_wi th_food} active Venlafaxine HCl ER 75 MG eCW1 ([facility]) 24 HR venlafaxine 75 MG Extended Release Oral Capsule Venlafaxine HCl ER 75 MG Venlafaxine HCl ER 75 MG 06/01/2021 12:00:00 AM EDT 1.0 {capsule_wi th_food} active Venlafaxine HCl ER 75 MG eCW1 ([facility]) 24 HR venlafaxine 75 MG Extended Release Oral Capsule Venlafaxine HCl ER 75 MG Venlafaxine HCl ER 75 MG 06/01/2021 12:00:00 AM EDT 1.0 {capsule_wi th_food} active Venlafaxine HCl ER 75 MG eCW1 ([facility]) NITROFURANTOIN, MACROCRYSTALS 25 MG / Ni trofurantoin, [...] Ferrous Gluconate 240 (27 Fe) MG eCW1 ([facility]) ferrous gluconate 240 MG Oral Tablet Ferrous Gluconate 240 (27 Fe) MG Ferrous Gluconate 240 (27 Fe) MG 04/14/2021 12:00:00 AM EDT active Ferrous Gluconate 240 (27 Fe) MG eCW1 ([facility]) ferrous gluconate 240 MG Oral Tablet Ferrous Gluconate 240 (27 Fe) MG Ferrous Gluconate 240 (27 Fe) MG 04/14/2021 12:00:00 AM EDT active Ferrous Gluconate 240 (27 Fe) MG eCW1 ([facility]) ferrous gluconate 240 MG Oral Tablet Ferrous Gluconate 240 (27 Fe) MG Ferrous Gluconate 240 (27 Fe) MG 04/14/2021 12:00:00 AM EDT active Ferrous Gluconate 240 (27 Fe) MG eCW1 ([facility]) Fluoxetine 10 MG Oral Capsule FLUoxetine HCl 10 MG FLUoxetin e HCl 10 MG 04/14/2021 12:00:00 AM EDT 1.0 {capsule} active FLUoxetine HCl 10 MG eCW1 ([facility]) Fluoxetine 10 MG Oral Capsule FLUoxetine HCl 10 MG FLUoxetin e HCl 10 MG 04/14/2021 12:00:00 AM EDT 1.0 {capsule} active FLUoxetine HCl 10 MG eCW1 ([facility]) ferrous gluconate 240 MG Oral Tablet Ferrous Gluconate 240 (27 Fe) MG Ferrous Gluconate 240 (27 Fe) MG 04/14/2021 12:00:00 AM EDT active Ferrous Gluconate 240 (27 Fe) MG eCW1 ([facility]) ferrous gluconate 240 MG Oral Tablet Ferrous Gluconate 240 (27 Fe) MG Ferrous Gluconate 240 (27 Fe) MG 04/14/2021 12:00:00 AM EDT active Ferrous Gluconate 240 (27 Fe) MG eCW1 ([facility]) ferrous gluconate 240 MG Oral Tablet Ferrous Gluconate 240 (27 Fe) MG Ferrous Gluconate 240 (27 Fe) MG 04/14/2021 12:00:00 AM EDT active Ferrous Gluconate 240 (27 Fe) MG eCW1 ([facility]) ferrous gluconate 240 MG Oral Tablet Ferrous Gluconate 240 (27 Fe) MG Ferrous Gluconate 240 (27 Fe) MG 04/14/2021 12:00:00 AM EDT active Ferrous Gluconate 240 (27 Fe) MG eCW1 ([facility]) Fluoxetine 10 MG Oral Capsule FLUoxetine HCl 10 MG FLUoxetin e HCl 10 MG 04/14/2021 12:00:00 AM EDT 1.0 {capsule} active FLUoxetine HCl 10 MG eCW1 ([facility]) Fluoxetine 10 MG Oral Capsule FLUoxetine HCl 10 MG FLUoxetin e HCl 10 MG 04/14/2021 12:00:00 AM EDT 1.0 {capsule} active FLUoxetine HCl 10 MG eCW1 ([facility]) Fluoxetine 10 MG Oral Capsule FLUoxetine HCl 10 MG FLUoxetin e HCl 10 MG 04/14/2021 12:00:00 AM EDT 1.0 {capsule} active FLUoxetine HCl 10 MG eCW1 ([facility]) ferrous gluconate 240 MG Oral Tablet Ferrous Gluconate 240 (27 Fe) MG Ferrous Gluconate 240 (27 Fe) MG 04/14/2021 12:00:00 AM EDT active Ferrous Gluconate 240 (27 Fe) MG eCW1 ([facility]) ferrous gluconate 240 MG Oral Tablet Ferrous Gluconate 240 (27 Fe) MG Ferrous Gluconate 240 (27 Fe) MG 04/14/2021 12:00:00 AM EDT active Ferrous Gluconate 240 (27 Fe) MG eCW1 ([facility]) 500 mg 04/09/2021 12:00:00 AM EDT tablet [...] 1.0 {tablet} active Amoxicillin 875 MG eCW1 ([facility]) 500 mg 03/24/2021 12:00:00 AM EDT tablet 14 TAKE ONE TABLET BY MOUTH EVERY 12 HOURS WITH FOOD OR MILK NEEDED FOR PAIN TAKE ONE TABLET BY MOUTH EVERY 12 HOURS WITH FOOD OR MILK NEEDED FOR PAIN SOLD: 03/24/2021 [facility] Amoxicillin 875 MG Oral Tablet Amoxicillin 875 MG 03/24/2021 12:00: 00 AM EDT 1.0 {tablet} active Amoxicillin 875 MG eCW1 ([facility]) Naprosyn 500 MG UNK 03/24/2021 12:00:00 AM EDT active Naprosyn 500 MG eCW1 ([facility]) 875 mg 03/24/2021 12:00:00 AM EDT tablet 14 TAKE ONE TABLET BY MOUTH TWO TIMES A DAY FOR 7 DAYS TAKE ONE TABLET BY MOUTH TWO TIMES A DAY FOR 7 DAYS SO LD: 03/24/2021 [facility] Naprosyn 500 MG UNK 03/24/2021 12:00:00 AM EDT active Naprosyn 500 MG eCW1 ([facility]) 17 gram 03/13/2021 12:00:00 AM EDT powder [...] BY MOUTH EVERY 8 HOURS SOLD: 10/05/2020 [employer] Oseltamivir 75 MG Oral Capsule [Tamiflu] Tamiflu 75 MG Tamif eladio 75 MG 08/04/2020 12:00:00 AM EDT 1.0 {capsule} active T amiflu 75 MG eCW1 ([facility]) 60 mg 08/04/2020 12:00:00 AM EDT capsule,delayed release (DR/EC) 60 TAKE ONE CAPSULE BY MOUTH DAILY TAKE ONE CAPSULE BY MOUTH DAILY SOLD: 08/04/2020 [employer] Oseltamivir 75 MG Oral Capsule [Tamiflu] Tamiflu 75 MG Tamif eladio 75 MG 08/04/2020 12:00:00 AM EDT 1.0 {capsule} active T amiflu 75 MG eCW1 ([facility]) 75 mg 08/04/2020 12:00:00 AM EDT capsule 10 TAKE ONE CAPSULE BY MOUTH TWICE A DAY FOR 5 DAYS TAKE ONE CAPSULE BY MOUTH TWICE A DAY FOR 5 DAYS SOLD: 08/04/2020 [employer] Oseltamivir 75 MG Oral Capsule [Tamiflu] Tamiflu 75 MG Tamif eladio 75 MG 08/04/2020 12:00:00 AM EDT 1.0 {capsule} active T amiflu 75 MG eCW1 ([facility]) Oseltamivir 75 MG Oral Capsule [Tamiflu] Tamiflu 75 MG Tamif eladio 75 MG 08/04/2020 12:00:00 AM EDT 1.0 {capsule} active T amiflu 75 MG eCW1 ([facility]) Oseltamivir 75 MG Oral Capsule [Tamiflu] Tamiflu 75 MG Tamif eladio 75 MG 08/04/2020 12:00:00 AM EDT 1.0 {capsule} active T amiflu 75 MG eCW1 ([facility]) Oseltamivir 75 MG Oral Capsule [Tamiflu] Tamiflu 75 MG Tamif eladio 75 MG 08/04/2020 12:00:00 AM EDT 1.0 {capsule} active T amiflu 75 MG eCW1 ([facility]) 60 mg 08/04/2020 12:00:00 AM EDT capsule,delayed [...] type / Coverage type Policy ID Covered democrat ID Covered democrat's relationship to sheikh Policy Sheikh Plan Information [facility] [facility] [place] [facility] 306/806 [id number] SP [id number] [place] 306/806 [id number] SP [id number] VIKAS [id number] SP [id number] VIKAS [id number] SP [id number] VIKAS [id number] SP [id number] Managed Care Vikas P [id number] S [id number] Medicaid S [id number] S [id number] Medicaid S [id number] S [id number] [employer] [id number] Self [id number] [employer]. [id number] Self [id number] [employer] emp [id number] Employee [id number] [employer] [id number] Self [id number] Medicaid Medicaid [id number] Self [id number] ANSI-Commercial [id number] ANSI-Medicaid [id number] ANSI-Commercial [id number] [facility] [id number] ANSI-Medicaid [id number] ANSI-Commercial [id number] ANSI-Commercial [id number] ANSI-Medicaid [id number] ANSI-Medicaid [id number] ANSI-Commercial [id number] ANSI-Medicaid [id number] ANSI-Commercial [id number] ANSI-Commercial [id number] ANSI-Medicaid [id number] ANSI-Commercial [id number] ANSI-Medicaid [id number] ANSIModlarCommercial [id number] ANSI-Medicaid [id number] ANSI-[employer] [id number] [facility] [id number] [facility] [id number] ANSI-Commercial [id number] ANSI-Medicaid [id number] ANSI-Commercial [id number] MEDICAID [id number] SP [id number] [employer] B [id number] S [id number] [employer] Commercial [id number] Self [id number] Medicaid Dental P [id number] S [id number] [place] -[place]/P [id number] 18 [id number] VIKAS [id number] SP [id number] MEDICAID -O/P EMERGENCY ROOM [id number] [place] [id number] 18 [id number] [place] -PHYSICIAN [id number] 18 [id number] [employer] [id number] S [id number] [place] [id number] S [id number] [place] [id number] 18 [id number] ANSI-Commercial [id number] ANSI-Medicaid [id number] ANSI-Commercial [id number] [facility]-Medicaid [id number] [facility] [place] Medicaid [id number] Self [id number] Problems, Conditions, and Diagnoses Code Display Name Description Problem Type Effective Dates Data Source(s) Z6837 Body mass index [BMI] 37.0-37.9, adult B macario mass index [BMI] 37.0-37.9, adult Diagnosis 06/03/2021 08:09:00 PM EDT [facility] [id number] Latex allergy status Latex allergy status Diagnosis 06/03/2021 08:09:00 PM EDT [facility] S83820 CONTACT WITH AND SUSPECTED EXPOSURE TO C OVID-19 CONTACT WITH AND SUSPECTED EXPOSURE TO COVID-19 Diagnosis 06/03/2021 08:09:00 PM EDT [facility] E669 Obesity, unspecified Obesity, unspecified Diagnosis 06/03/2021 08:09:00 PM EDT [facility] U52137 Nicotine dependence, cigarettes, uncompl icated Nicotine dependence, cigarettes, uncomplicated Diagnosis 06/03/2021 08:09:00 PM EDT [facility] I10 Essential (primary) hypertension Essential (primary) h ypertension Diagnosis 06/03/2021 08:09:00 PM EDT [facility] J069 Acute upper respiratory infection, unspe cified Acute upper respiratory infection, unspecified Diagnosis 06/03/2021 08:09:00 PM EDT [facility] J00 Acute nasopharyngitis [common cold] Acute nasoph aryngitis [common cold] Diagnosis 06/03/2021 08:09:00 PM EDT [facility] J0110 Acute frontal sinusitis, unspecified Acute front al sinusitis, unspecified Diagnosis [facility] Acute maxillary sinusitis, unspecified A cute maxillary sinusitis, unspecified Diagnosis 06/03/2021 08:09:00 PM [facility] J302 Other seasonal allergic rhinitis Other seasonal allergic rhinitis Diagnosis 06/03/2021 08:09:00 PM [facility] R519 Headache, unspecified Headache, unspecified Diagnosis 06/03/2021 08:09:00 PM [facility] Y[address] or not applicable Unspecified place or not applicable Diagnosis 05/13/2021 03:27:00 AM [facility] [id number] Exposure to other specified factors, ini tial encounter Exposure to other specified factors, initial encounter Diagnosis 05/13/2021 03:27:00 AM [facility] R9431 Abnormal electrocardiogram [ECG] [EKG] A bnormal electrocardiogram [ECG] [EKG] Diagnosis 05/13/2021 03:27:00 AM [facility] N3000 Acute cystitis without hematuria Acute cystitis without hematuria Diagnosis 05/13/2021 03:27:00 AM [facility] [id number] Strain of muscle and tendon of front wal l of thorax, initial encounter Strain of muscle and tendon of front wall of thorax, initial encounter Diagnosis 05/13/2021 03:27:00 AM [facility] R0789 Other chest pain Other chest pain Diagnosis 05/13/2021 03 :27:00 AM [facility] Q10625 Unspecified place in unspeci fied non-institutional (private) residence as the place of occurrence of the external cause Unspecified place in unspecified non-institutional (private) residence as the place of occurrence of the external cause Diagnosis 03/29/2021 02:21:00 PM [facility] [id number] Contact with other sharp obj ect(s), not elsewhere classified, initial encounter Contact with other sharp object(s), not elsewhere classified, initial encounter Diagnosis 03/29/2021 02:21:00 PM [facility] H6991 Unspecified Eustachian tube disorder, ri ght ear Unspecified Eustachian tube disorder, right ear Diagnosis 03/29/2021 02:21:00 PM EDT [facility] [id number] Laceration without foreign body of right forearm, initial encounter Laceration without foreign body of right forearm, initial encounter Diagnosis 03/29/2021 02:21:00 PM EDT [facility] F15.20 Other stimulant dependence, uncomplicate d Stimulant Use Disorder, Moderate: Amphetamine-type substance Condition 08/05/2021 12:00:00 AM EDT [facility] ([facility]) F43.12 Post-traumatic stress disorder, chronic Post-traumatic stress disorder, chronic Condition 08/05/2021 12:00:00 AM EDT [facility] ([facility]) F41.9 Anxiety disorder, unspecified Unspecified Anxiety Diso rder Condition 08/05/2021 12:00:00 AM EDT [facility] ([facility]) F32.9 Major depressive disorder, single episod e, unspecified Major Depressive Disorder, Single episode, Unspecified Condition 08/05/2021 12:00:00 AM EDT [facility] ([facility]) N91.2 [id number] Amenorrhea Problem 06/01/2021 12:00:00 AM ED T eCW1 ([facility]) E66.9 [id number] Obesity (BMI 30-39.9) Problem 03/24/2021 12: 00:00 AM EDT eCW1 ([facility]) Surgeries/Procedures Procedure Description Date Indications Data Source(s) Extended Individual Psychotherapy - 45 min 08/05/2021 12:00:00 AM EDT - 08/05/2021 12:00:00 AM EDT [facility] ([facility]) Extended Individual Psychotherapy - 45 min 12:00:00 AM EDT [facility] ([facility]) Extended Individual Psychotherapy - 45 min 07/23/2021 12:00:00 AM EDT - 07/23/2021 12:00:00 AM EDT [facility] ([facility]) Extended Individual Psychotherapy - 45 min 12:00:00 AM EDT [facility] ([facility]) Laparoscopy Cholecystectomy With Cholangiography 03/12 12:00:00 AM EDT [facility] ([facility], ) CT CERVICAL SPINE W/O CONTRAST MATERIAL 10/04/2020 12: 00:00 AM [facility] CT HEAD/BRAIN W/O CONTRAST MATERIAL 10/04/2020 12:00:0 0 AM [facility] [id number] 10/04/2020 12:00:00 AM [facility] Non-covered item or service 10/04/2020 12:00:00 AM [facility] EMERGENCY DEPARTMENT VISIT HIGH/URGENT SEVERITY 2019 12:00:00 AM [facility] Results ID Date Data Source [id number] 07/15/2021 02:07:00 PM EDT [facility] Name Value Range Interpretation Code Description Data Ariadna rce(s) Supporting Document(s) SARS coronavirus 2 RNA [Presence] in Res piratory specimen by DIANE with probe detection NEGATIVE [facility] This lab was ordered by [facility] a nd reported by [facility]. ID Date Data Source [id number] 06/03/2021 08:09:00 PM EDT [facility] 1 [employer] [facility] Emergency Department [address] [place] [address] Phone #: ext- [phone] 06/03/2021 19:55 Patient: [...] StevenCOVID-19 Don Hatch RN(Symptomatic as P.A.-C;Defined by CDC)([id number])(Unknown if FristTest) (NotHospitalized)(Unknown if) (NotResident inCongregate CareSetting) (NotEmployed inHealthcare Setting) NOTES: SEND OUTInfluenza Nasal A B STAT 20:55 06/03/2021 22:18 Abe Hatch RN P.A.-C;CBC w Diff STAT 20:55 06/03/2021 21:55 Abe Hatch RN P.A.-C; 2 OrderSheet [facility] Emergency Department [address] [place] [address] Phone #: [phone]- [phone] 06/03/2021 19:55 Patient: MARCELINO BROWN Sex: F [...] 22:12 Abe Hatch RN P.A.-C; 3 OrderSheet [facility] Emergency Department [address] [place] [address] Phone #: ext- [phone] 06/03/2021 19:55 Patient: MARCELINO BROWN Sex: F : 1990 Age: 30ySaline Lock 20:55 06/03/2021 22:12 Abe Hatch RN P.A.- C;[Electronically signed by Mallika Calzada R.N. (23:52 06/03/2021)][Electronically signed by Don Black P.A.-C (00:18 06/05/2021)][Electronically locked by Mallika Calzada R.N. (23:52 06/03/2021)] Name Value Range Interpretation Code Description Data Ariadna rce(s) Supporting Document(s) ID Date Data Source [id number] 06/03/2021 08:09:00 PM EDT [facility] 1 Medication Reconciliation Report [facility] Emergency Department [address] [place] [address] Phone #: ext- [phone] 06/03/2021 19:55 Patient: MARCELINO BROWN Sex: F : 1990 Age: 30yWeight: 94.8 kgHeight/Length: 63 in.BMI: 37.0ALLERGIES: LatexThe patient's Home Medications are listed below:THE FOLLOWING MEDICATIONS NEED TO BE RECONCILED: Has been off all meds for 2 weeks, [facility] WellframeThe source(s) of the original Home Medication information:Not [...] Pharmacy - USE Rx DISCOUNT CARD: $80.55, BIN:[id number],PCN:ISAIAH, Group:EMR, ID:[id number].Pharmacy - [facility] #[address] - [address] [place] [address]. FaxNumber: .Flonase Allergy Relief 50 mcg/actuation nasal spray,suspension [place] 1-2 spray once a day for 4 days-- Dispense 1 each. Refills: 0. Substitution permitted. Note to Pharmacy - USE Rx DISCOUNT CARD:$19.91, BIN:[id number], MAIKELN:ISAIAH, Group:EMR, ID:[id number].[facility] #[address] - [address] [place] [address]. FaxNumber: [phone]. 2 Medication Reconciliation Report [facility] Emergency Department [address] [place] [address] Phone #: ext- [phone] 06/03/2021 19:55 Patient: MARCELINO BROWN Sex: F : 1990 Age: 30yZyrtec 10 mg tablet Take 1 tablet once a day for 15 days -- Dispense 15 tablet. Refills: 0. Substitutionpermitted. Note to Pharmacy - USE Rx DISCOUNT CARD: $7.98, BIN:[id number], PCN:ISAIAH,Group:EMR, ID:[id number].[facility] # [address] [place] [address]. Phone: FaxNumber: .Tessalon Perles 100 mg capsule Take 1 capsule every eight hours as needed for 3 days -- For cough.Dispense 9 capsule. Refills: 0. Substitution permitted. Note to Pharmacy - USE Rx DISCOUNT CARD:$18.62, BIN:[id number], PCN:ISAIAH, Group:EMR, ID:[id number].[facility] #[address] - [address] [place] [address] ; [place] [address]. FaxNumber: . -- Don Black P.A.-C Name Value Range Interpretation Code Description Data Ariadna rce(s) Supporting Document(s) ID Date Data Source [id number] 06/03/2021 08:09:00 PM EDT [facility] 1 Medication Administration Record [facility] Emergency Department [address] [place] [address] Phone #: ext- [phone] 06/03/2021 19:55 Patient: MARCELINO BROWN Sex: F : 1990 Age: 30yWeight: 94.8 kgHeight/Length: 63 inBMI: 37ALLERGIES: Latex Date/Time Medication Administered Medication OrderedStart NS [IV] IV NS 1000 mL Bolus : Bolus [id number] 06/03/2021 Dose: IV Fluids mL (X1)Abe Hatch [...] rce(s) Supporting Document(s) ID Date Data Source [id number] 06/03/2021 08:09:00 PM EDT [facility] 1 General Instructions [facility] Emergency Department [address] [place] [address] Phone #: ext- [phone] 06/03/2021 19:55 Patient: [...] on the bottle and not to exceed. [facility]: [phone]. Please contact them in approx 3-4 days [...] Pharmacy - USE Rx DISCOUNT CARD: $80.55, BIN:[id number], PCN:ISAIAH, Group:ALBERT, ID:[id number]. Pharmacy - [facility] [address] [place] [address] ; [place] [address]. Phon e: . Flonase Allergy Relief 50 mcg/actuation nasal spray,suspension [place] 1-2 spray once a day for 4 days -- Dispense 1 each. Refills: 0. Substitution permitted. Note to Pharmacy - USE Rx DISCOUNT CARD: $19.91, BIN:[id number], PCN:ISAIAH, Group:EMR, ID:[id number]. Pharmacy - [facility] [address] [place] [address] ; [place] [address]. . Zyrtec 10 mg tablet Take 1 tablet once a day for 15 days -- Dispense 15 tablet. Refills: 0. Substitution permitted. Note to Pharmacy - USE Rx DISCOUNT CARD: $7.98, BIN:[id number], PCN:ISAIAH 2 General [facility] Emergency Department [address] [place] [address] Phone #: ext- [phone] 06/03/2021 19:55 Patient: MARCELINO BROWN Sex: F : 1990 Age: 30y Group:EMR, ID:[id number]. [facility] [address] [place] [address] ; [place] [address]. . Tessalon Perles 100 mg capsule Take 1 capsule every eight hours as needed for 3 days -- For cough. Dispense 9 capsule. Refills: 0. Substitution permitted. Note to Pharmacy - USE Rx DISCOUNT CARD: $18.62, BIN:[id number], PCN:ISAIAH, Group:EMR, ID:[id number]. [facility] - [facility] #[address] - [address] [place] [address] ; [place] [address]. . Follow- up: Return to the emergency [...] with fur and feathers. 3 General Instructions [facility] Emergency Department [address] [place] [address] Phone #: ext- [phone] 06/03/2021 19:55 Patient: MARCELINO BROWN Sex: F [...] and water. Don't mix bleach with other honing machine set up operator tool.In general: Vacuum once or twice a week. [...] the following occur: Coughing 4 General Instructions [facility] Emergency Department [address] [place] [address] Phone #: ext- [phone] 06/03/2021 19:55 Patient: MARCELINO BROWN Sex: F [...] Stomach pain, bloating, vomiting, or diarrhea [employer]. [address] [place] [address], [place] [address]. All rights reserved. This information is not [...] This filters the air. 5 General Instructions [facility] Emergency Department [address] [place] [address] Phone #: ext- [phone] 06/03/2021 19:55 Patient: [...] prescription antihistamine was prescribed, you can take dkbj-mmn-qdzbpsx antihistamines that don't cause drowsiness. Ask your [...] a doctor who specialized in treating allergies (auto apprentice mechanic). The shots may also lower the amount ofmedicine you need to take during the allergy season. Talk with your healthcare provider to see ifallergy shots might help you.When to seek medical adviceCall your healthcare provider right away for any of the followin General Instructions [facility] Emergency Department [address] [place] [address] Phone #: ext- [phone] 06/03/2021 19:55 Patient: [...] moist, or pale (blue in color) skin [employer]. [address] [place] [address]. All rights reserved. This information is not intended as asubstitute for [facility] medical care. Always follow your healthcare professional's instructions.Sinusitis (Antibiotic Treatment) 7 General Instructions [facility] Emergency Department [address] [place] [address] Phone #: ext- [phone] 06/03/2021 19:55 Patient: MARCELINO BROWN Sex: F [...] a towel soaked in hot water. Or, religious education coordinator the shower and direct the warm spray onto your face. Using a vaporizer along with a menthol rub at night may also help soothe symptoms. An expectorant with guaifenesin may help thin nasal mucus and help your sinuses drain fluids. Talk with your provider or pharmacists before taking an jeuk-fze-eeixeef (OTC) medicine if you have any questions [...] take pills that contain 8 General Instructions [facility] Emergency Department [address] [place] [address] Phone #: ext- [phone] 06/03/2021 19:55 Patient: [...] occur: Seizure Trouble breathing 9 General Instructions [facility] Emergency Department [address] [place] [address] Phone #: ext- [phone] 06/03/2021 19:55 Patient: MARCELINO BROWN Sex: F [...] up to date with of your vaccines. [phone] [employer]. [address] [place] [address] [place] [address]. All rights reserved. This information is not [...] COVID-19 was first found in people in [facility], in late 2019. In 2020,several cases of [...] Symptoms can include: Fever 10 General Instructions [facility] Emergency Department [address] [place] [address] Phone #: ext- [phone] 06/03/2021 19:55 Patient: [...] with a COVID-19 outbreak 11 General Instructions [facility] Emergency Department [address] [place] [address] Phone #: ext- [phone] 06/03/2021 19:55 Patient: MARCELINO BROWN Sex: F [...] hands often, or use an alcohol-based hand cork insulation setter.The CDC advises that you shouldn't wear a face mask if you are not sick.To protect yourself from COVID-19: Wash your hands often with soap and clean, running water for at least 20 seconds. If you don't have access to soap and water, use an alcohol-based hand cork insulation setter often. Make sure it has at least 60% alcohol. 12 General Instructions [facility] Emergency Department [address] [place] [address] Phone #: ext- [phone] 06/03/2021 19:55 Patient: [...] such as masks, gowns, 13 General Instructions [facility] Emergency Department [address] [place] [address] Phone #: ext- [phone] 06/03/2021 19:55 Patient: MARCELINO BROWN Sex: F [...] from the sick person. 14 General Instructions [facility] Emergency Department [address] [place] [address] Phone #: ext- [phone] 06/03/2021 19:55 Patient: MARCELINO BROWN Sex: F : 1990 Age: 30yWhen to call your healthcare providerCall your healthcare provider: If you've recently traveled and have symptoms If you have been diagnosed with COVID-19 and your symptoms are worse [phone] [employer]. [address] [place] [address], [place] [address]. All rights reserved. This information is not [...] home, you will be monitored by staff [facility] or state health department. You should follow the prevention steps below until a healthcare provider [facility] or [facility] health department says you can return to [...] with pets and wear a facemask. See https://www.cdc.gov/coronavirus/2019-ncov/faq.html#5693-kOeW-fah-animals for more information. Call ahead before visiting [...] vehicle} or pets and before you enter [facility] office. If you are not able [...] trash can. Immediately wash 15 General Instructions [facility] Emergency Department [address] [place] [address] Phone #: ext- [phone] 06/03/2021 19:55 Patient: MARCELINO BROWN Sex: F : 1990 Age: 30yyour hands with soap and water for at least 20 seconds or, if soap and water are not available, clean your hands with analcohol-based hand cork insulation setter that contains at least 60% alcohol.Clean your [...] ventilation during use of the product.Monitor your symptomshttps://www.[facility]ky[facility] Heart Instituteystem.com/index.php Seek prompt medical attention if your illness is worsening {e.g., difficulty breathing}. Before see [facility], call your healthcareprovider and tell [...] isolation precautions should be made on a nlci-ez-awol basis, inconsultation with healthcareproviders and state and local health departments.Contacts 2020 [employer]Online informationhttps://www.cdc.gov/coronavirus/2019- ncov/about/index.html 16 General Instructions [facility] Emergency Department [address] [place] [address] Phone #: ext- [phone] 06/03/2021 19:55 Patient: MARCELINO BROWN Sex: F [...] 20 seconds or use an alcohol-based hand cork insulation setter that contains 60 to 95% alcohol, covering all surfaces of your hands and rubbing them together until they feel dry. Soap and water should be used preferentially if hands are visibly dirty.Avoid touching your eyes, nose, and mouth with unwashed hands. The patient should wear a facemask when around other people, except when unable {for example, because it causes trouble 17 General Instructions [facility] Emergency Department [address] [place] [address] Phone #: ext- [phone] 06/03/2021 19:55 Patient: [...] with soap and water or alcohol-based hand cork insulation setter. Next, remove and dispose of facemask, and immediately clean your hands again with soap and water or alcohol-based hand cork insulation setter. Avoid sharing household items with the patient. [...] soap and water or an alcohol-based hand cork insulation setter} immediately after removing your gloves. https://www.[employer]/index.php Read and follow directions on labels of [...] and water or an alcohol- based hand cork insulation setter} immediately after handling these items. Soap and water should be used preferentially if hands are visibly dirty. Discuss any additional questions with your state or local health department or healthcare provider. Check available hours when contacting your local health department.Contacts 2020 [employer].Online informationhttps://www.cdc.gov/coronavirus/2019-ncov/about/index.htmlContent source: National Center for Immunization and Respiratory Diseases (NCIRD), Division of Viral PcdcbnpaKcthsmgrk6Ghwg healthcare personnel should refer to I nterim Infection Prevention and Control Recommendations for Patients with Known or Patients Under Investigation 18 General Instructions [facility] Emergency Department [address] [place] [address] Phone #: ext- [phone] 06/03/2021 19:55 Patient: MARCELINO BROWN Sex: F [...] rce(s) Supporting Document(s) ID Date Data Source [id number] 06/03/2021 08:09:00 PM EDT [facility] 1 Clinical Report - Nurses [facility] Emergency Department [address] [place] [address] Phone #: cyq- [phone] 06/03/2021 19:55 Patient: MARCELINO BROWN Sex: F : 1990 Age: 30yTRIAGEArrived by private vehicle.Triage time: 20:08 06/03/2021.Chief Complaint: DIZZINESS and LIGHT HEADED.This started "few weeks' worse today. She has had a headache. She has had vomiting (3 times today).--20:14 8/25/21 Mallika Hatch R.N.Acuity: LEVEL 3.( States that turning [...] for 2 weeks, has RX to /u [facility]. --20:20 06/03/21 Pretty Hatch R.N.AllergiesLatex. --20:19 06/03/21 Mallika Hatch R.N.PROBLEMS:Pharyngitis.Myofascial Strain.UTI - Urinary Tract Infection.Anxiety Reaction.Depression.Hypertension. --20:20 06/03/21 Mallika Hatch R.N.The following entry was modified by Mallika Hatch R.N., 20:20 06/03/21PTSD. --20:19 06/03/21 Mallika Hatch R.N.. 2 Clinical Report - Nurses [facility] Emergency Department [address] [place] [address] Phone #: ext- [phone] 06/03/2021 19:55 [id number] Sex: F : 1990 Age: 30y ADDITIONAL [...] --22:06/03/21 Abe 3 Clinical Report - Nurses [facility] Emergency Department [address] [place] [address] Phone #: ext- [phone] 06/03/2021 19:55 Patient: MARCELINO BROWN Sex: F [...] Activity restrictions reviewed (quarantine until cleared by [facility]). Patient verbalized understanding. Written instructions provided in [place]. The patient was discharged by the physician. She was discharged home. She left ambulatory and via private vehicle. --23:08 06/03/21 Mallika Hatch R.N. 23:05 06/03/21. Pain level now: 10/19. --23:52 06/03/21 Mallika Hatch R.N.Locked/Released at 06/03/2021 23:52 by Mallika Hatch R.N. 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 Sts that she has been experiencing [...] . 2 Clinical Report - Physicians/Mid Levels [facility] Emergency Department [address] [place] [address] Phone #: ext- [phone] 06/03/2021 19:55 Patient: MARCELINO BROWN Sex: F : 1990 Age: 30y Tonsillectomy. Tubal Ligation. Medications: Has been off all meds for 2 weeks, has RX to /[facility] [employer]. Allergies: Latex.SOCIAL HISTORYLight tobacco smoker- less than [...] through 3 Clinical Report - Physicians/Mid Levels [facility] Emergency Department [address] [place] [address] Phone #: ext- [phone] 06/03/2021 19:55 [id number] Sex: F : 1990 Age: 30y XII [...] Nasal A B: (NADIRA: 06/03/2021 22:17) ( TxgRcvd 06/03/2021 22:43) Final results Test Result Flag [...] CBC w Diff: (NADIRA: 06/03/2021 21:00) ( [facility] 06/03/2021 21:15) Final results Test Result Flag [...] results 4 Clinical Report - Physicians/Mid Levels [facility] Emergency Department [address] [place] [address] Phone #: ext- [phone] 06/03/2021 19:55 Patient: [id number] Sex: F : 1990 Age: 30y Test [...] Male GFR Interprentation 20-49 yrs >60 mL/min Ousayg66-16 yrs >56 mL/min Normal 60-69 yrs >49 mL/min Normal 70-79yrs>42 mL/min Normal 80 and above >35 mL/min Normal Female GFRInterpretation 20-39 yrs >60 mL/min Normal 40-49 yrs >58 mL/minNormal 50-59 yrs >51 mL/min Normal 60-69 yrs >45 mL/min Uwtvlu83-23 yrs >39 mL/min Normal 80 and above >32 mL/min NormalMonospot: (NADIRA: 06/03/2021 21:00) ( MsgRcvd 06/03/2021 21:30) Final results Test Result Flag Units (Reference) MONO TEST NEGATIVE (NORMAL: NEGAT MONO REENTER NEGATIVE (NORMAL: NEGAT { KIT LOT # [id number] ){ KIT EXP DATE11.09.21 ){ PROCEDURAL CONTROL VALID)Beta-HCG, Qual Serum: (NADIRA: 06/03/2021 21:00) ( MsgRcvd 06/03/2021 21:31) Final results Test Result Flag Units (Reference) HCG SERUM QUAL NEGATIVE (NORMAL: NEGAT HCG SERUM QL REENTER NEGATIVE (NORMAL: NEGAT { KIT LOT # [id number] ){ KIT EXP DATE10.09.22 ){ PROCEDURAL CONTROL VALID)Rapid Strep Screen: (NADIRA: 06/03/2021 20:55) ( MsgRcvd 06/03/2021 22:19) CanceledChest Portable 1 View: (NADIRA: 06/03/2021 20:55) ( MsgRcvd 06/03/2021 22:29) In ProgressCHEST PORTABLEReason(s): fatigue; ? COVID vs PNU vs otherTRANSPORTATION: WC IV? O2? Oxygen?(No) Room: ED 5 Clinical Report - Physicians/Mid Levels [facility] Emergency Department [address] [place] [address] Phone #: ext- [phone] 06/03/2021 19:55 Patient: MARCELINO BROWN Sex: F : 1990 Age: 30y Beta-HCG, Qual Urine: (NADIRA: 06/03/2021 20:15) ( [facility] 06/03/[facility]21 20:32) Final results Test Result Flag Units (Reference) HCG URINE QUAL NEGATIVE (NORMAL: NEGAT HCG URINE QL REENTER NEGATIVE (NORMAL: NEGAT { KIT LOT # [id number] ){ KIT EXP DATE 10.09.22 ){ PROCEDURAL [...] sentences, stable, non-toxic looking. Pt presents to [facility] ER with c/o BURNETT, nausea, and general malaise. Has been feeling like this for about a week. Pt is unvaccinated from [place]. 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 [facility]: [phone]. Please contact them in approx 3-4 days [...] 0. 7 Clinical Report - Physicians/Mid Levels [facility] Emergency Department [address] [place] [address] Phone #: ext- [phone] 06/03/2021 19:55 Patient: MARCELINO BROWN Sex: F : 1990 Age: 30y Substitution permitted. Note to Pharmacy - USE Rx DISCOUNT CARD: $80.55, BIN :[id number], MAIKELN:ISAIAH, Group:EMR, ID:[id number]. [facility] [address] [place] [address] ; [place] [address]. . Flonase Allergy Relief 50 mcg/actuation nasal spray,suspension [place] 1-2 spray once a day for 4 days -- Dispense 1 each. Refills: 0. Substitution permitted. Note to Pharmacy - USE Rx DISCOUNT CARD: $19.91, BIN:[id number], MAIKELN:ISAIAH, Group:EMR, ID:[id number]. [facility] [address] [place] [address] ; [place] [address]. FaxNumber: [phone]. Zyrtec 10 mg tablet Take 1 tablet once a day for 15 days -- Dispense 15 tablet. Refills: 0. Substitution permitted. Note to Pharmacy - USE Rx DISCOUNT CARD: $7.98, BIN:[id number], PCN:ISAIAH, Group:EMR, ID:[id number]. [facility] [address] [place] [address] ; [place] [address]. . Tessalon Perles 100 mg capsule Take 1 capsule every eight hours as needed for 3 days -- For cough. Dispense 9 capsule. Refills: 0. Substitution permitted. Note to Pharmacy - USE Rx DISCOUNT CARD: $18.62, BIN:[id number], PCN:ISAIAH, Group:EMR, ID:[id number]. [facility] [address] [place] [address] ; [place] [address]. . Follow-up: Return to the emergency department as needed. Follow up with your healthcare provider in about three days if not better. Call for an appointment. Understanding of the discharge instructions verbalized by patient.(Electronically signed by Don Black P.A.-C 06/05/2021 00:18) Name Value Range Interpretation Code Description Data [facility] rce(s) Supporting Document(s) ID Date Data Source [id number] 06/03/2021 08:09:00 PM EDT [facility] Rg for MARCELINO BROWN VisitID: [id number] Date: 20:16PER NURSING BIG DATA ENGINEER, BRENNA SCHROEDER, SPOKE WITH PATIENT AND GAVE RESULTS OVRPHONE. ADVISED PATIENT TO COME IN AND GET RESULTS TO BE RELEASED TO WORK. PTARRIVED AND RESULTS WERE GIVEN TO PT, NAME AND DATE OF WERE VERIFIEDBEFORE GIVING RESULTS. AK(Electronically signed by Jamie Romero 06/07/2021 20:16) Name Value Range Interpretation Code Description Data [facility]) Supporting Document(s) ID Date Data Source [id number] 06/04/2021 08:10:00 [place] [address] PHONE: [phone] FAX: [phone] Name .................. : ESTHER Parikh Acct Number.................. : [id number] ROOM. ................. : TR-05 Number ................... : [id number] Stay type ............. : E/R Discharge Date......... ... : Admit Date ......... : 06/03/21 Admit Phys .................... : KIM LUNA Date of ....... : 1990 Family Phys ................... : HERACLIO Phone ...... ............ : [phone] Age ................................ : 30 Film# .................. .:[id number] Sex ................................. : F Unsigned tr anscriptions are preliminary reports and do not represent a medical or legal document CHEST PORTABLE [id number] COMPLETE:06/03/21 22:29 MWB Reason(s): fatigue; ? COVID [...] rce(s) Supporting Document(s) ID Date Data Source [id number] 06/03/2021 10:42:00 PM EDT [facility] Name Value Range Interpretation Code Description Data Ariadna rce(s) Supporting Document(s) Influenza virus A Ag [Presence] in Nasopharynx by Immun[facility] y NEGATIVE NORMAL: NEGATIVE [facility] [facility] Influenza virus B Ag [Presence] in Nasopharynx by Immun[facility] y NEGATIVE NORMAL: NEGATIVE [facility] NEGATIVENEGATIVE PROCEDURAL CO NTROL VALID KIT LOT [...] other patient managementdecisions. ID Date Data Source [id number] 06/03/2021 10:15:00 PM EDT [facility] Name Value Range Interpretation Code Description Data Ariadna rce(s) Supporting Document(s) SARS coronavirus 2 RNA Not Detected [facility] This lab was ordered by [facility] ashlee and reported by [employer]. ID Date Data Source [id number] 06/06/2021 04:05:00 PM EDT [facility] Name Value Range Interpretation Code Description Data Ariadna rce(s) Supporting Document(s) SARS-CoV-2, DIANE Not Detected Not Detected [facility] This nucleic acid amplification test was developed and its performancecharacteristics determined by [employer]. Nucleic acidamplification tests include RT-PCR and TMA. [...] in this assay. ID Date Data Source [id number] 06/03/2021 09:32:00 PM EDT [facility] Name Value Range Interpretation Code Description Data Ariadna rce(s) Supporting Document(s) COMPREHENSIVE METABOLIC PANEL [facility] COMPREHENSIVE METABOLIC PANEL Sodium [Moles/volume] in Serum or Plasma 140 mEq/L 134 - 153 [facility] Potassium [Moles/volume] in Serum or Plasma 3.7 mEq/L 3.6 - 5.0 [facility] Chloride [Moles/volume] in Serum or Plasma 107 mEq/L 98 - 107 [facility] Carbon dioxide, total [Moles/volume] in Serum or Plasma 22 MEQ/L 22 - 30 [facility] Glucose [Mass/volume] in Serum or Plasma 94 MG/DL 70 - 99 [facility] BUN 10 MG/DL 7 - 21 [facility] al Creatinine [Mass/volume] in Serum or Plasma 0.5 MG/DL 0.7 - 1.5 L [facility] BUN/CREAT 20 8 - 27 Health system Protein [Mass/volume] in Serum or Plasma 7.3 G/DL 6.3 - 8.2 [facility] Albumin [Mass/volume] in Serum or Plasma 4.0 G/DL 3.9 - 5.0 [facility] Globulin [Mass/volume] in Serum by calculation 3.3 GM/DL 2.4 - 3.2 H [facility] A/G RATIO 1.2 0.8 - 2.0 Health system Calcium [Mass/volume] in Serum or Plasma 9.0 MG/DL 8.4 - 10.2 [facility] Bilirubin.total [Mass/volume] in Serum or Plasma <0.7 MG/DL 0.2 - 1.3 [facility] Alkaline phosphatase [Enzymatic activity/volume] in Serum or Plasma 75 U/L 38 - 126 [facility] Aspartate aminotransferase [Enzymatic activity/volume] in Serum or Plasma 14 U/L 5 - 40 [facility] Alanine aminotransferase [Enzymatic activity/volume] in Seru m or Plasma 14 U/L 7 - 56 [facility] Anion gap 3 in Serum or Plasma 11.0 mmol/L 8.0 - 16.0 [facility] AGE 30 yrs Health system NON-AA GFR >60 mL/min [facility] ital AFR AMER GFR >60 mL/min [facility] spital Male GFR In terprentation [...] >32 mL/min Normal ID Date Data Source [id number] 06/03/2021 09:30:00 PM EDT [facility] Name Value Range Interpretation Code Description Data Ariadna rce(s) Supporting Document(s) HCG SERUM QUAL NEGATIVE NORMAL: NEGATIVE [facility] HCG SERUM QL REENTER NEGATIVE NORMAL: NEGATIVE [facility] { KIT LOT # [id number] ){ KIT EXP DATE 10.09.22 ){ PROCEDURAL CONTROL VALID ) ID Date Data Source [id number] 06/03/2021 09:30:00 PM EDT [facility] Name Value Range Interpretation Code Description Data Ariadna rce(s) Supporting Document(s) MONO TEST NEGATIVE NORMAL: NEGATIVE [facility] MONO REENTER NEGATIVE NORMAL: NEGATIVE [facility] { KIT LOT # [id number] ){ KIT EXP DATE 11.09.21 ){ PROCEDURAL CONTROL VALID ) ID Date Data Source [id number] 06/03/2021 09:14:00 PM EDT [facility] Name Value Range Interpretation Code Description Data Ariadna rce(s) Supporting Document(s) CBC W/AUTOMATED DIFF [facility] COMPLETE BLOOD COUNT Leukocytes [#/volume] in Blood by Automated count 10.8 10^3/uL 4.2 - 11.0 [facility] Erythrocytes [#/volume] in Blood by Automated count 3.93 10^6/uL 4. 20 - 5.40 L [facility] Hemoglobin [Mass/volume] in Blood 10.3 g/dL 12.0 - 16.0 L [facility] Hematocrit [Volume Fraction] of Blood by Automated count 31.6 % 3 7.0 - 47.0 L [facility] Erythrocyte mean corpuscular volume [Entitic volume] by Auto mated count 80.4 fL 81.0 - 101 L [facility] Erythrocyte mean corpuscular hemoglobin [Entitic mass] by Automated count 26.2 pg 27.0 - 34.0 L [facility] Erythrocyte mean corpuscular hemoglobin concentration [Mass/volume] by Automated count 32.6 g/dL 31.0 - 36.0 [facility] Erythrocyte distribution width [Ratio] by Automated count 14.5 % 11.5 - 14.5 [facility] Platelets [#/volume] in Blood by Automated count 354 10^3/uL 150 - 45 0 [facility] Platelet mean volume [Entitic volume] in Blood by Automated count 10.5 fL 7.4 - 10.4 H [facility] Neutrophils/100 leukocytes in Blood by Automated count 69.2 % 37. 0 - 80.0 [facility] Lymphocytes/100 leukocytes in Blood by Manual count 21.0 % 25.0 - 40.0 L [facility] Monocytes/100 leukocytes in Blood by Automated count 5.0 % 3.0 - 8.0 [facility] Eosinophils/100 leukocytes in Blood by Automated count 3.9 % 0.0 - 7.0 [facility] Basophils/100 leukocytes in Blood by Automated count 0.5 % 0.0 - 2.5 [facility] %IG 0.4 % 0.0 - 0.[address] [facility] al %NRBC 0.0 % 0.0 - 0.0 [facility] al Neutrophils [#/volume] in Blood by Automated count 7.47 10^3/uL 2.00 - 6.90 H [facility] Lymphocytes [#/volume] in Blood by Automated count 2.26 10^3/uL 0.60 - 3.40 [facility] Monocytes [#/volume] in Blood by Automated count 0.54 10^3/uL 0.00 - 0.90 [facility] Eosinophils [#/volume] in Blood by Automated count 0.42 10^3/uL 0.00 - 0.70 [facility] Basophils [#/volume] in Blood by Automated count 0.05 10^3/uL 0.00 - 0.20 [facility] #IG 0.04 10^3/uL 0.00 - 0.10 [facility] #NRBC 0.00 10^3/uL 0.00 - 0.00 [facility] MANUAL DIFF NOT INDICATED [facility] RBC MORPH NOT INDICATED [facility] ID Date Data Source [id number] 06/03/2021 08:43:00 PM EDT [facility] Name Value Range Interpretation Code Description Data Ariadna rce(s) Supporting Document(s) URINALYSIS [facility] yessi URINALYSIS SOURCE Clean Catch [facility] ital COLOR yellow NORMAL: Yellow [facility] ospital CLARITY clear NORMAL: Clear [facility] Specific gravity of Urine by Test strip 1.025 1.001 - 1.030 [facility] pH 6 5 - 9 [facility] Glucose [Mass/volume] in Urine by Test strip NORM NORMAL: Negat [facility] Bilirubin.total [Presence] in Urine by Test strip NEG NORMAL: Negative [facility] Ketones [Presence] in Urine by Test strip NEG NORMAL: Negative [facility] Protein [Mass/volume] in Urine by Test strip 30 NORMAL: Negat [facility] Nitrite [Presence] in Urine by Test strip NEG NORMAL: Negative [facility] BLOOD 50 NORMAL: Negative [facility] LEUK EST NEG NORMAL: Negative [facility] Urobilinogen [Mass/volume] in Urine by Test strip NOR less patt n 1.0 mg/dL [facility] MICROSCOPIC See Below [facility] ital Erythrocytes [#/volume] in Urine by Test strip 0 - 1 NORMAL: NON E SEEN [facility] EPITHELIAL MANY NORMAL: NONE SEEN [facility] Bacteria [Presence] in Urine sediment by Light microscopy Tr betina NORMAL: NONE SEEN [facility] Mucus [Presence] in Urine sediment by Light microscopy 1+ NOR MAL: NONE SEEN [facility] ID Date Data Source [id number] 06/03/2021 08:32:00 PM EDT [facility] Name Value Range Interpretation Code Description Data Ariadna rce(s) Supporting Document(s) HCG URINE QUAL NEGATIVE NORMAL: NEGATIVE [facility] HCG URINE QL REENTER NEGATIVE NORMAL: NEGATIVE Ca [facility] { KIT LOT # [id number] ){ KIT EXP DATE 10.09.22 ){ PROCEDURAL CONTROL VALID ) ID Date Data Source [id number] 06/08/2021 02:01:00 PM EDT [facility] Name Value Range Interpretation Code Description Data Ariadna rce(s) Supporting Document(s) CULTURE URINE [facility] _CULTURE URINE_$$[id number]$$[id number]$$[id number]$$[id number]$$079026$$[id number]$$341140$$645618$$348767$$ 649268$$275464$$283047$$474143$$918220$$141064$$723021$$927680$$626574$$935592$$ 616132$$385524$$021932$$940099$$822417$$318886$$053168$$465315 -- Continued on next page --Patient: ESTHER BENSON R Order: [id number] Page 2Culture: CULTURE URINE Status: Final ==== -- Continued on next page --Patient: ESTHER BENSON R Order: [id number] Page 2Culture: CULTURE URINE Status: Prelim =====$$[id number]$$[id number] DATE/TIME: 06/08/2021 12:06Culture: CULTURE URINE Status: FinalUrine Culture,Comprehensive: N2Rvohv urogenital flora5,000 Colonies/mL Previous result entered on 06/07/2021 06:45 ET No growth after 18-24 hours.P1 Test performed by: Sebas BUSCH #: [id number] [address] [place] [address] [id number] [facility] [id number] Director : Jacoby Calloway MD NPI #:Hand Inspector : 06/08/21.0645.XMT.SENT REF 06/08/21.1401.XMT.SENT REF ID Date Data Source [id number] 05/13/2021 03:27:00 AM EDT [facility] 1 OrderSheet [facility] Emergency Department [address] [place] [address] Phone #: ext- [phone] 05/13/2021 03:25 Patient: MARCELINO ACOSTA Sex: F : 1990 Age: 30yWEIGHT:95.2 kg (S) HEIGHT:63 inches (S) BMI:37.2ALLERGIES: LatexCHIEF COMPLAINT: discomfortDIAGNOSIS: Muscle strain, Severe acute respiratory syndrome coronavirus, Urinary tract infectious diseaseLAB ORDERSOrder Description Priority Entered Acknowledged InitialedBeta- HCG, Qual STAT 04:02 05/13/2021 04:05 Lora Nam Victoria R.N. ;Urinalysis (Clean STAT 04:02 05/13/2021 04:05 Tabby Nam) Abdullahi Ocampo R.N. ;Influenza Nasal A B STAT 04:08 05/13/2021 04:16 Evie Nam Victoria R.N. ;CORONAVIRUS STAT 04:08 05/13/2021 04:16 Rita NmaD-19 Abdullahi Ocampo R.N.(Symptomatic as ;Defined by CDC)(05/11/21) (Not FirstTest) (NotHospitalized) (Not) (NotResident inCongregate CareSetting) (NotEmployed inHealthcare Setting)Culture, Urine STAT 04:30 05/13/2021 04:55 Evie Nam(Urine, Clean Abdullahi Ocampo R.N.Catch) ;DIAGNOSTIC STUDY ORDERSOrder Description Priority Entered Acknowledged InitialedChest Portable 1 STAT 04:02 05/13/2021 04:57 Evie NamView Abdullahi Ocampo R.N.(Oxygen?(No)) ; Reason for Study: Chest Pain 2 OrderSheet [facility] Emergency Department [address] [place] [address] Phone #: [phone]- [phone] 05/13/2021 03:25 Patient: MARCELINO ACOSTA Sex: F [...] rce(s) Supporting Document(s) ID Date Data Source [id number] 05/13/2021 03:27:00 AM EDT [facility] 1 Medication Reconciliation Report [facility] Emergency Department [address] [place] [address] Phone #: ext- [phone] 05/13/2021 03:25 Patient: MRACELINO ACOSTA Sex: F : 1990 Age: 30yWeight: [...] Pharmacy - USE Rx DISCOUNT CARD: $47.07, BIN:[id number],PCN:ISAIAH, Group:[id number], ID:[id number].Pharmacy - [facility] # [facility] [place] [address]. Phone: FaxNumber: .Pending - Tessalon Perles 100 mg capsule Take 2 capsule three times a day for 5 days -- as needed forcough. Dispense 30 capsule. Refills: 0. Substitution permitted. Note to Pharmacy - USE Rx DISCOUNTCARD: $47.07, BIN:[id number], PCN:ISAIAH, Group:[id number], ID:[id number].Pharmacy - [facility] #[address] - [address] ; [place] [address]. Phone: FaxNumber: . -- Abdullahi Ocampo Name Value Range Interpretation Code Description Data Ariadna rce(s) Supporting Document(s) ID Date Data Source [id number] 05/13/2021 03:27:00 AM EDT [facility] 1 Medication Administration Record [facility] Emergency Department [address] [place] [address] Phone #: ext- [phone] 05/13/2021 03:25 Patient: MARCELINO ACOSTA Sex: F : 1990 Age: 30yWeight: 95.2 kgHeight/Length: 63 inBMI: 37.2ALLERGIES: Latex Date/Time Medication Administered Medication OrderedGiven MACROBID [PO] (NITROFURANTOIN Macrobid PO 100 mg04:57 05/13/2021 MONOHYD MACRO)Evie Nam, RMichell Dose: 100 mg Tablets PO Name Value Range Interpretation Code Description [facility] Supporting Document(s) ID Date Data Source [id number] 05/13/2021 03:27:00 AM EDT [facility] 1 General Instructions [facility] Emergency Department [address] [place] [address] Phone #: ext- [phone] 05/13/2021 03:25 Patient: [...] Pharmacy - USE Rx DISCOUNT CARD: $47.07, BIN:[id number], PCN:ISAIAH, Group:[id number], ID:[id number]. Pharmacy - [facility] #[address] [place] [address] ; [place] [address]. . Pending - Tessalon Perles 100 mg capsule Take 2 capsule three times a day for 5 days -- as needed for cough. Dispense 30 capsule. Refills: 0. Substitution permitted. Note to Pharmacy - USE Rx DISCOUNT CARD: $47.07, BIN:[id number], PCN:[employer]EREMIAHA[employer]in[employer] Pharm[employer], Group:[id number], ID:[id number]. Pharmacy - [facility] #[address] [place] [address]. . Follow-up: Follow up with your healthcare provider in three days if not better. Reason for referral: evaluation. Summary of care provided to patient via paper. ADDITIONAL INFORMATIONMuscle Strain in the Extremities 2 General Instructions [facility] Emergency Department [address] [place] [address] Phone #: ext- [phone] 05/13/2021 03:25 Patient: MARCELINO ACOSTA Sex: F [...] alternate ice and heat. You may use qmxj-wmt-[id number] pain medicine to control pain, unless another [...] numb, or tingly Pain or swelling increases [phone] [employer]. [address] [place] [address]. All rights reserved. This information is not [...] 19 was first found in people in [facility], in late 2018. In 2020, 3 General Instructions [facility] Emergency Department [address] [place] [address] Phone #: ext- [phone] 05/13/2021 03:25 Patient: MARCELINO ACOSTA Sex: F [...] Supportive care may include: 4 General Instructions [facility] Emergency Department [address] [place] [address] Phone #: ext- [phone] 05/13/2021 03:25 Patient: [...] the CDC website atwww.cdc.gov/coronavirus/2019-ncov/travelers. 5 General Instructions [facility] Emergency Department [address] [place] [address] Phone #: ext- [phone] 05/13/2021 03:25 Patient: MARCELINO ACOSTA Sex: F : 1990 Age: 30yTo help prevent spreading the infection, wash your hands often, or use an alcohol-based hand cork insulation setter.The CDC advises that you shouldn't wear a face mask if you are not sick.To protect yourself from COVID-19: Wash your hands often with soap and clean, running water for at least 20 seconds. If you don't have access to soap and water, use an alcohol-based hand cork insulation setter often. Make sure it has at least [...] tools with sick people. 6 General Instructions [facility] Emergency Department [address] [place] [address] Phone #: ext- [phone] 05/13/2021 03:25 ---- [...] to get medical care. 7 General Instructions [facility] Emergency Department [address] [place] [address] Phone #: ext- [phone] 05/13/2021 03:25 Patient: [...] with COVID-19 and your symptoms are worse [phone] [employer]. [address] [place] [address]. All rights reserved. This information is not intended as asubstitute for professional medical care. Always follow your healthcare professional's instructions.Bladder Infection, Female (Adult) 8 General Instructions [facility] Emergency Department [address] [place] [address] Phone #: ext- [phone] 05/13/2021 03:25 Patient: MARCELINO ACOSTA Sex: F [...] need to ur inate 9 General Instructions [facility] Emergency Department [address] [place] [address] Phone #: ext- [phone] 05/13/2021 03:25 Patient: [...] a diaphragm for controlTreatment 10 General Instructions [facility] Emergency Department [address] [place] [address] Phone #: ext- [phone] 05/13/2021 03:25 Patient: [...] your healthcare provider.Follow-up care 11 General Instructions [facility] Emergency Department [address] [place] [address] Phone #: ext- [phone] 05/13/2021 03:25 Patient: [...] swelling in the outer vaginal area (labia) [phone] [employer]. [address] [place] [address], [place] [address]. All rights reserved. This information is not intended as asubstitute for professional medical care. Always follow your healthcare professional's instructions. You have been given the following additional information: Muscle Strain, Extremity Coronavirus Disease 2019 (COVID-19) Bladder Infection, Female (Adult) 12 General Instructions [facility] Emergency Department [address] [place] [address] Phone #: ext- [phone] 05/13/2021 03:25 Patient: MARCELINO ACOSTA Sex: F : 1990 Age: 30y Do not work for ten days (or until the CVID test is negative).(Electronically signed by Abdullahi Ocampo 05/13/2021 05:04) Name Value Range Interpretation Code Description Data Ariadna rce(s) Supporting Document(s) ID Date Data Source [id number] 05/13/2021 03:27:00 AM EDT [facility] 1 Clinical Report - Nurses [facility] Emergency Department [address] [place] [address] Phone #: ext- [phone] 05/13/2021 03:25 Patient: [...] urgency, decreasedurinary production and pain after urinating.).Treatment [employer]:None. --03:54 05/13/21 Allison Cortez R.N.03:47 05/13/21. BP: [...] Cortez R.N. 2 Clinical Report - Nurses [facility] Emergency Department [address] [place] [address] Phone #: ext- [phone] 05/13/2021 03:25 [id number] Sex[facility] F : 1990 Age: 30y ADDITIONAL [...] membranes are 3 Clinical Report - Nurses [facility] Emergency Department [address] [place] [address] Phone #: ext- [phone] 05/13/2021 03:25 [id number] Sex: F : 1990 Age: 30y pink. [...] spouse verbalized understanding. Written instructions provided in [place]. The patient was discharged by the physician. [...] rce(s) Supporting Document(s) ID Date Data Source [id number] 05/13/2021 03:27:00 AM EDT [facility] 1 Clinical Report - Physicians/Mid Levels [facility] Emergency Department [address] [place] [address] Phone #: ext- [phone] 05/13/2021 03:25 Patient: MARCELINO ACOSTA Sex: F : 1990 Age: 30y Time Seen; initial patient contact, initial documentation. Arrived- By private vehicle. Historian- patient. Disposition decision: 04:59 05/13/2021.HISTORY OF PRESENT ILLNESS Chief Complaint: CHEST DISCOMFORT. cough. It is described as tightness and aching. No radiation. This started 2 days [employer] and is still present. It was gradual [...] Allergies: Latex. 2 Clinical Report - Physicians/Mid [facility] Emergency Department [address] [place] [address] Phone #: ext- [phone] 05/13/2021 03:25 Patient: [...] LOT # _[id number] 05/13/21.0440.LBS. KIT EXP DATE _[id number] 05/13/21.0440.LBS.The Influenza A utilizing an isothermal nucleic acid amplification technology for thequalitative detection of influenza A and B viral RNA.Negative results do not preclude influenza virus infection and should not beused as the sole basis for diagnosis, treatment or other patient managementdecisions. 3 Clinical Report - Physicians/Mid Levels [facility] Emergency Department [address] [place] [address] Phone #: ext- [phone] 05/13/2021 03:25 Patient: MARCELINO ACOSTA Sex: F : 1990 Age: 30y Beta-HCG, Qual Urine: (NADIRA: 05/13/2021 03:55) ( MsgRcvd 05/13/2021 04:17) Final results Test Result Flag Units (Reference) HCG URINE QUAL NEGATIVE (NORMAL: NEGAT HCG URINE QL REENTER NEGATIVE (NORMAL: NEGAT { KIT LOT # [id number] ){ KIT EXP DATE 10-09-22 ){ PROCEDURAL [...] treatment. 4 Clinical Report - Physicians/Mid Levels [facility] Emergency Department [address] [place] [address] Phone #: ext- [phone] 05/13/2021 03:25 Patient: MARCELINO CAOSTA Sex: F : 1990 Age: 30yCLINICAL IMPRESSION [...] Pharmacy - USE Rx DISCOUNT CARD: $47.07, BIN:[id number], PCN:ISAIAH, Group:EMR, ID:[id number]. Pharmacy - [facility] [address] ; [place] [address]. FaxNumber: . Pending - Tessalon Perles 100 mg capsule Take 2 capsule three times a day for 5 days -- as needed for cough. Dispense 30 capsule. Refills: 0. Substitution permitted. Note to Pharmacy - USE Rx DISCOUNT CARD: $47.07, BIN:[id number], PCN:ISAIAH, Group:EMR, ID:[id number]. Pharmacy - [facility] [address] ; [place] [address]. FaxNumber: [phone]. Follow-up: Follow up with your healthcare provider in three days if not better. Reason for referral: evaluation. Summary of care provided to patient via paper.(Electronically signed by Abdullahi Ocampo 05/13/2021 05:04) 5Clinical Report - Physicians/Mid Levels [facility] Emergency Department [address] [place] [address] Phone #: ext- [phone] 05/13/2021 03:25 Patient: MARCELINO ACOSTA Sex: F : 1990 Age: 30y Name Value Range Interpretation Code Description Data Ariadna rce(s) Supporting Document(s) ID Date Data Source [id number] 05/13/2021 03:27:00 AM EDT [facility] Addenda for MARCELINO ACOSTA VisitID: [id number] Date: 12:40Lab results reviewed, SARS CoV- 2Coronavirus NOT DETECTED Communicated information to patient.(Electronically signed by Sapphire Dominguez RN - 05/14/2021 12:40) Name Value Range Interpretation Code Description Data Ariadna rce(s) Supporting Document(s) ID Date Data Source [id number] 05/13/2021 07:56:00 [place] [address] RESPIRATORY CARE REPORT ==== ---------NAME------- NUMBER SEX AGE ADMIT DISC. XRAY# F/C TYPEMOORE MARCELINO Parikh [id number] F 30 05/13/21 05/13/21 [id number] XB2 E/R DATE OF : 1990 M/R# [id number] #: [phone] [place]-03 LOCATION: EMERGENCY DEPT EKG 87182 COMP LETE:05/13/21 05:39 [place] [id number] PHYSICIAN: KARLEE Name Value Range Interpretation Code Description Data Ariadna rce(s) Supporting Document(s) ID Date Data Source [id number] 05/13/2021 09:06:00 [place] [address] PHONE: [phone] FAX: [phone] Name .................. : SHAUN BENSON Kati Acct Number.................. : [id number] ROOM. ................. : - Number ................... : [id number] Stay type ............. : E/R Discharge Date......... ... : 05/13/21 Admit Date ......... : 05/13/21 Admit Phys .................... : KARLEE Date of ....... : 1990 Family Phys ................... : NO PCP Phone .................. : [phone] Age ................................ : 30 Film# .................. .:[id number] Sex ................................. : F Unsigned transcriptions are preliminary reports and do not represent a medical or legal document CHEST PORTABLE [id number] COMPLETE:05/13/21 06:17 DLA [id number] Reason(s): Chest Pain PORTABLE CHEST SINGLE VIEW [...] rce(s) Supporting Document(s) ID Date Data Source [id number] 05/13/2021 04:40:00 AM EDT [facility] Name Value Range Interpretation Code Description Data Ariadna rce(s) Supporting Document(s) Influenza virus A Ag [Presence] in Nasopharynx by Immunoassa y NEGATIVE NORMAL: NEGATIVE [facility] Influenza virus B Ag [Presence] in Nasopharynx by Immunoassa y NEGATIVE NORMAL: NEGATIVE [facility] NEGATIVENEGATIVE PROCEDURAL CO NTROL VALID KIT LOT # _[id number] 05/13/21.0440.LBS. KIT EXP DATE _22-59-60 05/13/21.044.LBS.The Influenza A & B assay is a rapid molecular in vitro diagnostic testutilizing an isothermal nucleic acid amplification technology for thequalitative detection of influenza A and B viral RNA.Negative results do not preclude influenza virus infection and should not beused as the sole basis for diagnosis, treatment or other patient managementdecisions. ID Date Data Source [id number] 05/13/2021 04:11:00 AM EDT [facility] Name Value Range Interpretation Code Description Data Ariadna rce(s) Supporting Document(s) SARS coronavirus 2 RNA Not Detected [facility] This lab was ordered by [facility] ashlee and reported by [employer]. ID Date Data Source [id number] 05/14/2021 11:18:00 AM EDT [facility] Name Value Range Interpretation Code Description Data Ariadna rce(s) Supporting Document(s) SARS-CoV-2, DIANE Not Detected Not Detected [facility] This nucleic acid amplification test was developed and its performancecharacteristics determined by [employer]. Nucleic acidamplification tests include RT-PCR and TMA. [...] assay. SARS-CoV-2, DIANE 2 DAY TAT Performed [facility] ID Date Data Source [id number] 05/18/2021 06:14:00 AM EDT [facility] Name Value Range Interpretation Code Description Data Ariadna rce(s) Supporting Document(s) CULTURE URINE [facility] _CULTURE URINE_$$[id number]$$[id number]$$[id number]$$485725$$841660$$962795$$861302$$549360$$241261$$ 701629$$819345$$760041$$810110$$197450$$745164$$726983$$817611$$292150$$540704$$ 730918$$687187$$483776$$896033$$261099$$086203$$061635$$181125 -- Continued on next page --Patient: SHAUN BENSON R Order: [id number] Page 2Culture: CULTURE URINE Status: Final ==== -- Continued on next page --Patient: SHAUN BENSON R Order: [id number] Page 2Culture: CULTURE URINE Status: Prelim =====$$[id number]$$[id number] DATE/TIME: 05/18/2021 05:05Culture: CULTURE URINE Status: FinalUrine Culture,Comprehensive: [id number] urogenital flora9,000 Colonies/mL Previous result entered on 05/16/2021 08:11 ET No growth after 18-24 hours.P1 Test performed by: [facility] Ruthie BUSCH #: [id number] [address] [place] [address] [id number] [facility] [address]- [address]Medical Director : Jacoby Calloway MD NPI #:Hand Inspector : 05/16/21.0911.XMT.SENT REF 05/18/21.0614.XMT.SENT REF ID Date Data Source [id number] 05/13/2021 04:16:00 AM EDT [facility] Name Value Range Interpretation Code Description Data Ariadna rce(s) Supporting Document(s) HCG URINE QUAL NEGATIVE NORMAL: NEGATIVE [facility] HCG URINE QL REENTER NEGATIVE NORMAL: NEGATIVE [facility] { KIT LOT # [id number] ){ KIT EXP DATE 10-09-22 ){ PROCEDURAL CONTROL VALID ) ID Date Data Source [id number] 05/13/2021 04:16:00 AM EDT [facility] Name Value Range Interpretation Code Description Data Ariadna rce(s) Supporting Document(s) [facility] COLOR noemi NORMAL: Yellow [facility] CLARITY hazy NORMAL: Clear [facility] Specific gravity of Urine by Test strip 1.020 1.001 - 1.030 [facility] pH 6 5 - 9 [facility] Glucose [Mass/volume] in Urine by Test strip NORM [facility]: [facility] Bilirubin.total [Presence] in Urine by Test strip 1 NORMAL: Negative [facility] Ketones [Presence] in Urine by Test strip NEG NORMAL: Negative [facility] Protein [Mass/volume] in Urine by Test strip 15 N[facility]AL[facility] Nitrite [Presence] in Urine by Test strip POS NORMAL: Negative [facility] BLOOD 250 NORMAL: Negative A [facility] LEUK EST NEG NORMAL: Negative [facility] Urobilinogen [Mass/volume] in Urine by Test strip 4 less patt n 1.0 mg/dL [facility] MICROSCOPIC See Below [facility] WBC 3 - 5 NORMAL: NONE SEEN [facility] Erythrocytes [#/volume] in Urine by Test strip 3 - 5 NORMAL: NON E SEEN [facility] EPITHELIAL MODERATE NORMAL: NONE SEEN [facility] Mucus [Presence] in Urine sediment by Light microscopy 1+ NOR MAL: NONE SEEN [facility] ID Date Data Source TSH 04/14/2021 12:00:00 AM EDT eCW1 ([facility]) Name Value Range Interpretation Code Description Data Ariadna rce(s) Supporting Document(s) 1.330 0.358-3.740 THYROID STIMULATING HORM ONE eCW1 ([facility]) ID Date Data Source TOTAL IRON BINDING CAPACIT 04/14/2021 12:00:00 AM EDT eCW1 ( [facility]) Name Value Range Interpretation Code Description Data Ariadna rce(s) Supporting Document(s) 27 50-170 IRON (FE) eCW1 ([facility]) 7.9 13.2-45.0 PERCENT SATURATION eCW1 ([facility]) 341 250-450 TOTAL IRON BINDING CAPACI TY eCW1 ([facility]) ID Date Data Source LIPID PANEL (CARDIAC RISK) 04/14/2021 12:00:00 AM EDT eCW1 ( [facility]) Name Value Range Interpretation Code Description Data Ariadna rce(s) Supporting Document(s) Cholesterol [Moles/volume] in Serum or Plasma 191 <200 CHOLESTEROL LEVEL eCW1 ([facility]) Triglyceride [Mass/volume] in Serum or Plasma by calculation 228 <150 TRIGLYCERIDES LEVEL eCW1 ([facility]) 152 NON-HDL-C eCW1 ([facility]) Cholesterol in LDL [Mass/volume] in Serum or Plasma by calculation 106 <100 LDL CHOLESTEROL [facility]1 ([facility]) Cholesterol in HDL [Moles/volume] in Serum or Plasma 39 >40 HDL CHOLESTEROL eC1 ([facility]) 4.897 <5 CHOLESTEROL RISK RATIO eCW1 ([facility]) ID Date Data Source [id number] 04/14/2021 12:00:00 AM EDT eCW1 ([facility]) Name Value Range Interpretation Code Description Data Ariadna rce(s) Supporting Document(s) Hemoglobin A1c/Hemoglobin.total in Blood 5.4 HEMOGLOBIN A1c eCW1 ([facility]) ID Date Data Source HEPATITIS PROFILE ACUTE 04/14/2021 12:00:00 AM EDT eCW1 ([facility]) Name Value Range Interpretation Code Description Data Ariadna rce(s) Supporting Document(s) 0.0 <0.8 HEPATITIS C VIRUS LARRY INDEX eC W1 ([facility]) NEGATIVE NEGATIVE HEPATITIS B SURFACE ANTIG EN eCW1 ([facility]) NEGATIVE NEGATIVE HEPATITIS A ANTIBODY IGM eCW1 ([facility]) NEGATIVE NEGATIVE HEPATITIS B CORE ANTIBODY IGM eCW1 ([facility]) ID Date Data Source FERRITIN 04/14/2021 12:00:00 AM EDT eCW1 ([facility]) Name Value Range Interpretation Code Description Data Ariadna rce(s) Supporting Document(s) 22 8-252 FERRITIN eCW1 ([facility]) ID Date Data Source Comprehensive Metabolic Profile (CMP) 04/14/2021 12:00:00 AM EDT eCW1 ([facility]) Name Value Range Interpretation Code Description Data Ariadna rce(s) Supporting Document(s) 0.59 0.55-1.30 CREATININE FOR GFR eCW1 ([facility]) 76 70-100 GLUCOSE, FASTING eCW1 ([facility]) 12 7-18 BLOOD UREA NITROGEN eCW1 ([facility]) 4.6 3.5-5.1 POTASSIUM SERUM eCW1 ([facility]) > 60.0 >60 GLOMERULAR FILTRATION RATE eCW 1 ([facility]) 140 136-145 SODIUM LEVEL eCW1 ([facility]) 9.1 8.5-10.1 CALCIUM LEVEL eCW1 ([facility]) 27 21-32 CARBON DIOXIDE LEVEL eCW1 ([facility]) 106 98-107 CHLORIDE LEVEL eCW1 ([facility]) 16 7-37 AST/SGOT eCW1 ([facility]) 27 12-78 ALT/SGPT eCW1 ([facility]) 0.3 0.2-1.0 BILIRUBIN,TOTAL eCW1 ([facility]) 102 45-117 ALKALINE PHOSPHATASE eCW1 ([facility]) 3.6 3.2-5.2 ALBUMIN eCW1 ([facility]) 0.9 1.2-2.2 ALBUMIN/GLOBULIN RATIO eCW1 ([facility]) 7.7 6.4-8.2 TOTAL PROTEIN eCW1 ([facility]) ID Date Data Source CPK CREATINE PHOSPHOKINASE 04/14/2021 12:00:00 AM EDT eCW1 ( [facility]) Name Value Range Interpretation Code Description Data Ariadna rce(s) Supporting Document(s) 59 26-192 CPK CREATINE PHOSPHOKINASE eCW 1 ([facility]) ID Date Data Source CBC with Differential 04/14/2021 12:00:00 AM EDT eCW1 ([facility]) Name Value Range Interpretation Code Description Data Ariadna rce(s) Supporting Document(s) 9.8 4.0-10.0 WHITE BLOOD COUNT eCW1 ([facility]) 11.3 12.0-15.5 HEMOGLOBIN eCW1 ([facility]) 4.20 4.00-5.40 RED BLOOD COUNT eCW1 ([facility]) 83.3 80.0-96.0 MEAN CORPUSCULAR VOLUME e CW1 ([facility]) 35.0 36.0-47.0 HEMATOCRIT eCW1 ([facility]) 26.9 27.0-33.0 MEAN CORPUSCULAR HEMOGLOB IN eCW1 ([facility]) 15.3 11.5-14.5 RED CELL DISTRIBUTION WID TH eCW1 ([facility]) 426 150-450 PLATELET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
[2021-08-22 15:40] LABS: RSV AMPLIFICATION NEGATIVE (NEGATIVE)
[2021-08-22] MEDS ORDERED: NS 1,000 ML IV ONE (16:15)
[2021-08-22] MEDS ORDERED: KETOROLAC 30 MG/ML 1ML VIAL IV ONE (16:15)
--- NOTE | 2021-08-22 16:31 | REP ---
INDICATION: sob/cough. COMPARISON: October 20, 2016. TECHNIQUE: Two views.. FINDINGS: The lungs are well inflated and free of infiltrate. The pleural angles are sharp. The heart size is normal. Pulmonary vasculature is not increased. No significant bony abnormality is seen. IMPRESSION: Negative chest x-ray. <Electronically signed by Guero Rhodes > 08/22/21 [id number]
[2021-08-22 17:15] LABS: BASO # 0.1 10^3/uL (0.0-0.2); BASO % 0.7 % (0.0-1.0); EOS # 0.4 10^3/uL (0.0-0.5); EOS % 3.1 % (0.0-3.0); HEMATOCRIT 37.7 % (36.0-47.0); HEMOGLOBIN 12.2 g/dl (12.0-15.5); LYMPH # 2.6 10^3/uL (1.5-5.0); LYMPH % 20.7 % (24.0-44.0); MEAN CORPUSCULAR HEMOGLOBIN 26.4 pg (27.0-33.0); MEAN CORPUSCULAR HGB CONC 32.4 g/dl (32.0-36.5); MEAN CORPUSCULAR VOLUME 81.6 fl (80.0-96.0); MONO # 0.9 10^3/uL (0.0-0.8); MONO % 6.7 % (2.0-8.0); NEUTROPHILS # 8.6 10^3/uL (1.5-8.5); NEUTROPHILS % 68.2 % (36.0-66.0); PLATELET COUNT, AUTOMATED 447 10^3/uL (150-450); RED BLOOD COUNT 4.62 10^6/uL (4.00-5.40); WHITE BLOOD COUNT 12.7 10^3/uL (4.0-10.0)
[2021-08-22 17:20] LABS: BLOOD UREA NITROGEN 15 MG/DL (7-18); CALCIUM LEVEL 9.9 MG/DL (8.5-10.1); CARBON DIOXIDE LEVEL 28 MEQ/L (21-32); CHLORIDE LEVEL 103 MEQ/L (98-107); CK-MB VALUE MASS < 1.0 NG/ML (<3.6); CPK CREATINE PHOSPHOKINASE 70 U/L (26-192); CREATININE FOR GFR 0.75 MG/DL (0.55-1.30); FREE T4 1.16 NG/DL (0.76-1.46); GLOMERULAR FILTRATION RATE > 60.0 (>60); GLUCOSE, FASTING 101 MG/DL (70-100); MAGNESIUM LEVEL 2.1 MG/DL (1.8-2.4); MB/CK RELATIVE INDEX 1.43 (< OR =4); POTASSIUM SERUM 4.3 MEQ/L (3.5-5.1); SODIUM LEVEL 138 MEQ/L (136-145); TROPONIN I < 0.02 NG/ML (< 0.10)
[2021-08-22] MEDS ORDERED: ISOVUE-370 76% 100ML VIAL As Ordered ONE (17:45)
--- NOTE | 2021-08-22 18:44 | ECGEPIP ---
[facility] - ED Test Date: 2021-08-22 Pat Name: MARCELINO SANTANA Department: Room: - Gender: Female Brim Stiffener: OPAL : 1990 Requested By: YAMILETH STEARNS PA-C Order Number: [id number] Reading MD: Paul Smith Measurements Intervals [place] Rate: 97 P: 43 WA: 148 QRS: 48 QRSD: 84 T: 3 QT: 360 QTc: 457 Interpretive Statements Normal sinus rhythm Nonspecific T wave abnormality Similar to tracing done 07-16-21 but with increased rate Electronically Signed on 08-22-2021 18:44:39 EST by Paul Smith
--- NOTE | 2021-08-22 19:07 | REPVR ---
PROCEDURE INFORMATION: Exam: CTA Chest With Contrast Exam date and time: 08/22/2021 5:50 PM Age: 30 years old Clinical indication: Other: Cp, SOB, dizzy TECHNIQUE: Imaging protocol: Computed tomographic angiography of the chest with contrast. 3D rendering (Not supervised by radiologist): MIP and/or 3D reconstructed images were created by the technologist. Radiation optimization: All CT scans at this facility use at least one of these dose optimization techniques: automated exposure control; mA and/or kV adjustment per patient size (includes targeted exams where dose is matched to clinical indication); or iterative reconstruction. Contrast material: ISOVUE 370; Contrast volume: 75 ml; Contrast route: INTRAVENOUS (IV); COMPARISON: CR Chest, 2 view PA, Lat 08/22/2021 4:17 PM FINDINGS: Pulmonary arteries: Normal. No pulmonary emboli. Aorta: Unremarkable. No aortic aneurysm. No aortic dissection. 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 Lungs: Unremarkable. No consolidation. No masses. Pleural spaces: Unremarkable. No pneumothorax. No pleural effusion. Heart: Unremarkable. No cardiomegaly. No pericardial effusion. Lymph nodes: Unremarkable. No enlarged lymph nodes. Bones/joints: Unremarkable. No acute fracture. Soft tissues: Unremarkable. IMPRESSION: No acute abnormality involving the chest. Electronically signed by: Rohit Mario On 08/22/2021 19:06:38 PM
[2021-08-22] MEDS ORDERED: AUGM875T28 PO (19:14)
[2021-08-22 19:20] VITALS: BP 127/83
== END 2021-08-22 19:35 | disposition home or self-care (01) ==
LOC: M ED 14:22
DX: R07.9 Chest pain, unspecified (principal); H66.91 Otitis media, unspecified, right ear; I10 Essential (primary) hypertension; F17.200 Nicotine dependence, unspecified, uncomplicated; F43.10 Post-traumatic stress disorder, unspecified; Z91.040 Latex allergy status
CPT/HCPCS: 71046; 71275; 80048; 82550; 82553; 83735; 84439; 84443; 85025; 85379; 87631; 93005; 96361; 96374; 99284; J1885; Q9967

== ENCOUNTER → 2021-10-21 | Outpatient (CLI) | payer OTHER ==
[~2021-10-21] MED LIST changes: +CEFD300C41; -FLUO10CA16 PO; +FLUO10CA18 PO
== END ==
LOC: M LABSMTC 13:58
PROVIDERS: ATTEND Pediatrics
DX: Z11.52 Encounter for screening for COVID-19 (principal); Z20.822 Contact with and (suspected) exposure to COVID-19

== ENCOUNTER 2021-12-14 09:04 | Emergency (ER) | payer OTHER ==
[~2021-12-14] VITALS: Ht 160 cm; Wt 113.4 kg
[2021-12-14 09:04] VITALS: BP 129/86
[2021-12-14] MEDS ORDERED: VENL75CA47 PO (09:10)
== END 2021-12-14 10:40 | disposition left against medical advice (07) ==
LOC: M ED 09:04
DX: Z53.21 Procedure and treatment not carried out due to patient leaving prior to being seen by health care provider (principal)

== ENCOUNTER → 2022-01-20 | Outpatient (CLI) | payer OTHER ==
[~2022-01-20] MED LIST changes: +VENL75CA47 PO
[2022-01-20 16:22] LABS: BASO # 0.1 10^3/uL (0.0-0.2); BASO % 0.6 % (0.0-1.0); EOS # 0.4 10^3/uL (0.0-0.5); EOS % 3.5 % (0.0-3.0); HEMATOCRIT 35.9 % (36.0-47.0); HEMOGLOBIN 11.9 g/dl (12.0-15.5); LYMPH # 2.5 10^3/uL (1.5-5.0); MEAN CORPUSCULAR HEMOGLOBIN 27.2 pg (27.0-33.0); MEAN CORPUSCULAR HGB CONC 33.1 g/dl (32.0-36.5); MEAN CORPUSCULAR VOLUME 82.2 fl (80.0-96.0); MONO # 0.8 10^3/uL (0.0-0.8); MONO % 6.6 % (2.0-8.0); NEUTROPHILS # 7.6 10^3/uL (1.5-8.5); NEUTROPHILS % 66.8 % (36.0-66.0); PLATELET COUNT, AUTOMATED 425 10^3/uL (150-450); RED BLOOD COUNT 4.37 10^6/uL (4.00-5.40); WHITE BLOOD COUNT 11.3 10^3/uL (4.0-10.0)
[2022-01-20 17:06] LABS: APPEARANCE, URINE CLEAR (CLEAR); BACTERIA, URINE AUTO NEGATIVE (NEGATIVE); BILIRUBIN, URINE AUTO NEGATIVE (NEGATIVE); BLOOD, URINE BLOOD 1+ (NEGATIVE); COLOR, URINE YELLOW (YELLOW); GLUCOSE, URINE (UA) AUTO NEGATIVE (NEGATIVE); KETONE, URINE AUTO NEGATIVE (NEGATIVE); LEUKOCYTE ESTERASE, URINE AUTO NEGATIVE (NEGATIVE); MUCUS, URINE SMALL (NEGATIVE); NITRITE, URINE AUTO NEGATIVE (NEGATIVE); PROTEIN, URINE AUTO NEGATIVE (NEGATIVE); RBC, URINE AUTO 4 /HPF (0-3); SPECIFIC GRAVITY URINE AUTO 1.016 (1.002-1.035); SQUAMOUS EPITHELIAL CELL UR AU 1 /HPF (0-6); WBC, URINE AUTO 1 /HPF (0-3)
== END ==
LOC: M LAB 15:22
PROVIDERS: ATTEND Physician Assistant
DX: D72.829 Elevated white blood cell count, unspecified (principal)

== ENCOUNTER → 2022-03-11 | Outpatient (REF) | payer OTHER | LOC: M SFHCPLAZ 12:58 | PROVIDERS: ATTEND Family Medicine | DX: R07.9 Chest pain, unspecified (principal) ==

== ENCOUNTER 2022-04-04 09:05 | Emergency (ER) | payer OTHER ==
[~2022-04-04] VITALS: Ht 160 cm; Wt 112.2 kg
[2022-04-04 09:07] VITALS: BP 150/100
== END 2022-04-04 10:48 | disposition left against medical advice (07) ==
LOC: M ED 09:05
DX: Z53.21 Procedure and treatment not carried out due to patient leaving prior to being seen by health care provider (principal)

== ENCOUNTER → 2022-04-09 | Outpatient (CLI) | payer OTHER ==
[~2022-04-09] MED LIST changes: +HYDR12CA
== END ==
LOC: M PLALAB 13:53
PROVIDERS: ATTEND Student in an Organized Health Care Education/Training Program
DX: N91.2 Amenorrhea, unspecified (principal)

== ENCOUNTER → 2022-04-09 | Outpatient (CLI) | payer OTHER ==
[2022-04-09 14:57] LABS: APPEARANCE, URINE CLOUDY (CLEAR); BACTERIA, URINE AUTO NEGATIVE (NEGATIVE); BASO # 0.1 10^3/uL (0.0-0.2); BASO % 0.4 % (0.0-1.0); BILIRUBIN, URINE AUTO NEGATIVE (NEGATIVE); BLOOD, URINE BLOOD NEGATIVE (NEGATIVE); COLOR, URINE AMBER (YELLOW); EOS # 0.3 10^3/uL (0.0-0.5); GLUCOSE, URINE (UA) AUTO NEGATIVE (NEGATIVE); HEMATOCRIT 33.9 % (36.0-47.0); HEMOGLOBIN 11.1 g/dl (12.0-15.5); KETONE, URINE AUTO TRACE mg/dL (NEGATIVE); LEUKOCYTE ESTERASE, URINE AUTO NEGATIVE (NEGATIVE); LYMPH # 2.2 10^3/uL (1.5-5.0); LYMPH % 19.6 % (24.0-44.0); MEAN CORPUSCULAR HEMOGLOBIN 26.9 pg (27.0-33.0); MEAN CORPUSCULAR HGB CONC 32.7 g/dl (32.0-36.5); MEAN CORPUSCULAR VOLUME 82.3 fl (80.0-96.0); MONO # 0.6 10^3/uL (0.0-0.8); MONO % 5.4 % (2.0-8.0); MUCUS, URINE SMALL (NEGATIVE); NEUTROPHILS # 8.1 10^3/uL (1.5-8.5); NEUTROPHILS % 71.2 % (36.0-66.0); NITRITE, URINE AUTO NEGATIVE (NEGATIVE); PLATELET COUNT, AUTOMATED 408 10^3/uL (150-450); PROTEIN, URINE AUTO 2+ mg/dL (NEGATIVE); RBC, URINE AUTO 4 /HPF (0-3); RED BLOOD COUNT 4.12 10^6/uL (4.00-5.40); SPECIFIC GRAVITY URINE AUTO 1.027 (1.002-1.035); SQUAMOUS EPITHELIAL CELL UR AU 5 /HPF (0-6); WBC, URINE AUTO 2 /HPF (0-3); WHITE BLOOD COUNT 11.4 10^3/uL (4.0-10.0)
[2022-04-09 15:32] LABS: CK-MB VALUE MASS < 1.0 NG/ML (<3.6); CPK CREATINE PHOSPHOKINASE 125 U/L (26-192)
[2022-04-09 15:37] LABS: ALBUMIN 3.6 GM/DL (3.2-5.2); ALT/SGPT 56 U/L (12-78); BILIRUBIN,TOTAL 0.6 MG/DL (0.2-1.0); BLOOD UREA NITROGEN 11 MG/DL (7-18); CALCIUM LEVEL 9.2 MG/DL (8.5-10.1); CARBON DIOXIDE LEVEL 25 MEQ/L (21-32); CHLORIDE LEVEL 107 MEQ/L (98-107); CREATININE FOR GFR 0.68 MG/DL (0.55-1.30); FREE THYROXINE INDEX 4.3 % (1.3-4.8); GLOMERULAR FILTRATION RATE > 60.0 (>60); GLUCOSE, FASTING 107 MG/DL (70-100); POTASSIUM SERUM 3.9 MEQ/L (3.5-5.1); SODIUM LEVEL 140 MEQ/L (136-145); T UPTAKE 29 % (30-39); THYROXINE (T4) 14.7 UG/DL (4.5-12.0); TOTAL PROTEIN 7.6 GM/DL (6.4-8.2)
[2022-04-09 15:46] LABS: HEPATITIS B SURFACE ANTIBODY POSITIVE (POSITIVE)
[2022-04-09 15:57] LABS: HEPATITIS B SURFACE ANTIGEN NEGATIVE (NEGATIVE)
== END ==
LOC: M PLALAB 13:56
PROVIDERS: ATTEND Student in an Organized Health Care Education/Training Program
DX: R00.2 Palpitations (principal)

== ENCOUNTER 2022-04-10 22:00 | Emergency (ER) | payer OTHER ==
[~2022-04-10] VITALS: Ht 160 cm; Wt 110.7 kg
[~2022-04-10 22:00] MED LIST changes: -HYDR12CA
[2022-04-10 22:01] VITALS: BP 125/80
[2022-04-10] MEDS ORDERED: HYDR12CA (22:11)
== END 2022-04-10 22:42 | disposition left against medical advice (07) ==
LOC: M ED 22:00
DX: Z53.21 Procedure and treatment not carried out due to patient leaving prior to being seen by health care provider (principal)

== ENCOUNTER → 2022-05-21 | Outpatient (REF) | payer OTHER ==
[~2022-05-21] MED LIST changes: +HYDR12CA
[2022-05-21 17:45] LABS: BASO # 0.1 10^3/uL (0.0-0.2); BASO % 0.8 % (0.0-1.0); EOS # 0.4 10^3/uL (0.0-0.5); EOS % 4.2 % (0.0-3.0); HEMATOCRIT 39.9 % (36.0-47.0); HEMOGLOBIN 12.3 g/dl (12.0-15.5); LYMPH # 3.3 10^3/uL (1.5-5.0); MEAN CORPUSCULAR HEMOGLOBIN 25.8 pg (27.0-33.0); MEAN CORPUSCULAR HGB CONC 30.8 g/dl (32.0-36.5); MEAN CORPUSCULAR VOLUME 83.6 fl (80.0-96.0); MONO # 0.8 10^3/uL (0.0-0.8); MONO % 7.8 % (2.0-8.0); NEUTROPHILS # 5.6 10^3/uL (1.5-8.5); NEUTROPHILS % 54.7 % (36.0-66.0); PLATELET COUNT, AUTOMATED 374 10^3/uL (150-450); RED BLOOD COUNT 4.77 10^6/uL (4.00-5.40); WHITE BLOOD COUNT 10.3 10^3/uL (4.0-10.0)
[2022-05-21 18:24] LABS: ALBUMIN 3.5 GM/DL (3.2-5.2); ALT/SGPT 175 U/L (12-78); BILIRUBIN,TOTAL 0.4 MG/DL (0.2-1.0); BLOOD UREA NITROGEN 14 MG/DL (7-18); CALCIUM LEVEL 9.4 MG/DL (8.5-10.1); CARBON DIOXIDE LEVEL 29 MEQ/L (21-32); CHLORIDE LEVEL 106 MEQ/L (98-107); CREATININE FOR GFR 0.67 MG/DL (0.55-1.30); GLOMERULAR FILTRATION RATE > 60.0 (>60); GLUCOSE, FASTING 101 MG/DL (70-100); POTASSIUM SERUM 5.5 MEQ/L (3.5-5.1); SODIUM LEVEL 140 MEQ/L (136-145); TOTAL PROTEIN 7.6 GM/DL (6.4-8.2)
== END ==
LOC: M SFHCPLAZ 15:35
PROVIDERS: ATTEND Family Medicine
DX: R11.0 Nausea (principal)

== ENCOUNTER → 2022-11-18 | Outpatient (REF) | payer OTHER | LOC: M LAB REF 14:58 | PROVIDERS: ATTEND Internal Medicine Gastroenterology | DX: R11.2 Nausea with vomiting, unspecified (principal) ==

== ENCOUNTER → 2022-11-19 | Outpatient (CLI) | payer OTHER ==
[2022-11-19 11:07] LABS: BASO # 0.1 10^3/uL (0.0-0.2); BASO % 0.6 % (0.0-1.0); EOS # 0.4 10^3/uL (0.0-0.5); EOS % 3.8 % (0.0-3.0); HEMATOCRIT 37.1 % (36.0-47.0); HEMOGLOBIN 12.2 g/dl (12.0-15.5); LYMPH # 1.9 10^3/uL (1.5-5.0); LYMPH % 20.6 % (24.0-44.0); MEAN CORPUSCULAR HEMOGLOBIN 27.5 pg (27.0-33.0); MEAN CORPUSCULAR HGB CONC 32.9 g/dl (32.0-36.5); MEAN CORPUSCULAR VOLUME 83.6 fl (80.0-96.0); MONO # 0.6 10^3/uL (0.0-0.8); MONO % 6.6 % (2.0-8.0); NEUTROPHILS # 6.3 10^3/uL (1.5-8.5); NEUTROPHILS % 67.8 % (36.0-66.0); PLATELET COUNT, AUTOMATED 403 10^3/uL (150-450); RED BLOOD COUNT 4.44 10^6/uL (4.00-5.40); WHITE BLOOD COUNT 9.3 10^3/uL (4.0-10.0)
[2022-11-19 11:31] LABS: INR 0.99; PARTIAL THROMBOPLASTIN TIME 27.3 SECONDS (24.8-34.2); PROTHROMBIN TIME 13.3 SECONDS (12.5-14.5)
[2022-11-19 11:38] LABS: AST/SGOT 44 U/L (<34); BLOOD UREA NITROGEN 9 MG/DL (9-23); CREATININE FOR GFR 0.53 MG/DL (0.55-1.30); GLOMERULAR FILTRATION RATE > 60.0 (>60)
[2022-11-19 11:39] LABS: ALBUMIN 3.7 G/DL (3.2-5.2); ALKALINE PHOSPHATASE 97 U/L (46-116); ALT/SGPT 134 U/L (7.0-40); BILIRUBIN,DIRECT 0.3 MG/DL (<0.4); BILIRUBIN,TOTAL 0.7 MG/DL (0.3-1.2); TOTAL PROTEIN 7.9 G/DL (5.7-8.2)
== END ==
LOC: M PLALAB 08:30
PROVIDERS: ATTEND Internal Medicine Gastroenterology
DX: R11.2 Nausea with vomiting, unspecified (principal)

== ENCOUNTER → 2022-12-31 | Outpatient (CLI) | payer OTHER | LOC: M WHC 08:06 | PROVIDERS: ATTEND Internal Medicine Gastroenterology | DX: R11.2 Nausea with vomiting, unspecified (principal) ==

== ENCOUNTER → 2023-01-17 | Outpatient (CLI) | payer OTHER ==
[~2023-01-17] MED LIST changes: +OMEP40CA5 PO; +VITA400C83 PO; +[UNRECOGNIZED DRUG - CODE] PO
[2023-01-17 15:33] LABS: ALBUMIN 3.6 G/DL (3.2-5.2); ALKALINE PHOSPHATASE 84 U/L (46-116); ALT/SGPT 141 U/L (7.0-40); AST/SGOT 74 U/L (<34); BILIRUBIN,TOTAL 0.5 MG/DL (0.3-1.2); BLOOD UREA NITROGEN 14 MG/DL (9-23); CALCIUM LEVEL 9.5 MG/DL (8.5-10.1); CARBON DIOXIDE LEVEL 27 MMOL/L (20-31); CHLORIDE LEVEL 105 MMOL/L (98-107); CREATININE FOR GFR 0.58 MG/DL (0.55-1.30); GLOMERULAR FILTRATION RATE > 60.0 (>60); GLUCOSE, FASTING 77 MG/DL (60-100); IRON (FE) 46 UG/DL (50-170); POTASSIUM SERUM 4.5 MMOL/L (3.5-5.1); SODIUM LEVEL 139 MMOL/L (136-145); TOTAL IRON BINDING CAPACITY 354 UG/DL (250-425); TOTAL PROTEIN 7.7 G/DL (5.7-8.2)
[2023-01-17 15:34] LABS: LUTEINIZING HORMONE 5.9 mIU/ML; THYROID STIMULATING HORMONE 1.489 uIU/ML (0.55-4.78)
[2023-01-17 15:35] LABS: FERRITIN 26.3 NG/ML (7.3-270.7); FOLLICLE STIMULATING HORMONE 6.9 mIU/ML; PROLACTIN 6.85 NG/ML
== END ==
LOC: M PLALAB 13:04
PROVIDERS: ATTEND Student in an Organized Health Care Education/Training Program
DX: N94.6 Dysmenorrhea, unspecified (principal)

== ENCOUNTER 2023-01-18 12:05 | Day surgery (SDC) | payer OTHER ==
[~2023-01-18] VITALS: Ht 162.6 cm; Wt 123.7 kg
[~2023-01-18 12:05] MED LIST changes: +NS 1,000 ML IV ONE
[2023-01-18] MEDS ORDERED: fentaNYL 100 MCG/2 ML INJECTION As Ordered ONE (13:35)
[2023-01-18] MEDS ORDERED: propofoL 200 MG/20 ML VIAL As Ordered ONE ×2 (13:36→13:54)
[2023-01-18] MEDS ORDERED: LIDOCAINE 2% 100MG/5ML SDV (FOR ANES.) As Ordered ONE (13:36)
[2023-01-18] MEDS ORDERED: ONDANSETRON 4MG 2ML VIAL As Ordered ONE (13:36)
[2023-01-18 14:25] VITALS: BP 161/88
== END 2023-01-18 14:38 | disposition home or self-care (01) ==
LOC: M OPP 12:05
PROVIDERS: ATTEND Internal Medicine Gastroenterology
DX: K29.50 Unspecified chronic gastritis without bleeding (principal)
CPT/HCPCS: 43239; 88305; J2405; J3010

== ENCOUNTER → 2023-01-24 | Outpatient (REF) ==
[~2023-01-24] MED LIST changes: -NS 1,000 ML IV ONE
== END ==
LOC: M EMP 08:05
PROVIDERS: ATTEND Family Medicine
DX: Z20.822 Contact with and (suspected) exposure to COVID-19 (principal); Z11.52 Encounter for screening for COVID-19

== ENCOUNTER 2023-03-09 16:15 | Emergency (ER) | payer OTHER ==
[~2023-03-09] VITALS: Ht 162.6 cm; Wt 122.5 kg
[2023-03-09 18:32] LABS: BASO # 0.1 10^3/uL (0.0-0.2); BASO % 0.7 % (0.0-1.0); EOS # 0.5 10^3/uL (0.0-0.5); EOS % 4.2 % (0.0-3.0); HEMATOCRIT 37.3 % (36.0-47.0); HEMOGLOBIN 12.3 g/dl (12.0-15.5); LYMPH # 2.9 10^3/uL (1.5-5.0); LYMPH % 26.6 % (24.0-44.0); MEAN CORPUSCULAR HEMOGLOBIN 27.5 pg (27.0-33.0); MEAN CORPUSCULAR VOLUME 83.4 fl (80.0-96.0); MONO # 0.9 10^3/uL (0.0-0.8); MONO % 8.5 % (2.0-8.0); NEUTROPHILS # 6.4 10^3/uL (1.5-8.5); NEUTROPHILS % 59.4 % (36.0-66.0); PLATELET COUNT, AUTOMATED 421 10^3/uL (150-450); RED BLOOD COUNT 4.47 10^6/uL (4.00-5.40); WHITE BLOOD COUNT 10.8 10^3/uL (4.0-10.0)
[2023-03-09] MEDS ORDERED: NS 1,000 ML IV ONE (18:35)
[2023-03-09] MEDS ORDERED: KETOROLAC 30 MG/ML 1ML VIAL IV ONE (18:35)
[2023-03-09] MEDS ORDERED: ONDANSETRON 4MG 2ML VIAL IV ONE (18:35)
[2023-03-09 19:04] LABS: LIPASE 28 U/L (12-53)
[2023-03-09 19:06] LABS: ALBUMIN 3.8 G/DL (3.2-5.2); ALKALINE PHOSPHATASE 100 U/L (46-116); ALT/SGPT 183 U/L (7.0-40); AST/SGOT 101 U/L (<34); BILIRUBIN,DIRECT 0.2 MG/DL (<0.4); BILIRUBIN,TOTAL 0.6 MG/DL (0.3-1.2); BLOOD UREA NITROGEN 10 MG/DL (9-23); CALCIUM LEVEL 9.5 MG/DL (8.5-10.1); CARBON DIOXIDE LEVEL 25 MMOL/L (20-31); CHLORIDE LEVEL 104 MMOL/L (98-107); CREATININE FOR GFR 0.53 MG/DL (0.55-1.30); GLOMERULAR FILTRATION RATE > 60.0 (>60); GLUCOSE, FASTING 84 MG/DL (60-100); POTASSIUM SERUM 4.4 MMOL/L (3.5-5.1); SODIUM LEVEL 138 MMOL/L (136-145)
[2023-03-09 19:51] LABS: RSV AMPLIFICATION NEGATIVE (NEGATIVE)
[2023-03-09 20:29] LABS: HCG, SERUM QUALITATIVE NEGATIVE (NEGATIVE)
[2023-03-09] MEDS ORDERED: MORPHINE 4 MG/ML 1ML VIAL IV ONE (20:35)
[2023-03-09] MEDS ORDERED: METOCLOPRAMIDE INJ 10MG/2ML VIAL IV ONE (20:35)
[2023-03-09] MEDS ORDERED: ISOVUE-370 76% 100ML VIAL As Ordered ONE (20:40)
[2023-03-09 21:33] LABS: HEPATITIS B SURFACE ANTIGEN NEGATIVE (NEGATIVE)
[2023-03-09 21:54] LABS: HEPATITIS B CORE ANTIBODY IGM NEGATIVE (NEGATIVE)
[2023-03-09] MEDS ORDERED: ONDA4TAB6 PO (22:02)
[2023-03-09 22:13] LABS: HEPATITIS C VIRUS ABY INDEX > 11.0 INDEX (<0.8)
[2023-03-09 22:21] VITALS: BP 163/91
== END 2023-03-09 22:24 | disposition home or self-care (01) ==
LOC: M ED 16:15
DX: N83.291 Other ovarian cyst, right side (principal); K21.9 Gastro-esophageal reflux disease without esophagitis; F43.10 Post-traumatic stress disorder, unspecified; F41.9 Anxiety disorder, unspecified; Z91.040 Latex allergy status; Z79.83 Long term (current) use of bisphosphonates; Z79.899 Other long term (current) drug therapy
CPT/HCPCS: 36415; 74177; 80048; 80076; 83690; 84703; 85025; 86705; 86709; 86803; 87340; 87522; 87631; 87880; 99284; J1885; J2405; J2765; Q9967

== ENCOUNTER → 2023-03-18 | Outpatient (REF) | payer OTHER | LOC: M SFHCPLAZ 15:33 | PROVIDERS: ATTEND Family Medicine | DX: Z53.9 Procedure and treatment not carried out, unspecified reason (principal) ==

== ENCOUNTER → 2023-03-18 | Outpatient (CLI) | payer OTHER ==
[2023-03-23 02:09] LABS: HEPATITIS C VIRUS GENOTYPE 1a (.)
== END ==
LOC: M PLALAB 15:42
PROVIDERS: ATTEND Student in an Organized Health Care Education/Training Program
DX: B17.10 Acute hepatitis C without hepatic coma (principal)

== ENCOUNTER → 2023-06-20 | Outpatient (REF) | LOC: M EMP 09:08 | PROVIDERS: ATTEND Family Medicine | DX: Z11.52 Encounter for screening for COVID-19 (principal) ==

== ENCOUNTER → 2023-10-11 | Outpatient (CLI) | payer OTHER ==
[~2023-10-11] MED LIST changes: +CEFD1CAP9; -CEFD300C41
[2023-10-11 14:26] LABS: ALBUMIN 3.7 G/DL (3.2-5.2); BILIRUBIN,DIRECT 0.1 MG/DL (<0.4); BILIRUBIN,TOTAL 0.4 MG/DL (0.3-1.2); TOTAL PROTEIN 7.5 G/DL (5.7-8.2)
[2023-10-13 01:06] LABS: HEPATITIS C QUANTITATION HCV Not Detected IU/mL (.)
== END ==
LOC: M PLALAB 09:14
PROVIDERS: ATTEND Internal Medicine Infectious Disease
DX: B18.2 Chronic viral hepatitis C (principal)

== ENCOUNTER → 2023-12-07 | Outpatient (REF) ==
[~2023-12-07] MED LIST changes: -MIRA1POW3 PO; +MIRA33506 PO
== END ==
LOC: M EMP 12:18
PROVIDERS: ATTEND Family Medicine
DX: Z20.822 Contact with and (suspected) exposure to COVID-19 (principal)

== ENCOUNTER → 2023-12-07 | Outpatient (REF) | LOC: M EMP 12:09 | PROVIDERS: ATTEND Family Medicine | DX: Z20.822 Contact with and (suspected) exposure to COVID-19 (principal) ==

== ENCOUNTER → 2024-01-20 | Outpatient (REF) | payer OTHER ==
[2024-01-20 18:13] LABS: APPEARANCE, URINE HAZY (CLEAR); BACTERIA, URINE AUTO NEGATIVE (NEGATIVE); BILIRUBIN, URINE AUTO NEGATIVE (NEGATIVE); BLOOD, URINE BLOOD NEGATIVE (NEGATIVE); COLOR, URINE YELLOW (YELLOW); GLUCOSE, URINE (UA) AUTO NEGATIVE (NEGATIVE); KETONE, URINE AUTO NEGATIVE (NEGATIVE); LEUKOCYTE ESTERASE, URINE AUTO NEGATIVE (NEGATIVE); MUCUS, URINE SMALL (NEGATIVE); NITRITE, URINE AUTO NEGATIVE (NEGATIVE); PROTEIN, URINE AUTO 1+ mg/dL (NEGATIVE); RBC, URINE AUTO 0 /HPF (0-3); SQUAMOUS EPITHELIAL CELL UR AU 9 /HPF (0-6); UROBILINOGEN, URINE AUTO 0.2 mg/dL (0.0-2.0); WBC, URINE AUTO 0 /HPF (0-3)
== END ==
LOC: M LAB REF 16:34
PROVIDERS: ATTEND Physician Assistant
DX: N39.0 Urinary tract infection, site not specified (principal)

== ENCOUNTER → 2024-06-27 | Outpatient (REF) ==
[~2024-06-27] MED LIST changes: +FLUO-290 PO; +FLUO-365 PO; -FLUO10CA18 PO; -FLUO20CA22 PO; +ONDA-282 PO; -ONDA4TAB6 PO
== END ==
LOC: M EMP 09:28
PROVIDERS: ATTEND Family Medicine
DX: Z11.52 Encounter for screening for COVID-19 (principal)

== ENCOUNTER → 2024-06-29 | Outpatient (REF) | payer OTHER ==
[~2024-06-29] MED LIST changes: +AMOX875T2 PO; +FLUTISP; +VENTAER INH
== END ==
LOC: M LAB REF 16:20
PROVIDERS: ATTEND Physician Assistant Medical
DX: M79.10 Myalgia, unspecified site (principal)

== ENCOUNTER → 2024-06-29 | Outpatient (REF) | LOC: M EMP 09:23 | PROVIDERS: ATTEND Family Medicine | DX: Z20.828 Contact with and (suspected) exposure to other viral communicable diseases (principal) ==

== ENCOUNTER 2024-07-02 09:46 | Emergency (ER) | payer OTHER ==
[~2024-07-02] VITALS: Ht 160 cm; Wt 126.1 kg
[~2024-07-02 09:46] MED LIST changes: -AMOX875T2 PO; -FLUTISP; -VENTAER INH
[2024-07-02] MEDS ORDERED: FLUTISP (14:15)
[2024-07-02] MEDS ORDERED: AMOX875T2 PO (14:15)
[2024-07-02] MEDS ORDERED: VENTAER INH (14:16)
[2024-07-02] MEDS ORDERED: PRED20TA PO (14:20)
[2024-07-02 14:25] VITALS: BP 138/88; TEMP 98; O2SAT 98
== END 2024-07-02 14:38 | disposition home or self-care (01) ==
LOC: M ED 09:46
DX: J20.9 Acute bronchitis, unspecified (principal); J01.90 Acute sinusitis, unspecified; Z91.040 Latex allergy status; Z79.52 Long term (current) use of systemic steroids; Z79.2 Long term (current) use of antibiotics; Z79.83 Long term (current) use of bisphosphonates; Z79.899 Other long term (current) drug therapy

== ENCOUNTER → 2024-07-06 | Outpatient (REF) ==
[~2024-07-06] MED LIST changes: +AMOX875T2 PO; +FLON1SPR NARES; +FLUTISP; +HYDR50TA70 PO; +IBUP200C25 PO; +VENTAER INH
== END ==
LOC: M EMP 08:56
PROVIDERS: ATTEND Family Medicine
DX: Z11.52 Encounter for screening for COVID-19 (principal)

== ENCOUNTER 2024-07-08 15:58 | Emergency (ER) | payer OTHER ==
[~2024-07-08] VITALS: Ht 160 cm; Wt 126.2 kg
[~2024-07-08 15:58] MED LIST changes: +E-401CAP2 PO; -FLON1SPR NARES; -HYDR50TA70 PO; -IBUP200C25 PO; -VITA400C83 PO
[2024-07-08] MEDS ORDERED: IBUP200C25 PO (16:21)
[2024-07-08] MEDS ORDERED: HYDR50TA70 PO (18:34)
[2024-07-08] MEDS ORDERED: FLON1SPR NARES (18:35)
[2024-07-08 18:50] VITALS: BP 114/74; TEMP 98.1; O2SAT 98
== END 2024-07-08 18:53 | disposition home or self-care (01) ==
LOC: M ED 15:58
DX: U07.1 COVID-19 (principal); J06.9 Acute upper respiratory infection, unspecified; Z79.52 Long term (current) use of systemic steroids; Z79.1 Long term (current) use of non-steroidal anti-inflammatories (NSAID); Z79.899 Other long term (current) drug therapy

== ENCOUNTER 2024-09-28 15:40 | Emergency (ER) | payer OTHER ==
[~2024-09-28] VITALS: Ht 160 cm; Wt 124.8 kg
[~2024-09-28 15:40] MED LIST changes: +FLON1SPR NARES; +HYDR50TA70 PO; +IBUP200C25 PO
[2024-09-28] MEDS ORDERED: FLUO-365 PO (16:16)
[2024-09-28] MEDS ORDERED: ACET-897 PO (16:16)
[2024-09-28 17:08] LABS: BASO # 0.1 10^3/uL (0.0-0.2); BASO % 0.5 % (0.0-1.0); EOS # 0.3 10^3/uL (0.0-0.5); EOS % 2.8 % (0.0-3.0); HEMATOCRIT 33.5 % (36.0-47.0); LYMPH # 3.1 10^3/uL (1.5-5.0); LYMPH % 25.1 % (24.0-44.0); MEAN CORPUSCULAR HEMOGLOBIN 26.6 pg (27.0-33.0); MEAN CORPUSCULAR HGB CONC 32.8 g/dl (32.0-36.5); MEAN CORPUSCULAR VOLUME 80.9 fl (80.0-96.0); MONO # 0.7 10^3/uL (0.0-0.8); MONO % 5.7 % (2.0-8.0); NEUTROPHILS % 65.5 % (36.0-66.0); PLATELET COUNT, AUTOMATED 373 10^3/uL (150-450); RED BLOOD COUNT 4.14 10^6/uL (4.00-5.40); WHITE BLOOD COUNT 12.3 10^3/uL (4.0-10.0)
[2024-09-28 17:20] LABS: ERYTHROCYTE SEDIMENTATION RATE 52 mm/hr (0-20)
[2024-09-28 17:30] LABS: HCG, SERUM QUALITATIVE NEGATIVE (NEGATIVE)
[2024-09-28 17:31] LABS: C REACTIVE PROTEIN QUANTITATIV 2.25 MG/DL (<1.0)
[2024-09-28] MEDS: NS (Normal Saline) 0.9% 1,000 ML IV ONE (19:10)
[2024-09-28] MEDS: diphenhydrAMINE 50MG/ML VIAL IV ONE (19:10)
[2024-09-28] MEDS: METOCLOPRAMIDE INJ 10MG/2ML VIAL IV ONE (19:11)
[2024-09-28] MEDS: ACETAMINOPHEN 500 MG TAB PO ONE (19:11)
[2024-09-28] MEDS: KETOROLAC 30 MG/ML 1ML VIAL IV ONE (19:11)
[2024-09-28 21:29] VITALS: BP 114/66; TEMP 97.3; O2SAT 96
[2024-10-02 03:28] LABS: IgG P18 AB NON-REACTIVE; IgG P23 AB NON-REACTIVE; IgG P28 AB NON-REACTIVE; IgG P30 AB NON-REACTIVE; IgG P39 AB NON-REACTIVE; IgG P41 AB NON-REACTIVE; IgG P45 AB NON-REACTIVE; IgG P58 AB NON-REACTIVE; IgG P66 AB NON-REACTIVE; IgG P93 AB NON-REACTIVE; IgM P23 AB NON-REACTIVE; IgM P39 AB NON-REACTIVE; IgM P41 AB NON-REACTIVE; LYME IgG WB INTERPRETATION NEGATIVE (NEGATIVE); LYME IgM WB INTERPRETATION NEGATIVE (NEGATIVE)
== END 2024-09-28 21:31 | disposition home or self-care (01) ==
LOC: M ED 15:40
DX: G43.909 Migraine, unspecified, not intractable, without status migrainosus (principal); I10 Essential (primary) hypertension; F41.9 Anxiety disorder, unspecified; Z90.49 Acquired absence of other specified parts of digestive tract; Z91.040 Latex allergy status; Z79.1 Long term (current) use of non-steroidal anti-inflammatories (NSAID); Z79.899 Other long term (current) drug therapy
CPT/HCPCS: 70450; 80047; 83735; 84703; 85025; 85652; 86140; 86617; 96374; 96375; 99284; J1200; J1885; J2765

== ENCOUNTER 2024-10-06 06:57 | Emergency (ER) | payer OTHER ==
[~2024-10-06] VITALS: Ht 160 cm; Wt 123.3 kg
[~2024-10-06 06:57] MED LIST changes: +ACET-897 PO
[2024-10-06] MEDS ORDERED: MULT-100 PO (07:07)
[2024-10-06] MEDS: IBUPROFEN 600MG TAB PO ONE (08:17)
[2024-10-06 11:23] VITALS: BP 135/79; TEMP 97.4; O2SAT 98
== END 2024-10-06 11:44 | disposition home or self-care (01) ==
LOC: M ED 06:57
DX: B34.9 Viral infection, unspecified (principal); Z11.52 Encounter for screening for COVID-19; Z91.040 Latex allergy status; I10 Essential (primary) hypertension; K21.9 Gastro-esophageal reflux disease without esophagitis; Z87.891 Personal history of nicotine dependence

== ENCOUNTER 2024-10-17 10:36 | Observation (INO) | payer OTHER ==
[~2024-10-17] VITALS: Ht 160 cm; Wt 123.6 kg
[~2024-10-17 10:36] MED LIST changes: +MULT-100 PO
[2024-10-17] MEDS ORDERED: ISOVUE-370 76% 100ML VIAL As Ordered ONE (11:13)
[2024-10-17 11:23] VITALS: BP 180/85; TEMP 97.2; O2SAT 97
[2024-10-17 11:30] LABS: BASO # 0.1 10^3/uL (0.0-0.2); BASO % 0.6 % (0.0-1.0); EOS # 0.3 10^3/uL (0.0-0.5); EOS % 2.5 % (0.0-3.0); HEMATOCRIT 35.4 % (36.0-47.0); HEMOGLOBIN 11.6 g/dl (12.0-15.5); LYMPH % 23.5 % (24.0-44.0); MEAN CORPUSCULAR HEMOGLOBIN 26.5 pg (27.0-33.0); MEAN CORPUSCULAR HGB CONC 32.8 g/dl (32.0-36.5); MEAN CORPUSCULAR VOLUME 80.8 fl (80.0-96.0); MONO # 0.7 10^3/uL (0.0-0.8); MONO % 5.4 % (2.0-8.0); NEUTROPHILS # 8.5 10^3/uL (1.5-8.5); NEUTROPHILS % 67.4 % (36.0-66.0); PLATELET COUNT, AUTOMATED 424 10^3/uL (150-450); RED BLOOD COUNT 4.38 10^6/uL (4.00-5.40); WHITE BLOOD COUNT 12.6 10^3/uL (4.0-10.0)
[2024-10-17] MEDS: CLOPIDOGREL 300 MG TAB (PLAVIX) PO STA (12:00)
[2024-10-17] MEDS: ASPIRIN 81MG CHEW TABLET PO ONE (12:01)
[2024-10-17 12:02] LABS: ALBUMIN 3.6 G/DL (3.2-5.2); ALKALINE PHOSPHATASE 76 U/L (35-104); ALT/SGPT 20 U/L (7.0-40); AST/SGOT 14 U/L (<34); BILIRUBIN,DIRECT < 0.1 MG/DL (<0.4); BILIRUBIN,TOTAL 0.4 MG/DL (0.3-1.2); BLOOD UREA NITROGEN 13 MG/DL (9-23); CALCIUM LEVEL 10.1 MG/DL (8.5-10.1); CARBON DIOXIDE LEVEL 27 MMOL/L (20-31); CHLORIDE LEVEL 105 MMOL/L (98-107); CREATININE FOR GFR 0.49 MG/DL (0.55-1.30); GLOMERULAR FILTRATION RATE > 60.0 (>60); GLUCOSE, FASTING 110 MG/DL (60-100); HCG, SERUM QUALITATIVE NEGATIVE (NEGATIVE); POTASSIUM SERUM 4.3 MMOL/L (3.5-5.1); SODIUM LEVEL 141 MMOL/L (136-145)
[2024-10-17 12:16] LABS: INR 0.98; PARTIAL THROMBOPLASTIN TIME 25.6 SECONDS (24.8-34.2); PROTHROMBIN TIME 13.3 SECONDS (12.5-14.5)
[2024-10-17 12:25] LABS: AMPHETAMINES LEVEL URINE NEGATIVE (NEGATIVE); BARBITURATES URINE NEGATIVE (NEGATIVE); BENZODIAZEPINES URINE NEGATIVE (NEGATIVE); CANNABINOIDS URINE NEGATIVE (NEGATIVE); COCAINE METABOLITE URINE NEGATIVE (NEGATIVE); METHADONE URINE NEGATIVE (NEGATIVE); OPIATES URINE NEGATIVE (NEGATIVE); PHENCYCLIDINE URINE NEGATIVE (NEGATIVE)
[2024-10-17] MEDS ORDERED: HYDR50TA70 PO (13:27)
[2024-10-17] MEDS ORDERED: FLON1SPR NARES (13:27)
[2024-10-17] MEDS ORDERED: FLUTICASONE PROP 0.05% NASAL SPRAY 16 GM (FLONASE) NARES PRN (13:30)
[2024-10-17] MEDS ORDERED: hydrOXYzine 50 MG TAB PO PRN (13:30)
[2024-10-17] MEDS ORDERED: HOME MED LIST COMPLETE! XX SCH (13:30)
[2024-10-17 14:11] LABS: CHOLESTEROL RISK RATIO 4.46 (<5); HDL CHOLESTEROL 43.7 MG/DL (>40); LDL CHOLESTEROL 120.3 MG/DL (<100); NON-HDL-C 151.3 MG/DL
[2024-10-17 14:14] LABS: HEMOGLOBIN A1c 5.5 % (4.0-6.0)
[2024-10-17 21:00] VITALS: BP 167/93; TEMP 98.3; O2SAT 99
[2024-10-17] MEDS: ENOXAPARIN 40MG/0.4ML SYRINGE (J1650 PER 10MG) SC SCH (21:00)
[2024-10-17] MEDS: TOPIRAMATE (TopAMAX) 25 MG TAB PO SCH (21:00)
[2024-10-17] MEDS: ATORVASTATIN 20 MG TAB PO SCH (22:58)
[2024-10-18 00:09] VITALS: BP 104/57; TEMP 98; O2SAT 98
[2024-10-18 03:38] VITALS: BP 130/76; TEMP 97.9; O2SAT 98
[2024-10-18 07:48] VITALS: BP 144/88; TEMP 97.2; O2SAT 98
[2024-10-18 07:59] LABS: BASO # 0.1 10^3/uL (0.0-0.2); BASO % 0.6 % (0.0-1.0); EOS # 0.4 10^3/uL (0.0-0.5); EOS % 3.1 % (0.0-3.0); HEMATOCRIT 33.5 % (36.0-47.0); HEMOGLOBIN 10.9 g/dl (12.0-15.5); LYMPH # 2.3 10^3/uL (1.5-5.0); LYMPH % 18.8 % (24.0-44.0); MEAN CORPUSCULAR HGB CONC 32.5 g/dl (32.0-36.5); MEAN CORPUSCULAR VOLUME 79.8 fl (80.0-96.0); MONO # 0.7 10^3/uL (0.0-0.8); MONO % 5.6 % (2.0-8.0); NEUTROPHILS # 8.6 10^3/uL (1.5-8.5); NEUTROPHILS % 71.3 % (36.0-66.0); PLATELET COUNT, AUTOMATED 401 10^3/uL (150-450); WHITE BLOOD COUNT 12.1 10^3/uL (4.0-10.0)
[2024-10-18 08:16] LABS: BLOOD UREA NITROGEN 11 MG/DL (9-23); CALCIUM LEVEL 9.4 MG/DL (8.5-10.1); CARBON DIOXIDE LEVEL 27 MMOL/L (20-31); CHLORIDE LEVEL 106 MMOL/L (98-107); CREATININE FOR GFR 0.54 MG/DL (0.55-1.30); GLOMERULAR FILTRATION RATE > 60.0 (>60); GLUCOSE, FASTING 105 MG/DL (60-100); MAGNESIUM LEVEL 1.8 MG/DL (1.8-2.4); POTASSIUM SERUM 4.6 MMOL/L (3.5-5.1); SODIUM LEVEL 140 MMOL/L (136-145)
[2024-10-18] MEDS ORDERED: TOPA1TAB PO (10:06)
[2024-10-18] MEDS ORDERED: CLOP75TA2 PO (10:06)
[2024-10-18] MEDS ORDERED: ASPI81CH8 PO (10:06)
[2024-10-18] MEDS ORDERED: ATOR40TA75 PO (10:06)
[2024-10-18] MEDS: ASPIRIN 81MG CHEW TABLET PO SCH (11:01)
[2024-10-18] MEDS: MULTIVITAMINS/MINERALS THERAP 1 TAB PO SCH (11:01)
[2024-10-18] MEDS: CLOPIDOGREL 75 MG TAB PO SCH (11:01)
[2024-10-18] MEDS: KETOROLAC 30 MG/ML 1ML VIAL IV ONE (12:05)
[2024-10-18 12:45] LABS: DRVV SCREEN 38.1 SECONDS
[2024-10-18 12:47] LABS: PTT LUPUS TYPE ANTICOAG SCREEN 0.9 (0-1.20)
[2024-10-22 13:14] LABS: SSA SJOGRENS A <1.0 NEG AI (<1.0 NEG); SSB SJOGRENS B <1.0 NEG AI (<1.0 NEG)
[2024-10-22 15:28] LABS: HOMOCYST(E)INE SERUM 8.6 umol/L (<10.4)
[2024-10-22 23:47] LABS: CARDIOLIPIN IGA ANTIBODY < 2.0 APL-U/mL (<20.0); CARDIOLIPIN IGG ANTIBODY < 2.0 GPL-U/mL (<20.0); CARDIOLIPIN IGM ANTIBODY < 2.0 MPL-U/mL (<20.0)
[2024-10-23 15:07] LABS: PROTEIN S ANTIGEN FREE 137 % normal (50-147); PROTEIN S ANTIGEN TOTAL 131 % normal (70-140)
[2024-10-23 15:47] LABS: ANA SCREEN, IFA NEGATIVE (NEGATIVE)
[2024-10-24 01:08] LABS: ANTI THROMBIN 3 ANTIGEN IMMUNO 90 % normal (80-120); ANTI THROMBIN 3 FUNCT ACTIVITY 101 % normal (80-135)
[2024-10-24 01:37] LABS: ANCA SCREEN Negative (Negative)
== END 2024-10-18 15:43 | disposition home or self-care (01) ==
LOC: M ED 10:36 → M ED INP 12:45 → M PCU 20:43
PROVIDERS: ADMIT Internal Medicine; ATTEND Internal Medicine
DX: R20.0 Anesthesia of skin (principal); G43.409 Hemiplegic migraine, not intractable, without status migrainosus; I16.0 Hypertensive urgency; F31.9 Bipolar disorder, unspecified; F41.9 Anxiety disorder, unspecified; F43.10 Post-traumatic stress disorder, unspecified; Z90.49 Acquired absence of other specified parts of digestive tract
CPT/HCPCS: 36415; 70450; 70496; 70498; 70544; 70551; 71045; 80047; 80048; 80061; 80076; 80307; 81240; 83036; 83090; 83735; 84703; 85025; 85300; 85301; 85302; 85305; 85306; 85610; 85652; 85730; 86036; 86038; 86140; 86147; 86235; 93005; 93041; 93306; 94760; 96374; 97162; 97165; 99285; J1885; Q9967

== ENCOUNTER → 2024-10-25 | Outpatient (REF) | payer OTHER ==
[~2024-10-25] MED LIST changes: +ASPI81CH8 PO; +ATOR40TA75 PO; +CLOP75TA2 PO; +TOPA1TAB PO
== END ==
LOC: M SFHCPLAZ 14:31
PROVIDERS: ATTEND Physician Assistant Medical
DX: Z20.828 Contact with and (suspected) exposure to other viral communicable diseases (principal)

== ENCOUNTER → 2024-11-14 | Outpatient (REF) | LOC: M EMP 09:47 | PROVIDERS: ATTEND Family Medicine | DX: Z11.52 Encounter for screening for COVID-19 (principal) ==

== ENCOUNTER → 2024-11-15 | Outpatient (CLI) | payer OTHER ==
[2024-11-15 13:14] LABS: BASO # 0.1 10^3/uL (0.0-0.2); BASO % 0.6 % (0.0-1.0); EOS # 0.4 10^3/uL (0.0-0.5); EOS % 3.4 % (0.0-3.0); HEMATOCRIT 34.6 % (36.0-47.0); MEAN CORPUSCULAR HEMOGLOBIN 26.2 pg (27.0-33.0); MEAN CORPUSCULAR HGB CONC 31.8 g/dl (32.0-36.5); MEAN CORPUSCULAR VOLUME 82.4 fl (80.0-96.0); MONO # 0.8 10^3/uL (0.0-0.8); MONO % 7.2 % (2.0-8.0); NEUTROPHILS # 8.2 10^3/uL (1.5-8.5); NEUTROPHILS % 71.3 % (36.0-66.0); PLATELET COUNT, AUTOMATED 390 10^3/uL (150-450); WHITE BLOOD COUNT 11.5 10^3/uL (4.0-10.0)
[2024-11-15 13:44] LABS: CHOLESTEROL LEVEL 154 MG/DL (<200); CHOLESTEROL RISK RATIO 3.62 (<5); HDL CHOLESTEROL 42.5 MG/DL (>40); LDL CHOLESTEROL 67.9 MG/DL (<100); NON-HDL-C 111.5 MG/DL; TRIGLYCERIDES LEVEL 218 MG/DL (<150)
[2024-11-15 14:09] LABS: HIV 1&2 SCREEN NEGATIVE (NEGATIVE)
[2024-11-15 14:23] LABS: HEPATITIS C VIRUS ABY INDEX > 11.00 INDEX (<0.8)
[2024-11-15 14:31] LABS: HEMOGLOBIN A1c 5.3 % (4.0-6.0)
[2024-11-16 13:42] LABS: HCV RNA QUANTITATION <15 NOT DETECTED IU/mL (NOT DETECTED); HCV RNA log10 <1.18 NOT DETECTED Log IU/mL (NOT DETECTED)
== END ==
LOC: M WUC 09:13
PROVIDERS: ATTEND Nurse Practitioner Family
DX: E66.3 Overweight (principal); R53.83 Other fatigue; Z11.9 Encounter for screening for infectious and parasitic diseases, unspecified

== ENCOUNTER → 2024-12-06 | Outpatient (REF) | payer OTHER ==
[2024-12-06 14:38] LABS: BASO # 0.1 10^3/uL (0.0-0.2); BASO % 0.8 % (0.0-1.0); EOS # 0.4 10^3/uL (0.0-0.5); EOS % 3.8 % (0.0-3.0); HEMATOCRIT 34.4 % (36.0-47.0); LYMPH # 2.7 10^3/uL (1.5-5.0); LYMPH % 28.5 % (24.0-44.0); MEAN CORPUSCULAR HEMOGLOBIN 25.9 pg (27.0-33.0); MEAN CORPUSCULAR VOLUME 80.9 fl (80.0-96.0); MONO # 0.7 10^3/uL (0.0-0.8); MONO % 7.1 % (2.0-8.0); NEUTROPHILS # 5.7 10^3/uL (1.5-8.5); NEUTROPHILS % 59.3 % (36.0-66.0); PLATELET COUNT, AUTOMATED 432 10^3/uL (150-450); RED BLOOD COUNT 4.25 10^6/uL (4.00-5.40); WHITE BLOOD COUNT 9.6 10^3/uL (4.0-10.0)
== END ==
LOC: M LAB REF 12:04
PROVIDERS: ATTEND Nurse Practitioner Family
DX: D72.829 Elevated white blood cell count, unspecified (principal)

== ENCOUNTER → 2024-12-20 | Outpatient (REF) | LOC: M EMP 10:16 | PROVIDERS: ATTEND Family Medicine | DX: Z11.52 Encounter for screening for COVID-19 (principal) ==

== ENCOUNTER → 2024-12-27 | Outpatient (REF) | payer OTHER ==
[2024-12-27 16:35] LABS: FERRITIN 36.6 NG/ML (7.3-270.7)
[2024-12-27 16:36] LABS: BASO # 0.1 10^3/uL (0.0-0.2); BASO % 0.7 % (0.0-1.0); EOS # 0.4 10^3/uL (0.0-0.5); EOS % 3.8 % (0.0-3.0); HEMATOCRIT 33.9 % (36.0-47.0); LYMPH # 2.9 10^3/uL (1.5-5.0); MEAN CORPUSCULAR HEMOGLOBIN 26.3 pg (27.0-33.0); MEAN CORPUSCULAR HGB CONC 32.4 g/dl (32.0-36.5); MEAN CORPUSCULAR VOLUME 81.1 fl (80.0-96.0); MONO # 0.7 10^3/uL (0.0-0.8); MONO % 6.8 % (2.0-8.0); NEUTROPHILS # 6.3 10^3/uL (1.5-8.5); NEUTROPHILS % 60.4 % (36.0-66.0); PLATELET COUNT, AUTOMATED 416 10^3/uL (150-450); RED BLOOD COUNT 4.18 10^6/uL (4.00-5.40); WHITE BLOOD COUNT 10.5 10^3/uL (4.0-10.0)
== END ==
LOC: M LAB REF 15:02
PROVIDERS: ATTEND Nurse Practitioner Family
DX: D64.9 Anemia, unspecified (principal); R53.83 Other fatigue

== ENCOUNTER 2025-05-04 09:30 | Day surgery (SDC) | payer OTHER ==
[~2025-05-04] VITALS: Ht 162.6 cm; Wt 107.5 kg
[~2025-05-04 09:30] MED LIST changes: +HYDR12.510; -HYDR12CA
[2025-05-04 11:21] LABS: KETONE, URINE AUTO RFX NEGATIVE (NEGATIVE); LEUKOCYTE ESTERASE UR AUTO RFX NEGATIVE (NEGATIVE); MUCUS, URINE RFX SMALL (NEGATIVE); NITRITE, URINE AUTO RFX NEGATIVE (NEGATIVE); RBC, URINE AUTO RFX 3 /HPF (0-3); SQUAM EPITHELIAL CELL UR AURFX 11 /HPF (0-6); WBC, URINE AUTO RFX 1 /HPF (0-3)
[2025-05-04 11:31] LABS: BASO # 0.1 10^3/uL (0.0-0.2); BASO % 0.4 % (0.0-1.0); EOS # 0.4 10^3/uL (0.0-0.5); EOS % 2.1 % (0.0-3.0); LYMPH # 1.7 10^3/uL (1.5-5.0); LYMPH % 9.1 % (24.0-44.0); MONO # 0.9 10^3/uL (0.0-0.8); MONO % 4.8 % (2.0-8.0); NEUTROPHILS # 15.7 10^3/uL (1.5-8.5); NEUTROPHILS % 83.1 % (36.0-66.0); PLATELET COUNT, AUTOMATED 409 10^3/uL (150-450)
[2025-05-04 11:59] LABS: ALT/SGPT 15 U/L (7.0-40); AST/SGOT 23 U/L (<34); CALCIUM LEVEL 9.1 MG/DL (8.5-10.1); CARBON DIOXIDE LEVEL 22 MMOL/L (20-31); CHLORIDE LEVEL 105 MMOL/L (98-107); CREATININE FOR GFR 0.66 MG/DL (0.55-1.30); GLOMERULAR FILTRATION RATE > 90.0 (>60); POTASSIUM SERUM 4.7 MMOL/L (3.5-5.1); SODIUM LEVEL 141 MMOL/L (136-145)
[2025-05-04 12:03] LABS: HCG, SERUM QUALITATIVE NEGATIVE (NEGATIVE)
[2025-05-04] MEDS: NS (Normal Saline) 0.9% 1,000 ML IV ONE (12:10)
[2025-05-04] MEDS: ACETAMINOPHEN *IV* 1,000 MG in IV 1 EA IV ONE (12:10)
[2025-05-04] MEDS ORDERED: ISOVUE-370 76% 100 ML VIAL As Ordered ONE (12:19)
[2025-05-04 14:09] LABS: HEPATITIS B SURFACE ANTIBODY POSITIVE (POSITIVE)
[2025-05-04] MEDS: ONDANSETRON 4MG 2ML VIAL IV ONE (14:15)
[2025-05-04] MEDS: MORPHINE 4 MG/ML 1 ML VIAL IV ONE (14:15)
[2025-05-04 14:34] LABS: HIV SCREEN CENTAUR SOURCE NEGATIVE (NEGATIVE)
[2025-05-04 14:59] LABS: HEPATITIS C VIRUS ABY INDEX > 11.00 INDEX (<0.8)
[2025-05-04] MEDS: PIPERACILLIN/TAZOBACTAM SOD 3.375 GM in DEXTROSE 5% (D5W) ADV/MINI-BAG 50 ML IV ONE (15:25)
[2025-05-04] MEDS ORDERED: ONDANSETRON 4MG 2ML VIAL IV PRN ×2 (15:35→17:30)
[2025-05-04] MEDS: LR 1,000 ML IV SCH (15:50)
[2025-05-04] MEDS: diphenhydrAMINE 50 MG/ML VIAL IV STA (15:59)
[2025-05-04] MEDS ORDERED: ALPR0.25 PO (16:07)
[2025-05-04] MEDS ORDERED: BUPR-766 PO (16:07)
[2025-05-04] MEDS ORDERED: FERR325T3 PO (16:07)
[2025-05-04] MEDS ORDERED: ATOM60CA2 PO (16:07)
[2025-05-04] MEDS ORDERED: LAMO100T80 PO (16:07)
[2025-05-04] MEDS ORDERED: LATU1TAB PO (16:07)
[2025-05-04] MEDS ORDERED: HOME MED LIST COMPLETE! XX SCH (16:10)
[2025-05-04] MEDS ORDERED: HYDROMORPHONE HCL 0.5 MG/0.5 ML SYRINGE IV PRN (17:30)
[2025-05-04] MEDS ORDERED: MIDAZOLAM INJ 2 MG/2 ML VIAL As Ordered ONE (17:44)
[2025-05-04] MEDS ORDERED: LIDOCAINE 2% 100 MG/5 ML SDV (FOR ANES.) As Ordered ONE (17:48)
[2025-05-04] MEDS ORDERED: SUCCINYLCHOLINE 100MG/5ML SYRINGE As Ordered ONE (17:48)
[2025-05-04] MEDS ORDERED: ROCURONIUM BROMIDE 50MG/5ML VIAL As Ordered ONE (17:50)
[2025-05-04] MEDS ORDERED: dexAMETHasone 4 MG/ML 1 ML VIAL As Ordered ONE (17:54)
[2025-05-04] MEDS ORDERED: SUGAMMADEX SODIUM 500 MG/5 ML VIAL As Ordered ONE (18:38)
[2025-05-04] MEDS ORDERED: ONDANSETRON 4MG 2ML VIAL As Ordered ONE (18:38)
[2025-05-04] MEDS ORDERED: KETOROLAC 30 MG/ML 1 ML VIAL As Ordered ONE (18:38)
[2025-05-04] MEDS ORDERED: ACETAMINOPHEN 1000MG/100ML IV BAG As Ordered ONE (18:39)
[2025-05-04] MEDS: LIDOCAINE 1% SDV 30 ML VIAL As Ordered ONE (18:50)
[2025-05-04] MEDS ORDERED: FLUTICASONE PROPIONATE 0.05% NASAL SPRAY 16 GM NARES PRN (19:00)
[2025-05-04] MEDS ORDERED: ALPRAZolam 0.25 MG TAB PO PRN (19:00)
[2025-05-04] MEDS ORDERED: PERCOCET 5MG/325MG TAB PO PRN (19:00)
[2025-05-04] MEDS: traMADol 50 MG TAB PO ONE (19:24)
[2025-05-04 20:00] VITALS: BP 114/81; TEMP 97.2; O2SAT 99
[2025-05-04 20:30] VITALS: BP 115/80; TEMP 96.8; O2SAT 96
[2025-05-04 21:00] VITALS: BP 116/80; TEMP 97; O2SAT 95
[2025-05-04 22:00] VITALS: BP 111/75; TEMP 97.2; O2SAT 96
[2025-05-04] MEDS: LURASIDONE HCL 20 MG TAB PO SCH (22:31)
[2025-05-04] MEDS: buPROPion **XL** 150 MG TABLET PO SCH (22:31)
[2025-05-04] MEDS: PIPERACILLIN/TAZOBACTAM SOD 3.375 GM in DEXTROSE 5% (D5W) ADV/MINI-BAG 50 ML IV SCH (22:46)
[2025-05-04 23:00] VITALS: BP 129/79; TEMP 97; O2SAT 96
[2025-05-05] VITALS: BP 104/67; TEMP 97.3; O2SAT 95
[2025-05-05 01:00] VITALS: BP 114/73; TEMP 97.3; O2SAT 95
[2025-05-05] MEDS: KETOROLAC 30 MG/ML 1 ML VIAL IV SCH (01:29)
[2025-05-05 06:37] LABS: BASO # 0.0 10^3/uL (0.0-0.2); BASO % 0.1 % (0.0-1.0); EOS # 0.0 10^3/uL (0.0-0.5); EOS % 0.0 % (0.0-3.0); LYMPH # 0.9 10^3/uL (1.5-5.0); LYMPH % 8.1 % (24.0-44.0); MONO # 0.3 10^3/uL (0.0-0.8); MONO % 2.6 % (2.0-8.0); NEUTROPHILS # 9.5 10^3/uL (1.5-8.5); NEUTROPHILS % 88.8 % (36.0-66.0); PLATELET COUNT, AUTOMATED 378 10^3/uL (150-450)
[2025-05-05] MEDS ORDERED: VIT1TAB.8 PO (06:51)
[2025-05-05 07:07] LABS: CALCIUM LEVEL 8.9 MG/DL (8.5-10.1); CARBON DIOXIDE LEVEL 24 MMOL/L (20-31); CHLORIDE LEVEL 105 MMOL/L (98-107); CREATININE FOR GFR 0.63 MG/DL (0.55-1.30); GLOMERULAR FILTRATION RATE > 90.0 (>60); POTASSIUM SERUM 4.5 MMOL/L (3.5-5.1); SODIUM LEVEL 142 MMOL/L (136-145)
[2025-05-05 08:00] VITALS: BP 121/82; TEMP 97.5; O2SAT 98
[2025-05-05 12:00] VITALS: BP 138/86; TEMP 97.5; O2SAT 98
[2025-05-05] MEDS ORDERED: PERCOCET PO (12:02)
[2025-05-05] MEDS: PERCOCET 5MG/325MG TAB PO PRN (16:22)
[2025-05-08 19:08] LABS: HCV RNA QUANTITATION <15 NOT DETECTED IU/mL (NOT DETECTED); HCV RNA log10 <1.18 NOT DETECTED Log IU/mL (NOT DETECTED)
== END 2025-05-05 17:38 | disposition home or self-care (01) ==
LOC: M ED 09:30 → M SDC 15:43 → M RR INP 18:59 → UNDOADMIN 18:59 → M MSPAV 19:56 → M RR INP 19:56 → M SDC 05-05 17:38
PROVIDERS: ATTEND Surgery
DX: K35.80 Unspecified acute appendicitis (principal); I10 Essential (primary) hypertension; F31.9 Bipolar disorder, unspecified; Z79.899 Other long term (current) drug therapy; Z88.8 Allergy status to other drugs, medicaments and biological substances; Z91.040 Latex allergy status
CPT/HCPCS: 36415; 44970; 74177; 76856; 80048; 80076; 81001; 83605; 83690; 84703; 85025; 86706; 86803; 87040; 87340; 87389; 87522; 88304; 93976; 96365; 96366; 96375; 99284; J0131; J0330; J0665; J1100; J1200; J1885; J2250; J2405; J2543; J3010; Q9967

== ENCOUNTER → 2025-05-15 | Outpatient (REF) | payer OTHER ==
[~2025-05-15] MED LIST changes: +ALPR0.25 PO; +ATOM60CA2 PO; +BUPR-766 PO; +FERR325T3 PO; +LAMO100T80 PO; +LATU1TAB PO; +PERCOCET PO; +VIT1TAB.8 PO
[2025-05-15 20:34] LABS: IRON (FE) 102.0 UG/DL (50-170); PERCENT SATURATION 32.3 % (13.2-45.0)
== END ==
LOC: M LAB REF 16:23
PROVIDERS: ATTEND Nurse Practitioner Family
DX: E61.1 Iron deficiency (principal); D64.9 Anemia, unspecified

== ENCOUNTER 2025-09-08 22:01 | Emergency (ER) | payer OTHER ==
[~2025-09-08] VITALS: Ht 162.6 cm; Wt 97.9 kg
[2025-09-09] MEDS ORDERED: LACT20EL PO (01:19)
[2025-09-09] MEDS ORDERED: ONDA-282 PO (01:21)
[2025-09-09] MEDS: MAGNESIUM CITRATE 300 ML BTL PO ONE (01:31)
[2025-09-09 01:32] VITALS: BP 123/80; TEMP 98; O2SAT 99
== END 2025-09-09 01:33 | disposition home or self-care (01) ==
LOC: M ED 22:01
DX: K59.00 Constipation, unspecified (principal); I10 Essential (primary) hypertension; F20.9 Schizophrenia, unspecified; Z79.899 Other long term (current) drug therapy; Z88.8 Allergy status to other drugs, medicaments and biological substances; Z91.040 Latex allergy status